=== PATIENT | female | born 1955 | race Caucasian/White ===

== ENCOUNTER → 2016-11-05 | Outpatient (CLI) | payer MEDICARE ==
--- NOTE | 2016-11-05 16:36 | REP ---
CHEST X-RAY PA AND LATERAL: 11/05/2016. Comparison: 03/09/2010 and 02/13/2010. Clinical history: 61-year-old female with left-sided chest pain. Findings: The lungs are adequately inflated. There is some underlying interstitial change, greatest in the mid and lower lung zone. No pleural effusion, lateral pleural thickening, apical scarring or pneumothorax. I see no dense consolidation or parenchymal mass. No pulmonary nodule. Heart size not enlarged. The aorta is mildly tortuous with calcifications at the arch, but normal for age. Airway intact. There is no mediastinal or hilar contour abnormality or mass. Pulmonary arteries unremarkable. No pneumothorax, pneumomediastinum. Bones show no compression deformity or destructive lesion. Impression: 1. Lungs shows some minor basilar fibrotic changes mid and lower lung zones without cardiomegaly, edema, effusion, acute infiltrate or parenchymal lung mass. 2. No cardiomegaly, aortic aneurysm or other acute finding.
== END ==
LOC: M CLY 14:26
PROVIDERS: ATTEND Family Medicine
DX: R91.8 Other nonspecific abnormal finding of lung field (principal)

== ENCOUNTER → 2016-11-05 | Outpatient (REF) | payer MEDICARE ==
[2016-11-06 12:37] LABS: FOLATE 13.6 NG/ML (>5.4); VITAMIN B12 LEVEL 613 PG/ML (247-911)
[2016-11-06 12:39] LABS: BASO # 0.1 K/mm3 (0.0-0.2); BASO % 0.8 % (0.0-1.0); EOS # 0.1 K/mm3 (0.0-0.50); EOS % 1.5 % (0.0-3.0); LARGE UNSTAINED CELL # 0.1 K/mm3 (0.0-0.4); LARGE UNSTAINED CELL % 1.4 % (0.0-4.0); LYMPH # 2.3 K/mm3 (1.5-4.5); LYMPH % 25.4 % (24.0-44.0); MEAN CORPUSCULAR HEMOGLOBIN 33.6 pg (27.0-33.0); MEAN CORPUSCULAR HGB CONC 34.4 g/dl (32.0-36.5); MEAN CORPUSCULAR VOLUME 97.5 fl (80.0-96.0); MONO # 0.5 K/mm3 (0.0-0.8); NEUTROPHILS % 65.9 % (36.0-66.0); PLATELET COUNT, AUTOMATED 306 k/mm3 (150-450); RED CELL DISTRIBUTION WIDTH 12.3 % (11.5-14.5); WHITE BLOOD COUNT 9.1 K/mm3 (4.0-10.0)
[2016-11-06 12:53] LABS: ALBUMIN 3.9 GM/DL (3.2-5.2); ALBUMIN/GLOBULIN RATIO 0.95 (1.00-1.93); ALKALINE PHOSPHATASE 74 U/L (45-117); ALT/SGPT 24 U/L (12-78); ANION GAP 8 MEQ/L (8-16); AST/SGOT 19 U/L (15-37); BILIRUBIN,TOTAL 0.7 MG/DL (0.2-1.0); BLOOD UREA NITROGEN 25 MG/DL (7-18); CALCIUM LEVEL 9.4 MG/DL (8.5-10.1); CARBON DIOXIDE LEVEL 33 MEQ/L (21-32); CHLORIDE LEVEL 96 MEQ/L (98-107); CHOLESTEROL LEVEL 157 MG/DL (<200); CREATININE FOR GFR 1.02 MG/DL (0.55-1.02); GLUCOSE, FASTING 93 MG/DL (70-105); POTASSIUM SERUM 3.9 MEQ/L (3.5-5.1); SODIUM LEVEL 137 MEQ/L (136-145); TRIGLYCERIDES LEVEL 138 MG/DL (<150); URIC ACID 7.1 MG/DL (2.6-6.0)
[2016-11-06 13:34] LABS: ERYTHROCYTE SEDIMENTATION RATE 16 mm/hr (0-30)
== END ==
LOC: M SFHCCLAY 14:14
PROVIDERS: ATTEND Family Medicine
DX: I10 Essential (primary) hypertension (principal); R07.89 Other chest pain; M25.562 Pain in left knee; R20.2 Paresthesia of skin; E11.42 Type 2 diabetes mellitus with diabetic polyneuropathy; E78.2 Mixed hyperlipidemia; G47.09 Other insomnia; M1A.9XX0 Chronic gout, unspecified, without tophus (tophi); F31.9 Bipolar disorder, unspecified
CPT/HCPCS: 71020; 80053; 80061; 80164; 82607; 82746; 83036; 84443; 84550; 85025; 85652; 86038; 86140; 86200; 93005; G0463

== ENCOUNTER → 2017-02-16 | Outpatient (REF) | payer MEDICARE ==
[2017-02-16 20:24] LABS: ALBUMIN 3.8 GM/DL (3.2-5.2); ALBUMIN/GLOBULIN RATIO 0.86 (1.00-1.93); ALKALINE PHOSPHATASE 81 U/L (45-117); ALT/SGPT 30 U/L (12-78); ANION GAP 8 MEQ/L (8-16); AST/SGOT 26 U/L (7-37); BILIRUBIN,TOTAL 0.5 MG/DL (0.2-1.0); BLOOD UREA NITROGEN 26 MG/DL (7-18); CALCIUM LEVEL 9.1 MG/DL (8.5-10.1); CARBON DIOXIDE LEVEL 33 MEQ/L (21-32); CHLORIDE LEVEL 99 MEQ/L (98-107); CREATININE FOR GFR 0.98 MG/DL (0.55-1.02); GLOMERULAR FILTRATION RATE > 60.0 (>51); GLUCOSE, FASTING 102 MG/DL (70-105); POTASSIUM SERUM 3.8 MEQ/L (3.5-5.1); SODIUM LEVEL 140 MEQ/L (136-145); TOTAL PROTEIN 8.2 GM/DL (6.4-8.2); URIC ACID 4.3 MG/DL (2.6-6.0)
== END ==
LOC: M SFHCCLAY 09:31
PROVIDERS: ATTEND Family Medicine
DX: E11.42 Type 2 diabetes mellitus with diabetic polyneuropathy (principal); M1A.00X0 Idiopathic chronic gout, unspecified site, without tophus (tophi); Z23 Encounter for immunization
CPT/HCPCS: 80053; 84550; 90471; 90686; G0463

== ENCOUNTER → 2017-03-09 | Outpatient (REF) | payer MEDICARE ==
[2017-03-09 18:02] LABS: ALBUMIN 3.9 GM/DL (3.2-5.2); ALBUMIN/GLOBULIN RATIO 0.91 (1.00-1.93); BILIRUBIN,TOTAL 0.7 MG/DL (0.2-1.0); CALCIUM LEVEL 9.5 MG/DL (8.5-10.1); CREATININE FOR GFR 1.34 MG/DL (0.55-1.02); GLOMERULAR FILTRATION RATE 43.1 (>51); POTASSIUM SERUM 3.4 MEQ/L (3.5-5.1); TOTAL PROTEIN 8.2 GM/DL (6.4-8.2)
[2017-03-09 18:50] LABS: BASO % 0.4 % (0.0-1.0); EOS # 0.1 10^3/uL (0.0-0.50); EOS % 1.3 % (0.0-3.0); IMMATURE GRANULOCYTE % 0.3 % (0-0); LYMPH % 19.4 % (24.0-44.0); MEAN CORPUSCULAR HEMOGLOBIN 33.3 pg (27.0-33.0); MEAN CORPUSCULAR HGB CONC 32.3 g/dl (32.0-36.5); MEAN CORPUSCULAR VOLUME 103.2 fl (80.0-96.0); MONO # 0.6 10^3/uL (0.0-0.8); MONO % 5.5 % (0.0-5.0); NEUTROPHILS # 7.4 10^3/uL (1.8-7.7); NEUTROPHILS % 73.1 % (36.0-66.0); PLATELET COUNT, AUTOMATED 325 10^3/uL (150-450); WHITE BLOOD COUNT 10.1 10^3/uL (4.0-10.0)
== END ==
LOC: M SFHCCLAY 11:51
PROVIDERS: ATTEND Family Medicine
DX: R19.7 Diarrhea, unspecified (principal); R50.9 Fever, unspecified; R05 Cough

== ENCOUNTER → 2017-03-09 | Outpatient (CLI) | payer MEDICARE ==
--- NOTE | 2017-03-09 13:45 | REP ---
Clinical: Cough . Comparison: 11/05/2016 . Technique: PA and lateral. Findings: The mediastinum and cardiac silhouette are normal. The lung holloway are clear and without acute consolidation, effusion, or pneumothorax. The skeletal structures are intact and normal. Impression: 1. No focal consolidation. Signed by Casey Coleman MD 03/09/2017 01:35 P
== END ==
LOC: M CLY 12:01
PROVIDERS: ATTEND Family Medicine
DX: R05 Cough (principal)
CPT/HCPCS: 71020; 80053; 85025; 87507; G0463

== ENCOUNTER → 2017-05-21 | Outpatient (REF) | payer MEDICARE ==
[2017-05-21 12:25] LABS: ESTIMATED AVERAGE GLUCOSE 131 MG/DL (60-110); HEMOGLOBIN A1c 6.2 %
[2017-05-21 12:32] LABS: ALBUMIN 3.6 GM/DL (3.2-5.2); ALBUMIN/GLOBULIN RATIO 0.84 (1.00-1.93); ALKALINE PHOSPHATASE 73 U/L (45-117); ALT/SGPT 15 U/L (12-78); ANION GAP 9 MEQ/L (8-16); AST/SGOT 16 U/L (7-37); BILIRUBIN,TOTAL 0.6 MG/DL (0.2-1.0); BLOOD UREA NITROGEN 30 MG/DL (7-18); CALCIUM LEVEL 9.6 MG/DL (8.8-10.2); CARBON DIOXIDE LEVEL 34 MEQ/L (21-32); CHLORIDE LEVEL 99 MEQ/L (98-107); CREATININE FOR GFR 0.96 MG/DL (0.55-1.30); GLOMERULAR FILTRATION RATE > 60.0 (>45); GLUCOSE, FASTING 112 MG/DL (70-100); POTASSIUM SERUM 4.2 MEQ/L (3.5-5.1); SODIUM LEVEL 142 MEQ/L (136-145); TOTAL PROTEIN 7.9 GM/DL (6.4-8.2)
== END ==
LOC: M SFHCCLAY 09:19
DX: E11.42 Type 2 diabetes mellitus with diabetic polyneuropathy (principal)
CPT/HCPCS: 80053

== ENCOUNTER → 2017-06-02 | Outpatient (CLI) | payer MEDICARE | LOC: M RAD 13:47 | DX: I65.23 Occlusion and stenosis of bilateral carotid arteries (principal); Z82.49 Family history of ischemic heart disease and other diseases of the circulatory system | CPT/HCPCS: 70544 ==

== ENCOUNTER → 2017-07-21 | Outpatient (REF) | payer MEDICARE ==
[2017-07-21 16:41] LABS: ANION GAP 9 MEQ/L (8-16); BLOOD UREA NITROGEN 43 MG/DL (7-18); CALCIUM LEVEL 9.4 MG/DL (8.8-10.2); CARBON DIOXIDE LEVEL 30 MEQ/L (21-32); CHLORIDE LEVEL 101 MEQ/L (98-107); CREATININE FOR GFR 1.38 MG/DL (0.55-1.30); GLOMERULAR FILTRATION RATE 41.5 (>45); GLUCOSE, FASTING 77 MG/DL (70-100); POTASSIUM SERUM 4.6 MEQ/L (3.5-5.1); SODIUM LEVEL 140 MEQ/L (136-145)
== END ==
LOC: M SFHCCLAY 11:27
DX: I10 Essential (primary) hypertension (principal)
CPT/HCPCS: 80048

== ENCOUNTER → 2017-09-14 | Outpatient (REF) | payer MEDICARE | LOC: M LAB REF 15:37 | DX: L03.039 Cellulitis of unspecified toe (principal) | CPT/HCPCS: 87186 ==

== ENCOUNTER → 2018-06-27 | Outpatient (REF) | payer MEDICARE ==
[2018-06-27 17:58] LABS: HEMOGLOBIN A1c 7.1 %
[2018-06-27 18:01] LABS: ALT/SGPT 22 U/L (12-78); BILIRUBIN,TOTAL 0.5 MG/DL (0.2-1.0); BLOOD UREA NITROGEN 15 MG/DL (7-18); CALCIUM LEVEL 9.7 MG/DL (8.8-10.2); CARBON DIOXIDE LEVEL 29 MEQ/L (21-32); CHLORIDE LEVEL 99 MEQ/L (98-107); CREATININE FOR GFR 0.98 MG/DL (0.55-1.30); GLOMERULAR FILTRATION RATE > 60.0 (>45); GLUCOSE, FASTING 179 MG/DL (70-100); SODIUM LEVEL 137 MEQ/L (136-145); TOTAL PROTEIN 8.1 GM/DL (6.4-8.2)
== END ==
LOC: M SFHCCLAY 09:47
PROVIDERS: ATTEND Family Medicine
DX: E11.42 Type 2 diabetes mellitus with diabetic polyneuropathy (principal)

== ENCOUNTER → 2018-08-24 | Outpatient (CLI) | payer MEDICARE ==
--- NOTE | 2018-08-24 11:17 | REP ---
Duplex carotid sonography: History: Essential hypertension. Findings: Antegrade flow was observed in both vertebral arteries. Right carotid: Right common carotid artery is unremarkable on two-dimensional scanning. There is mild soft plaquing in the right carotid bulb and proximal ICA on two-dimensional scanning. Color flow and spectral Doppler interrogation are unremarkable on the right. Velocity chart right carotid: PSV EDV Right CCA 93.0 cm/s Right ICA 66.0 16.0 Right ECA 94.0 Right ICA/CCA ratio normal 0.7. Impression: 16-49% category narrowing in the right ICA by Doppler velocity criteria, probably near the lower end of this range. Left carotid: The left common carotid artery is unremarkable on two-dimensional scanning. There is mixed plaquing in the proximal ICA and proximal ECA. Color flow and spectral Doppler interrogation are unremarkable on the left. Velocity chart left carotid: PSV EDV Left CCA 91.0 cm/s Left ICA 101.0 17.0 Left ECA 101.0 Left ICA/CCA ratio normal 1.1. Impression: 16-49% category narrowing in the left ICA by Doppler velocity criteria. Electronically Signed by Regan Rendon MD 08/24/2018 01:41 P
== END ==
LOC: M RAD 08:01
PROVIDERS: ATTEND Family Medicine
DX: I65.29 Occlusion and stenosis of unspecified carotid artery (principal); I10 Essential (primary) hypertension; H35.00 Unspecified background retinopathy; E11.42 Type 2 diabetes mellitus with diabetic polyneuropathy

== ENCOUNTER → 2018-10-27 | Outpatient (REF) | payer MEDICARE ==
[2018-10-28 11:35] LABS: ALBUMIN 3.8 GM/DL (3.2-5.2); BILIRUBIN,TOTAL 0.3 MG/DL (0.2-1.0); CALCIUM LEVEL 9.4 MG/DL (8.8-10.2); CHOLESTEROL RISK RATIO 2.941 (<5); CREATININE FOR GFR 1.39 MG/DL (0.55-1.30); POTASSIUM SERUM 4.2 MEQ/L (3.5-5.1); TOTAL PROTEIN 7.9 GM/DL (6.4-8.2); URIC ACID 4.1 MG/DL (2.6-6.0)
[2018-10-28 11:50] LABS: HEMOGLOBIN A1c 9.7 %
== END ==
LOC: M SFHCCLAY 13:53
PROVIDERS: ATTEND Family Medicine
DX: E11.42 Type 2 diabetes mellitus with diabetic polyneuropathy (principal); M1A.9XX0 Chronic gout, unspecified, without tophus (tophi)

== ENCOUNTER → 2018-11-22 | Outpatient (CLI) | payer MEDICARE ==
[~2018-11-22] MED LIST: AMLO10TA5 PO; ATOR80TA59 PO; CELE1CAP9 PO; CHOL50003 PO; COMBAER6 INH; DIVA500T9 PO; DULO1CAP4 PO; FARX1TAB3 PO; FLUC150T PO; FURO40TA2 PO; GABA-843 PO; GABA600T4 PO; LOSA100T5 PO; MAGN1CAP PO; METF500T4 PO; MONT10TA2 PO; OMEP-221 PO; TIZA4CAP PO; VENTAER INH; ZYLO300T6 PO
[2018-11-22 11:38] LABS: RHEUMATOID FACTOR QUANT < 10.0 IU/ML (<15.0)
[2018-11-22 11:39] LABS: VITAMIN B12 LEVEL 975 PG/ML
[2018-11-22 11:40] LABS: FOLATE 16.4 NG/ML
[2018-11-22 12:49] LABS: DRVV SCREEN 42.8 SEC
[2018-11-22 12:59] LABS: PTT LUPUS TYPE ANTICOAG SCREEN 1.1 (0-1.2)
[2018-11-25 14:17] LABS: ANTI DS-DNA AB <1:10 titer (.); ANTI-HISTONE ANTIBODIES 1.9 Units (0.0-0.9); ANTINUCLEAR ANTIBODIES DIRECT Negative (Negative); CARDIOLIPIN IGA ANTIBODY <9 APL U/mL (0-11); CARDIOLIPIN IGG ANTIBODY <9 GPL U/mL (0-14); CARDIOLIPIN IGM ANTIBODY <9 MPL U/mL (0-12); CERULOPLASMIN 30.8 mg/dL (19.0-39.0); COPPER PLASMA 117 ug/dL (72-166); RNP ANTIBODIES <0.2 AI (0.0-0.9); SJOGREN'S ANTI SS-A <0.2 AI (0.0-0.9); SJOGREN'S ANTI SS-B <0.2 AI (0.0-0.9); SMITH ANTIBODIES 0.4 AI (0.0-0.9)
== END ==
LOC: M LAB 10:23
PROVIDERS: ATTEND Psychiatry & Neurology Neurology
DX: L93.0 Discoid lupus erythematosus (principal); R25.1 Tremor, unspecified; E83.01 Wilson's disease; E03.9 Hypothyroidism, unspecified

== ENCOUNTER 2018-12-01 12:42 | Observation (INO) | payer MEDICARE ==
[~2018-12-01] VITALS: Ht 170.2 cm; Wt 99.9 kg
[2018-12-01] MEDS ORDERED: GABA-843 PO ×2 (13:08)
[2018-12-01] MEDS ORDERED: OMEP-221 PO (13:08)
[2018-12-01] MEDS ORDERED: DIVA500T9 PO (13:08)
[2018-12-01] MEDS ORDERED: ZYLO300T6 PO (13:08)
[2018-12-01] MEDS ORDERED: MAGN1CAP PO (13:08)
[2018-12-01] MEDS ORDERED: CHOL50003 PO (13:08)
[2018-12-01] MEDS ORDERED: MONT10TA2 PO (13:08)
[2018-12-01] MEDS ORDERED: METF-791 PO ×2 (13:08)
[2018-12-01] MEDS ORDERED: LOSA100T5 PO (13:08)
[2018-12-01] MEDS ORDERED: AMLO10TA5 PO (13:08)
[2018-12-01] MEDS ORDERED: CELE1CAP9 PO (13:08)
[2018-12-01] MEDS ORDERED: ATOR80TA59 PO (13:08)
[2018-12-01] MEDS ORDERED: FURO40TA2 PO (13:08)
[2018-12-01] MEDS ORDERED: FLUC150T PO (13:08)
[2018-12-01] MEDS ORDERED: FARX1TAB3 PO (13:08)
[2018-12-01] MEDS ORDERED: TIZA4CAP PO (13:08)
[2018-12-01] MEDS ORDERED: DULO1CAP4 PO (13:08)
[2018-12-01] MEDS ORDERED: ASPIRIN 81 MG CHEW TABLET PO ONE (13:15)
[2018-12-01 13:40] LABS: BASO # 0.1 10^3/uL (0.0-0.2); BASO % 0.6 % (0.0-1.0); EOS # 0.1 10^3/uL (0.0-0.50); EOS % 1.1 % (0.0-3.0); HEMATOCRIT 41.9 % (36.0-47.0); HEMOGLOBIN 13.6 g/dl (12.0-15.5); LYMPH # 2.4 10^3/uL (1.5-4.5); LYMPH % 18.4 % (24.0-44.0); MEAN CORPUSCULAR HEMOGLOBIN 30.9 pg (27.0-33.0); MEAN CORPUSCULAR HGB CONC 32.5 g/dl (32.0-36.5); MEAN CORPUSCULAR VOLUME 95.2 fl (80.0-96.0); MONO # 0.7 10^3/uL (0.0-0.8); MONO % 5.1 % (0.0-5.0); NEUTROPHILS # 9.8 10^3/uL (1.8-7.7); NEUTROPHILS % 74.3 % (36.0-66.0); PLATELET COUNT, AUTOMATED 286 10^3/uL (150-450); WHITE BLOOD COUNT 13.1 10^3/uL (4.0-10.0)
--- NOTE | 2018-12-01 13:47 | REP ---
CT brain without contrast: History: Dizziness. Slurred speech. CT findings: Preliminary digital glass crusher radiograph is unremarkable. Bone window settings demonstrate that the bony calvarium is intact. There is heavy vascular calcification in the distal internal carotid arteries bilaterally. On soft tissue window settings, there is no evidence of intracranial hemorrhage. No evidence of infarct, mass, extra-axial fluid collection, or midline shift is seen. Ball white differentiation pattern is normal above and below the tentorium. Impression: Vascular calcification. Otherwise negative noncontrast head CT. No evidence of hemorrhage, infarction, or mass. Electronically Signed by Regan Rendon MD 12/01/2018 04:50 P
--- NOTE | 2018-12-01 14:04 | REP ---
PA and lateral chest: Comparison is 03/09/2017. The lung holloway are clear. The cardiac size is normal. The ruma, mediastinum, and skeletal structures are unremarkable. Impression: Negative PA and lateral chest. There is no interval change. Electronically Signed by Davie Huertas MD 12/01/2018 01:55 P
[2018-12-01 14:20] LABS: ALBUMIN 3.6 GM/DL (3.2-5.2); ALT/SGPT 19 U/L (12-78); BILIRUBIN,DIRECT 0.1 MG/DL (0.0-0.2); BILIRUBIN,TOTAL 0.2 MG/DL (0.2-1.0); BLOOD UREA NITROGEN 38 MG/DL (7-18); CALCIUM LEVEL 9.3 MG/DL (8.8-10.2); CARBON DIOXIDE LEVEL 30 MEQ/L (21-32); CHLORIDE LEVEL 89 MEQ/L (98-107); CK-MB VALUE MASS 1.2 NG/ML (<3.6); CPK CREATINE PHOSPHOKINASE 166 U/L (26-192); CREATININE FOR GFR 1.85 MG/DL (0.55-1.30); FREE T4 1.09 NG/DL (0.76-1.46); GLOMERULAR FILTRATION RATE 29.5 (>45); GLUCOSE, FASTING 445 MG/DL (70-100); MB/CK RELATIVE INDEX 0.72 (< OR =4); POTASSIUM SERUM 4.6 MEQ/L (3.5-5.1); SODIUM LEVEL 130 MEQ/L (136-145); TOTAL PROTEIN 8.1 GM/DL (6.4-8.2); TROPONIN I < 0.02 NG/ML (< 0.10)
[2018-12-01 14:32] LABS: INR 0.94; PROTHROMBIN TIME 12.3 SECONDS (11.8-14.0)
[2018-12-01 14:33] LABS: PARTIAL THROMBOPLASTIN TIME 25.7 SECONDS (25.0-38.4)
[2018-12-01] MEDS ORDERED: NS 1,000 ML IV SCH (14:53)
[2018-12-01] MEDS ORDERED: GLUCOSE 4 GM CHEW TABLET PO PRN (15:30)
[2018-12-01] MEDS ORDERED: DEXTROSE 50% 50 ML SYRINGE IV PRN (15:30)
[2018-12-01] MEDS ORDERED: GLUCAGON FOR INJ 1 MG VIAL (J1610) SC PRN (15:30)
--- NOTE | 2018-12-01 15:51 | HPE ---
DATE OF ADMISSION: 12/01/2018 CHIEF COMPLAINT: Acute kidney injury, diabetes out of control. HISTORY: Maria Esther Delatorre is a 63-year-old patient of Dr. Lance in [place], transferring her care to Dr. Martinez's team practice this December, who has been feeling unwell for several months. She came to the emergency room today because she thought that her face was weak and in a symmetric fashion. Her speech was slurred and she was feeling "drunk" and shaky. Her blood sugars have been in the 300 range recently. She said she has not felt well for several months but it became worse recently. She has polyuria and polydipsia. Her diabetes is out of control. Hemoglobin A1c was over 9% and blood sugar today is 400. She was on metformin and has monotherapy with good control of her blood sugars until recently when her diabetes became uncontrolled and she had been started on Farxiga. She also was recently placed on Diflucan for some toenail fungus and she has not felt well since then either. She has a history of type 2 diabetes with a recent hemoglobin A1c of over 9%. She has never been on insulin before. She has hypertension, history of asthma, history of bipolar disorder, history of gout in her knees and toes, and gastroesophageal reflux disease (GERD). She has chronic low back pain with lumbosacral spinal stenosis, left-sided sciatica, is followed by Dr. Montana [facility]. They have her on gabapentin, Cymbalta, and tizanidine. She was seen for the first time at the neurologist's office a week ago on 11/22/2018. They ordered some laboratory tests and planned an MRI of the brain and were considering propranolol for her tremor. That laboratory testing was reviewed as was the patient's office record. Laboratory testing done 11/22/2018 showed normal thyroid function tests, normal B12 level, a negative antinuclear antibody (JAE). On 11/05/2016, she had a positive JAE of 1:640 with a homogenous pattern, repeat JAE is negative and that was just done on 11/22/20180. SOCIAL HISTORY: She smokes half a pack to a pack of cigarettes per day. No alcohol intake. She is disabled. She is . MEDICATIONS: Home medicines are: - magnesium oxide 400 mg twice a day - vitamin D 2000 units daily - albuterol inhaler or nebulizer as needed - gabapentin 300 mg twice a day - omeprazole 40 mg daily - tizanidine 2 mg at bedtime - Combivent one puff twice a day - Depakote ER 500 mg two tablets daily - losartan/hydrochlorothiazide (HCTZ) 100/25 one daily - amlodipine 10 mg daily - furosemide 40 mg daily - Singulair 10 mg daily - allopurinol 300 mg daily - atorvastatin 80 mg daily - metformin ER 1000 mg in the morning and 500 mg in the evening - tramadol 50 mg every six hours as needed - Cymbalta 30 mg daily - Diflucan 150 mg two tablets weekly for toenail fungus - She was started on Farxiga 10 mg on 10/28/2018. ALLERGIES: LISINOPRIL caused unspecified swelling, NONSTEROIDAL ANTIINFLAMMATORY DRUG (NSAID) such as MOBIC, IBUPROFEN, NAPROXEN have not proven beneficial in improving in her pain. REVIEW OF SYSTEMS: She has polyuria, polydipsia. She feels vaguely weak but not in a focal fashion. She says sometimes she feels like her hands and arms are jerking but then she also has a fine tremor. There has been no ariadna syncope. She reportedly had chest pain in the emergency room but she does not described that to me. PHYSICAL EXAMINATION: Blood pressure 114/78. Vital signs per the flow sheet. No orthostatic drop. GENERAL APPEARANCE: She is alert, conversant, in no distress, looks mildly anxious. Pupils are equal, round, and reactive to light. Tympanic membranes (TMs) and oropharynx benign. NECK: No masses. LUNGS: Clear. HEART: Regular rate and rhythm without murmur. ABDOMEN: Soft, nontender, no masses. EXTREMITIES: No clubbing, cyanosis, or edema. She has a fine tremor of the hands. There is no cogwheeling or rigidity. There is normal coordination. I did not test her gait. LABORATORY DATA: Sodium 130, potassium 4.6, BUN 38, creatinine 1.85 (baseline creatinine is between 0.9 and 1.3), blood sugar 445. Liver function tests normal. White count 13.1, hemoglobin 13.6, platelets 286. PT/PTT normal. Urinalysis shows 3+ glucose, no white cells. Chest x-ray: No active disease. CT of the head is unremarkable. IMPRESSION: 1. Acute kidney injury, probably from diabetes out of control and dehydration. She will be admitted to the medical floor. We will hold her diuretics. She will be admitted to a telemetry bed. We will hydrate her with some lactated ringers and recheck her laboratories in the morning. 2. Diabetes, out of control. We probably should start insulin therapy. I am holding her metformin and Farxiga in the face of the acute kidney injury. Her bicarbonate is normal so she is not in a ketotic state from the Farxiga. Sliding scale insulin and basal insulin initiated. 3. Vague neurologic complaints. MRI of the brain has been ordered. 4. Hypertension. We will hold her diuretics and hold her amlodipine for now. 5. Hyperlipidemia. Continue her atorvastatin. 6. Bipolar disorder. We will check a Depakote level. Continue her current regimen. The patient is admitted to the hospitalist group.
--- NOTE | 2018-12-01 16:56 | REPVR ---
EXAM: MR Head Without Contrast EXAM DATE/TIME: 12/01/2018 4:41 PM CLINICAL HISTORY: 63 years old, female; Patient HX: Prior on pac BURGOS said her blood sugar is high 451 dizziness weakness; Additional info: CVA TECHNIQUE: Imaging protocol: MR of the head without contrast. COMPARISON: MRA BRAIN W/O CONTRAST 06/02/2017 2:28 PM FINDINGS: Brain: There is hyperintense signal within the white matter. This is a nonspecific finding most likely to represent chronic microvascular disease. DWI demonstrate no evidence of acute infarct. Gradient echo images demonstrate no evidence of hemorrhage. There is no extra-axial collection. There is no mass. There are no abnormal flow voids. Ventricles: There is no hydrocephalus. Bones/joints: Unremarkable. Soft tissues: Normal. Sinuses: Normal as visualized. No acute sinusitis. Mastoid air cells: Normal as visualized. No mastoid effusion. Orbits: Unremarkable. IMPRESSION: 1. There is chronic microvascular disease. 2. No acute intracranial lesion or injury. Electronically signed by: Justice Sanchez On 12/01/2018 16:56:36 PM
--- NOTE | 2018-12-01 17:00 | REPVR ---
EXAM: MR Angiogram Head Without Contrast, Arteries EXAM DATE/TIME: 12/01/2018 4:41 PM CLINICAL HISTORY: 63 years old, female; Dizziness and giddiness; Patient HX: Prior on pac BURGOS said her blood sugar is high 451 dizziness weakness; Additional info: CVA TECHNIQUE: Imaging protocol: MR angiogram head without contrast. Exam focused on the arteries. 3D rendering: MIP reconstructed images were created and reviewed. COMPARISON: MRA BRAIN W/O CONTRAST 06/02/2017 2:28 PM FINDINGS: Right internal carotid artery: Unremarkable. Intracranial segment is patent with no significant stenosis. No aneurysm. Right anterior cerebral artery: Unremarkable. No occlusion or significant stenosis. No aneurysm. Right middle cerebral artery: Unremarkable. No occlusion or significant stenosis. No aneurysm. Right posterior cerebral artery: Unremarkable. No occlusion or significant stenosis. No aneurysm. Right vertebral artery: Unremarkable. No occlusion or significant stenosis. No aneurysm. Left internal carotid artery: Unremarkable. Intracranial segment is patent with no significant stenosis. No aneurysm. Left anterior cerebral artery: Unremarkable. No occlusion or significant stenosis. No aneurysm. Left middle cerebral artery: Unremarkable. No occlusion or significant stenosis. No aneurysm. Left posterior cerebral artery: There is a origin of the left posterior cerebral artery. No stenosis. No aneurysm. Left vertebral artery: Unremarkable. No occlusion or significant stenosis. No aneurysm. Basilar artery: Unremarkable. No occlusion or significant stenosis. No aneurysm. IMPRESSION: Normal brain MRA. No change from prior scan. Electronically signed by: Justice Sanchez On 12/01/2018 16:59:53 PM
[2018-12-01 17:15] VITALS: BP 118/72
[2018-12-01] MEDS: LR 1,000 ML IV SCH (17:28)
[2018-12-01] MEDS: HumaLOG INSULIN (NovoLOG) PER UNIT SC SCH ×2 (17:37→21:46)
[2018-12-01] MEDS ORDERED: GABA600T4 PO (17:47)
[2018-12-01] MEDS ORDERED: VENTAER INH (17:49)
[2018-12-01] MEDS ORDERED: COMBAER6 INH (17:49)
[2018-12-01 20:00] VITALS: BP 115/58
[2018-12-01] MEDS ORDERED: LEVEMIR (INSULIN DETEMIR) 1 UNITS/0.01ML SC SCH (21:00)
[2018-12-01] MEDS: GABAPENTIN 300 MG CAP PO SCH (21:47)
[2018-12-02] VITALS (7 sets, daily range): BP systolic 95–143; BP diastolic 54–80
[2018-12-02] MEDS: LR 1,000 ML IV SCH ×2 (01:00→08:57)
--- NOTE | 2018-12-02 05:14 | ECGEPIP ---
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
[2018-12-02 05:41] LABS: HEMATOCRIT 37.3 % (36.0-47.0); HEMOGLOBIN 12.1 g/dl (12.0-15.5); MEAN CORPUSCULAR HEMOGLOBIN 30.1 pg (27.0-33.0); MEAN CORPUSCULAR HGB CONC 32.4 g/dl (32.0-36.5); MEAN CORPUSCULAR VOLUME 92.8 fl (80.0-96.0); PLATELET COUNT, AUTOMATED 256 10^3/uL (150-450); RED BLOOD COUNT 4.02 10^6/uL (4.00-5.40)
[2018-12-02 06:03] LABS: CALCIUM LEVEL 8.9 MG/DL (8.8-10.2); CREATININE FOR GFR 1.49 MG/DL (0.55-1.30); GLOMERULAR FILTRATION RATE 37.9 (>45); POTASSIUM SERUM 3.8 MEQ/L (3.5-5.1); VALPROIC ACID (DEPAKOTE) 62.5 UG/ML (50.0-100.0)
[2018-12-02] MEDS: HumaLOG INSULIN (NovoLOG) PER UNIT SC SCH ×4 (07:47→20:47)
[2018-12-02] MEDS: GABAPENTIN 300 MG CAP PO SCH ×2 (08:57→20:46)
[2018-12-02] MEDS: ATORVASTATIN 20 MG TAB PO SCH (08:57)
[2018-12-02] MEDS: PANTOPRAZOLE 40MG TAB (PROTONIX) PO SCH (08:57)
[2018-12-02] MEDS: DULoxetine 20 MG CAP (CYMBALTA) PO SCH (08:58)
[2018-12-02] MEDS: DIVALPROEX 500MG *ER* TAB PO SCH ×2 (08:58→20:46)
[2018-12-02] MEDS: ALLOPURINOL 300 MG TAB PO SCH (08:58)
[2018-12-02] MEDS: amLODIPine 10 MG TAB PO SCH (08:58)
[2018-12-02] MEDS: LOSARTAN 50 MG TAB PO SCH (08:59)
[2018-12-02] MEDS: NS 1,000 ML IV SCH ×2 (10:43→20:02)
--- NOTE | 2018-12-02 10:50 | IPNPDOC ---
Subjective Date Seen The patient was seen on 12/02/18. Subjective Chief Complaint/HPI Patient is comfortable in no distress. Offers no new complaints General: Denies: ROS Unobtainable, Chills, Night Sweats, Fatigue, Malaise, Normal Appetite, Other Symptoms Constitutional: Denies: Chills, Fever, Malaise, Night Sweats, Weakness, Fatigue, Weight Loss, Lethargy, Other Eyes: Denies: Pain, Vision change, Conjunctivae inflammation, Eyelid inflammation, Redness, Other ENT: Denies: Head Aches, Ear Pain, Dysphagia, Sinus Congestion, Post Nasal Dri p, Sore Throat, Epistaxis, Other Symptoms Skin: Denies: Rash, Lesions, Jaundice, Bruising, Itching, Dry, Breakdown, Nail Changes, Other Pulmonary: Denies: Dyspnea, Cough, Pleuritic Chest Pain, Other Symptoms Cardiovascular: Denies: Chest Pain, Palpitations, Orthopnea, Paroxysmal Noc. Dyspnea, Edema, Lt Headedness, Other Symptoms Gastrointestinal: Denies: Nausea, Vomiting, Abdominal Pain, Diarrhea, Constipation, Melena, Hematochezia, Other Symptoms Endocrine: Denies: Polydipsia, Polyphagia, Polyuria, Heat Intolerance, Cold Intolerance, Other Endocrine Sx Musculoskeletal: Denies: Neck Pain, Back Pain, Shoulder Pain, Arm Pain, Hand Pain, Leg Pain, Foot Pain, Joint Pain, Muscle Pain, Spasms, Other Symptoms Neurological: Denies: Weakness, Numbness, Incoordination, Change in speech, Confusion, Seizures, Other Symptoms Objective Physical Examination General Exam: Positive: Alert Eye Exam: Positive: PERRLA, Conjunctiva & lids normal ENT Exam: Positive: Atraumatic Neck Exam: Positive: Supple Chest Exam: Positive: Clear to auscultation, Normal air movement Heart Exam: Positive: Rate Normal, Normal S1, Normal S2 Abdomen Exam: Positive: Normal bowel sounds, Soft, Tenderness Extremity Exam: Positive: Normal pulses Skin Exam: Positive: Nl turgor and temperature Neuro Exam: Positive: Strength at 5/5 X4 ext, Sensation Intact Assessment /Plan Problems (1) Diabetes mellitus with hyperglycemia Status: Acute Problem Text: Patient has been started on insulin support Industry blood sugar is still very high arm will increase insulin to 14 units subcutaneous daily at bedtime Diabetic teaching has been ordered Dietary consult has been ordered Patient probably will be discharged home on Lantus insulin and follow with Dr. Coronado as an outpatient (2) EVE (acute kidney injury) Status: Acute Problem Text: HPI secondary to uncontrolled diabetes mellitus and interaction with multiple meds including diuretics Patient is off Lasix, hydrochlorothiazide and ARB Monitor BUN/creatinine Change IV fluids to normal saline at 100 mL per hour\ Repeat labs in the Out of bed as tolerated Plan/VTE VTE Prophylaxis Ordered?: Yes VS, I&O, 24H, Fishbone Vital Signs/I&O Vital Signs Date Time Temp Pulse Resp B/P (MAP) Pulse Ox O2 Delivery O2 Flow Rate FiO2 12/02/18 08:58 142/60 12/02/18 08:00 97.5 81 18 91 12/01/18 15:45 Room Air I&O- Last 24 Hours up to 6 AM 12/02/18 06:00 Intake Total 1780 ml Output Total 1400 ml Balance 380 ml Laboratory Data 24H LABS Laboratory Tests 2 12/01/18 13:22: Immature Granulocyte % (Auto) 0.5, White Blood Count 13.1H, Red Blood Count 4.40, Hemoglobin 13.6, Hematocrit 41.9, Mean Corpuscular Volume 95.2, Mean Corpuscular Hemoglobin 30.9, Mean Corpuscular Hemoglobin Concent 32.5, Red Cell Distribution Width 13.4, Platelet Count 286, Neutrophils (%) (Auto) 74.3H, Lymphocytes (%) (Auto) 18.4L, Monocytes (%) (Auto) 5.1H, Eosinophils (%) (Auto) 1.1, Basophils (%) (Auto) 0.6, Neutrophils # (Auto) 9.8H, Lymphocytes # (Auto) 2.4, Monocytes # (Auto) 0.7, Eosinophils # (Auto) 0.1, Basophils # (Auto) 0.1, Nucleated Red Blood Cells % (auto) 0.0, Anion Gap 11, Glomerular Filtration Rate 29.5L, Calcium Level 9.3, Aspartate Amino Transf (AST/SGOT) 7, Alanine Aminotransferase (ALT/SGPT) 19, Alkaline Phosphatase 94, Total Bilirubin 0.2, Direct Bilirubin 0.1, Total Creatine Kinase 166, Creatine Kinase MB 1.2, Creatine Kinase MB Relative Index 0.72, Troponin I < 0.02, Total Protein 8.1, Albumin 3.6, Albumin/Globulin Ratio 0.80L, Thyroid Stimulating Hormone (TSH) 1.450, Free Thyroxine 1.09 12/01/18 14:07: Prothrombin Time 12.3, Prothromb Time International Ratio 0.94, Activated Partial Thromboplast Time 25.7, Urine Color STRAW, Urine Appearance CLEAR, Urine pH 5.0, Urine Specific [place] 1.011, Urine Protein NEGATIVE, Urine Glucose (UA) 3+H, Urine Ketones NEGATIVE, Urine Blood NEGATIVE, Urine Nitrite NEGATIVE, Urine Bilirubin NEGATIVE, Urine Urobilinogen 0.2, Urine Leukocyte Esterase NEGATIVE, Urine WBC (Auto) 1, Urine RBC (Auto) 2, Urine Hyaline Casts (Auto) 0, Urine B acteria (Auto) NEGATIVE, Urine Squamous Epithelial Cells 2, Urine Sperm (Auto) 12/01/18 17:31: Bedside Glucose (Misc Panel) 292H 12/01/18 21:36: Bedside Glucose (Misc Panel) 415H 12/02/18 05:13: Nucleated Red Blood Cells % (auto) 0.0, Anion Gap 5L, Glomerular Filtration Rate 37.9L, Blood Urea Nitrogen 34H, Creatinine 1.49H, Sodium Level 134L, Potassium Level 3.8, Chloride Level 96L, Carbon Dioxide Level 33H, Calcium Level 8.9, Valproic Acid (Depakene) Level 62.5 CBC/BMP Laboratory Tests 12/01/18 13:22 Red Blood Count 4.40, Mean Corpuscular Volume 95.2, Mean Corpuscular Hemoglobin 30.9, Mean Corpuscular Hemoglobin Concent 32.5, Red Cell Distribution Width 13.4, Neutrophils (%) (Auto) 74.3 H, Lymphocytes (%) (Auto) 18.4 L, Monocytes (%) (Auto) 5.1 H, Eosinophils (%) (Auto) 1.1, Basophils (%) (Auto) 0.6, Patricia trophils # (Auto) 9.8 H, Lymphocytes # (Auto) 2.4, Monocytes # (Auto) 0.7, Eosinophils # (Auto) 0.1, Basophils # (Auto) 0.1 12/02/18 05:13 Red Blood Count 4.02, Mean Corpuscular Volume 92.8, Mean Corpuscular Hemoglobin 30.1, Mean Corpuscular Hemoglobin Concent 32.4, Red Cell Distribution Width 13.5, Calcium Level 8.9 STEPHANI LIU MD Dec 02, 2018 10:49
[2018-12-02] MEDS: ENOXAPARIN 40 MG/0.4 ML SYRINGE (J1650) SC SCH (12:03)
[2018-12-02] MEDS ORDERED: LEVEMIR (INSULIN DETEMIR) 1 UNITS/0.01ML SC SCH (21:00)
[2018-12-03 04:00] VITALS: BP 118/63
[2018-12-03 04:46] LABS: HEMATOCRIT 36.9 % (36.0-47.0); MEAN CORPUSCULAR HEMOGLOBIN 30.9 pg (27.0-33.0); MEAN CORPUSCULAR HGB CONC 32.5 g/dl (32.0-36.5); MEAN CORPUSCULAR VOLUME 95.1 fl (80.0-96.0); PLATELET COUNT, AUTOMATED 236 10^3/uL (150-450); RED BLOOD COUNT 3.88 10^6/uL (4.00-5.40); WHITE BLOOD COUNT 7.8 10^3/uL (4.0-10.0)
[2018-12-03 05:14] LABS: ALBUMIN 2.8 GM/DL (3.2-5.2); BILIRUBIN,TOTAL 0.3 MG/DL (0.2-1.0); CALCIUM LEVEL 8.3 MG/DL (8.8-10.2); CREATININE FOR GFR 1.11 MG/DL (0.55-1.30); GLOMERULAR FILTRATION RATE 53.2 (>45); POTASSIUM SERUM 3.9 MEQ/L (3.5-5.1); TOTAL PROTEIN 6.8 GM/DL (6.4-8.2)
[2018-12-03] MEDS: NS 1,000 ML IV SCH (06:08)
[2018-12-03 08:00] VITALS: BP 132/86
[2018-12-03] MEDS: ATORVASTATIN 20 MG TAB PO SCH (08:04)
[2018-12-03 08:05] VITALS: BP 132/78
[2018-12-03] MEDS: PANTOPRAZOLE 40MG TAB (PROTONIX) PO SCH (08:05)
[2018-12-03] MEDS: DULoxetine 20 MG CAP (CYMBALTA) PO SCH (08:05)
[2018-12-03] MEDS: DIVALPROEX 500MG *ER* TAB PO SCH (08:05)
[2018-12-03] MEDS: GABAPENTIN 300 MG CAP PO SCH (08:05)
[2018-12-03] MEDS: amLODIPine 10 MG TAB PO SCH (08:05)
[2018-12-03] MEDS: ENOXAPARIN 40 MG/0.4 ML SYRINGE (J1650) SC SCH (08:06)
[2018-12-03] MEDS: LOSARTAN 50 MG TAB PO SCH (08:06)
[2018-12-03] MEDS: ALLOPURINOL 300 MG TAB PO SCH (08:06)
[2018-12-03] MEDS: HumaLOG INSULIN (NovoLOG) PER UNIT SC SCH ×2 (08:07→11:28)
[2018-12-03] MEDS ORDERED: INSUDET SC (10:14)
--- NOTE | 2018-12-03 11:43 | DS.PDOC ---
Discharge Summary General Date of Admission Dec 01, 2018 at 12:43 Date of Discharge 12/03/18 Primary Care Physician: Cliff Martinez M.D. Discharge Summary PROCEDURES PERFORMED DURING STAY: None. ADMITTING DIAGNOSES: 1. Uncontrolled diabetes mellitus,EVE. DISCHARGE DIAGNOSES: 1. Uncontrolled diabetes mellitus, EVE. COMPLICATIONS/CHIEF COMPLAINT: Acute Kidney Injury. HISTORY OF PRESENT ILLNESS: Maria Esther Delatorre is a 63-year-old , who has been feeling unwell for several months. She came to the emergency room today because she thought that her face was weak and in a symmetric fashion. Her speech was slurred and she was feeling "drunk" and shaky. Her blood sugars have been in the 300 range recently. She said she has not felt well for several months but it became worse recently. She has polyuria and polydipsia. Her diabetes is out of control. Hemoglobin A1c was over 9% and blood sugar today is 400. She was on metformin and has monotherapy with good control of her blood sugars until recently when her diabetes became uncontrolled and she had been started on Farxiga. . HOSPITAL COURSE: Patient was admitted to medical floor, started on IV fluids and as well as on long-acting insulin at nighttime. Initially patient had hyperglycemia which progressively improved and her dose of Lantus was increased to 14 units daily at bedtime with a.m. blood sugar today was 169. Patient's BUN/creatinine is 28 and 0.70. Patient's diuretic including Lasix, hydrochlorothiazide, ARB were DC'd, patient's blood pressure remained stable and her kidney function improved very well, which is within normal limits. Patient's oral hypoglycemic agents including Glucophage were DC'd as they can cause renal dysfunction as well as clinically they were not useful enough to be continued. Hence, patient has been started on insulin Lantus on daily basis. Insulin and diabetic education was done and patient will be discharged home on home insulin and follow with the PCP in one week for adjustment. The dosage.. DISCHARGE MEDICATIONS: Please see below. ALLERGIES: Please see below. PHYSICAL EXAMINATION ON DISCHARGE: VITAL SIGNS: Please see below. GENERAL: Within normal limits HEENT: PERRLA NECK: Supple CARDIOVASCULAR EXAMINATION: S1, S2, regular RESPIRATORY EXAMINATION: Clear to A&P ABDOMINAL EXAMINATION: , Soft, nontender, positive present EXTREMITIES: No clubbing, cyanosis or edema SKIN: [Within normal limits NEUROLOGICAL EXAMINATION: Within normal limits PSYCHIATRIC EXAMINATION: The normal limit LABORATORY DATA: Please see below. IMAGING: None PROGNOSIS: Good ACTIVITY: As tolerated. DIET: Carbohydrate consistent diet DISCHARGE PLAN: Follow with PCP in one week DISPOSITION: . Home DISCHARGE INSTRUCTIONS: 1. As per discharge instructions. ITEMS TO FOLLOWUP ON ON OUTPATIENT: 1. Follow with PCP in one week. DISCHARGE CONDITION: Stable. TIME SPENT ON DISCHARGE: 40 minutes. Vital Signs/I&Os Vital Signs Date Time Temp Pulse Resp B/P (MAP) Pulse Ox O2 Delivery O2 Flow Rate FiO2 12/03/18 08:05 132/78 12/03/18 08:00 97.3 75 20 94 12/01/18 15:45 Room Air I&O- Last 24 Hours up to 6 AM 12/03/18 06:00 Intake Total 2940 ml Output Total 3200 ml Balance -260 ml Laboratory Data Labs 24H Laboratory Tests 2 12/02/18 11:40: Bedside Glucose (Misc Panel) 271H 12/02/18 17:14: Bedside Glucose (Misc Panel) 189H 12/02/18 20:01: Bedside Glucose (Misc Panel) 253H 12/03/18 04:19: Nucleated Red Blood Cells % (auto) 0.0, Anion Gap 7L, Glomerular Filtration Rate 53.2, Blood Urea Nitrogen 23H, Creatinine 1.11, Sodium Level 139, Potassium Level 3.9, Chloride Level 102, Carbon Dioxide Level 30, Calcium Level 8.3L, Aspartate Amino Transf (AST/SGOT) 10, Alanine Aminotransferase (ALT/SGPT) 15, Alkaline Phosphatase 76, Total Bilirubin 0.3, Total Protein 6.8, Albumin 2.8#L, Albumin/Globulin Ratio 0.70L 12/03/18 11:14: Bedside Glucose (Misc Panel) 241H CBC/BMP Laboratory Tests 12/03/18 04:19 Red Blood Count 3.88 L, Mean Corpuscular Volume 95.1, Mean Corpuscular Hemoglobin 30.9, Mean Corpuscular Hemoglobin Concent 32.5, Red Cell Distribution Width 13.4, Calcium Level 8.3 L, Aspartate Amino Transf (AST/SGOT) 10, Alanine Aminotransferase (ALT/SGPT) 15, Alkaline Phosphatase 76, Total Bilirubin 0.3, Total Protein 6.8, Albumin 2.8 #L FSBS Laboratory Tests Test 12/02/18 11:40 12/02/18 17:14 12/02/18 20:01 12/03/18 11:14 Range/Units Bedside Glucose ([facility]) 271 189 253 241 80-115 MG/DL Discharge Medications Scheduled Allopurinol (Zyloprim) 300 Mg Tablet, 300 MG PO DAILY, (Reported) Amlodipine Besylate (Amlodipine Besylate) 10 Mg Tablet, 10 MG PO DAILY, (Reported) Atorvastatin Calcium (Atorvastatin Calcium) 80 Mg Tablet, 80 MG PO DAILY, (Reported) Celecoxib (Celecoxib) 200 Mg Capsule, 200 MG PO DAILY, (Reported) Cholecalciferol (Vitamin D3) (Vitamin D3) 5,000 Unit Capsule, 5,000 UNITS PO DAILY, (Reported) Divalproex Sodium (Divalproex Sodium ER) 500 Mg Tab.er.24h, 1,000 MG PO DAILY, (Reported) Fluconazole (Fluconazole) 150 Mg Tablet, 300 MG PO QWEEK, (Reported) WEDNESDAY Gabapentin (Gabapentin) 300 Mg Capsule, 300 MG PO QHS, (Reported) Gabapentin (Gabapentin) 600 Mg Tablet, 600 MG PO DAILY, (Reported) Insulin Detemir (Levemir) 100 Unit/1 Ml Vial, 14 UNITS SC QHS Ipratropium/Albuterol Sulfate (Combivent Respimat 20-100 Mcg) 4 Gm Mist.inhal, 1 PUFF INH QID, (Reported) Magnesium Oxide (Magnesium) 500 Mg Capsule, 1,000 MG PO BID, (Reported) Montelukast Sodium (Montelukast Sodium) 10 Mg Tablet, 10 MG PO QHS, (Reported) Omeprazole (Omeprazole) 40 Mg Capsule.dr, 40 MG PO DAILY, (Reported) Tizanidine HCl (Tizanidine HCl) 4 Mg Capsule, 8 MG PO QHS, (Reported) Scheduled PRN Albuterol Sulfate (Ventolin Hfa) 18 Gm Hfa.aer.ad, 2 PUFF INH Q4-6HP PRN for wheezing, (Reported) Allergies Coded Allergies: avocado (Verified Allergy, Severe, can't breathe, 12/01/18) bee venom protein (honey bee) (Verified Allergy, Severe, 12/01/18) lisinopril (Verified Allergy, Severe, tongue swelling, 12/01/18) codeine (Verified Adverse Reaction, Intermediate, nausea/vomiting, 12/01/18) STEPHANI LIU MD Dec 03, 2018 11:43
[2018-12-03 12:00] VITALS: BP 127/76
== END 2018-12-03 12:35 | disposition home or self-care (01) ==
LOC: M ED 12:42 → M ED INP 12:43 → M PCU 17:00
PROVIDERS: ADMIT Family Medicine; ATTEND Internal Medicine
DX: N17.9 Acute kidney failure, unspecified (principal); E11.65 Type 2 diabetes mellitus with hyperglycemia; R47.81 Slurred speech; R53.1 Weakness; R42 Dizziness and giddiness; I10 Essential (primary) hypertension; E78.5 Hyperlipidemia, unspecified; F31.9 Bipolar disorder, unspecified; I67.82 Cerebral ischemia; J45.909 Unspecified asthma, uncomplicated; K21.9 Gastro-esophageal reflux disease without esophagitis; M10.079 Idiopathic gout, unspecified ankle and foot; M48.07 Spinal stenosis, lumbosacral region; M54.42 Lumbago with sciatica, left side; F17.210 Nicotine dependence, cigarettes, uncomplicated; Z79.899 Other long term (current) drug therapy; Z79.4 Long term (current) use of insulin; Z79.2 Long term (current) use of antibiotics; Z91.018 Allergy to other foods; Z91.030 Bee allergy status; Z88.5 Allergy status to narcotic agent; Z88.8 Allergy status to other drugs, medicaments and biological substances; Z88.6 Allergy status to analgesic agent
CPT/HCPCS: 36415; 70450; 70544; 70551; 71046; 80048; 80053; 80076; 80164; 81001; 82550; 82553; 84439; 84443; 84484; 85025; 85027; 85610; 85730; 93005; 93041; 94760; 96360; 96361; 96372; 99285; G0378; J1650

== ENCOUNTER → 2018-12-14 | Outpatient (REF) | payer MEDICARE ==
[~2018-12-14] MED LIST changes: +INSUDET SC
[2018-12-14 13:09] LABS: ALBUMIN 3.5 GM/DL (3.2-5.2); CALCIUM LEVEL 9.4 MG/DL (8.8-10.2); CREATININE FOR GFR 1.01 MG/DL (0.55-1.30); GLOMERULAR FILTRATION RATE 59.3 (>45); MAGNESIUM LEVEL 1.5 MG/DL (1.8-2.4); PHOSPHORUS LEVEL 3.6 MG/DL (2.5-4.9)
[2018-12-14 13:50] LABS: MALB URINE SIEMENS 53.6 MG/L; MAU/CREAT RATIO 33.7 MCG/MG (0.0-30.0)
[2018-12-14 14:01] LABS: TOTAL 25(OH) VITAMIN D 36.6 NG/ML (30.0-100.0)
== END ==
LOC: M SFHCPLAZ 09:57
PROVIDERS: ATTEND Nurse Practitioner Family
DX: E11.42 Type 2 diabetes mellitus with diabetic polyneuropathy (principal); I10 Essential (primary) hypertension; E55.9 Vitamin D deficiency, unspecified

== ENCOUNTER → 2018-12-29 | Outpatient (REF) | payer MEDICARE ==
[~2018-12-29] MED LIST changes: +METF-791 PO; -METF500T4 PO
[2018-12-29 18:32] LABS: PLATELET COUNT, AUTOMATED 316 10^3/uL (150-450)
[2018-12-29 18:43] LABS: PROTHROMBIN TIME 12.9 SECONDS (11.8-14.0)
== END ==
LOC: M LABDRAW1 12:00
PROVIDERS: ATTEND Physician Assistant
DX: Z01.812 Encounter for preprocedural laboratory examination (principal); M48.061 Spinal stenosis, lumbar region without neurogenic claudication; Z79.899 Other long term (current) drug therapy

== ENCOUNTER → 2019-01-02 | Outpatient (CLI) | payer MEDICARE ==
--- NOTE | 2019-01-02 10:16 | REP ---
RENAL ULTRASOUND WITH DUPLEX DOPPLER RENAL ARTERY EVALUATION: Real-time sonographic evaluation of the kidneys performed. Kidneys are normal in size and echotexture, right kidney measuring 11.9 x 6.8 x 6.5 cm and left kidney 11.6 x 5.5 x 6.1 cm. There is no hydronephrosis bilaterally. Small cyst in the medial upper pole of the right kidney measures 8 mm in diameter. Doppler evaluation of the urinary bladder demonstrates a left ureteral jet. A right ureteral jet is not visualized. Real-time ultrasound evaluation and duplex Doppler interrogation of the renal arteries is performed bilaterally. Peak systolic velocity of the abdominal aorta at the level of the renal artery is 92.9 cm/s. Peak systolic velocity of the main right renal artery is 125 cm/s, renal to aortic ratio 1.3. Resistive indices are measured in the upper, mid, and lower thirds of the right kidney and range between 0.69 and 0.71. Acceleration times range between 0.015 and 0.029. Peak systolic velocity of the main left renal artery is 95.3 cm/s, renal to aortic ratio 1.0. Resistive indices left kidney range between 0.66 and 0.72. Acceleration times range between 0.037 and 0.044. IMPRESSION: Subcentimeter cyst upper pole right kidney. No hydronephrosis. No compelling duplex Doppler sonographic evidence of significant renal artery stenosis bilaterally. Electronically Signed by Davie Ball MD 01/03/2019 09:52 A
== END ==
LOC: M RAD 08:29
PROVIDERS: ATTEND Nurse Practitioner Family
DX: I10 Essential (primary) hypertension (principal)

== ENCOUNTER → 2019-02-01 | Outpatient (CLI) | payer MEDICARE ==
--- NOTE | 2019-02-01 16:38 | REPMRS ---
Patient History The patient states she has not had a clinical breast exam in over a year. Patient is postmenopausal. No known family history of cancer. 3D TOMOSYNTHESIS WAS PERFORMED. The [facility] lifetime risk for breast cancer is 7.1%. Digital Woman Screen Mammo: February 01, 2019 - Exam #: [id number] Bilateral CC and MLO view(s) were taken. Technologist: Connie Dunaway, Technologist No prior studies available for comparison. FINDINGS: There are scattered fibroglandular densities. There is no evidence of cancer on this mammogram. Assessment: BI-RADS/ACR category 2 mammogram. Benign Findings. Recommendation Routine screening mammogram of both breasts in 1 year (for women over age 40). This mammogram was interpreted with the aid of an FDA-approved computer-aided dectection system. Electronically Signed By: Davie Ball MD 02/01/19 [id number]
--- NOTE | 2019-02-06 15:48 | DEXA ---
AP SPINE L1 - L4 1.760 4.6 5.9 LT FEMUR TOTAL 0.966 -0.3 0.7 LT NECK 0.929 -0.8 0.5 RT FEMUR TOTAL 0.996 -0.1 0.9 RT NECK 0.951 -0.6 0.7 TOTAL BODY TOTAL OTHER COMMENTS: Normal bone densitometry of the spine and hips. FOLLOW-UP: Recommendation for the next bone density exam: 5 years. VERA
== END ==
LOC: M WHC 08:54
PROVIDERS: ATTEND Nurse Practitioner Family
DX: Z12.31 Encounter for screening mammogram for malignant neoplasm of breast (principal); Z13.820 Encounter for screening for osteoporosis; Z78.0 Asymptomatic menopausal state

== ENCOUNTER → 2019-04-26 | Outpatient (REF) | payer MEDICARE ==
[2019-04-26 10:14] LABS: BASO # 0.1 10^3/uL (0.0-0.2); BASO % 0.8 % (0.0-1.0); EOS # 0.2 10^3/uL (0.0-0.5); EOS % 1.9 % (0.0-3.0); HEMATOCRIT 36.4 % (36.0-47.0); HEMOGLOBIN 11.5 g/dl (12.0-15.5); LYMPH # 3.3 10^3/uL (1.5-5.0); LYMPH % 41.8 % (24.0-44.0); MEAN CORPUSCULAR HEMOGLOBIN 30.6 pg (27.0-33.0); MEAN CORPUSCULAR HGB CONC 31.6 g/dl (32.0-36.5); MEAN CORPUSCULAR VOLUME 96.8 fl (80.0-96.0); MONO # 0.5 10^3/uL (0.0-0.8); MONO % 6.4 % (0.0-5.0); NEUTROPHILS # 3.9 10^3/uL (1.5-8.5); NEUTROPHILS % 48.7 % (36.0-66.0); PLATELET COUNT, AUTOMATED 319 10^3/uL (150-450); RED BLOOD COUNT 3.76 10^6/uL (4.00-5.40)
[2019-04-26 10:22] LABS: ALBUMIN 3.7 GM/DL (3.2-5.2); ALT/SGPT 16 U/L (12-78); BILIRUBIN,DIRECT 0.1 MG/DL (0.0-0.2); BILIRUBIN,TOTAL 0.3 MG/DL (0.2-1.0); BLOOD UREA NITROGEN 25 MG/DL (7-18); CALCIUM LEVEL 9.1 MG/DL (8.8-10.2); CARBON DIOXIDE LEVEL 30 MEQ/L (21-32); CHLORIDE LEVEL 100 MEQ/L (98-107); CREATININE FOR GFR 1.13 MG/DL (0.55-1.30); GLOMERULAR FILTRATION RATE 51.9 (>45); GLUCOSE, FASTING 139 MG/DL (70-100); LIPASE 230 U/L (73-393); SODIUM LEVEL 138 MEQ/L (136-145); TOTAL PROTEIN 7.5 GM/DL (6.4-8.2)
[2019-04-27 12:07] LABS: ALBUMIN 4.04 GM/DL (3.29-5.55); ALBUMIN % 53.8 % (55.8-66.1); ALPHA-1-GLOBULIN % 4.3 % (2.9-4.9); ALPHA-1-GLOBULINS 0.32 GM/DL (0.17-0.41); ALPHA-2-GLOBULINS 0.92 GM/DL (0.42-0.99); ALPHA-2-GLOBULINS % 12.3 % (7.1-11.8); BETA-1-GLOBULINS % 6.6 % (4.7-7.2); BETA-2-GLOBULINS 0.53 GM/DL (0.19-0.55)
== END ==
LOC: M SFHCPLAZ 08:26
PROVIDERS: ATTEND Physician Assistant Medical
DX: R89.2 Abnormal level of other drugs, medicaments and biological substances in specimens from other organs, systems and tissues (principal); D72.9 Disorder of white blood cells, unspecified

== ENCOUNTER → 2019-05-25 | Outpatient (CLI) | payer MEDICARE ==
[~2019-05-25] MED LIST changes: -MONT10TA2 PO; +MONT10TA4 PO
[2019-05-25 12:35] LABS: BASO # 0.1 10^3/uL (0.0-0.2); BASO % 0.7 % (0.0-1.0); EOS # 0.2 10^3/uL (0.0-0.5); EOS % 2.2 % (0.0-3.0); HEMATOCRIT 37.8 % (36.0-47.0); HEMOGLOBIN 12.2 g/dl (12.0-15.5); LYMPH # 2.9 10^3/uL (1.5-5.0); LYMPH % 36.3 % (24.0-44.0); MEAN CORPUSCULAR HEMOGLOBIN 31.2 pg (27.0-33.0); MEAN CORPUSCULAR HGB CONC 32.3 g/dl (32.0-36.5); MEAN CORPUSCULAR VOLUME 96.7 fl (80.0-96.0); MONO # 0.5 10^3/uL (0.0-0.8); MONO % 6.6 % (0.0-5.0); NEUTROPHILS # 4.4 10^3/uL (1.5-8.5); PLATELET COUNT, AUTOMATED 322 10^3/uL (150-450); RED BLOOD COUNT 3.91 10^6/uL (4.00-5.40); WHITE BLOOD COUNT 8.1 10^3/uL (4.0-10.0)
[2019-05-25 12:47] LABS: ALBUMIN 3.8 GM/DL (3.2-5.2); BILIRUBIN,TOTAL 0.4 MG/DL (0.2-1.0); CALCIUM LEVEL 9.6 MG/DL (8.8-10.2); CHOLESTEROL RISK RATIO 2.964 (<5); CREATININE FOR GFR 1.1 MG/DL (0.55-1.30); FREE T4 1.02 NG/DL (0.76-1.46); GLOMERULAR FILTRATION RATE 53.6 (>45); MAGNESIUM LEVEL 3.5 MG/DL (1.8-2.4); POTASSIUM SERUM 4.4 MEQ/L (3.5-5.1); THYROID STIMULATING HORMONE 6.58 uIU/ML (0.358-3.740); TOTAL PROTEIN 7.9 GM/DL (6.4-8.2); URIC ACID 3.7 MG/DL (2.6-6.0); VALPROIC ACID (DEPAKOTE) 72.8 UG/ML (50.0-100.0)
[2019-05-25 12:48] LABS: TOTAL 25(OH) VITAMIN D 40.6 NG/ML (30.0-100.0)
[2019-05-25 13:04] LABS: HEMOGLOBIN A1c 7.3 %
== END ==
LOC: M PLALAB 09:12
PROVIDERS: ATTEND Nurse Practitioner Family
DX: E55.9 Vitamin D deficiency, unspecified (principal); F31.9 Bipolar disorder, unspecified; M1A.9XX0 Chronic gout, unspecified, without tophus (tophi); E78.2 Mixed hyperlipidemia; I10 Essential (primary) hypertension; E11.9 Type 2 diabetes mellitus without complications

== ENCOUNTER → 2019-05-26 | Outpatient (REF) | payer MEDICARE ==
[2019-05-26 18:29] LABS: CREATININE, URINE 59.5 MG/DL; MALB URINE SIEMENS 28.8 MG/L; MAU/CREAT RATIO 48.4 MCG/MG (0.0-30.0)
== END ==
LOC: M SFHCPLAZ 16:51
PROVIDERS: ATTEND Nurse Practitioner Family
DX: E11.9 Type 2 diabetes mellitus without complications (principal)

== ENCOUNTER → 2019-08-31 | Outpatient (REF) | payer MEDICARE ==
[~2019-08-31] MED LIST changes: -AMLO10TA5 PO; +AMLO1TAB25 PO; +ATOR40TA75; +BENZ-52; +CHLO125TA PO; +GABA-282 PO; -GABA-843 PO; +LOSA50TA88; -METF-791 PO; +METF-838 PO; +METO1TAB32; +MONT10TA10 PO; -MONT10TA4 PO; +PRIM50TA6; +TORS10TA3; +TRES1INJ
[2019-08-31 15:03] LABS: BASO # 0.1 10^3/uL (0.0-0.2); BASO % 0.7 % (0.0-1.0); EOS # 0.2 10^3/uL (0.0-0.5); HEMATOCRIT 41.3 % (36.0-47.0); HEMOGLOBIN 13.2 g/dl (12.0-15.5); LYMPH # 2.9 10^3/uL (1.5-5.0); LYMPH % 26.2 % (24.0-44.0); MEAN CORPUSCULAR HEMOGLOBIN 31.1 pg (27.0-33.0); MEAN CORPUSCULAR VOLUME 97.2 fl (80.0-96.0); MONO # 0.6 10^3/uL (0.0-0.8); MONO % 5.7 % (0.0-5.0); NEUTROPHILS # 7.2 10^3/uL (1.5-8.5); PLATELET COUNT, AUTOMATED 350 10^3/uL (150-450); RED BLOOD COUNT 4.25 10^6/uL (4.00-5.40); WHITE BLOOD COUNT 11.1 10^3/uL (4.0-10.0)
[2019-08-31 15:28] LABS: ALBUMIN 3.7 GM/DL (3.2-5.2); ALT/SGPT 15 U/L (12-78); BILIRUBIN,TOTAL 0.3 MG/DL (0.2-1.0); BLOOD UREA NITROGEN 24 MG/DL (7-18); CALCIUM LEVEL 9.4 MG/DL (8.8-10.2); CARBON DIOXIDE LEVEL 31 MEQ/L (21-32); CHLORIDE LEVEL 102 MEQ/L (98-107); CREATININE FOR GFR 1.08 MG/DL (0.55-1.30); FREE T4 1.13 NG/DL (0.76-1.46); GLOMERULAR FILTRATION RATE 54.7 (>45); GLUCOSE, FASTING 114 MG/DL (70-100); MAGNESIUM LEVEL 1.8 MG/DL (1.8-2.4); NT-PRO BNP 128 PG/ML (<125); POTASSIUM SERUM 5.2 MEQ/L (3.5-5.1); SODIUM LEVEL 139 MEQ/L (136-145); TROPONIN I < 0.02 NG/ML (< 0.10)
== END ==
LOC: M SFHCPLAZ 13:17
PROVIDERS: ATTEND Family Medicine
DX: I11.0 Hypertensive heart disease with heart failure (principal); I50.32 Chronic diastolic (congestive) heart failure

== ENCOUNTER → 2019-10-05 | Outpatient (REF) | payer MEDICARE ==
[~2019-10-05] MED LIST changes: +AMLO10TA5 PO; -AMLO1TAB25 PO; -ATOR40TA75; -BENZ-52; -CHLO125TA PO; -GABA-282 PO; +GABA-843 PO; -LOSA50TA88; -METO1TAB32; -MONT10TA10 PO; +MONT10TA4 PO; -PRIM50TA6; -TORS10TA3; -TRES1INJ
[2019-10-05 17:55] LABS: ALBUMIN 3.3 GM/DL (3.2-5.2); ALT/SGPT 19 U/L (12-78); BILIRUBIN,TOTAL 0.3 MG/DL (0.2-1.0); BLOOD UREA NITROGEN 24 MG/DL (7-18); CALCIUM LEVEL 9.2 MG/DL (8.8-10.2); CARBON DIOXIDE LEVEL 29 MEQ/L (21-32); CHLORIDE LEVEL 102 MEQ/L (98-107); CREATININE FOR GFR 0.99 MG/DL (0.55-1.30); GLOMERULAR FILTRATION RATE > 60.0 (>45); GLUCOSE, FASTING 184 MG/DL (70-100); NT-PRO BNP 263 PG/ML (<125); POTASSIUM SERUM 4.5 MEQ/L (3.5-5.1); SODIUM LEVEL 139 MEQ/L (136-145); TOTAL PROTEIN 7.4 GM/DL (6.4-8.2)
== END ==
LOC: M PLALAB 13:52
PROVIDERS: ATTEND Physician Assistant Medical
DX: I50.32 Chronic diastolic (congestive) heart failure (principal)

== ENCOUNTER 2019-10-25 18:11 | Emergency (ER) | payer MEDICARE ==
[~2019-10-25 18:11] MED LIST changes: -AMLO10TA5 PO; +AMLO1TAB25 PO
[2019-10-25 18:38] LABS: BASO # 0.1 10^3/uL (0.0-0.2); BASO % 0.4 % (0.0-1.0); EOS # 0.3 10^3/uL (0.0-0.5); EOS % 2.2 % (0.0-3.0); HEMATOCRIT 41.9 % (36.0-47.0); HEMOGLOBIN 13.6 g/dl (12.0-15.5); LYMPH # 2.4 10^3/uL (1.5-5.0); LYMPH % 21.4 % (24.0-44.0); MEAN CORPUSCULAR HEMOGLOBIN 31.3 pg (27.0-33.0); MEAN CORPUSCULAR HGB CONC 32.5 g/dl (32.0-36.5); MEAN CORPUSCULAR VOLUME 96.3 fl (80.0-96.0); MONO # 0.7 10^3/uL (0.0-0.8); MONO % 5.9 % (0.0-5.0); NEUTROPHILS % 69.8 % (36.0-66.0); PLATELET COUNT, AUTOMATED 321 10^3/uL (150-450); RED BLOOD COUNT 4.35 10^6/uL (4.00-5.40); WHITE BLOOD COUNT 11.4 10^3/uL (4.0-10.0)
[2019-10-25] MEDS ORDERED: METO1TAB32 (18:38)
[2019-10-25] MEDS ORDERED: TORS10TA3 (18:38)
[2019-10-25] MEDS ORDERED: ATOR40TA75 (18:38)
[2019-10-25] MEDS ORDERED: PRIM50TA6 (18:38)
[2019-10-25] MEDS ORDERED: LOSA50TA88 (18:38)
[2019-10-25] MEDS: NITROGLYCERIN 0.4 MG SUBL TABLET SL PRN ×2 (18:44→18:49)
[2019-10-25] MEDS ORDERED: ASPIRIN 81 MG CHEW TABLET PO ONE (18:45)
[2019-10-25 18:49] VITALS: BP 125/88
[2019-10-25 18:59] LABS: BLOOD UREA NITROGEN 15 MG/DL (7-18); CALCIUM LEVEL 8.7 MG/DL (8.8-10.2); CARBON DIOXIDE LEVEL 27 MEQ/L (21-32); CHLORIDE LEVEL 104 MEQ/L (98-107); GLOMERULAR FILTRATION RATE 59.8 (>45); GLUCOSE, FASTING 148 MG/DL (70-100); POTASSIUM SERUM 3.9 MEQ/L (3.5-5.1); SODIUM LEVEL 138 MEQ/L (136-145)
[2019-10-25] MEDS ORDERED: ISOVUE-370 76% 100ML VIAL As Ordered ONE (19:07)
[2019-10-25 19:30] LABS: ALBUMIN 3.6 GM/DL (3.2-5.2); ALT/SGPT 16 U/L (12-78); BILIRUBIN,DIRECT 0.1 MG/DL (0.0-0.2); BILIRUBIN,TOTAL 0.3 MG/DL (0.2-1.0); CK-MB VALUE MASS 1.1 NG/ML (<3.6); CPK CREATINE PHOSPHOKINASE 135 U/L (26-192); LIPASE 253 U/L (73-393); MB/CK RELATIVE INDEX 0.81 (< OR =4); TOTAL PROTEIN 7.5 GM/DL (6.4-8.2); TROPONIN I < 0.02 NG/ML (< 0.10); VALPROIC ACID (DEPAKOTE) 65.5 UG/ML (50.0-100.0)
--- NOTE | 2019-10-25 19:53 | REPVR ---
PROCEDURE INFORMATION: Exam: CT Angiography Chest Without And With Contrast Exam date and time: 10/25/2019 7:13 PM Age: 64 years old Clinical indication: Other: Chest pain, pleuritic TECHNIQUE: Imaging protocol: Computed tomographic angiography of the chest without and with intravenous contrast. 3D rendering: MIP and/or 3D reconstructed images were created by the technologist. Radiation optimization: All CT scans at this facility use at least one of these dose optimization techniques: automated exposure control; mA and/or kV adjustment per patient size (includes targeted exams where dose is matched to clinical indication); or iterative reconstruction. Contrast material: ISOVUE 370; Contrast volume: 75 ml; Contrast route: INTRAVENOUS (IV); COMPARISON: CR PORTABLE CHEST X-RAY 10/25/2019 6:41 PM FINDINGS: Pulmonary arteries: No CT evidence of acute pulmonary embolism. Aorta: No CT evidence of acute aortic dissection, aneurysm or acute intramural thoracic aortic hematoma. Lungs: Both lungs are well-aerated. Small bullae versus intrapulmonary cysts are seen in the right middle lobe and right lower lobe on images 108 through 114 of series 401. Pleural space: Unremarkable. No pneumothorax. No pleural effusion. Heart: The heart size is normal. Minimal coronary artery calcification is present. Lymph nodes: Unremarkable. No enlarged lymph nodes. Bones/joints: No acute vascular, visceral or bony injury evident in the chest or upper abdomen. Chronic degenerative discovertebral disease with endplate osteophytosis is seen throughout the mid to lower thoracic spine. Soft tissues: Unremarkable. IMPRESSION: 1. No acute vascular, visceral or bony injury evident in the chest or upper abdomen. 2. No CT evidence of acute pulmonary embolism. 3. No CT evidence of acute aortic dissection, aneurysm or acute intramural thoracic aortic hematoma. 4. The heart size is normal. Minimal coronary artery calcification is present. 5. Both lungs are well-aerated. Small bullae versus intrapulmonary cysts are seen in the right middle lobe and right lower lobe on images 108 through 114 of series 401. 6. Chronic degenerative discovertebral disease with endplate osteophytosis is seen throughout the mid to lower thoracic spine. Electronically signed by: Rajesh Izquierdo On 10/25/2019 19:53:05 PM
[2019-10-25 20:30] VITALS: BP 124/79
[2019-10-25] MEDS ORDERED: GI COCKTAIL 50ML BTL(HYOSCYAMINE/MAALOX/LIDOCAINE VISCOUS)(1:3:1) PO ONE (20:30)
--- NOTE | 2019-10-26 03:20 | REP ---
CHEST PORTABLE: REASON: Chest pain. FINDINGS: The technique utilized in obtaining the radiograph has magnified the cardiac silhouette and accentuated the interstitial markings. The superior mediastinal structures are midline. The cardiac silhouette is unremarkable in size, shape, and position. The diaphragmatic surfaces of the lungs are regular, and the costophrenic angles are clear. The pulmonary holloway are clear. The imaged osseous structures are intact. IMPRESSION: There is no acute cardiopulmonary disease. Electronically Signed by Gian Eagle DO 10/26/2019 08:11 A
--- NOTE | 2019-10-26 05:33 | ECGEPIP ---
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
== END 2019-10-25 20:50 | disposition home or self-care (01) ==
LOC: M ED 18:11
DX: R07.9 Chest pain, unspecified (principal); R06.02 Shortness of breath; I45.19 Other right bundle-branch block; E11.9 Type 2 diabetes mellitus without complications; I11.0 Hypertensive heart disease with heart failure; I50.9 Heart failure, unspecified; J45.909 Unspecified asthma, uncomplicated; E78.5 Hyperlipidemia, unspecified; F31.9 Bipolar disorder, unspecified; M48.00 Spinal stenosis, site unspecified; M10.9 Gout, unspecified; Z79.899 Other long term (current) drug therapy; Z79.4 Long term (current) use of insulin; Z88.5 Allergy status to narcotic agent; Z88.8 Allergy status to other drugs, medicaments and biological substances; Z91.018 Allergy to other foods; Z91.030 Bee allergy status; F17.210 Nicotine dependence, cigarettes, uncomplicated
CPT/HCPCS: 36415; 71045; 71275; 80048; 80076; 80164; 82550; 82553; 83690; 84484; 85025; 93005; 93041; 94760; 99285; Q9967

== ENCOUNTER → 2020-01-26 | Outpatient (CLI) | payer MEDICARE ==
[~2020-01-26] MED LIST changes: +ATOR40TA75; +LOSA50TA88; +METO1TAB32; +PRIM50TA6; +TORS10TA3
--- NOTE | 2020-01-26 12:32 | REPPI ---
INDICATION: WHEEZING, HYPOXIA COUGH COMPARISON: 03/09/2017, 12/01/2018 TECHNIQUE: PA and lateral. FINDINGS: Mediastinum and cardiac silhouette are normal. The lung holloway demonstrate subtle diffuse interstitial prominence which may reflect a mild interstitial pneumonitis or bronchitis/reactive airway disease. No discrete focal consolidation, effusion, or pneumothorax. Skeletal structures are intact. IMPRESSION: Very subtle diffuse generalized interstitial changes. Differential diagnosis includes chronic changes as well as mild interstitial pneumonitis or bronchitis/reactive airway disease. Correlation is recommended. No focal consolidation or effusion. <Electronically signed by Casey Coleman > 01/26/20 [id number]
== END ==
LOC: M PLALAB 12:08
PROVIDERS: ATTEND Physician Assistant
DX: R06.01 Orthopnea (principal); R09.02 Hypoxemia; R05 Cough; J84.9 Interstitial pulmonary disease, unspecified

== ENCOUNTER → 2020-01-30 | Outpatient (REF) | payer MEDICARE | LOC: M SFHCPLAZ 09:47 | PROVIDERS: ATTEND Nurse Practitioner Family | DX: R06.02 Shortness of breath (principal); Z20.828 Contact with and (suspected) exposure to other viral communicable diseases ==

== ENCOUNTER → 2020-01-31 | Outpatient (REF) | payer MEDICARE ==
[2020-01-31 15:36] LABS: ALBUMIN 3.4 GM/DL (3.2-5.2); BILIRUBIN,TOTAL 0.6 MG/DL (0.2-1.0); CALCIUM LEVEL 9.7 MG/DL (8.8-10.2); CREATININE FOR GFR 1.1 MG/DL (0.55-1.30); GLOMERULAR FILTRATION RATE 53.6 (>45); POTASSIUM SERUM 4.1 MEQ/L (3.5-5.1); TOTAL PROTEIN 7.5 GM/DL (6.4-8.2)
== END ==
LOC: M SFHCPLAZ 12:48
PROVIDERS: ATTEND Nurse Practitioner Family
DX: E11.9 Type 2 diabetes mellitus without complications (principal)

== ENCOUNTER → 2020-02-06 | Outpatient (CLI) | payer MEDICARE ==
[~2020-02-06] MED LIST changes: +ISOVUE-370 76% 100ML VIAL As Ordered ONE
--- NOTE | 2020-02-06 15:15 | REP ---
INDICATION: OTHER SPECIFIED INTERSTITIAL PULMONARY DISEASES. COMPARISON: 10/25/2019. TECHNIQUE: CT chest performed following the intravenous administration of 100 cc of Isovue 370. Sagittal and coronal reconstruction images are performed. FINDINGS: Lungs: There mild stable bullous changes in the right middle and lower lobes. There is mild scattered interstitial fibrotic change bilaterally. Mediastinum: No adenopathy. Connie: No adenopathy. Axilla: No adenopathy. Pleura: No effusion. Heart: Not enlarged. Thoracic aorta: No aneurysm or dissection. Upper abdominal structures: There is a small cyst in the upper pole left kidney. Visualized osseous structures: There are degenerative changes of the spine. IMPRESSION: Stable chronic changes as above. <Electronically signed by Davie Ball > 02/06/20 [id number]
== END ==
LOC: M RAD 14:28
PROVIDERS: ATTEND Nurse Practitioner Family
DX: J84.89 Other specified interstitial pulmonary diseases (principal)
CPT/HCPCS: 71260; Q9967

== ENCOUNTER → 2020-02-13 | Outpatient (REF) | payer MEDICARE ==
[~2020-02-13] MED LIST changes: -ISOVUE-370 76% 100ML VIAL As Ordered ONE; -MONT10TA4 PO; +MONT5TAB2 PO
[2020-02-13 15:09] LABS: CHOLESTEROL RISK RATIO 2.157 (<5); FREE T4 0.94 NG/DL (0.76-1.46); THYROID STIMULATING HORMONE 6.12 uIU/ML (0.358-3.740); URIC ACID 3.6 MG/DL (2.6-6.0)
== END ==
LOC: M PLALAB 10:26
PROVIDERS: ATTEND Nurse Practitioner Family
DX: E78.2 Mixed hyperlipidemia (principal); E11.9 Type 2 diabetes mellitus without complications; M1A.9XX0 Chronic gout, unspecified, without tophus (tophi)

== ENCOUNTER 2020-03-18 15:43 | Emergency (ER) | payer MEDICARE ==
[~2020-03-18] VITALS: Ht 167.6 cm; Wt 100.2 kg
[2020-03-18] MEDS ORDERED: NS 1,000 ML IV ONE ×2 (17:30→20:15)
[2020-03-18 18:24] LABS: BASO # 0.1 10^3/uL (0.0-0.2); BASO % 0.7 % (0.0-1.0); EOS # 0.2 10^3/uL (0.0-0.5); EOS % 1.6 % (0.0-3.0); HEMATOCRIT 44.8 % (36.0-47.0); HEMOGLOBIN 14.2 g/dl (12.0-15.5); LYMPH % 18.8 % (24.0-44.0); MEAN CORPUSCULAR HEMOGLOBIN 32.1 pg (27.0-33.0); MEAN CORPUSCULAR HGB CONC 31.7 g/dl (32.0-36.5); MEAN CORPUSCULAR VOLUME 101.4 fl (80.0-96.0); MONO # 0.8 10^3/uL (0.0-0.8); MONO % 7.9 % (0.0-5.0); NEUTROPHILS # 7.5 10^3/uL (1.5-8.5); NEUTROPHILS % 70.2 % (36.0-66.0); PLATELET COUNT, AUTOMATED 327 10^3/uL (150-450); RED BLOOD COUNT 4.42 10^6/uL (4.00-5.40); WHITE BLOOD COUNT 10.6 10^3/uL (4.0-10.0)
[2020-03-18 18:25] LABS: VENOUS BASE EXCESS 5.9 (-2.0-2.0); VENOUS HCO3 33.6 MEQ/L (23.0-27.0); VENOUS O2 SATURATION 73.8 % (60.0-80.0); VENOUS PARTIAL PRESSURE CO2 61.4 mmHg (38.0-50.0); VENOUS PARTIAL PRESSURE O2 38.9 mmHg (30.0-50.0); VENOUS PH 7.356 UNITS (7.330-7.430); VENOUS STANDARD HCO3 29.1 MEQ/L; VENOUS TOTAL CO2 35.5 MEQ/L (24.0-28.0)
[2020-03-18 18:50] LABS: ERYTHROCYTE SEDIMENTATION RATE 35 mm/hr (0-30)
[2020-03-18 18:51] LABS: ACETONE/KETONE 0.65 MG/DL (<2.81); ALBUMIN 3.7 GM/DL (3.2-5.2); BILIRUBIN,DIRECT 0.2 MG/DL (0.0-0.2); BILIRUBIN,TOTAL 0.3 MG/DL (0.2-1.0); C REACTIVE PROTEIN QUANTITATIV 0.84 MG/DL (0.00-0.30); CREATININE FOR GFR 1.58 MG/DL (0.55-1.30); GLOMERULAR FILTRATION RATE 35.2 (>45); MAGNESIUM LEVEL 1.8 MG/DL (1.8-2.4); POTASSIUM SERUM 4.2 MEQ/L (3.5-5.1); TOTAL PROTEIN 8.3 GM/DL (6.4-8.2)
[2020-03-18 20:44] LABS: APPEARANCE, URINE CLEAR (CLEAR); BACTERIA, URINE AUTO NEGATIVE (NEGATIVE); BILIRUBIN, URINE AUTO NEGATIVE (NEGATIVE); BLOOD, URINE BLOOD NEGATIVE (NEGATIVE); COLOR, URINE YELLOW (YELLOW); GLUCOSE, URINE (UA) AUTO NEGATIVE (NEGATIVE); KETONE, URINE AUTO NEGATIVE (NEGATIVE); LEUKOCYTE ESTERASE, URINE AUTO NEGATIVE (NEGATIVE); NITRITE, URINE AUTO NEGATIVE (NEGATIVE); PROTEIN, URINE AUTO NEGATIVE (NEGATIVE); RBC, URINE AUTO 0 /HPF (0-3); SQUAMOUS EPITHELIAL CELL UR AU 1 /HPF (0-6); UROBILINOGEN, URINE AUTO 0.2 mg/dL (0.0-2.0); WBC, URINE AUTO 1 /HPF (0-3)
--- NOTE | 2020-03-18 21:02 | REPVR ---
PROCEDURE INFORMATION: Exam: XR Chest, 2 Views Exam date and time: 03/18/2020 8:31 PM Age: 65 years old Clinical indication: Cough TECHNIQUE: Imaging protocol: XR of the chest Views: 2 views. COMPARISON: CT Chest with contrast 02/06/2020 2:51 PM FINDINGS: Lungs: Unremarkable. No consolidation. Pleural space: Unremarkable. No pleural effusion. No pneumothorax. Heart/Mediastinum: Unremarkable. No cardiomegaly. Bones/joints: Unremarkable. IMPRESSION: No acute findings. Electronically signed by: Ernie Will On 03/18/2020 21:03:01 PM
[2020-03-18 22:34] LABS: CALCIUM LEVEL 8.5 MG/DL (8.8-10.2); CREATININE FOR GFR 1.47 MG/DL (0.55-1.30); GLOMERULAR FILTRATION RATE 38.2 (>45); POTASSIUM SERUM 4.2 MEQ/L (3.5-5.1)
[2020-03-18 23:08] VITALS: BP 133/75
== END 2020-03-18 23:10 | disposition home or self-care (01) ==
LOC: M ED 15:43
DX: B34.9 Viral infection, unspecified (principal); N17.9 Acute kidney failure, unspecified; R53.83 Other fatigue; E11.9 Type 2 diabetes mellitus without complications; I10 Essential (primary) hypertension; E78.5 Hyperlipidemia, unspecified; J45.909 Unspecified asthma, uncomplicated; R25.1 Tremor, unspecified; R63.0 Anorexia; F17.200 Nicotine dependence, unspecified, uncomplicated; Z91.018 Allergy to other foods; Z91.030 Bee allergy status; Z88.5 Allergy status to narcotic agent; Z88.8 Allergy status to other drugs, medicaments and biological substances; Z79.899 Other long term (current) drug therapy; Z79.4 Long term (current) use of insulin

== ENCOUNTER → 2020-03-25 | Outpatient (CLI) | payer MEDICARE ==
[2020-03-25 15:05] LABS: CALCIUM LEVEL 9.8 MG/DL (8.8-10.2); CREATININE FOR GFR 1.3 MG/DL (0.55-1.30); POTASSIUM SERUM 4.6 MEQ/L (3.5-5.1)
== END ==
LOC: M PLALAB 09:57
PROVIDERS: ATTEND Nurse Practitioner Family
DX: N17.9 Acute kidney failure, unspecified (principal)

== ENCOUNTER → 2020-05-10 | Outpatient (REF) | payer MEDICARE ==
[~2020-05-10] MED LIST changes: +GABA-282 PO; -GABA-843 PO
[2020-05-10 15:53] LABS: ALBUMIN 3.4 GM/DL (3.2-5.2); CALCIUM LEVEL 9.7 MG/DL (8.8-10.2); CREATININE FOR GFR 1.07 MG/DL (0.55-1.30); GLOMERULAR FILTRATION RATE 55.1 (>45); PHOSPHORUS LEVEL 3.4 MG/DL (2.5-4.9)
== END ==
LOC: M SFHCPLAZ 13:33
PROVIDERS: ATTEND Nurse Practitioner Family
DX: N18.30 Chronic kidney disease, stage 3 unspecified (principal); E11.9 Type 2 diabetes mellitus without complications

== ENCOUNTER → 2020-05-18 | Outpatient (CLI) | payer MEDICARE ==
[~2020-05-18] MED LIST changes: +BENZ-52; +MONT10TA10 PO; -MONT5TAB2 PO; +TRES1INJ
== END ==
LOC: M LABSMTC 09:22
PROVIDERS: ATTEND Anesthesiology
DX: Z01.812 Encounter for preprocedural laboratory examination (principal); Z20.822 Contact with and (suspected) exposure to COVID-19

== ENCOUNTER 2020-05-23 06:40 | Day surgery (SDC) | payer MEDICARE ==
[~2020-05-23] VITALS: Ht 167.6 cm; Wt 93.4 kg
--- OUTSIDE RECORDS SUMMARY | 2020-05-23 06:44 | CCD | Continuity of Care Document ---
Author Maria Esther Galvan M.D. 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 Onset: 03/29/2019 Mild cognitive disorder Mira Butterfield M.D. Onset: 9 Acquired torsion dystonia Mira Butterfield M.D. Onset: 019 Essential tremor Mira Butterfield M.D. Onset: 11/22/2018 Social History Type Date Description Comments Sex Unknown Tobacco Use Start: Unknown Patient has never smoked Allergies, Adverse Reactions, Alerts Active Allergies Reaction Severity Comments Date Lisinopril 11/22/2018 Medications Active Medications SIG Qnty Indications Ordering Provide r Date Benztropine Mesylate 1mg Tablets 1 by mouth bid. 180sd Butterfield M.D. 03/05/2020 Alprazolam 0.5mg Tablets 1 tab by mouth half an hour before mri scan. may repeat once if needed. 2sd Butterfield M.D. 11/22/2018 Immunizations Description No Information Available Vital Signs Date Vital Result Comment 11/22/2018 9:32am BP Systolic 125 mmHg BP Diastolic 85 mmHg Heart Rate 74 /min Respiratory Rate 14 /min Height 67 inches 5'7" Weight 212.00 lb BMI (Body Mass Index) 33.2 kg/m2 [place] Body Weight 135 lb Results Description No Information Available Procedures Description No Information Available Medical Devices Description No Information Available Encounters Type Date Location Provider Dx Diagnosis Office Visit 05/09/2020 12:45p Main [facility] [place] G25.0 Essential tremor G24.8 Other dystonia G31.84 Mild cognitive impairment, s o stated I63.032 Cerebral infarction due to t hrombosis of left carotid artery Office Visit 03/05/2020 1:30p Main office - Joie Rivera G25.0 Essential tremor G24.8 Other dystonia G31.84 Mild cognitive impairment, s o stated Assessments Date Code Description Provider 05/09/2020 G25.0 Essential tremor Noemí Hyde 05/09/2020 G24.8 Other dystonia Mira Butterfield M.D. 05/09/2020 G31.84 Mild cognitive impairment, so st shavonne Butterfield M.D. 05/09/2020 I63.032 Cerebral infarction due to throm bosis of left carotid artery Mira Butterfield M.D. 03/05/2020 G25.0 Essential tremor Noemí Hyde 03/05/2020 G24.8 Other dystonia Mira Butterfield M.D. 03/05/2020 G31.84 Mild cognitive impairment, so st shavonne Butterfield M.D. Plan of Treatment No Information Available Functional Status Description No Information Available Mental Status Description No Information Available Referrals Description No Information Available
--- OUTSIDE RECORDS SUMMARY | 2020-05-23 06:44 | CCD ---
Author Author [facility] Organization [facility] Address Unknown Phone Unavailable Care Team Providers Care Tongue Presser Name Role Phone Jamil Jaffe Unavailable PROBLEMS Type Condition ICD9-CM Code STP09-VU Code Onset Dates Condition S tatus SNOMED Code Notes Problem Essential (primary) hypertension I10 Active 58913596 Problem Mixed hyperlipidemia E78.2 Active 164881728 Problem Bipolar 1 disorder F31.9 Active 287578712 Problem Mild intermittent asthma without complication J45. 20 Active 303985135 Problem Chronic gout without tophus, unspecified cause, unspecified site M1A.9XX0 Active 302164834 Problem GERD without esophagitis K21.9 Active 1611615 05 Problem Vitamin D deficiency E55.9 Active 05339727 Problem Diabetes mellitus, type 2 E11.9 Active 393232 06 Problem Mild persistent asthma without complication J45.30 Active 817299201 Problem Major depressive disorder, recurrent, moderate F33 .1 Active 584517973 Problem Lumbar stenosis with neurogenic claudication M48.06 Active 33882869 Problem Bipolar II disorder F31.81 Active 51777562 Problem Tobacco use disorder F17.200 Active 217986467 Problem Chronic diastolic congestive heart failure I50.32 Active 217969908 Problem Interstitial pneumonitis J84.89 Active 7859260 1 Problem Other specified interstitial pulmonary diseases J8 4.89 Active 780089186 Problem Generalized anxiety disorder F41.1 Active 218 88035 ALLERGIES Allergen (clinical drug ingredient) Drug/Non Drug Allergy do cumented on EMR Reaction Allergy Type Onset Date Status naproxen Naproxen([facility] Code:[address]-04) Lack of efficacy Drug All ergy Active meloxicam Mobic([facility] Code:[address]-16) Lack of efficacy Drug Allerg y Active lisinopril Lisinopril([facility] Code:[address]-01) SWELLING Drug Allergy Active ibuprofen Ibuprofen([facility] Code:[address]-32) Lack of efficacy Drug Al lergy Active ENCOUNTERS from 1955 to 2020-04-15 Encounter Location Date Provider Diagnosis [address] [address] Apr, Jamil Jaffe Bipolar II disorder F31.81 ; Generalized anxiety disorder F41.1 and Major depressive disorder, recurrent, moderate F33.1 IMMUNIZATIONS Vaccine Route Administration Date Status Influenza (18 yrs & older) Flublok IM Intramuscular Dec 28 9 Administered Influenza (18 yrs & older) Flublok IM Intramuscular Feb 04, 2018 Administered Pneumococcal Adult 0.5mL (Pneumovax 23) IM Intramuscular Dec Administered Influenza (6mo & up) Fluzone IM Intramuscular Feb 16, 2017 Ad ministered Influenza (6mo & up) Fluzone IM Intramuscular Mar 19, 2016 Ad ministered SOCIAL HISTORY Tobacco Use: Social History Observation Description Date Details (start date - stop date) Current Smoker Sex Assigned At : Social History Observation Description Sex Assigned At Unknown Language: Question Answer Notes Languages spoken: Japanese Yazidi: Question Answer Notes Yazidi 21 Anabaptism No episcopal beliefs that would impact health care. Domestic Violence: Question Answer Notes Status: Sexual Hx: Question Answer Notes Had sex in the last 12 months (vaginal, oral, or anal)? No LMP: 2004 Have you ever had an STD? No Drug and Alcohol Question Answer Notes Total Score: 0 Interpretation: No problems reported Alcohol Screening: Question Answer Notes Did you have a drink containing alcohol in the past year? Ye s Points 2 Interpretation Negative How often did you have six or more drinks on one occas ion in the past year? Never (0 points) How many drinks did you have on a typica l day when you were drinking in the past year? 1 or 2 (0 points) How often did you have a drink containing alcohol in t he past year? Two to four times a month (2 points) BMI Care Goal Follow-Up Question Answer Notes Above Normal BMI Follow-Up Dietary management educatio n, guidance, and counseling Tobacco Use: Question Answer Notes Are you a: current smoker Smoking Cessation Information Given 08/31/2019 Patient counseled on the dangers of tobacco use and urged to quit: 08/31/2019 How many cigarettes a day do you smoke? 6-10 REASON FOR REFERRAL No Information VITAL SIGNS No information MEDICATIONS Medication SIG (Take, Route, Frequency, Duration) Notes Start Da te End Date Status Vitamin D 2000 UNIT 1 capsule Orally Once a day Active Chantix Continuing Month Cale 1 MG 1 tablet Orally Twice a day for 3 0 day(s) Not-Taking Breo Ellipta 200-25 MCG/INH 1 puff Inhalation Once a day for 30 Days August, Active Albuterol Sulfate (2.5 MG/3ML) 0.083% 3 ml as needed I nhalation Q4-6 hours (disp # 1 box) for 7 days Jan, Active OneTouch Verio 1 as directed e11.9 bid for 90 day(s) 2019 Active Divalproex Sodium ER 500 MG 2 tabs Orally Daily for 90 Active Colace 100 MG 1 capsule as needed Orally Once a day for 30 day (s) Apr, Active Levaquin 750 MG 1 tablet Orally Once a day for 10 day(s) 0 1 Mar, 2020 Active Omeprazole 40 MG 1 capsule 30 minutes before morning meal Orally Once a day for 90 day(s) Active Duloxetine HCl 40 MG 1 capsule Orally Daily for 90 day(s) Active Metoprolol Succinate ER 25 MG 1 tablet Orally Once a day for 30 day(s ) Active Combivent Respimat 20-100 MCG/ACT 1 puff Inhalation Four times a day Active Gabapentin 600 MG 1 tablet Orally bid for 90 day(s) Active OneTouch Verio w/Device as directed E11.9 bid for 90 day(s) Mar, Active Tramadol HCl 50 MG 1 tablet as needed Orally Once a day for 30 days Active Metoprolol Succinate 25 MG 1 capsule Orally Once a day for 90 da y(s) Feb, Active Cymbalta 30 MG 1 capsule Orally Once a day for 90 day(s) Active Primidone 50 MG as directed Orally A ctive Simple LifeformsTouch Ultra Blue 1 1 strip In Vitro four times daily for 90 day(s) Active Gabapentin 300 MG 1 capsule Orally bid Active Gabapentin 300 MG 1 capsule as needed Orally Once a day Active Aspirin 81 MG 1 tablet Orally Once a day for 30 day(s) Active Benzoyl Peroxide-Erythromycin 5-3 % 1 application to a ffected area Externally Twice a day for 90 day(s) Feb, Active Ultra-Thin II Pen Needle Short 31G X 8 MM as directed E11.9 bid for 30 days Active Chlorthalidone 25 MG 1 tablet in the morning with food Orally Once a day for 90 day(s) Feb, Active Losartan Potassium 50 MG 1 tablet Orally bid for 30 day(s) Active Tizanidine HCl 2 MG 2 capsule as needed Orally QHS Active AmLODIPine Besylate 2.5 MG 1 tablet Orally Once a day for 90 day(s) Active Tresiba FlexTouch 200 UNIT/ML 10 units Subcutaneous BID AC AM/PM for 30 days Active Lancets 1 1 lancet E11.9 four times daily for 90 day(s) Active Magnesium Oxide 400 MG 2 tablet as needed Orally TWICE A DAY Active Allopurinol 300 MG 1 tablet Orally Once a day Active Ventolin HFA 108 (90 Base) MCG/ACT 2 puffs as needed I nhalation every 6 hrs for 30 day(s) Jan, Active Benzoyl Peroxide-Erythromycin 5-3 % APPLY TO AFFECTED AREA(S) TWO TIMES A DAY as needed Active Atorvastatin Calcium 40 MG 1 tablet Orally Once a day Active PROCEDURES No Information RESULTS No Results REASON FOR VISIT TS FOLLOW UP MEDICAL (GENERAL) HISTORY Type Description Date Medical History hypertension, essential Medical History T2DM ID, dx 1999 Medical History Hyperlipidemia Medical History Gout Medical History asthma, mild persistent Medical History GERD Medical History Bipolar disorder- 2003 Medical History Nicotine use disorder since 18years old. 1 pack a day Quit for 6 year. then started back on Medical History Spinal stenosis - Degenerati ve changes c moderate neural foraminal narrowing L2-L5 - 12/2009 MRI lumbar spine Medical History 11/2018 MRI lumbar spine: tolliver inectomy defects at L2-S1. scar tissue involves R L3-D4krjmkm and Left S1 never. Medical History diastolic CHF-05/24/15 TTE-grade 1 yani dy s Surgical History Partial hysterectomy 2003 Surgical History Lumbar laminectomy- Dr Palomo 2009 Surgical History Lumbar [facility]ke[facility]- (in [facility] 20 14 Hospitalization History uncontrolled DM c EVE BG 445 , Cr 1. 8/38, K 4.6 12/01-12/03/2018 Goals Section No Information Health Concerns No Information MEDICAL EQUIPMENT No Information MENTAL STATUS No Information FUNCTIONAL STATUS No Information ASSESSMENTS Encounter Date Diagnosis Assessment Notes Treatment Notes Treatm ent Clinical Notes Apr, Bipolar II disorder (ICD-10 - F31.81) Apr, Generalized anxiety disorder (ICD-10 - F41.1) Apr, Major depressive disorder, recurrent, moderate ( ICD-10 - F33.1) Apr, Other Utilized CBT to role play a thought reframing technique for decreasing her symptoms of anxiety and agitation. Abdon arrived on time for her appointment and actively engaged throughout her session. Abdon was responsive to the CBT thought reframing intervention for decreasing her symptoms of anxiety and agitation. Abdon reports that she has been feeling anxious and agigtated about her role in her family. Abdon agreed utilize the technique that we discussed and will return for psychotherapy on 04/29/2020. Abdon is aware to call for a soon appointment if needed and to utilize the ED for MH emergencies. PLAN OF TREATMENT Medication Medication Name Sig Start Date Stop Date OneTouch Verio 1 as directed e11.9 bid for 90 day(s) Mar, 0 OneTouch Verio w/Device as directed E11.9 bid for 90 day(s) 07 D 2019 Tramadol HCl 50 MG 1 tablet as needed Orally Once a day for 30 d ays Levaquin 750 MG 1 tablet Orally Once a day for 10 day(s) Mar, Divalproex Sodium ER 500 MG 2 tabs Orally Daily for 90 Next Appt Details Provider Name:Jamil Jaffe, 2020-04-29 09:0 0:00 AM, [address] [place], [address] Insurance Providers Payer Name Payer Address Payer Phone Insured Name Patient Relati onship to Insured Coverage Start Date Coverage End Date AETNA MEDICARE AETNA [employer] INSURANCE [employer] [address] [facility] [id number] ABDON ESPARZA self
--- OUTSIDE RECORDS SUMMARY | 2020-05-23 06:44 | CCD ---
Author Author [facility] Organization [facility] Address Unknown Phone Unavailable Care Team Providers Care Solderer Torch Name Role Phone Jamil Jaffe Unavailable PROBLEMS Type Condition ICD9-CM Code [id number] Code Onset Dates Condition S tatus SNOMED Code Notes Problem Essential (primary) hypertension I10 Active 90593007 Problem Mixed hyperlipidemia E78.2 Active 000084188 Problem Bipolar 1 disorder F31.9 Active 237729217 Problem Mild intermittent asthma without complication J45. 20 Active 279312101 Problem Chronic gout without tophus, unspecified cause, unspecified site M1A.9XX0 Active 678236621 Problem GERD without esophagitis K21.9 Active 2958540 05 Problem Vitamin D deficiency E55.9 Active 55029912 Problem Diabetes mellitus, type 2 E11.9 Active 357375 06 Problem Mild persistent asthma without complication J45.30 Active 636301681 Problem Major depressive disorder, recurrent, moderate F33 .1 Active 485769760 Problem Lumbar stenosis with neurogenic claudication M48.06 Active 88773217 Problem Bipolar II disorder F31.81 Active 36506649 Problem Tobacco use disorder F17.200 Active 151533193 Problem Chronic diastolic congestive heart failure I50.32 Active 108622903 Problem Interstitial pneumonitis J84.89 Active 2355625 1 Problem Other specified interstitial pulmonary diseases J8 4.89 Active 207823494 Problem Generalized anxiety disorder F41.1 Active 218 10234 ALLERGIES Allergen (clinical drug ingredient) Drug/Non Drug Allergy do cumented on EMR Reaction Allergy Type Onset Date Status naproxen Naproxen([facility] Code:[address]-04) Lack of efficacy Drug All ergy Active meloxicam Mobic([facility] Code:[address]-47) Lack of efficacy Drug Allerg y Active lisinopril Lisinopril([facility] Code:[address]-28) SWELLING Drug Allergy Active ibuprofen Ibuprofen([facility] Code:[address]-15) Lack of efficacy Drug Al lergy Active ENCOUNTERS from 1955 to 2020-05-03 Encounter Location Date Provider Diagnosis [address] [address] Apr, Jamil Jaffe Bipolar II disorder F31.81 [...] Unknown Language: Question Answer Notes Languages spoken: Kiswahili Sabianist: Question Answer Notes Sabianist 21 Latter Day No restoration beliefs that would impact health care. Domestic [...] 50 MG as directed Orally A ctive ConnotateTouch Ultra Blue 1 1 strip In Vitro [...] defects at L2-S1. scar tissue involves R L3-C9jedrar and Left S1 never. Medical History diastolic CHF-05/24/15 TTE-grade 1 yani dy s Surgical History Partial hysterectomy 2003 Surgical History Lumbar laminectomy- Dr Palomo 2009 Surgical History Lumbar diskectomy- (in [facility]) 20 14 Hospitalization History uncontrolled DM c [...] ( ICD-10 - F33.1) Apr, Other Utilized Mindfu lness Based Therapy to role play a tapping grounding technique for decreasing her symptoms of anxiety. Abdon arrived on time for her appointment and actively engaged in the development of her initial treatment plan. Abdon was responsive to the Mindfulness Tapping Grounding intervention for decreasing her symptoms of anxiety. Abdon reports that she has been feeling anxious about her interactions with her adult children. Abdon agreed utilize the technique that we discussed and will return for psychotherapy on 05/13/2020. Abdon is aware to call for a [...] 90 Next Appt Details Provider Name:Jamil Jaffe, 2020-05-13 09:0 0:00 AM, [address] [place], [address] Insurance Providers Payer Name Payer Address Payer Phone Insured Name Patient Relati onship to Insured Coverage Start Date Coverage End Date AETNA MEDICARE AETNA [employer] INSURANCE [employer] [address] [place] [id number] ABDON ESPARZA self
--- OUTSIDE RECORDS SUMMARY | 2020-05-23 06:44 | CCD ---
Author Author [facility] Organization [facility] Address Unknown Phone Unavailable Care Team Providers Care Pewter Finisher Name Role Phone Simran Davis Unavailable PROBLEMS Type Condition ICD9-CM Code [id number] Code Onset Dates Condition S tatus SNOMED Code Notes Problem Essential (primary) hypertension I10 Active 18890465 Problem Mixed hyperlipidemia E78.2 Active 581209549 Problem Bipolar 1 disorder F31.9 Active 235878835 Problem Mild intermittent asthma without complication J45. 20 Active 282649142 Problem Chronic gout without tophus, unspecified cause, unspecified site M1A.9XX0 Active 534914672 Problem GERD without esophagitis K21.9 Active 8617966 05 Problem Vitamin D deficiency E55.9 Active 12852513 Problem Diabetes mellitus, type 2 E11.9 Active 464238 06 Problem Mild persistent asthma without complication J45.30 Active 388714925 Problem Major depressive disorder, recurrent, moderate F33 .1 Active 716126392 Problem Lumbar stenosis with neurogenic claudication M48.06 Active 00218286 Problem Bipolar II disorder F31.81 Active 22067183 Problem Tobacco use disorder F17.200 Active 373886676 Problem Chronic diastolic congestive heart failure I50.32 Active 783732629 Problem Interstitial pneumonitis J84.89 Active 2098397 1 Problem Other specified interstitial pulmonary diseases J8 4.89 Active 882426547 Problem Generalized anxiety disorder F41.1 Active 218 89597 ALLERGIES Allergen (clinical drug ingredient) Drug/Non Drug Allergy do cumented on EMR Reaction Allergy Type Onset Date Status naproxen Naproxen([facility] Code:[address]-18) Lack of efficacy Drug All ergy Active meloxicam Mobic([facility] Code:[address]-53) Lack of efficacy Drug Allerg y Active lisinopril Lisinopril([facility] Code:[address]-32) SWELLING Drug Allergy Active ibuprofen Ibuprofen([facility] Code:[address]-82) Lack of efficacy Drug Al lyndon Active ENCOUNTERS from 1955 to 2020-05-07 Encounter Location Date Provider Diagnosis [facility] Coretta [address] [place] [address] Apr, Simran Sanfordstarlanazanin Essential (primary) hypertension I10 ; C hronic kidney disease, stage 3 unspecified N18.30 and Diabetes mellitus, type 2 E11.9 IMMUNIZATIONS Vaccine Route Administration Date Status Influenza [...] Unknown Language: Question Answer Notes Languages spoken: Cambodian Yarsani: Question Answer Notes Yarsani 21 Orthodoxy No scientologist beliefs that would impact health care. Domestic [...] Notes Start Da te End Date Status Duloxetine HCl 40 MG 1 capsule Orally Daily for 90 day(s) Active Chantix Continuing Month Cale 1 MG 1 tablet Orally Twice a day for 3 0 day(s) Not-Taking Breo Ellipta 200-25 MCG/INH 1 puff Inhalation Once a day for 30 Days August, Active Vitamin D 2000 UNIT 1 capsule Orally Once a day Active OneTouch Verio 1 as directed e11.9 bid for 90 day(s) 2019 Active Divalproex Sodium ER 500 MG 2 tabs Orally Daily for 90 Active OneTouch Verio w/Device as directed E11.9 bid for 90 day(s) Mar, Active Levaquin 750 MG 1 tablet Orally Once a day for 10 day(s) 0 1 Mar, 2020 Active Omeprazole 40 MG 1 capsule 30 minutes before morning meal Orally Once a day for 90 day(s) Active Colace 100 MG 1 capsule as needed Orally Once a day for 30 day (s) Apr, Active Metoprolol Succinate ER 25 MG 1 tablet Orally Once a day for 30 day(s ) Active Combivent Respimat 20-100 MCG/ACT 1 puff Inhalation Four times a day Active Gabapentin 600 MG 1 tablet Orally bid for 90 day(s) Active Tresiba FlexTouch 200 UNIT/ML 10 units Subcutaneous BID AC AM/PM for 45 Active Tramadol HCl 50 MG 1 tablet as needed Orally Once a day for 30 days Active Metoprolol Succinate 25 MG 1 capsule Orally Once a day for 90 da y(s) Feb, Active Cymbalta 30 MG 1 capsule Orally Once a day for 90 day(s) Active Primidone 50 MG as directed Orally A ctive OneTouch Ultra Blue 1 1 strip In Vitro [...] Once a day for 90 day(s) Active Albuterol Sulfate (2.5 MG/3ML) 0.083% 3 ml as needed I nhalation Q4-6 hours (disp # 1 box) for 7 days Jan, Active Lancets 1 1 lancet E11.9 four [...] Information RESULTS No Results REASON FOR VISIT Tong Khalil, I don't know what is going on but everything is extremely MEDICAL (GENERAL) HISTORY Type Description Date Medical [...] defects at L2-S1. scar tissue involves R L3-I2acdkew and Left S1 never. Medical History diastolic CHF-2/03/27 TTE-grade 1 yani dy s Surgical History Partial hysterectomy 2003 Surgical History Lumbar laminectomy- Dr Palomo 2009 Surgical History Lumbar diskectomy- (in [facility]) 20 14 Hospitalization History uncontrolled DM c EVE BG 445 , Cr 1. 8/38, K 4.6 12/01-12/03/2018 Goals Section No Information Health Concerns No Information MEDICAL EQUIPMENT No Information MENTAL STATUS No Information FUNCTIONAL STATUS No Information ASSESSMENTS Encounter Date Diagnosis Assessment Notes Treatment Notes Treatm ent Clinical Notes Apr, Essential (primary) hypertension (ICD-10 - I10) Apr, Chronic kidney disease, stage 3 unspecified (ICD -10 - N18.30) Apr, Diabetes mellitus, type 2 (ICD-10 - E11.9) PLAN OF TREATMENT Medication Medication Name Sig Start Date Stop Date Tresiba FlexTouch 200 UNIT/ML 10 units Subcutaneous BID AC AM/PM for 45 OneTouch Verio w/Device as directed E11.9 bid for 90 day(s) 07 D 2019 Levaquin 750 MG 1 tablet Orally Once a day for 10 day(s) Mar, OneTouch Verio 1 as directed e11.9 bid for 90 day(s) Mar, 0 Divalproex Sodium ER 500 MG 2 tabs Orally Daily for 90 Tramadol HCl 50 MG 1 tablet as needed Orally Once a day for 30 d ays Next Appt Details Provider Name:Jamil Jaffe, 2020-05-13 09:0 0:00 AM, [address] [place], [address] Insurance Providers Payer Name Payer Address Payer Phone Insured Name Patient Relati onship to Insured Coverage Start Date Coverage End Date AETNA MEDICARE AETNA LIFE INSURANCE [employer] [address] [facility] [id number] ABDON DELATORRE self
--- OUTSIDE RECORDS SUMMARY | 2020-05-23 06:44 | CCD ---
Author Author [facility] Organization [facility] Address Unknown Phone Unavailable Care Team Providers Care Oil Changer Name Role Phone Jamil Jaffe Unavailable PROBLEMS Type Condition ICD9-CM Code QCH88-HA Code Onset Dates Condition S tatus SNOMED Code Notes Problem Essential (primary) hypertension I10 Active 61051016 Problem Mixed hyperlipidemia E78.2 Active 437950637 Problem Bipolar 1 disorder F31.9 Active 871556784 Problem Mild intermittent asthma without complication J45. 20 Active 467525399 Problem Chronic gout without tophus, unspecified cause, unspecified site M1A.9XX0 Active 450768287 Problem GERD without esophagitis K21.9 Active 1613058 05 Problem Vitamin D deficiency E55.9 Active 29284952 Problem Diabetes mellitus, type 2 E11.9 Active 804792 06 Problem Mild persistent asthma without complication J45.30 Active 651566098 Problem Major depressive disorder, recurrent, moderate F33 .1 Active 076610420 Problem Lumbar stenosis with neurogenic claudication M48.06 Active 28948078 Problem Bipolar II disorder F31.81 Active 04425686 Problem Tobacco use disorder F17.200 Active 918314628 Problem Chronic diastolic congestive heart failure I50.32 Active 117432622 Problem Interstitial pneumonitis J84.89 Active 5012071 1 Problem Other specified interstitial pulmonary diseases J8 4.89 Active 039788358 Problem Generalized anxiety disorder F41.1 Active 218 03781 ALLERGIES Allergen (clinical drug ingredient) Drug/Non Drug Allergy do cumented on EMR Reaction Allergy Type Onset Date Status naproxen Naproxen([facility] Code:[address]-32) Lack of efficacy Drug All ergy Active meloxicam Mobic([facility] Code:[address]-51) Lack of efficacy Drug Allerg y Active lisinopril Lisinopril([facility] Code:[address]-34) SWELLING Drug Allergy Active ibuprofen Ibuprofen([facility] Code:[address]-66) Lack of efficacy Drug Al lyndon Active ENCOUNTERS from 1955 to 2020-04-03 Encounter Location Date Provider Diagnosis [address] [address] Mar, Jamil Jaffe Bipolar II disorder F31.81 ; [...] Unknown Language: Question Answer Notes Languages spoken: Frisian Taoism: Question Answer Notes Taoism 21 Holiness No islam beliefs that would impact health care. Domestic [...] 50 MG as directed Orally A ctive vendome 1699Touch Ultra Blue 1 1 strip In Vitro [...] defects at L2-S1. scar tissue involves R L3-V2rcqrrp and Left S1 never. Medical History diastolic CHF-05/24/15 TTE-grade 1 yani dy s Surgical History Partial hysterectomy 2003 Surgical History Lumbar laminectomy- Dr Palomo 2009 Surgical History Lumbar diskectomy- (in [facility]) 20 14 Hospitalization History uncontrolled DM c EVE BG 445 , Cr 1. 8/38, K 4.6 12/01-12/03/2018 Goals Section No Information Health Concerns No Information MEDICAL EQUIPMENT No Information MENTAL STATUS No Information FUNCTIONAL STATUS No Information ASSESSMENTS Encounter Date Diagnosis Assessment Notes Treatment Notes Treatm ent Clinical Notes Mar, Bipolar II disorder (ICD-10 - F31.81) Mar, Generalized anxiety disorder (ICD-10 - F41.1) Mar, Major depressive disorder, recurrent, moderate ( ICD-10 - F33.1) Mar, Other Utilized Mindfu lness Based Therapy to role play a tapping grounding technique for decreasing her symptoms of anxiety. Abdon arrived on time for her appointment and actively engaged throughout her session. Abdon was responsive to the Mindfulness Based Therapy tapping grounding intervention for decreasing her symptoms of anxiety. Abdon reports that she has anxiety about the upcoming holidays. Abdon agreed utilize the technique that we discussed and will return for psychotherapy on 04/15/2020. Abdon is aware to call for a [...] 90 Next Appt Details Provider Name:Jamil Jaffe, 2020-04-15 09:0 0:00 AM, [facility] [place], [address] Insurance Providers Payer Name Payer Address Payer Phone Insured Name Patient Relati onship to Insured Coverage Start Date Coverage End Date AETNA MEDICARE AETNA [employer] INSURANCE When You Wish [address] [facility] [phone] ABDON ESPARZA self
--- OUTSIDE RECORDS SUMMARY | 2020-05-23 06:45 | CCD ---
Author Author [facility] Organization [facility] Address Unknown Phone Unavailable Care Team Providers Care Awning Installer Name Role Phone Simran Davis Unavailable PROBLEMS Type Condition ICD9-CM Code [id number] Code Onset Dates Condition S tatus SNOMED Code Notes Problem GERD without esophagitis K21.9 Active 1633349 05 Problem Mild intermittent asthma without complication J45. 20 Active 638028607 Problem Chronic gout without tophus, unspecified cause, unspecified site M1A.9XX0 Active 811534070 Problem Mixed hyperlipidemia E78.2 Active 345084950 Problem Tobacco use disorder F17.200 Active 304047452 Problem Lumbar stenosis with neurogenic claudication M48.06 Active 04029376 Problem Interstitial pneumonitis J84.89 Active 8397700 1 Problem Essential (primary) hypertension I10 Active 21154495 Problem Other specified interstitial pulmonary diseases J8 4.89 Active 629004178 Problem Bipolar 1 disorder F31.9 Active 402633267 Problem Diabetes mellitus, type 2 E11.9 Active 666710 06 Problem Vitamin D deficiency E55.9 Active 40747355 Problem Mild persistent asthma without complication J45.30 Active 349249908 Problem Chronic diastolic congestive heart failure I50.32 Active 254269378 ALLERGIES Allergen (clinical drug ingredient) Drug/Non Drug Allergy do cumented on EMR Reaction Allergy Type Onset Date Status naproxen Naproxen([facility] Code:[address]-74) Lack of efficacy Drug All ergy Active meloxicam Mobic([facility] Code:[address]-28) Lack of efficacy Drug Allerg y Active lisinopril Lisinopril([facility] Code:[address]-95) SWELLING Drug Allergy Active ibuprofen Ibuprofen([facility] Code:[address]-88) Lack of efficacy Drug Al lergy Active ENCOUNTERS from 1957 to 2020-03-27 Encounter Location Date Provider Diagnosis [facility] [address] [place] [address] Mar, Simran Davis Spinal stenosis of lumbosacral region M4 8.07 IMMUNIZATIONS Vaccine Route Administration Date Status Influenza [...] Unknown Language: Question Answer Notes Languages spoken: Armenian Jewish: Question Answer Notes Jewish 21 Hindu No tenriism beliefs that would impact health care. Domestic [...] 50 MG as directed Orally A ctive i2 [employer] IP HoldingsTouch Ultra Blue 1 1 strip In Vitro [...] Information RESULTS No Results REASON FOR VISIT serve back and leg pain. MEDICAL (GENERAL) HISTORY Type Description Date Medical History hypertension, essential Medical History T2DM ID, dx 1999 Medical History Hyperlipidemia Medical History Gout Medical History asthma, mild persistent Medical History GERD Medical History Bipolar disorder- 2004 Medical History Nicotine use disorder since 18years old. 1 pack a day Quit for 6 year. then started back on Medical History Spinal stenosis - Degenerati ve changes c moderate neural foraminal narrowing L2-L5 - 12/2009 MRI lumbar spine Medical History 11/2018 MRI lumbar spine: tolliver inectomy defects at L2-S1. scar tissue involves R L3-Q4ujbqrh and Left S1 never. Medical History diastolic CHF-2/03/27 TTE-grade 1 yani dy s Surgical History Partial hysterectomy 2003 Surgical History Lumbar laminectomy- Dr Palomo 2009 Surgical History Lumbar diskectomy- (in [place]) 20 14 Hospitalization History uncontrolled DM c EVE BG 445 , Cr 1. 8/38, K 4.6 12/01-12/03/2018 Goals Section No Information Health Concerns No Information MEDICAL EQUIPMENT No Information MENTAL STATUS No Information FUNCTIONAL STATUS No Information ASSESSMENTS Encounter Date Diagnosis Assessment Notes Treatment Notes Treatm ent Clinical Notes Mar, Spinal stenosis of lumbosacral region (ICD-10 - M48.07) PLAN OF TREATMENT Medication Medication Name Sig Start Date Stop Date OneTouch Verio 1 as directed e11.9 bid for 90 day(s) Mar, 0 OneTouch Verio w/Device as directed E11.9 bid for 90 day(s) 07 2019 Tramadol HCl 50 MG 1 tablet as needed Orally Once a day for 30 d ays Levaquin 750 MG 1 tablet Orally Once a day for 10 day(s) Mar, Divalproex Sodium ER 500 MG 2 tabs Orally Daily for 90 Next Appt Details Provider Name:Jamil Jaffe, 2020-04-15 09:0 0:00 AM, [address] [place], [address] Insurance Providers Payer Name Payer Address Payer Phone Insured Name Patient Relati onship to Insured Coverage Start Date Coverage End Date AETNA MEDICARE AETNA LIFE INSURANCE [email or web address] [address] [facility] [id number] ABDON ESPARZA self
--- OUTSIDE RECORDS SUMMARY | 2020-05-23 06:45 | CCD ---
Author Author [facility] Organization [facility] Address Unknown Phone Unavailable Care Team Providers Care Emergency Medicine Specialist Name Role Phone Jamil Jaffe Unavailable PROBLEMS Type Condition ICD9-CM Code [id number] Code Onset Dates Condition S tatus SNOMED Code Notes Problem Essential (primary) hypertension I10 Active 30381552 Problem Mixed hyperlipidemia E78.2 Active 622055741 Problem Bipolar 1 disorder F31.9 Active 066982711 Problem Mild intermittent asthma without complication J45. 20 Active 173565073 Problem Chronic gout without tophus, unspecified cause, unspecified site M1A.9XX0 Active 892941700 Problem GERD without esophagitis K21.9 Active 2216766 05 Problem Vitamin D deficiency E55.9 Active 61599443 Problem Diabetes mellitus, type 2 E11.9 Active 673918 06 Problem Mild persistent asthma without complication J45.30 Active 969945316 Problem Major depressive disorder, recurrent, moderate F33 .1 Active 246339212 Problem Lumbar stenosis with neurogenic claudication M48.06 Active 66727682 Problem Bipolar II disorder F31.81 Active 32985213 Problem Tobacco use disorder F17.200 Active 588805670 Problem Chronic diastolic congestive heart failure I50.32 Active 637939429 Problem Interstitial pneumonitis J84.89 Active 4686520 1 Problem Other specified interstitial pulmonary diseases J8 4.89 Active 978279704 Problem Generalized anxiety disorder F41.1 Active 218 01985 ALLERGIES Allergen (clinical drug ingredient) Drug/Non Drug Allergy do cumented on EMR Reaction Allergy Type Onset Date Status naproxen Naproxen([facility] Code:[address]-23) Lack of efficacy Drug All ergy Active meloxicam Mobic([facility] Code:[address]-59) Lack of efficacy Drug Allerg y Active lisinopril Lisinopril([facility] Code:[address]-67) SWELLING Drug Allergy Active ibuprofen Ibuprofen([facility] Code:[address]-96) Lack of efficacy Drug Al lyndon Active ENCOUNTERS from 1955 to 2020-03-30 Encounter Location Date Provider Diagnosis [address] [address] Mar, Jamil Jaffe Bipolar II disorder F31.81 [...] Unknown Language: Question Answer Notes Languages spoken: Khmer Druze: Question Answer Notes Druze 21 Voodoo No judaism beliefs that would impact health care. Domestic [...] 50 MG as directed Orally A ctive [employer] Ultra Blue 1 1 strip In Vitro [...] Information RESULTS No Results REASON FOR VISIT intake MEDICAL (GENERAL) HISTORY Type Description Date Medical [...] defects at L2-S1. scar tissue involves R L3-H0rkvsmw and Left S1 never. Medical History diastolic CHF-05/24/15 TTE-grade 1 yani dy s Surgical History Partial hysterectomy 2003 Surgical History Lumbar laminectomy- Dr Palomo 2009 Surgical History Lumbar diskectomy- (in [facility]) 20 14 Hospitalization History uncontrolled DM c [...] moderate ( ICD-10 - F33.1) Mar, Other Abdon arrived o n time for her initial assessment and actively engaged throughout her session. We discussed Abdon's symptoms, history, possible diagnoses, and treatment options. Diagnosed Abdon with Bipolar 2 Disorder F31.81, MATT F41.1, and MDD F33.1. Abdon agreed with her diagnoses and will return for psychotherapy on 03/25/2020. Abdon is aware to call for a [...] Provider Name:Jamil Jaffe, 2020-04-15 09:0 0:00 AM, [facility] [place], [address] Insurance Providers Payer Name Payer Address Payer Phone Insured Name Patient Relati onship to Insured Coverage Start Date Coverage End Date AETNA MEDICARE AETNA [employer]UR[employer] [address] [facility] [id number] ABDON ESPARZA self
--- OUTSIDE RECORDS SUMMARY | 2020-05-23 06:45 | CCD ---
Author Author [facility] Organization [facility] Address Unknown Phone Unavailable Care Team Providers Care Delivery Motorcycle Driver Name Role Phone Simran Davis Unavailable PROBLEMS Type Condition ICD9-CM Code PYM33-GW Code Onset Dates Condition S tatus SNOMED Code Notes Problem GERD without esophagitis K21.9 Active 1090038 05 Problem Mild intermittent asthma without complication J45. 20 Active 169330061 Problem Chronic gout without tophus, unspecified cause, unspecified site M1A.9XX0 Active 457497186 Problem Mixed hyperlipidemia E78.2 Active 117105485 Problem Tobacco use disorder F17.200 Active 850992259 Problem Lumbar stenosis with neurogenic claudication M48.06 Active 94849776 Problem Interstitial pneumonitis J84.89 Active 1016841 1 Problem Essential (primary) hypertension I10 Active 66487524 Problem Other specified interstitial pulmonary diseases J8 4.89 Active 441720787 Problem Bipolar 1 disorder F31.9 Active 559486105 Problem Diabetes mellitus, type 2 E11.9 Active 875166 06 Problem Vitamin D deficiency E55.9 Active 84561053 Problem Mild persistent asthma without complication J45.30 Active 216857597 Problem Chronic diastolic congestive heart failure I50.32 Active 618468823 ALLERGIES Allergen (clinical drug ingredient) Drug/Non Drug Allergy do cumented on EMR Reaction Allergy Type Onset Date Status naproxen Naproxen([facility] Code:[address]-15) Lack of efficacy Drug All ergy Active meloxicam Mobic([facility] Code:[address]-35) Lack of efficacy Drug Allerg y Active lisinopril Lisinopril([facility] Code:[address]-60) SWELLING Drug Allergy Active ibuprofen Ibuprofen([facility] Code:[address]-42) Lack of efficacy Drug Al lergy Active ENCOUNTERS from 1955 to 2020-03-18 Encounter Location Date Provider Diagnosis [facility] [address] [place] [address] Mar, Simran Davis Chronic cough R05 and Bipolar 1 disorder F31.9 IMMUNIZATIONS Vaccine Route Administration Date Status Influenza [...] Unknown Language: Question Answer Notes Languages spoken: Romanian Samaritan: Question Answer Notes Samaritan 21 Hinduism No mandaeism beliefs that would impact health care. Domestic [...] REASON FOR REFERRAL No Information VITAL SIGNS Weight 224 lbs Mar, Height 5'6" in Mar, BMI 36.15 kg/m2 Mar, Heart Rate 107 /min Mar, Respiratory Rate 20 /min Mar, Temperature 97.1 degrees Fahrenheit Mar, Oximetry 91% Mar, Blood pressure systolic 128 mm Hg Mar, Blood pressure diastolic 68 mm Hg Mar, MEDICATIONS Medication SIG (Take, Route, Frequency, Duration) Notes Start Da te End Date Status Albuterol Sulfate (2.5 MG/3ML) 0.083% 3 ml as needed I nhalation Q4-6 hours (disp # 1 box) for 7 days Jan, Active OneTouch Verio 1 as directed e11.9 bid for 90 day(s) 2019 Active Breo Ellipta 200-25 MCG/INH 1 puff Inhalation Once a day for 30 Days August, Active Tresiba FlexTouch 200 UNIT/ML 10 units Subcutaneous BID AC AM/PM for 30 days Active Losartan Potassium 50 MG 1 tablet Orally bid for 30 day(s) Active Divalproex Sodium ER 500 MG 2 tabs Orally Daily for 90 Active Duloxetine HCl 40 MG 1 capsule Orally Daily for 90 day(s) Active Metoprolol Succinate ER 25 MG 1 tablet Orally Once a day for 30 day(s ) Active Omeprazole 40 MG 1 capsule 30 minutes before morning meal Orally Once a day for 90 day(s) Active Vitamin D 2000 UNIT 1 capsule Orally Once a day Active Chantix Continuing Month Cale 1 MG 1 tablet Orally Twice a day for 3 0 day(s) Not-Taking Combivent Respimat 20-100 MCG/ACT 1 puff Inhalation Four times a day Active Gabapentin 600 MG 1 tablet Orally bid for 90 day(s) Active Colace 100 MG 1 capsule as needed Orally Once a day for 30 day (s) Apr, Active Levaquin 750 MG 1 tablet Orally Once a day for 10 day(s) 0 1 Mar, 2020 Active Metoprolol Succinate 25 MG 1 capsule Orally Once a day for 90 da y(s) Feb, Active Cymbalta 30 MG 1 capsule Orally Once a day for 90 day(s) Active OneTouch Ultra Blue 1 1 strip In Vitro four times daily for 90 day(s) Active Tramadol HCl 50 MG 1 tablet as needed Orally Once a day for 30 days Active Gabapentin 300 MG 1 capsule Orally bid Active Ultra-Thin II Pen Needle Short 31G X 8 MM as directed E11.9 bid for 30 days Active Chlorthalidone 25 MG 1 tablet in the morning with food Orally Once a day for 90 day(s) Feb, Active Benzoyl Peroxide-Erythromycin 5-3 % 1 application to a ffected area Externally Twice a day for 90 day(s) Feb, Active Primidone 50 MG as directed Orally A ctive my[employer]Touch Verio w/Device as directed E11.9 bid for 90 day(s) Mar, Active Aspirin 81 MG 1 tablet Orally Once a day for 30 day(s) Active Tizanidine HCl 2 MG 2 capsule as needed Orally QHS Active AmLODIPine Besylate 2.5 MG 1 tablet Orally Once a day for 90 day(s) Active Gabapentin 300 MG 1 capsule as needed Orally Once a day Active Lancets 1 1 lancet E11.9 four [...] Information RESULTS No Results REASON FOR VISIT continued cough MEDICAL (GENERAL) HISTORY Type Description Date Medical [...] defects at L2-S1. scar tissue involves R L3-O8ctfmbs and Left S1 never. Medical History diastolic [...] Treatment Notes Treatm ent Clinical Notes Mar, Chronic cough (ICD-10 - R05) favor mixed obstructive/restrictive etiology Obtain sputum culture likely ? copd Exacerbation therefore levaquin referral to Pulmonology for further evaluation Mar, Bipolar 1 disorder (ICD-10 - F31.9) depressed moods in the past months Encouraged evaluation Given walk in hours PLAN OF TREATMENT Medication Medication Name Sig Start Date Stop Date OneTouch Verio 1 as directed e11.9 bid for 90 day(s) Mar, 0 OneTouch Verio w/Device as directed E11.9 bid for 90 day(s) 07 2019 Divalproex Sodium ER 500 MG 2 tabs Orally Daily for 90 Levaquin 750 MG 1 tablet Orally Once a day for 10 day(s) Mar, Treatment Notes Assessment Notes Clinical Notes Chronic cough favor mixed obstruct awilda/restrictive etiologyObtain sputum culturelikely ? copd Exacerbation therefore levaquinreferral to Pulmonology for further evaluation Bipolar 1 disorder depressed moods in t he past monthsEncouraged evaluationGiven walk in hours Treatment Notes Test Name Order Date SPUTUM CULTURE AND GRAM STAIN 2020-03-18 Next Appt Details 2 Weeks Reason: Provider Name:Jamil Jaffe 2020-03-25 09:0 0:00 AM, [address] [place], [address] Insurance Providers Payer Name Payer Address Payer Phone Insured Name Patient Relati onship to Insured Coverage Start Date Coverage End Date AETNA MEDICARE AETNA LIFE INSURANCE [employer] [address] [facility] [phone] ABDON ESPARZA self
--- OUTSIDE RECORDS SUMMARY | 2020-05-23 06:45 | CCD | Continuity of Care Document ---
Author Maria Esther Galvan M.D. Organization Unknown Address [address] [place] [address] Phone [phone] Care Team Providers Care Dye Tub Operator Name Role Phone Mc Bryan D.O. AUTM [phone] ClaribeljessicaZakia stafford GAIL AUTM [phone] Problems Active Problems Provider Date Cerebral [...] Provide r Date Benztropine Mesylate 1mg Tablets half a tab by mouth twice a day for 2 weeks, then 1 by mouth bid. 60sd Butterfield M.D. 03/05/2020 Alprazolam 0.5mg Tablets 1 [...] lb BMI (Body Mass Index) 33.2 kg/m2 [place] Body Weight 135 lb Results Description No Information Available Procedures Description No Information Available Medical Devices Description No Information Available Encounters Type Date Location Provider Dx Diagnosis Office Visit 03/05/2020 1:30p Main office - [place] Joie Hyde G25.0 Essential tremor G24.8 Other dystonia G31.84 Mild cognitive impairment, s o stated Assessments Date Code Description Provider 03/05/2020 G25.0 Essential tremor Noemí Hyde 03/05/2020 G24.8 Other dystonia Mira Butterfield M.D. 03/05/2020 G31.84 Mild cognitive impairment, so st ated Mira Butterfield M.D. Plan of Treatment No Information Available Functional Status Description No Information Available Mental Status Description No Information Available Referrals Description No Information Available
--- OUTSIDE RECORDS SUMMARY | 2020-05-23 06:45 | CCD ---
Author Author [facility] Organization [facility] Address Unknown Phone Unavailable Care Team Providers Care Cloth Neutralizer Name Role Phone Simran Davis Unavailable PROBLEMS Type Condition ICD9-CM Code AGY68-EZ Code Onset Dates Condition S tatus SNOMED Code Notes Problem GERD without esophagitis K21.9 Active 5346126 05 Problem Mild intermittent asthma without complication J45. 20 Active 813387612 Problem Chronic gout without tophus, unspecified cause, unspecified site M1A.9XX0 Active 101760586 Problem Mixed hyperlipidemia E78.2 Active 027201346 Problem Tobacco use disorder F17.200 Active 374322582 Problem Lumbar stenosis with neurogenic claudication M48.06 Active 53221742 Problem Interstitial pneumonitis J84.89 Active 5483375 1 Problem Essential (primary) hypertension I10 Active 70451481 Problem Other specified interstitial pulmonary diseases J8 4.89 Active 598636295 Problem Bipolar 1 disorder F31.9 Active 090889227 Problem Diabetes mellitus, type 2 E11.9 Active 520433 06 Problem Vitamin D deficiency E55.9 Active 92444880 Problem Mild persistent asthma without complication J45.30 Active 499727279 Problem Chronic diastolic congestive heart failure I50.32 Active 442395559 ALLERGIES Allergen (clinical drug ingredient) Drug/Non Drug Allergy do cumented on EMR Reaction Allergy Type Onset Date Status naproxen Naproxen([facility] Code:[address]-34) Lack of efficacy Drug All ergy Active meloxicam Mobic([facility] Code:[address]-47) Lack of efficacy Drug Allerg y Active lisinopril Lisinopril([facility] Code:[address]-00) SWELLING Drug Allergy Active ibuprofen Ibuprofen([facility] Code:[address]-38) Lack of efficacy Drug Al lergy Active ENCOUNTERS from 1955 to 2020-03-12 Encounter Location Date Provider Diagnosis [facility] [address] [place] [address] Feb, Simran Davis IMMUNIZATIONS Vaccine Route Administration Date Status Influenza [...] Unknown Language: Question Answer Notes Languages spoken: Nigerian Yazdanism: Question Answer Notes Yazdanism 21 Buddhist No caodaism beliefs that would impact health care. Domestic [...] 1 box) for 7 days Jan, Active Metoprolol Succinate ER 25 MG 1 tablet Orally Once a day for 30 day(s ) Active Omeprazole 40 MG 1 capsule 30 minutes before morning meal Orally Once a day for 90 day(s) Active Tresiba FlexTouch 200 UNIT/ML 10 units Subcutaneous BID AC AM/PM for 30 days Active Chantix Continuing Month Cale 1 MG 1 tablet Orally Twice a day for 3 0 day(s) Not-Taking Combivent Respimat 20-100 MCG/ACT 1 puff Inhalation Four times a day Active Duloxetine HCl 40 MG 1 capsule Orally Daily for 90 day(s) Active Gabapentin 600 MG 1 tablet Orally bid for 90 day(s) Active Vitamin D 2000 UNIT 1 capsule Orally Once a day Active Levaquin 750 MG 1 tablet Orally Once a day for 10 day(s) 0 1 Mar, 2020 Active Metoprolol Succinate 25 MG 1 capsule Orally Once a day for 90 da y(s) Feb, Active Tizanidine HCl 2 MG 2 capsule as needed Orally QHS Active Colace 100 MG 1 capsule as needed Orally Once a day for 30 day (s) Apr, Active Cymbalta 30 MG 1 capsule Orally Once a day for 90 day(s) Active Divalproex Sodium ER 500 MG 2 tabs Orally Daily for 90 Active OneTouch Ultra Blue 1 1 strip In Vitro four times daily for 90 day(s) Active Tramadol HCl 50 MG 1 tablet as needed Orally Once a day for 30 days Active Gabapentin 300 MG 1 capsule Orally bid Active Ultra-Thin II Pen Needle Short 31G X 8 MM as directed E11.9 bid for 30 days Active Aspirin 81 MG 1 tablet Orally Once a day for 30 day(s) Active Benzoyl Peroxide-Erythromycin 5-3 % 1 application to a ffected area Externally Twice a day for 90 day(s) Feb, Active Primidone 50 MG as directed Orally A ctive Chlorthalidone 25 MG 1 tablet in the morning with food Orally Once a day for 90 day(s) Feb, Active Losartan Potassium 50 MG 1 tablet Orally bid for 30 day(s) Active Breo Ellipta 200-25 MCG/INH 1 puff Inhalation Once a day for 30 Days August, Active AmLODIPine Besylate 2.5 MG 1 tablet [...] defects at L2-S1. scar tissue involves R L3-O3fdzjud and Left S1 never. Medical History diastolic CHF-/03/27 TTE-grade 1 [place]yni dy s Surgical History Partial hysterectomy 2003 Surgical History Lumbar laminectomy- Dr Palomo 2009 Surgical History Lumbar diskectomy- (in [facility]) 20 14 Hospitalization History uncontrolled DM c EVE BG 445 , Cr 1. 8/38, K 4.6 12/01-12/03/2018 Goals Section No Information Health Concerns No Information MEDICAL EQUIPMENT No Information MENTAL STATUS No Information FUNCTIONAL STATUS No Information ASSESSMENTS No Information PLAN OF TREATMENT Medication Medication Name Sig Start Date Stop Date Divalproex Sodium ER 500 MG 2 tabs Orally Daily for 90 Levaquin 750 MG 1 tablet Orally Once a day for 10 day(s) Mar, Next Appt Details Provider Name:Jamil Jaffe 2020-03-13 09:0 0:00 AM, [address] [place], [address] Insurance Providers Payer Name Payer Address Payer Phone Insured Name Patient Relati onship to Insured Coverage Start Date Coverage End Date AETNA MEDICARE AETNA [employer] [address] [facility] [id number] ABDON ESPARZA self
--- OUTSIDE RECORDS SUMMARY | 2020-05-23 06:45 | CCD ---
Author Author [facility] Organization [facility] Address Unknown Phone Unavailable Care Team Providers Care Animal Bounty Hunter Name Role Phone Simran Davis Unavailable PROBLEMS Type Condition ICD9-CM Code NYP29-BO Code Onset Dates Condition S tatus SNOMED Code Notes Problem GERD without esophagitis K21.9 Active 6273877 05 Problem Mild intermittent asthma without complication J45. 20 Active 464479863 Problem Chronic gout without tophus, unspecified cause, unspecified site M1A.9XX0 Active 860118218 Problem Mixed hyperlipidemia E78.2 Active 037319152 Problem Tobacco use disorder F17.200 Active 136987118 Problem Lumbar stenosis with neurogenic claudication M48.06 Active 64460438 Problem Interstitial pneumonitis J84.89 Active 2003306 1 Problem Essential (primary) hypertension I10 Active 04862545 Problem Other specified interstitial pulmonary diseases J8 4.89 Active 901400865 Problem Bipolar 1 disorder F31.9 Active 136392138 Problem Diabetes mellitus, type 2 E11.9 Active 558780 06 Problem Vitamin D deficiency E55.9 Active 72737510 Problem Mild persistent asthma without complication J45.30 Active 813059210 Problem Chronic diastolic congestive heart failure I50.32 Active 540448720 ALLERGIES Allergen (clinical drug ingredient) Drug/Non Drug Allergy do cumented on EMR Reaction Allergy Type Onset Date Status naproxen Naproxen([facility] Code:[address]-75) Lack of efficacy Drug All ergy Active meloxicam Mobic([facility] Code:[address]-54) Lack of efficacy Drug Allerg y Active lisinopril Lisinopril([facility] Code:[address]-73) SWELLING Drug Allergy Active ibuprofen Ibuprofen([facility] Code:[address]-71) Lack of efficacy Drug Al lergy Active ENCOUNTERS from 1955 to 2020-03-20 Encounter Location Date Provider Diagnosis [facility] [address] [place] [address] Mar, Simran Davis IMMUNIZATIONS Vaccine Route Administration Date [...] Unknown Language: Question Answer Notes Languages spoken: Turkmen Sikhism: Question Answer Notes Sikhism 21 Worship No baptist beliefs that would impact health care. Domestic [...] MG as directed Orally A ctive OneTouch Verio w/Device as directed E11.9 bid [...] Information RESULTS No Results REASON FOR VISIT ED Visit [facility] D/C 03/18; General Medical MEDICAL (GENERAL) HISTORY Type Description Date Medical [...] defects at L2-S1. scar tissue involves R L3-M4oyttxx and Left S1 never. Medical History diastolic [...] bid for 90 day(s) 07 D 2019 Divalproex Sodium ER 500 MG 2 tabs Orally Daily for 90 Levaquin 750 MG 1 tablet Orally Once a day for 10 day(s) Mar, Next Appt Details Provider Name:Jamil Jaffe, 2020-03-25 09:0 0:00 AM, [address] [place], [address] Insurance Providers Payer Name Payer Address Payer Phone Insured Name Patient Relati onship to Insured Coverage Start Date Coverage End Date A[employer]NA MEDICARE [employer] [address] [facility] [phone] ABDON ESPARZA self
--- OUTSIDE RECORDS SUMMARY | 2020-05-23 06:45 | CCD | Continuity of Care Document ---
Author Maria Esther Galvan M.D. Organization Unknown Address [address] [place] [address] Phone [phone] Care Team Providers Care Carpenter Repair Name Role Phone Mc Bryan D.O. AUTM [phone] Zakia Davis GAIL AUTM Problems Active Problems Provider Date Cerebral infarction [...] 2 weeks, then 1 by mouth bid. 60tajanak Butterfield M.D. 03/05/2020 Alprazolam 0.5mg Tablets 1 [...] lb BMI (Body Mass Index) 33.2 kg/m2 [place] Body Weight 135 lb Results Description No Information Available Procedures Description No Information Available Medical Devices Description No Information Available Encounters Description No Information Available Assessments Date Code Description Provider 03/05/2020 G25.0 Essential tremor Noemí Hyde 03/05/2020 G24.8 Other dystonia Mira Butterfield M.D. 03/05/2020 G31.84 Mild cognitive impairment, so st ated Mira Butterfield M.D. Plan of Treatment No Information Available Functional Status Description No Information Available Mental Status Description No Information Available Referrals Description No Information Available
--- OUTSIDE RECORDS SUMMARY | 2020-05-23 06:45 | CCD ---
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 20 Active 728970523 Problem Chronic gout without tophus, unspecified cause, unspecified site M1A.9XX0 Active 101893708 Problem Mixed hyperlipidemia E78.2 Active 266717241 Problem Tobacco use disorder F17.200 Active 579880426 Problem Lumbar stenosis with neurogenic claudication M48.06 Active 35497671 Problem Interstitial pneumonitis J84.89 Active 4438393 1 Problem Essential (primary) hypertension I10 Active 73993203 Problem Other specified interstitial pulmonary diseases J8 4.89 Active 321553299 Problem Bipolar 1 disorder F31.9 Active 162473253 Problem Diabetes mellitus, type 2 E11.9 Active 709276 06 Problem Vitamin D deficiency E55.9 Active 32173917 Problem Mild persistent asthma without complication J45.30 Active 492214758 Problem Chronic diastolic congestive heart failure I50.32 Active 216069441 ALLERGIES Allergen (clinical drug ingredient) Drug/Non Drug Allergy do cumented on EMR Reaction Allergy Type Onset Date Status naproxen Naproxen([facility] Code:[address]-93) Lack of efficacy Drug All ergy Active meloxicam Mobic([facility] Code:[address]-65) Lack of efficacy Drug Allerg y Active lisinopril Lisinopril([facility] Code:[address]-49) SWELLING Drug Allergy Active ibuprofen Ibuprofen([facility] Code:[address]-34) Lack of efficacy Drug Al lergy Active ENCOUNTERS from 1955 to 2020-03-19 Encounter Location Date Provider Diagnosis [facility] [address] [place] [address] Mar, Simran Davis IMMUNIZATIONS Vaccine Route Administration [...] Unknown Language: Question Answer Notes Languages spoken: Trinidadian Gnosticism: Question Answer Notes Gnosticism 21 Anglican No pentecostal beliefs that would impact health care. Domestic [...] Information RESULTS No Results REASON FOR VISIT Shaking, vomiting MEDICAL (GENERAL) HISTORY Type Description Date Medical [...] defects at L2-S1. scar tissue involves R L3-O7kgzlzk and Left S1 never. Medical History diastolic [...] Name:Jamil Jaffe, 2020-03-25 09:0 0:00 AM, [address] [place], [address] Insurance Providers Payer Name Payer Address Payer Phone Insured Name Patient Relati onship to Insured Coverage Start Date Coverage End Date AETNA MEDICARE [employer] [address] [facility] [phone] ABDON ESPARZA self
--- OUTSIDE RECORDS SUMMARY | 2020-05-23 06:46 | CCD ---
Author Author [facility] Organization [facility] Address Unknown Phone Unavailable Care Team Providers Care Geosciences Associate Professor Name Role Phone Isabel ALTAMIRANO MD Unavailable Unavailable Isabel ALTAMIRANO MD Unavailable Unavailable Isabel ALTAMIRANO MD Unavailable Unavailable Isabel ALTAMIRANO MD Unavailable Unavailable Isabel ALTAMIRANO MD Unavailable Unavailable Isabel ALTAMIRANO MD Unavailable Unavailable Isabel ALTAMIRANO MD Unavailable Unavailable Isabel ALTAMIRANO MD Unavailable Unavailable Isabel ALTAMIRANO MD Unavailable Unavailable Isabel ALTAMIRANO MD Unavailable Unavailable Isabel ALTAMIRANO MD Unavailable Unavailable Isabel ALTAMIRANO MD Unavailable Unavailable Isabel ALTAMIRANO MD Unavailable Unavailable Isabel ALTAMIRANO MD Unavailable Unavailable Isabel ALTAMIRANO MD Unavailable Unavailable Isabel ALTAMIRANO MD Unavailable Unavailable Isabel ALTAMIRANO MD Unavailable Unavailable Isabel ALTAMIRANO MD Unavailable Unavailable Isabel ALTAMIRANO MD Unavailable Unavailable Isabel ALTAMIRANO MD Unavailable Unavailable Isabel ALTAMIRANO MD Unavailable Unavailable Isabel ALTAMIRANO MD Unavailable Unavailable Isabel ALTAMIRANO MD Unavailable Unavailable Isabel ALTAMIRANO MD Unavailable Unavailable Isabel ALTAMIRANO MD Unavailable Unavailable Isabel ALTAMIRANO MD Unavailable Unavailable Isabel ALTAMIRANO MD Unavailable Unavailable Isabel ALTAMIRANO MD Unavailable Unavailable Isabel ALTAMIRANO MD Unavailable Unavailable Isabel ALTAMIRANO MD Unavailable Unavailable Isabel ALTAMIRANO MD Unavailable Unavailable Isabel ALTAMIRANO MD Unavailable Unavailable Isabel ALTAMIRANO MD Unavailable Unavailable Isabel ALTAMIRANO MD Unavailable Unavailable Isabel ALTAMIRANO MD Unavailable Unavailable Isabel ALTAMIRANO MD Unavailable Unavailable Isabel ALTAMIRANO MD Unavailable Unavailable Isabel ALTAMIRANO MD Unavailable Unavailable Isabel ALTAMIRANO MD Unavailable Unavailable Isabel ALTAMIRANO MD Unavailable Unavailable Isabel ALTAMIRANO MD Unavailable Unavailable Isabel ALTAMIRANO MD Unavailable Unavailable Isabel ALTAMIRANO MD Unavailable Unavailable Isabel ALTAMIRANO MD Unavailable Unavailable Isabel ALTAMIRANO MD Unavailable Unavailable Isabel ALTAMIRANO MD Unavailable Unavailable Isabel ALTAMIRANO MD Unavailable Unavailable Isabel ALTAMIRANO MD Unavailable Unavailable Isabel ALTAMIRANO MD Unavailable Unavailable Isabel ALTAMIRANO MD Unavailable Unavailable Isabel ALTAMIRANO MD Unavailable Unavailable Isabel ALTAMIRANO MD Unavailable Unavailable Isabel ALTAMIRANO MD Unavailable Unavailable Isabel ALTAMIRANO MD Unavailable Unavailable Isabel ALTAMIRANO MD Unavailable Unavailable Isabel ALTAMIRANO MD Unavailable Unavailable Isabel ALTAMIRANO MD Unavailable Unavailable Aloi, M Linus RESIDENTIAL SALES MANAGER Unavailable Unavailable Aloi, M Linus RESIDENTIAL SALES MANAGER Unavailable Unavailable Aloi, M Linus RESIDENTIAL SALES MANAGER Unavailable Unavailable Aloi, M Linus RESIDENTIAL SALES MANAGER Unavailable Unavailable Aloi, M Linus RESIDENTIAL SALES MANAGER Unavailable Unavailable Aloi, M Linus RESIDENTIAL SALES MANAGER Unavailable Unavailable Aloi, M Linus RESIDENTIAL SALES MANAGER Unavailable Unavailable Aloi, M Linus RESIDENTIAL SALES MANAGER Unavailable Unavailable Aloi, M Linus RESIDENTIAL SALES MANAGER Unavailable Unavailable Aloi, M Linus RESIDENTIAL SALES MANAGER Unavailable Unavailable Aloi, M Linus RESIDENTIAL SALES MANAGER Unavailable Unavailable Aloi, M Linus RESIDENTIAL SALES MANAGER Unavailable Unavailable Aloi, M Linus RESIDENTIAL SALES MANAGER Unavailable Unavailable Aloi, M Linus RESIDENTIAL SALES MANAGER Unavailable Unavailable Aloi, M Linus RESIDENTIAL SALES MANAGER Unavailable Unavailable Aloi, M Linus RESIDENTIAL SALES MANAGER Unavailable Unavailable Aloi, M Linus RESIDENTIAL SALES MANAGER Unavailable Unavailable Aloi, M Linus RESIDENTIAL SALES MANAGER Unavailable Unavailable Aloi, M Linus RESIDENTIAL SALES MANAGER Unavailable Unavailable Aloi, M Linus RESIDENTIAL SALES MANAGER Unavailable Unavailable Aloi, M Linus RESIDENTIAL SALES MANAGER Unavailable Unavailable Aloi, M Linus RESIDENTIAL SALES MANAGER Unavailable Unavailable Aloi, M Linus RESIDENTIAL SALES MANAGER Unavailable Unavailable Aloi, M Linus RESIDENTIAL SALES MANAGER Unavailable Unavailable Aloi, M Linus RESIDENTIAL SALES MANAGER Unavailable Unavailable Aloi, M Linus RESIDENTIAL SALES MANAGER Unavailable Unavailable Aloi, M Linus RESIDENTIAL SALES MANAGER Unavailable Unavailable Aloi, M Linus RESIDENTIAL SALES MANAGER Unavailable Unavailable Aloi, M Linus RESIDENTIAL SALES MANAGER Unavailable Unavailable Aloi, M Linus RESIDENTIAL SALES MANAGER Unavailable Unavailable Aloi, M Linus RESIDENTIAL SALES MANAGER Unavailable Unavailable Aloi, M Linus RESIDENTIAL SALES MANAGER Unavailable Unavailable Aloi, M Linus RESIDENTIAL SALES MANAGER Unavailable Unavailable Aloi, M Linus RESIDENTIAL SALES MANAGER Unavailable Unavailable Aloi, M Linus RESIDENTIAL SALES MANAGER Unavailable Unavailable Aloi, M Linus RESIDENTIAL SALES MANAGER Unavailable Unavailable Aloi, M Linus RESIDENTIAL SALES MANAGER Unavailable Unavailable Soosairaj, Simran Unavailable Unavailable Soosairaj, Simran Unavailable Unavailable Soosairaj, Simran Unavailable Unavailable Soosairaj, Simran Unavailable Unavailable Soosairaj, Simran Unavailable Unavailable Soosairaj, Simran Unavailable Unavailable Soosairaj, Simran Unavailable Unavailable Soosairaj, Simran Unavailable Unavailable Soosairaj, Simran Unavailable Unavailable Soosairaj, Simran Unavailable Unavailable Soosairaj, Simran Unavailable Unavailable Soosairaj, Simran Unavailable Unavailable Soosairaj, Simran Unavailable Unavailable Soosairaj, Simran Unavailable Unavailable Soosairaj, Simran Unavailable Unavailable Soosairaj, Simran Unavailable Unavailable Soosairaj, Simran Unavailable Unavailable Soosairaj, Simran Unavailable Unavailable Soosairaj, Simran Unavailable Unavailable Soosairaj, Simran Unavailable Unavailable Soosairaj, Simran Unavailable Unavailable Soosairaj, Simran Unavailable Unavailable Soosairaj, Simran Unavailable Unavailable Soosairaj, Simran Unavailable Unavailable Soosairaj, Simran Unavailable Unavailable Soosairaj, Simran Unavailable Unavailable Soosairaj, Simran Unavailable Unavailable Soosairaj, Simran Unavailable Unavailable Soosairaj, Simran Unavailable Unavailable Soosairaj, Simran Unavailable Unavailable Mira Butterfield MD Unavailable Unavailable Mira Butterfield MD Unavailable Unavailable Mira Butterfield MD Unavailable Unavailable Mira Butterfield MD Unavailable Unavailable Mira Butterfield MD Unavailable Unavailable Mira Butterfield MD Unavailable Unavailable Mira Butterfield MD Unavailable Unavailable Mira Butterfield MD Unavailable Unavailable Mira Butterfield MD Unavailable Unavailable Mira Butterfield MD Unavailable Unavailable Mira Butterfield MD Unavailable Unavailable Mira Butterfield MD Unavailable Unavailable Mira Butterfield MD Unavailable Unavailable Mira Butterfield MD Unavailable Unavailable Ali, Mira MD Unavailable Unavailable Ali, Mira MD Unavailable Unavailable Ali, Mira MD Unavailable Unavailable Ali, Mira MD Unavailable Unavailable Ali, Mira MD Unavailable Unavailable Ali, Mira MD Unavailable Unavailable Ali, Mira MD Unavailable Unavailable Ali, Mira MD Unavailable Unavailable Ali, Mira MD Unavailable Unavailable Ali, Mira MD Unavailable Unavailable Ali, Mira MD Unavailable Unavailable Ali, Mira MD Unavailable Unavailable Ali, Mira MD Unavailable Unavailable Ali, Mira MD Unavailable Unavailable Ali, Mira MD Unavailable Unavailable Ali, Mira MD Unavailable Unavailable Ali, Mira MD Unavailable Unavailable Ali, Mira MD Unavailable Unavailable Ali, Mira MD Unavailable Unavailable Ali, Mira MD Unavailable Unavailable Ali, Mira MD Unavailable Unavailable Ali, Mira MD Unavailable Unavailable Ali, Mria MD Unavailable Unavailable Ali, Mira MD Unavailable Unavailable Ali, Mira MD Unavailable Unavailable Ali, Mira MD Unavailable Unavailable Ali, Mira MD Unavailable Unavailable Ali, Mira MD Unavailable Unavailable Ali, Mira MD Unavailable Unavailable Ali, Mira MD Unavailable Unavailable Ali, Mira MD Unavailable Unavailable Ali, Mira MD Unavailable Unavailable Ali, Mira MD Unavailable Unavailable Ali, Mira MD Unavailable Unavailable Ali, Mira MD Unavailable Unavailable RENATA, M BLAKE PA Unavailable Unavailable RENATA, M BLAKE PA Unavailable Unavailable RENATA, M BLAKE PA Unavailable Unavailable RENATA, M BLAKE PA Unavailable Unavailable RENATA, M BLAKE PA Unavailable Unavailable RENATA, M BLAKE PA Unavailable Unavailable RENATA, M BLAKE PA Unavailable Unavailable RENATA, M BLAKE PA Unavailable Unavailable RENATA, M BLAKE PA Unavailable Unavailable RENATA, M BLAKE PA Unavailable Unavailable RENATA, M BLAKE PA Unavailable Unavailable RENATA, M BLAKE PA Unavailable Unavailable RENATA, M BLAKE PA Unavailable Unavailable RENATA, M BLAKE PA Unavailable Unavailable RENATA, M BLAKE PA Unavailable Unavailable RENATA, M BLAKE PA Unavailable Unavailable RENATA, M BLAKE PA Unavailable Unavailable RENATA, M BLAKE PA Unavailable Unavailable RENATA, M BLAKE PA Unavailable Unavailable RENATA, M BLAKE PA Unavailable Unavailable RENATA, M BLAKE PA Unavailable Unavailable RENATA, M BLAKE PA Unavailable Unavailable RENATA, M BLAKE PA Unavailable Unavailable RENATA, M BLAKE PA Unavailable Unavailable Re-disclosure Warning The records that you are about to access may contain information from federally-assisted alcohol or drug abuse programs. If such information is present, then the following federally mandated warning applies: This information has been disclosed to you from records protected by federal confidentiality rules (42 CFR part 2). The federal rules prohibit you from making any further disclosure of this information unless further disclosure is expressly permitted by the written consent of the person to whom it pertains or as otherwise permitted by 42 CFR part 2. A general authorization for the release of medical or other information is NOT sufficient for this purpose. The Federal rules restrict any use of the information to criminally investigate or prosecute any alcohol or drug abuse patient.The records that you are about to access may contain highly sensitive health information, the redisclosure of which is protected by Article 27-F of the [facility] Public Health law. If you continue you may have access to information: Regarding HIV / AIDS; Provided by facilities licensed or operated by the [facility] Office of Mental Health; or Provided by the [facility] Office for People With Developmental Disabilities. If such information is present, then the following [facility] mandated warning applies: This information has been disclosed to you from confidential records which are protected by state law. State law prohibits you from making any further disclosure of this information without the specific written consent of the person to whom it pertains, or as otherwise permitted by law. Any unauthorized further disclosure in violation of state law may result in a fine or care home sentence or both. A general authorization for the release of medical or other information is NOT sufficient authorization for further disc losure. Allergies and Adverse Reactions Type Description Substance Reaction Status Data Source(s ) Drug allergy Ibuprofen Ibuprofen Lack of efficacy Active eCW1 ([facility]) lisinopril Lisinopril Lisinopril SWELLING Active eCW1 ([facility]) Drug allergy Mobic meloxicam Lack of efficacy Active eCW1 ([facility]) Drug allergy Naproxen Naproxen Lack of efficacy Active eCW1 ([facility]) DRUG INGREDI LISINOPRIL LISINOPRIL Anaphylaxis [facility] Family History Family Member Name Family Member Gender Family Member Status Date o f Status Description Data Source(s) Unknown Male Problem MEDENT ([facility]) Encounters Encounter Providers Location Date Indications Data Source(s ) Office Visit Attender: Mira Butterfield MD Main office - [place] 05/09/2020 11:45:00 AM EST MEDENT ([facility]) [place] [address] [facility] [place] [address] 05/05/2020 12:00:00 AM EST eCW1 ([facility] Scheduled Visit [address] [place] [address] 04/29/2020 12:00:00 AM EST eCW1 [facility] Scheduled Visit [address] [place] [address] 04/15/2020 12:00:00 AM EST eCW1 ([facility]) Unknown [address] [facility] [place] [address] 03/26/2020 12:00:00 AM EST eCW1 ([facility]) [facility] Scheduled Visit [address] [place] [address] 03/25/2020 12:00:00 AM EST eCW1 ([facility]) Unknown [address] [facility] [place] [address] 03/19/2020 12:00:00 AM EST eCW1 ([facility]) Unknown [address] [facility] [place] [address] 03/18/2020 12:00:00 AM EST eCW1 ([facility]) Outpatient [address] [facility] [place] [address] 03/13/2020 12:00:00 AM EST eCW1 ([facility]) Outpatient [address] [facility] [place] [address] 03/12/2020 12:00:00 AM EST eCW1 ([facility]) Unknown [address] [facility] [place] [address] 03/11/2020 12:00:00 AM EST eCW1 ([facility]) Office Visit Attender: Mira Butterfield MD Main office - [place] 03/05/2020 12:30:00 PM EST MEDENT ([facility]) [place] [address] [facility] [place] [address] 02/13/2020 12:00:00 AM EST eCW1 ([facility]) Unknown [address] [facility] [place] [address] 02/06/2020 12:00:00 AM EDT eCW1 ([facility]) Outpatient [address] [facility] [address] 01/30/2020 12:00:00 AM EDT eCW1 ([facility]) Unknown [address] [facility] [address] 01/26/2020 12:00:00 AM EDT eCW1 ([facility]) Unknown [address] [facility] [place] [address] 01/26/2020 12:00:00 AM EDT eCW1 ([facility]) Outpatient [address] [facility] [address] 01/25/2020 12:00:00 AM EDT eCW1 ([facility]) Unknown [address] [facility] [place] [address] 01/25/2020 12:00:00 AM EDT eCW1 ([facility]) Unknown [address] [facility] [address] 01/24/2020 12:00:00 AM EDT eCW1 ([facility]) Unknown [address] [facility] [address] 01/23/2020 12:00:00 AM EDT eCW1 ([facility]) Outpatient Attender: TANYA ALTAMIRANO MD Main Office 11/22/2019 09:30:00 AM EDT MEDENT ([facility]) Unknown [address] [facility] [address] 10/26/2019 12:00:00 AM EDT eCW1 ([facility]) [facility] Coretta [address] [facility] [address] 10/16/2019 12:00:00 AM EDT eCW1 ([facility]) Outpatient Attender: Linus Leung FNPReferrer: Linus REYNOLDS 09/18/2019 12:00:[address] [place] [address] 09/15/2019 12:00:00 AM EDT [facility] [address] [place] [address] 09/13/2019 12:00:00 AM EDT [facility]CW1 ([facility]) [address] [place] [address] 08/31/2019 12:00:00 AM EDT [facility]CW1 ([facility]) [address] [place] [address] 08/31/2019 12:00:00 AM EDT [facility]CW1 ([facility]) [address] [place] [address] 08/31/2019 12:00:00 AM EDT [facility]CW1 ([facility]) [address] [place] [address] 08/30/2019 12:00:00 AM EDT [facility]CW1 [facility]) Outpatient Attender: Linus Leung FNPReferrer: Linus REYNOLDS 07/25/2019 12:00:[address] [place] [address] 07/17/2019 12:00:00 AM EDT [facility]CW1 [facility]) Outpatient Referrer: Linus REYNOLDS 07/13/2019 12:00:[address] [place] [address] 07/11/2019 12:00:00 AM EDT eCW1 ([facility]) [address] [place] [address] 07/05/2019 12:00:00 AM EDT eCW1 ([facility]) [address] [address] 07/03/2019 12:00:00 AM EDT eCW1 ([facility]) Outpatient Attender: Mira Butterfield MD Main office - [place] 06/28/2019 11:00:00 AM EDT MEDENT ([facility]) Outpatient Referrer: Linus SHEEHANP 06/22/2019 12: 00:00 AM EDT Low back pain [facility] Low back pain Outpatient Referrer: Linus SHEEHANP 06/22/2019 12: 00:00 AM EDT Low back pain [facility] Low back pain Outpatient Attender: Linus Leung FNPReferrer: Simran cool [id number] 06/22/2019 12:00:00 AM EDT - 06/28/2019 07:55:28 AM EDT Radiculopathy, lumbar region [facility] Radiculopathy, lumbar [place] [address] [address] 06/20/2019 12:00:00 AM EDT eCW1 ([facility]) [address] [address] 05/29/2019 12:00:00 AM EST [facility] Out[facility] Attender: BLAKE DALTON Physical [facility] 05/13 01:45:00 PM EST MEDENT ([facility]) [address] [address] 04/26/2019 12:00:00 AM EST eCW1 ([facility]) [address] [address] 04/25/2019 12:00:00 AM EST eCW1 ([facility]) [address] [address] 04/19/2019 12:00:00 AM EST eCW1 ([facility]) [facility] [address] [facility] [place] [address] 04/19/2019 12:00:00 AM EST eCW1 ([facility]) Outpatient Attender: Mira Butterfield MD Main office - [place] 03/29/2019 10:30:00 AM EST MEDENT ([facility] vladislav ) Medications Medication Brand Name Start Date Product Form Dose Route Admi nistrative Instructions Pharmacy Instructions Status Indications Reaction Description Data Source(s) OneTouch Verio 1 UNK 03/18/2020 12:00:00 AM EST active OneTouch Verio 1 eCW1 ([facility]) OneTouch Verio 1 UNK 03/18/2020 12:00:00 AM EST active OneTouch Verio 1 eCW1 ([facility]) OneTouch Verio w/Device OneTouch Verio w/Device 03/18/2020 12:00:00 A M EST active OneTouch Verio w/Dev ice eCW1 ([facility]) OneTouch Verio w/Device OneTouch Verio w/Device 03/18/2020 12:00:00 A M EST active OneTouch Verio w/Dev ice eCW1 ([facility]) OneTouch Verio w/Device OneTouch Verio w/Device 03/18/2020 12:00:00 A M EST active OneTouch Verio w/Dev ice eCW1 ([facility]) OneTouch Verio 1 UNK 03/18/2020 12:00:00 AM EST active OneTouch Verio 1 eCW1 ([facility]) OneTouch Verio w/Device OneTouch Verio w/Device 03/18/2020 12:00:00 A M EST active OneTouch Verio w/Dev ice eCW1 ([facility]) OneTouch Verio 1 UNK 03/18/2020 12:00:00 AM EST active OneTouch Verio 1 eCW1 ([facility]) OneTouch Verio 1 UNK 03/18/2020 12:00:00 AM EST active OneTouch Verio 1 eCW1 ([facility]) OneTouch Verio 1 UNK 03/18/2020 12:00:00 AM EST active OneTouch Verio 1 eCW1 ([facility]) OneTouch Verio w/Device OneTouch Verio w/Device 03/18/2020 12:00:00 A M EST active OneTouch Verio w/Dev ice eCW1 ([facility]) OneTouch Verio 1 UNK 03/18/2020 12:00:00 AM EST active OneTouch Verio 1 eCW1 ([facility]) OneTouch Verio 1 UNK 03/18/2020 12:00:00 AM EST active OneTouch Verio 1 eCW1 ([facility]) OneTouch Verio w/Device OneTouch Verio w/Device 03/18/2020 12:00:00 A M EST active OneTouch Verio w/Dev ice eCW1 ([facility]) OneTouch Verio 1 UNK 03/18/2020 12:00:00 AM EST active OneTouch Verio 1 eCW1 ([facility]) OneTouch Verio w/Device OneTouch Verio w/Device 03/18/2020 12:00:00 A M EST active OneTouch Verio w/Dev ice eCW1 ([facility]) OneTouch Verio w/Device OneTouch Verio w/Device 03/18/2020 12:00:00 A M EST active OneTouch Verio w/Dev ice eCW1 ([facility]) OneTouch Verio w/Device OneTouch Verio w/Device 03/18/2020 12:00:00 A M EST active OneTouch Verio w/Dev ice eCW1 ([facility]) Levaquin 750 MG UNK 03/12/2020 12:00:00 AM EST 1.0 {tablet} active Levaquin 750 MG eCW1 ([facility]) Levaquin 750 MG UNK 03/12/2020 12:00:00 AM EST 1.0 {tablet} active Levaquin 750 MG eCW1 ([facility]) Levaquin 750 MG UNK 03/12/2020 12:00:00 AM EST 1.0 {tablet} active Levaquin 750 MG eCW1 ([facility]) Levaquin 750 MG UNK 03/12/2020 12:00:00 AM EST 1.0 {tablet} active Levaquin 750 MG eCW1 ([facility]) Levaquin 750 MG UNK 03/12/2020 12:00:00 AM EST 1.0 {tablet} active Levaquin 750 MG eCW1 ([facility]) Levaquin 750 MG UNK 03/12/2020 12:00:00 AM EST 1.0 {tablet} active Levaquin 750 MG eCW1 ([facility]) Levaquin 750 MG UNK 03/12/2020 12:00:00 AM EST 1.0 {tablet} active Levaquin 750 MG eCW1 ([facility]) Levaquin 750 MG UNK 03/12/2020 12:00:00 AM EST 1.0 {tablet} active Levaquin 750 MG eCW1 ([facility]) Levaquin 750 MG UNK 03/12/2020 12:00:00 AM EST 1.0 {tablet} active Levaquin 750 MG eCW1 ([facility]) Levaquin 750 MG UNK 03/12/2020 12:00:00 AM EST 1.0 {tablet} active Levaquin 750 MG eCW1 ([facility]) benztropine mesylate 1 MG Oral Tablet Benztropine Mesylate 1 05/05/2019 12:00:00 AM EST ORAL active MEDENT ([facility]) Metoprolol Succinate 25 MG UNK 02/13/2020 12:00:00 AM EST 1. 0 {capsule} active Metoprolol Succinate 25 MG eCW1 ([facility]) Metoprolol Succinate 25 MG UNK 02/13/2020 12:00:00 AM EST 1. 0 {capsule} active Metoprolol Succinate 25 MG eCW1 ([facility]) Chlorthalidone 25 MG Oral Tablet Chlorthalidone 25 MG 2019 12:00:00 AM EST 1.0 {tablet_in_the_morning_with_food} active Chlorthalidone 25 MG eCW1 ([facility]) Metoprolol Succinate 25 MG UNK 02/13/2020 12:00:00 AM EST 1. 0 {capsule} active Metoprolol Succinate 25 MG eCW1 ([facility]) Benzoyl Peroxide 0.05 MG/MG / Erythromyc in 0.03 MG/MG Topical Gel Benzoyl Peroxide-Erythromycin 5-3 % Benzoyl Peroxide-Erythromycin 5-3 % 02/13/2020 12:00:00 AM EST 1.0 {application_to_affected_area} active Benzoyl Peroxide-Erythromycin 5-3 % eCW1 ([facility]) Chlorthalidone 25 MG Oral Tablet Chlorthalidone 25 MG 2019 12:00:00 AM EST 1.0 {tablet_in_the_morning_with_food} active Chlorthalidone 25 MG eCW1 ([facility]) Benzoyl Peroxide 0.05 MG/MG / Erythromyc in 0.03 MG/MG Topical Gel Benzoyl Peroxide-Erythromycin 5-3 % Benzoyl Peroxide-Erythromycin 5-3 % 02/13/2020 12:00:00 AM EST 1.0 {application_to_affected_area} active Benzoyl Peroxide-Erythromycin 5-3 % eCW1 ([facility]) Metoprolol Succinate 25 MG UNK 02/13/2020 12:00:00 AM EST 1. 0 {capsule} active Metoprolol Succinate 25 MG eCW1 ([facility]) Benzoyl Peroxide 0.05 MG/MG / Erythromyc in 0.03 MG/MG Topical Gel Benzoyl Peroxide-Erythromycin 5-3 % Benzoyl Peroxide-Erythromycin 5-3 % 02/13/2020 12:00:00 AM EST 1.0 {application_to_affected_area} active Benzoyl Peroxide-Erythromycin 5-3 % eCW1 ([facility]) Chlorthalidone 25 MG Oral Tablet Chlorthalidone 25 MG 2019 12:00:00 AM EST 1.0 {tablet_in_the_morning_with_food} active Chlorthalidone 25 MG eCW1 ([facility]) Metoprolol Succinate 25 MG UNK 02/13/2020 12:00:00 AM EST 1. 0 {capsule} active Metoprolol Succinate 25 MG eCW1 ([facility]) Benzoyl Peroxide 0.05 MG/MG / Erythromyc in 0.03 MG/MG Topical Gel Benzoyl Peroxide-Erythromycin 5-3 % Benzoyl Peroxide-Erythromycin 5-3 % 02/13/2020 12:00:00 AM EST 1.0 {application_to_affected_area} active Benzoyl Peroxide-Erythromycin 5-3 % eCW1 ([facility]) Benzoyl Peroxide 0.05 MG/MG / Erythromyc in 0.03 MG/MG Topical Gel Benzoyl Peroxide-Erythromycin 5-3 % Benzoyl Peroxide-Erythromycin 5-3 % 02/13/2020 12:00:00 AM EST 1.0 {application_to_affected_area} active Benzoyl Peroxide-Erythromycin 5-3 % eCW1 ([facility]) Benzoyl Peroxide 0.05 MG/MG / Erythromyc in 0.03 MG/MG Topical Gel Benzoyl Peroxide-Erythromycin 5-3 % Benzoyl Peroxide-Erythromycin 5-3 % 02/13/2020 12:00:00 AM EST 1.0 {application_to_affected_area} active Benzoyl Peroxide-Erythromycin 5-3 % eCW1 ([facility]) Metoprolol Succinate 25 MG UNK 02/13/2020 12:00:00 AM EST 1. 0 {capsule} active Metoprolol Succinate 25 MG eCW1 ([facility]) Chlorthalidone 25 MG Oral Tablet Chlorthalidone 25 MG 2019 12:00:00 AM EST 1.0 {tablet_in_the_morning_with_food} active Chlorthalidone 25 MG eCW1 ([facility]) Chlorthalidone 25 MG Oral Tablet Chlorthalidone 25 MG 2019 12:00:00 AM EST 1.0 {tablet_in_the_morning_with_food} active Chlorthalidone 25 MG eCW1 ([facility]) Metoprolol Succinate 25 MG UNK 02/13/2020 12:00:00 AM EST 1. 0 {capsule} active Metoprolol Succinate 25 MG eCW1 ([facility]) Benzoyl Peroxide 0.05 MG/MG / Erythromyc in 0.03 MG/MG Topical Gel Benzoyl Peroxide-Erythromycin 5-3 % Benzoyl Peroxide-Erythromycin 5-3 % 02/13/2020 12:00:00 AM EST 1.0 {application_to_affected_area} active Benzoyl Peroxide-Erythromycin 5-3 % eCW1 ([facility]) Metoprolol Succinate 25 MG UNK 02/13/2020 12:00:00 AM EST 1. 0 {capsule} active Metoprolol Succinate 25 MG eCW1 ([facility]) Metoprolol Succinate 25 MG UNK 02/13/2020 12:00:00 AM EST 1. 0 {capsule} active Metoprolol Succinate 25 MG eCW1 ([facility]) Metoprolol Succinate 25 MG UNK 02/13/2020 12:00:00 AM EST 1. 0 {capsule} active Metoprolol Succinate 25 MG eCW1 ([facility]) Benzoyl Peroxide 0.05 MG/MG / Erythromyc in 0.03 MG/MG Topical Gel Benzoyl Peroxide-Erythromycin 5-3 % Benzoyl Peroxide-Erythromycin 5-3 % 02/13/2020 12:00:00 AM EST 1.0 {application_to_affected_area} active Benzoyl Peroxide-Erythromycin 5-3 % eCW1 ([facility]) Benzoyl Peroxide 0.05 MG/MG / Erythromyc in 0.03 MG/MG Topical Gel Benzoyl Peroxide-Erythromycin 5-3 % Benzoyl Peroxide-Erythromycin 5-3 % 02/13/2020 12:00:00 AM EST 1.0 {application_to_affected_area} active Benzoyl Peroxide-Erythromycin 5-3 % eCW1 ([facility]) Benzoyl Peroxide 0.05 MG/MG / Erythromyc in 0.03 MG/MG Topical Gel Benzoyl Peroxide-Erythromycin 5-3 % Benzoyl Peroxide-Erythromycin 5-3 % 02/13/2020 12:00:00 AM EST 1.0 {application_to_affected_area} active Benzoyl Peroxide-Erythromycin 5-3 % eCW1 ([facility]) Chlorthalidone 25 MG Oral Tablet Chlorthalidone 25 MG 2019 12:00:00 AM EST 1.0 {tablet_in_the_morning_with_food} active Chlorthalidone 25 MG eCW1 ([facility]) Chlorthalidone 25 MG Oral Tablet Chlorthalidone 25 MG 2019 12:00:00 AM EST 1.0 {tablet_in_the_morning_with_food} active Chlorthalidone 25 MG eCW1 ([facility]) Chlorthalidone 25 MG Oral Tablet Chlorthalidone 25 MG 2019 12:00:00 AM EST 1.0 {tablet_in_the_morning_with_food} active Chlorthalidone 25 MG eCW1 ([facility]) Chlorthalidone 25 MG Oral Tablet Chlorthalidone 25 MG 2019 12:00:00 AM EST 1.0 {tablet_in_the_morning_with_food} active Chlorthalidone 25 MG eCW1 ([facility]) Chlorthalidone 25 MG Oral Tablet Chlorthalidone 25 MG 2019 12:00:00 AM EST 1.0 {tablet_in_the_morning_with_food} active Chlorthalidone 25 MG eCW1 ([facility]) Metoprolol Succinate 25 MG UNK 02/13/2020 12:00:00 AM EST 1. 0 {capsule} active Metoprolol Succinate 25 MG eCW1 ([facility]) Benzoyl Peroxide 0.05 MG/MG / Erythromyc in 0.03 MG/MG Topical Gel Benzoyl Peroxide-Erythromycin 5-3 % Benzoyl Peroxide-Erythromycin 5-3 % 02/13/2020 12:00:00 AM EST 1.0 {application_to_affected_area} active Benzoyl Peroxide-Erythromycin 5-3 % eCW1 ([facility]) Chlorthalidone 25 MG Oral Tablet Chlorthalidone 25 MG 2019 12:00:00 AM EST 1.0 {tablet_in_the_morning_with_food} active Chlorthalidone 25 MG eCW1 ([facility]) 24 HR Nicotine 0.583 MG/HR Transdermal P atch [Nicoderm C-Q] Nicoderm CQ 14 MG/24HR Nicoderm CQ 14 MG/24HR 02/06/2020 12:00:00 AM EDT 1.0 {patch_to_skin} active Nicoderm CQ 14 MG/24 HR eCW1 ([facility]) 24 HR Nicotine 0.583 MG/HR Transdermal P atch [Nicoderm C-Q] Nicoderm CQ 14 MG/24HR Nicoderm CQ 14 MG/24HR 02/06/2020 12:00:00 AM EDT 1.0 {patch_to_skin} active Nicoderm CQ 14 MG/24 HR eCW1 ([facility]) Omeprazole 40 MG Delayed Release Oral Capsule Omeprazole 40 MG 01/30/2020 12:00:00 AM EDT active Omeprazo le 40 MG eCW1 ([facility]) Omeprazole 40 MG Delayed Release Oral Capsule Omeprazole 40 MG 01/30/2020 12:00:00 AM EDT active Omeprazo le 40 MG eCW1 ([facility]) Omeprazole 40 MG Delayed Release Oral Capsule Omeprazole 40 MG 01/30/2020 12:00:00 AM EDT active Omeprazo le 40 MG eCW1 ([facility]) Omeprazole 40 MG Delayed Release Oral Capsule Omeprazole 40 MG 01/30/2020 12:00:00 AM EDT active Omeprazo le 40 MG eCW1 ([facility]) Doxycycline Monohydrate 100 MG Oral Capsule Doxycycline Mcleod hydrate 100 MG 01/26/2020 12:00:00 AM EDT 1.0 {capsule} active Doxycycline Monohydrate 100 MG eCW1 ([facility]) Doxycycline Monohydrate 100 MG Oral Capsule Doxycycline Mcleod hydrate 100 MG 01/26/2020 12:00:00 AM EDT 1.0 {capsule} active Doxycycline Monohydrate 100 MG eCW1 ([facility]) Doxycycline Monohydrate 100 MG Oral Capsule Doxycycline Mcleod hydrate 100 MG 01/26/2020 12:00:00 AM EDT 1.0 {capsule} active Doxycycline Monohydrate 100 MG eCW1 ([facility]) Doxycycline Monohydrate 100 MG Oral Capsule Doxycycline Mcleod hydrate 100 MG 01/26/2020 12:00:00 AM EDT 1.0 {capsule} active Doxycycline Monohydrate 100 MG eCW1 ([facility]) Doxycycline Monohydrate 100 MG Oral Capsule Doxycycline Mcleod hydrate 100 MG 01/26/2020 12:00:00 AM EDT 1.0 {capsule} active Doxycycline Monohydrate 100 MG eCW1 ([facility]) Doxycycline Monohydrate 100 MG Oral Capsule Doxycycline Mcleod hydrate 100 MG 01/26/2020 12:00:00 AM EDT 1.0 {capsule} active Doxycycline Monohydrate 100 MG eCW1 ([facility]) Doxycycline Monohydrate 100 MG Oral Capsule Doxycycline Mcleod hydrate 100 MG 01/26/2020 12:00:00 AM EDT 1.0 {capsule} active Doxycycline Monohydrate 100 MG eCW1 ([facility]) Albuterol 0.83 MG/ML Inhalant Solution Albuterol Sulfa te (2.5 MG/3ML) 0.083% Albuterol Sulfate (2.5 MG/3ML) 0.083% 01/25/2020 12:00:00 AM EDT 3.0 {ml_as_needed} active Albuterol Sulfate (2.5 MG/3ML) 0.083% eCW1 ([facility]) Albuterol 0.83 MG/ML Inhalant Solution Albuterol Sulfa te (2.5 MG/3ML) 0.083% Albuterol Sulfate (2.5 MG/3ML) 0.083% 01/25/2020 12:00:00 AM EDT 3.0 {ml_as_needed} active Albuterol Sulfate (2.5 MG/3ML) 0.083% eCW1 ([facility]) Prednisone 20 MG Oral Tablet PredniSONE 20 MG PredniSONE 20 MG 01/25/2020 12:00:00 AM EDT 1.0 {tablet} active Pr edniSONE 20 MG eCW1 ([facility]) Prednisone 20 MG Oral Tablet PredniSONE 20 MG PredniSONE 20 MG 01/25/2020 12:00:00 AM EDT 1.0 {tablet} active Pr edniSONE 20 MG eCW1 ([facility]) Albuterol 0.83 MG/ML Inhalant Solution Albuterol Sulfa te (2.5 MG/3ML) 0.083% Albuterol Sulfate (2.5 MG/3ML) 0.083% 01/25/2020 12:00:00 AM EDT 3.0 {ml_as_needed} active Albuterol Sulfate (2.5 MG/3ML) 0.083% eCW1 ([facility]) Albuterol 0.83 MG/ML Inhalant Solution Albuterol Sulfa te (2.5 MG/3ML) 0.083% Albuterol Sulfate (2.5 MG/3ML) 0.083% 01/25/2020 12:00:00 AM EDT 3.0 {ml_as_needed} active Albuterol Sulfate (2.5 MG/3ML) 0.083% eCW1 ([facility]) Albuterol 0.83 MG/ML Inhalant Solution Albuterol Sulfa te (2.5 MG/3ML) 0.083% Albuterol Sulfate (2.5 MG/3ML) 0.083% 01/25/2020 12:00:00 AM EDT 3.0 {ml_as_needed} active Albuterol Sulfate (2.5 MG/3ML) 0.083% eCW1 ([facility]) Albuterol 0.83 MG/ML Inhalant Solution Albuterol Sulfa te (2.5 MG/3ML) 0.083% Albuterol Sulfate (2.5 MG/3ML) 0.083% 01/25/2020 12:00:00 AM EDT 3.0 {ml_as_needed} active Albuterol Sulfate (2.5 MG/3ML) 0.083% eCW1 ([facility]) Albuterol 0.83 MG/ML Inhalant Solution Albuterol Sulfa te (2.5 MG/3ML) 0.083% Albuterol Sulfate (2.5 MG/3ML) 0.083% 01/25/2020 12:00:00 AM EDT 3.0 {ml_as_needed} active Albuterol Sulfate (2.5 MG/3ML) 0.083% eCW1 ([facility]) Prednisone 20 MG Oral Tablet PredniSONE 20 MG PredniSONE 20 MG 01/25/2020 12:00:00 AM EDT 1.0 {tablet} active Pr edniSONE 20 MG eCW1 ([facility]) Prednisone 20 MG Oral Tablet PredniSONE 20 MG PredniSONE 20 MG 01/25/2020 12:00:00 AM EDT 1.0 {tablet} active Pr edniSONE 20 MG eCW1 ([facility]) Albuterol 0.83 MG/ML Inhalant Solution Albuterol Sulfa te (2.5 MG/3ML) 0.083% Albuterol Sulfate (2.5 MG/3ML) 0.083% 01/25/2020 12:00:00 AM EDT 3.0 {ml_as_needed} active Albuterol Sulfate (2.5 MG/3ML) 0.083% eCW1 ([facility]) Prednisone 20 MG Oral Tablet PredniSONE 20 MG PredniSONE 20 MG 01/25/2020 12:00:00 AM EDT 1.0 {tablet} active Pr edniSONE 20 MG eCW1 ([facility]) Albuterol 0.83 MG/ML Inhalant Solution Albuterol Sulfa te (2.5 MG/3ML) 0.083% Albuterol Sulfate (2.5 MG/3ML) 0.083% 01/25/2020 12:00:00 AM EDT 3.0 {ml_as_needed} active Albuterol Sulfate (2.5 MG/3ML) 0.083% eCW1 ([facility]) Albuterol 0.83 MG/ML Inhalant Solution Albuterol Sulfa te (2.5 MG/3ML) 0.083% Albuterol Sulfate (2.5 MG/3ML) 0.083% 01/25/2020 12:00:00 AM EDT 3.0 {ml_as_needed} active Albuterol Sulfate (2.5 MG/3ML) 0.083% eCW1 ([facility]) Albuterol 0.83 MG/ML Inhalant Solution Albuterol Sulfa te (2.5 MG/3ML) 0.083% Albuterol Sulfate (2.5 MG/3ML) 0.083% 01/25/2020 12:00:00 AM EDT 3.0 {ml_as_needed} active Albuterol Sulfate (2.5 MG/3ML) 0.083% eCW1 ([facility]) Albuterol 0.83 MG/ML Inhalant Solution Albuterol Sulfa te (2.5 MG/3ML) 0.083% Albuterol Sulfate (2.5 MG/3ML) 0.083% 01/25/2020 12:00:00 AM EDT 3.0 {ml_as_needed} active Albuterol Sulfate (2.5 MG/3ML) 0.083% eCW1 ([facility]) Albuterol 0.83 MG/ML Inhalant Solution Albuterol Sulfa te (2.5 MG/3ML) 0.083% Albuterol Sulfate (2.5 MG/3ML) 0.083% 01/25/2020 12:00:00 AM EDT 3.0 {ml_as_needed} active Albuterol Sulfate (2.5 MG/3ML) 0.083% eCW1 ([facility]) Prednisone 20 MG Oral Tablet PredniSONE 20 MG PredniSONE 20 MG 01/25/2020 12:00:00 AM EDT 1.0 {tablet} active Pr edniSONE 20 MG eCW1 ([facility]) Albuterol 0.83 MG/ML Inhalant Solution Albuterol Sulfa te (2.5 MG/3ML) 0.083% Albuterol Sulfate (2.5 MG/3ML) 0.083% 01/25/2020 12:00:00 AM EDT 3.0 {ml_as_needed} active Albuterol Sulfate (2.5 MG/3ML) 0.083% eCW1 ([facility]) Albuterol 0.83 MG/ML Inhalant Solution Albuterol Sulfa te (2.5 MG/3ML) 0.083% Albuterol Sulfate (2.5 MG/3ML) 0.083% 01/25/2020 12:00:00 AM EDT 3.0 {ml_as_needed} active Albuterol Sulfate (2.5 MG/3ML) 0.083% eCW1 ([facility]) Prednisone 20 MG Oral Tablet PredniSONE 20 MG PredniSONE 20 MG 01/25/2020 12:00:00 AM EDT 1.0 {tablet} active Pr edniSONE 20 MG eCW1 ([facility]) Prednisone 20 MG Oral Tablet PredniSONE 20 MG PredniSONE 20 MG 01/25/2020 12:00:00 AM EDT 1.0 {tablet} active Pr edniSONE 20 MG eCW1 ([facility]) Albuterol 0.83 MG/ML Inhalant Solution Albuterol Sulfa te (2.5 MG/3ML) 0.083% Albuterol Sulfate (2.5 MG/3ML) 0.083% 01/25/2020 12:00:00 AM EDT 3.0 {ml_as_needed} active Albuterol Sulfate (2.5 MG/3ML) 0.083% eCW1 ([facility]) Albuterol 0.83 MG/ML Inhalant Solution Albuterol Sulfa te (2.5 MG/3ML) 0.083% Albuterol Sulfate (2.5 MG/3ML) 0.083% 01/25/2020 12:00:00 AM EDT 3.0 {ml_as_needed} active Albuterol Sulfate (2.5 MG/3ML) 0.083% eCW1 ([facility]) Prednisone 20 MG Oral Tablet PredniSONE 20 MG PredniSONE 20 MG 01/25/2020 12:00:00 AM EDT 1.0 {tablet} active Pr edniSONE 20 MG eCW1 ([facility]) Albuterol 0.83 MG/ML Inhalant Solution Albuterol Sulfa te (2.5 MG/3ML) 0.083% Albuterol Sulfate (2.5 MG/3ML) 0.083% 01/25/2020 12:00:00 AM EDT 3.0 {ml_as_needed} active Albuterol Sulfate (2.5 MG/3ML) 0.083% eCW1 ([facility]) Albuterol 0.83 MG/ML Inhalant Solution Albuterol Sulfa te (2.5 MG/3ML) 0.083% Albuterol Sulfate (2.5 MG/3ML) 0.083% 01/25/2020 12:00:00 AM EDT 3.0 {ml_as_needed} active Albuterol Sulfate (2.5 MG/3ML) 0.083% eCW1 ([facility]) Tresiba Flextouch Tresiba Flextouch 11/21/2019 12:00:00 AM EDT active MEDENT ([facility] 24 HR metoprolol succinate 25 MG Extended Release Oral Tablet Metoprolol Succinate ER 11/21/2019 12:00:00 AM EDT ORAL active MEDENT ([facility]) pantoprazole 40 MG Delayed Release Oral Tablet Pantoprazole Sodium 11/21/2019 12:00:00 AM EDT ORAL active M EDENT ([facility]) 30 ACTUAT fluticasone furoate 0.2 MG/ACT UAT / vilanterol 0.025 MG/ACTUAT Dry Powder Inhaler [Breo] Breo Ellipta 11/21/2019 12:00:00 AM EDT RESPIRATORY active MEDENT ([facility]) duloxetine 20 MG Delayed Release Oral Capsule Duloxetine HCL 11/21/2019 12:00:00 AM EDT ORAL active MEDENT ([facility]) Magnesium 11/21/2019 12:00:00 AM EDT ORAL active MEDENT ([facility]) Cholecalciferol 2000 UNT Oral Tablet Vitamin D3 11/21/2019 12:00:00 A M EDT ORAL active MEDENT ([facility]) torsemide 10 MG Oral Tablet Torsemide 11/21/2019 12:00:00 AM EDT ORAL active MEDENT ([facility]) Amlodipine 10 MG Oral Tablet Amlodipine Besylate 11/21/2019 12:00:00 AM EDT ORAL active MEDENT ([facility]) Primidone 50 MG Oral Tablet Primidone 11/21/2019 12:00:00 AM EDT ORAL active MEDENT ([facility]) gabapentin 300 MG Oral Capsule Gabapentin 11/21/2019 12:00:00 AM EDT ORAL active MEDENT ([facility]) gabapentin 600 MG Oral Tablet Gabapentin 11/21/2019 12:00:00 AM EDT ORAL active MEDENT ([facility]) tizanidine 4 MG Oral Tablet Tizanidine HCL 11/21/2019 12:00:00 AM EDT ORAL active MEDENT ([facility]) atorvastatin 40 MG Oral Tablet Atorvastatin Calcium 11/21/2019 1 2:00:00 AM EDT ORAL active MEDENT ( [facility]) 200 ACTUAT Albuterol 0.09 MG/ACTUAT Metered Dose Inhal er [Ventolin] Ventolin HFA 11/21/2019 12:00:00 AM EDT RESPIRATORY active MEDENT ([facility]) Losartan Potassium 50 MG Oral Tablet Losartan Potassium 02/2020 12:00:00 AM EDT ORAL active MEDENT ([facility]) 24 HR metoprolol succinate 25 MG Extende d Release Oral Tablet Metoprolol Succinate ER 25 MG Metoprolol Succinate ER 25 MG 09/13/2019 12:00:00 AM EDT 1.0 {tablet} active Metoprolol Succinat e ER 25 MG eCW1 ([facility]) 24 HR metoprolol succinate 25 MG Extende d Release Oral Tablet Metoprolol Succinate ER 25 MG Metoprolol Succinate ER 25 MG 09/13/2019 12:00:00 AM EDT 1.0 {tablet} active Metoprolol Succinat e ER 25 MG eCW1 ([facility]) 24 HR metoprolol succinate 25 MG Extende d Release Oral Tablet Metoprolol Succinate ER 25 MG Metoprolol Succinate ER 25 MG 09/13/2019 12:00:00 AM EDT 1.0 {tablet} active Metoprolol Succinat e ER 25 MG eCW1 ([facility]) 24 HR metoprolol succinate 25 MG Extende d Release Oral Tablet Metoprolol Succinate ER 25 MG Metoprolol Succinate ER 25 MG 09/13/2019 12:00:00 AM EDT 1.0 {tablet} active Metoprolol Succinat e ER 25 MG eCW1 ([facility]) 24 HR metoprolol succinate 25 MG Extende d Release Oral Tablet Metoprolol Succinate ER 25 MG Metoprolol Succinate ER 25 MG 09/13/2019 12:00:00 AM EDT 1.0 {tablet} active Metoprolol Succinat e ER 25 MG eCW1 ([facility]) 24 HR metoprolol succinate 25 MG Extende d Release Oral Tablet Metoprolol Succinate ER 25 MG Metoprolol Succinate ER 25 MG 09/13/2019 12:00:00 AM EDT 1.0 {tablet} active Metoprolol Succinat e ER 25 MG eCW1 ([facility]) 30 ACTUAT fluticasone furoate 0.2 MG/ACT UAT / vilanterol 0.025 MG/ACTUAT Dry Powder Inhaler [Breo] Breo Ellipta 200-25 MCG/INH Breo Ellipta 200-25 MCG/INH 08/31/2019 12:00:00 AM EDT 1.0 {puff} active Breo Ellipta 200-25 MCG/INH eCW1 ([facility]) 30 ACTUAT fluticasone furoate 0.2 MG/ACT UAT / vilanterol 0.025 MG/ACTUAT Dry Powder Inhaler [Breo] Breo Ellipta 200-25 MCG/INH Breo Ellipta 200-25 MCG/INH 08/31/2019 12:00:00 AM EDT 1.0 {puff} active Breo Ellipta 200-25 MCG/INH eCW1 ([facility]) 30 ACTUAT fluticasone furoate 0.2 MG/ACT UAT / vilanterol 0.025 MG/ACTUAT Dry Powder Inhaler [Breo] Breo Ellipta 200-25 MCG/INH Breo Ellipta 200-25 MCG/INH 08/31/2019 12:00:00 AM EDT 1.0 {puff} active Breo Ellipta 200-25 MCG/INH eCW1 ([facility]) torsemide 10 MG Oral Tablet Torsemide 10 MG Torsemide 10 MG 08/31/2019 12:00:00 AM EDT active 1 tablet eCW1 ([facility]) 30 ACTUAT fluticasone furoate 0.2 MG/ACT UAT / vilanterol 0.025 MG/ACTUAT Dry Powder Inhaler [Breo] Breo Ellipta 200-25 MCG/INH Breo Ellipta 200-25 MCG/INH 08/31/2019 12:00:00 AM EDT 1.0 {puff} active Breo Ellipta 200-25 MCG/INH eCW1 ([facility]) 30 ACTUAT fluticasone furoate 0.2 MG/ACT UAT / vilanterol 0.025 MG/ACTUAT Dry Powder Inhaler [Breo] Breo Ellipta 200-25 MCG/INH Breo Ellipta 200-25 MCG/INH 08/31/2019 12:00:00 AM EDT 1.0 {puff} active Breo Ellipta 200-25 MCG/INH eCW1 ([facility]) 30 ACTUAT fluticasone furoate 0.2 MG/ACT UAT / vilanterol 0.025 MG/ACTUAT Dry Powder Inhaler [Breo] Breo Ellipta 200-25 MCG/INH Breo Ellipta 200-25 MCG/INH 08/31/2019 12:00:00 AM EDT 1.0 {puff} active Breo Ellipta 200-25 MCG/INH eCW1 ([facility]) 30 ACTUAT fluticasone furoate 0.2 MG/ACT UAT / vilanterol 0.025 MG/ACTUAT Dry Powder Inhaler [Breo] Breo Ellipta 200-25 MCG/INH Breo Ellipta 200-25 MCG/INH 08/31/2019 12:00:00 AM EDT 1.0 {puff} active Breo Ellipta 200-25 MCG/INH eCW1 ([facility]) 30 ACTUAT fluticasone furoate 0.2 MG/ACT UAT / vilanterol 0.025 MG/ACTUAT Dry Powder Inhaler [Breo] Breo Ellipta 200-25 MCG/INH Breo Ellipta 200-25 MCG/INH 08/31/2019 12:00:00 AM EDT 1.0 {puff} active Breo Ellipta 200-25 MCG/INH eCW1 ([facility]) 30 ACTUAT fluticasone furoate 0.2 MG/ACT UAT / vilanterol 0.025 MG/ACTUAT Dry Powder Inhaler [Breo] Breo Ellipta 200-25 MCG/INH Breo Ellipta 200-25 MCG/INH 08/31/2019 12:00:00 AM EDT 1.0 {puff} active Breo Ellipta 200-25 MCG/INH eCW1 ([facility]) 30 ACTUAT fluticasone furoate 0.2 MG/ACT UAT / vilanterol 0.025 MG/ACTUAT Dry Powder Inhaler [Breo] Breo Ellipta 200-25 MCG/INH Breo Ellipta 200-25 MCG/INH 08/31/2019 12:00:00 AM EDT 1.0 {puff} active Breo Ellipta 200-25 MCG/INH eCW1 ([facility]) 30 ACTUAT fluticasone furoate 0.2 MG/ACT UAT / vilanterol 0.025 MG/ACTUAT Dry Powder Inhaler [Breo] Breo Ellipta 200-25 MCG/INH Breo Ellipta 200-25 MCG/INH 08/31/2019 12:00:00 AM EDT 1.0 {puff} active Breo Ellipta 200-25 MCG/INH eCW1 ([facility]) 30 ACTUAT fluticasone furoate 0.2 MG/ACT UAT / vilanterol 0.025 MG/ACTUAT Dry Powder Inhaler [Breo] Breo Ellipta 200-25 MCG/INH Breo Ellipta 200-25 MCG/INH 08/31/2019 12:00:00 AM EDT 1.0 {puff} active Breo Ellipta 200-25 MCG/INH eCW1 ([facility]) 30 ACTUAT fluticasone furoate 0.2 MG/ACT UAT / vilanterol 0.025 MG/ACTUAT Dry Powder Inhaler [Breo] Breo Ellipta 200-25 MCG/INH Breo Ellipta 200-25 MCG/INH 08/31/2019 12:00:00 AM EDT 1.0 {puff} active Breo Ellipta 200-25 MCG/INH eCW1 ([facility]) 30 ACTUAT fluticasone furoate 0.2 MG/ACT UAT / vilanterol 0.025 MG/ACTUAT Dry Powder Inhaler [Breo] Breo Ellipta 200-25 MCG/INH Breo Ellipta 200-25 MCG/INH 08/31/2019 12:00:00 AM EDT 1.0 {puff} active Breo Ellipta 200-25 MCG/INH eCW1 ([facility]) 30 ACTUAT fluticasone furoate 0.2 MG/ACT UAT / vilanterol 0.025 MG/ACTUAT Dry Powder Inhaler [Breo] Breo Ellipta 200-25 MCG/INH Breo Ellipta 200-25 MCG/INH 08/31/2019 12:00:00 AM EDT 1.0 {puff} active Breo Ellipta 200-25 MCG/INH eCW1 ([facility]) 30 ACTUAT fluticasone furoate 0.2 MG/ACT UAT / vilanterol 0.025 MG/ACTUAT Dry Powder Inhaler [Breo] Breo Ellipta 200-25 MCG/INH Breo Ellipta 200-25 MCG/INH 08/31/2019 12:00:00 AM EDT 1.0 {puff} active Breo Ellipta 200-25 MCG/INH eCW1 ([facility]) 30 ACTUAT fluticasone furoate 0.2 MG/ACT UAT / vilanterol 0.025 MG/ACTUAT Dry Powder Inhaler [Breo] Breo Ellipta 200-25 MCG/INH Breo Ellipta 200-25 MCG/INH 08/31/2019 12:00:00 AM EDT 1.0 {puff} active Breo Ellipta 200-25 MCG/INH eCW1 ([facility]) 30 ACTUAT fluticasone furoate 0.2 MG/ACT UAT / vilanterol 0.025 MG/ACTUAT Dry Powder Inhaler [Breo] Breo Ellipta 200-25 MCG/INH Breo Ellipta 200-25 MCG/INH 08/31/2019 12:00:00 AM EDT 1.0 {puff} active Breo Ellipta 200-25 MCG/INH eCW1 ([facility]) 30 ACTUAT fluticasone furoate 0.2 MG/ACT UAT / vilanterol 0.025 MG/ACTUAT Dry Powder Inhaler [Breo] Breo Ellipta 200-25 MCG/INH Breo Ellipta 200-25 MCG/INH 08/31/2019 12:00:00 AM EDT active 1 puff eCW1 ([facility]) 30 ACTUAT fluticasone furoate 0.2 MG/ACT UAT / vilanterol 0.025 MG/ACTUAT Dry Powder Inhaler [Breo] Breo Ellipta 200-25 MCG/INH Breo Ellipta 200-25 MCG/INH 08/31/2019 12:00:00 AM EDT 1.0 {puff} active Breo Ellipta 200-25 MCG/INH eCW1 ([facility]) 30 ACTUAT fluticasone furoate 0.2 MG/ACT UAT / vilanterol 0.025 MG/ACTUAT Dry Powder Inhaler [Breo] Breo Ellipta 200-25 MCG/INH Breo Ellipta 200-25 MCG/INH 08/31/2019 12:00:00 AM EDT 1.0 {puff} active Breo Ellipta 200-25 MCG/INH eCW1 ([facility]) 30 ACTUAT fluticasone furoate 0.2 MG/ACT UAT / vilanterol 0.025 MG/ACTUAT Dry Powder Inhaler [Breo] Breo Ellipta 200-25 MCG/INH Breo Ellipta 200-25 MCG/INH 08/31/2019 12:00:00 AM EDT 1.0 {puff} active Breo Ellipta 200-25 MCG/INH eCW1 ([facility]) pantoprazole 40 MG Delayed Release Oral Tablet Pantopr azole Sodium 40 MG Pantoprazole Sodium 40 MG 05/29/2019 12:00:00 AM EST active 1 tablet eCW1 ([facility]) pantoprazole 40 MG Delayed Release Oral Tablet Pantopr azole Sodium 40 MG Pantoprazole Sodium 40 MG 05/29/2019 12:00:00 AM EST active 1 tablet eCW1 ([facility]) pantoprazole 40 MG Delayed Release Oral Tablet Pantopr azole Sodium 40 MG Pantoprazole Sodium 40 MG 05/29/2019 12:00:00 AM EST 1.0 {tablet} active Pantoprazole Sodium 40 MG eCW1 ( [facility]) pantoprazole 40 MG Delayed Release Oral Tablet Pantopr azole Sodium 40 MG Pantoprazole Sodium 40 MG 05/29/2019 12:00:00 AM EST 1.0 {tablet} active Pantoprazole Sodium 40 MG eCW1 ( [facility]) duloxetine 20 MG Delayed Release Oral Capsule Duloxetine HCL 05/26/2019 12:00:00 AM EST ORAL active MED[facility] ([facility]) Docusate Sodium 100 MG Oral Capsule [Colace] Colace 100 MG C olace 100 MG 04/26/2019 12:00:00 AM EST 1.0 {capsule_as_needed} active Colace 100 MG eCW1 ([facility]) Docusate Sodium 100 MG Oral Capsule [Colace] Colace 100 MG C olace 100 MG 04/26/2019 12:00:00 AM EST 1.0 {capsule_as_needed} active Colace 100 MG eCW1 ([facility]) Docusate Sodium 100 MG Oral Capsule [Colace] Colace 100 MG C olace 100 MG 04/26/2019 12:00:00 AM EST 1.0 {capsule_as_needed} active Colace 100 MG eCW1 ([facility]) Docusate Sodium 100 MG Oral Capsule [Colace] Colace 100 MG C olace 100 MG 04/26/2019 12:00:00 AM EST 1.0 {capsule_as_needed} active Colace 100 MG eCW1 ([facility]) Docusate Sodium 100 MG Oral Capsule [Colace] Colace 100 MG C olace 100 MG 04/26/2019 12:00:00 AM EST 1.0 {capsule_as_needed} active Colace 100 MG eCW1 ([facility]) Docusate Sodium 100 MG Oral Capsule [Colace] Colace 100 MG C olace 100 MG 04/26/2019 12:00:00 AM EST 1.0 {capsule_as_needed} active Colace 100 MG eCW1 ([facility]) Docusate Sodium 100 MG Oral Capsule [Colace] Colace 100 MG C olace 100 MG 04/26/2019 12:00:00 AM EST active 1 capsule as needed eCW1 ([facility]) Docusate Sodium 100 MG Oral Capsule [Colace] Colace 100 MG C olace 100 MG 04/26/2019 12:00:00 AM EST 1.0 {capsule_as_needed} active Colace 100 MG eCW1 ([facility]) Docusate Sodium 100 MG Oral Capsule [Colace] Colace 100 MG C olace 100 MG 04/26/2019 12:00:00 AM EST 1.0 {capsule_as_needed} active Colace 100 MG eCW1 ([facility]) Methylcellulose 500 MG Oral Tablet [Citrucel] Citrucel 500 M G Citrucel 500 MG 04/26/2019 12:00:00 AM EST active 1 tablets with a full glass of water as needed eCW1 ([facility]) Docusate Sodium 100 MG Oral Capsule [Colace] Colace 100 MG C olace 100 MG 04/26/2019 12:00:00 AM EST 1.0 {capsule_as_needed} active Colace 100 MG eCW1 ([facility]) Docusate Sodium 100 MG Oral Capsule [Colace] Colace 100 MG C olace 100 MG 04/26/2019 12:00:00 AM EST 1.0 {capsule_as_needed} active Colace 100 MG eCW1 ([facility]) Docusate Sodium 100 MG Oral Capsule [Colace] Colace 100 MG C olace 100 MG 04/26/2019 12:00:00 AM EST 1.0 {capsule_as_needed} active Colace 100 MG eCW1 ([facility]) Docusate Sodium 100 MG Oral Capsule [Colace] Colace 100 MG C olace 100 MG 04/26/2019 12:00:00 AM EST 1.0 {capsule_as_needed} active Colace 100 MG eCW1 ([facility]) Docusate Sodium 100 MG Oral Capsule [Colace] Colace 100 MG C olace 100 MG 04/26/2019 12:00:00 AM EST 1.0 {capsule_as_needed} active Colace 100 MG eCW1 ([facility]) Docusate Sodium 100 MG Oral Capsule [Colace] Colace 100 MG C olace 100 MG 04/26/2019 12:00:00 AM EST 1.0 {capsule_as_needed} active Colace 100 MG eCW1 ([facility]) Docusate Sodium 100 MG Oral Capsule [Colace] Colace 100 MG C olace 100 MG 04/26/2019 12:00:00 AM EST 1.0 {capsule_as_needed} active Colace 100 MG eCW1 ([facility]) Docusate Sodium 100 MG Oral Capsule [Colace] Colace 100 MG C olace 100 MG 04/26/2019 12:00:00 AM EST 1.0 {capsule_as_needed} active Colace 100 MG eCW1 ([facility]) Docusate Sodium 100 MG Oral Capsule [Colace] Colace 100 MG C olace 100 MG 04/26/2019 12:00:00 AM EST 1.0 {capsule_as_needed} active Colace 100 MG eCW1 ([facility]) Docusate Sodium 100 MG Oral Capsule [Colace] Colace 100 MG C olace 100 MG 04/26/2019 12:00:00 AM EST 1.0 {capsule_as_needed} active Colace 100 MG eCW1 ([facility]) POLYETHYLENE GLYCOL 3350 142 MG/ML Oral Solution [Miralax] M iraLax - MiraLax - 04/26/2019 12:00:00 AM EST active 1 packet mixed with 8 ounces of fluid eCW1 ([facility]) Docusate Sodium 100 MG Oral Capsule [Colace] Colace 100 MG C olace 100 MG 04/26/2019 12:00:00 AM EST active 1 capsule as needed eCW1 ([facility]) Docusate Sodium 100 MG Oral Capsule [Colace] Colace 100 MG C olace 100 MG 04/26/2019 12:00:00 AM EST 1.0 {capsule_as_needed} active Colace 100 MG eCW1 ([facility]) Docusate Sodium 100 MG Oral Capsule [Colace] Colace 100 MG C olace 100 MG 04/26/2019 12:00:00 AM EST active 1 capsule as needed eCW1 ([facility]) Docusate Sodium 100 MG Oral Capsule [Colace] Colace 100 MG C olace 100 MG 04/26/2019 12:00:00 AM EST 1.0 {capsule_as_needed} active Colace 100 MG eCW1 ([facility]) Docusate Sodium 100 MG Oral Capsule [Colace] Colace 100 MG C olace 100 MG 04/26/2019 12:00:00 AM EST 1.0 {capsule_as_needed} active Colace 100 MG eCW1 ([facility]) Famotidine 20 MG Oral Tablet Famotidine 20 MG 04/19/2019 12:00:[address] active 1 tablet at bedtime as ne eded eCW1 ([facility]) Famotidine 40 MG Oral Tablet Famotidine 40 MG 04/19/2019 12:00:[address] active 1 tablet at bedtime eCW1 ([facility]) Famotidine 20 MG Oral Tablet Famotidine 20 MG 04/19/2019 12:00:[address] active 1 tablet at bedtime as ne eded eCW1 ([facility]) Famotidine 40 MG Oral Tablet Famotidine 40 MG 04/19/2019 12:00:[address] active 1 tablet at bedtime eCW1 ([facility]) Primidone 50 MG Oral Tablet Primidone 03/29/2019 12:00:00 AM EST ORAL active MEDENT ([facility], ) Insurance Providers Payer name Policy type / Coverage type Policy ID Covered libertarian ID Covered libertarian's relationship to graves Policy Graves Plan Information AETNA MEDICARE [id number] SP [id number] AETNA MEDICARE [id number] SP [id number] AETNA MEDICARE [id number] SP 10 [id number] AETNA MEDICARE O [id number] S [id number] AETNA MEDICARE [id number] SP [id number] [id number] AETNA MEDICARE [id number] SP MEBQR [id number] AETNA MEDICARE MEBQRGOW SP MEBQR [place] AETNA MEDICARE COMPLETE G [id number] Self [id number] MEDICARE A [id number] Self [id number] A AETNA MEDICARE O MEBQRGOW S MEBQR [place] AETNA MEDICARE O [id number] S MEBQR [id number] AETNA MEDICARE [id number] SP MEBQR [id number] ANS-Medicare Part B [id number] ANS-Medicare Part B [id number] ANS-Medicare Part B [id number] ANSI-Medicare Part B [id number] Aetna (MCR) Commercial [id number] Self [id number] W Aetna (MCR) Medigap Part B [id number] Self [id number] ANSI-Medicare Part B [id number] AETNA MEDICARE MEBQRGOW SP MEBQR [place] AETNA MEDICARE MEBQRGOW [id number] MEBQR [place] MEDICARE [id number] SP [id number] A Aetna (MCR) Commercial [id number] Self [id number] W ANSI-Medicare Part B [id number] Aetna (MCR) Commercial [id number] Self [id number] W ANSI-Medicare Part B [id number] ANSI-Medicare Part B [id number] ANSI-Medicare Part B [id number] ANSI-Medicare Part B [id number] Aetna (MCR) Commercial [id number] Self [id number] W Aetna ([facility]) Commercial [id number] Self [id number] W AETNA [facility] O [id number] S [id number] ANSI-Medicare Part B [id number] Aetna ([facility]) Commercial [id number] Self [id number] ANSI-Medicare Part B [id number] ANSI-Medicare Part B [id number] ANSI-Medicare Part B [id number] ANSI-Medicare Part B [id number] ANSI-Medicare Part B [id number] ANSI-Medicare Part B [id number] AETNA MEDICARE [id number] SP [id number] MEDICARE [id number] SP [id number] A MEDICARE - [place] MCR UNAVAILABLE UNAVAILABLE MEDICARE C [id number] S [id number] A MEDICARE C UNAVAILABLE P UNAVAILA BLE [id number] Problems, Conditions, and Diagnoses Code Display Name Description Problem Type Effective Dates Data Source(s) F41.1 [id number] Generalized anxiety disorder Problem 020 12:00:00 AM EST eCW1 ([facility]) F31.81 29266345 Bipolar II disorder Problem 03/29/2020 12:00 :00 AM EST eCW1 ([facility]) F33.1 [id number] Major depressive disorder, recurrent, mod erate Problem 03/29/2020 12:00:00 AM EST eCW1 ([facility]) 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 Oth er specified interstitial pulmonary diseases Problem 01/30/2020 12:00:00 AM EDT eCW1 ([facility]) J84.89 89394023 Interstitial pneumonitis Problem 01/30/2020 12:00:00 AM EDT eCW1 ([facility]) Benign hypertensive heart disease withou t congestive heart failure Benign hypertensive heart disease without congestive heart failure Problem 11/22/2019 12:00:00 AM EDT MEDENT ([facility]) [id number] Edema Edema Problem 11/22/2019 12:00:00 AM ED T MEDENT ([facility]) 41211942 Mitral valve disorder Mitral valve disorder Problem 11/22/2019 12:00:00 AM EDT MED[facility] ([facility]) 710763403 Dyspnea Dyspnea Problem 11/22/2019 12:00:00 AM ED T MEDENT ([facility]) 36816937 Heart murmur Heart murmur Problem 11/22/2019 12:00:00 A M EDT MEDENT ([facility]) [id number] Electrocardiogram abnormal Electrocardiogram abnormal Problem 11/22/2019 12:00:00 AM EDT MED[facility] ([facility]) 93019217 Precordial pain Precordial pain Problem 11/22/2019 12:0 0:00 AM EDT MEDENT ([facility]) I50.32 261998448 Chronic diastolic congestive heart failur e Problem 08/31/2019 12:00:00 AM EDT eCW1 ([facility]) I50.32 181918201 Chronic diastolic congestive heart failur e Problem 08/31/2019 12:00:00 AM EDT eCW1 ([facility]) J45.30 520833897 Mild persistent asthma without complicati on Problem 08/31/2019 12:00:00 AM EDT eCW1 ([facility]) J45.30 123353927 Mild persistent asthma without complicati on Problem 08/31/2019 12:00:00 AM EDT eCW1 ([facility]) D72.9 01421168 Disorder of white blood cells, unspecifie d Problem 04/26/2019 12:00:00 AM EST eCW1 ([facility]) R89.2 [id number] Abnormal level of ot her drugs, medicaments and biological substances in specimens from other organs, systems and tissues Problem 04/26/2019 12:00:00 AM EST eCW1 ([facility]) [id number] Cerebral infarction due to internal [place] tid 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 Problem 03/29/2019 12:00:00 AM EST KAYDEN ([facility], ) G89.29 Other chronic pain Other chronic pain Diagnosis 03/2020 12:43:02 PM EDT [facility] M54.5 Low back pain Low back pain Diagnosis 06/22/2019 12:43:02 PM [facility] M51.36 Other intervertebral disc degeneration, lumbar region Other intervertebral disc degeneration, lumbar region Diagnosis 2019 12:43:02 PM [facility] Z98.890 Other specified postprocedural states Ot her specified postprocedural states Diagnosis 06/22/2019 12:43:02 PM EDT [facility] M54.16 Radiculopathy, lumbar region Radiculopathy, lumbar reg ion Diagnosis 06/22/2019 12:43:02 PM [facility] Surgeries/Procedures Procedure Description Date Indications Data Source(s) PRESSURIZED/NONPRESSURIZED INHALATION TREATMENT 2019 12:00:00 AM EDT eC ([facility]) Medication: DuoNeb Inhalation (Ipratropi um Mar Lin 0.5mg & Albuterol Sulfate 2.5mg) 01/25/2020 12:00:00 AM EDT eC ([facility]) ECHO TTHRC R-T 2D W/WOM-MODE COMPL SPEC&COLR DOP 12/07 12:00:00 AM EDT [facility] ([facility]) MYOCARDIAL SPECT MULTIPLE STUDIES 12/05/2019 12:00:00 AM EDT [facility] ([facility]) CV STRS TST XERS&/OR RX CONT ECG PHYS SI&R 12/05/2019 12:00:00 AM EDT [facility] ([facility]) ECG ROUTINE ECG W/LEAST 12 LDS W/I&R 11/22/2019 12:00: 00 AM EDT [facility] ([facility]) Office Visit, Est Pt., Level 4 PC 08/31/2019 12:00:00 AM EDT eCW1 ([facility]) Office Visit, Est Pt., Level 2 FC 04/26/2019 12:00:00 AM EST eCW1 ([facility]) Office Visit, Est Pt., Level 3 PC 04/26/2019 12:00:00 AM EST eCW1 ([facility]) Results ID Date Data Source [id number] 05/18/2020 09:15:00 AM EST [facility] Name Value Range Interpretation Code Description Data Dayana rce(s) Supporting Document(s) SARS coronavirus 2 RNA Not Detected [facility] [place] This lab was ordered by [facility] and reported by [facility]. ID Date Data Source [id number] 03/18/2020 05:57:00 PM EST [facility] Name Value Range Interpretation Code Description Data Dayana rce(s) Supporting Document(s) SARS coronavirus 2 RNA [Presence] in Res piratory specimen by CARSON with probe detection [facility] [place] This lab was ordered by [facility] a nd reported by [facility]. ID Date Data Source Comprehensive Metabolic Profile (CMP) 01/31/2020 06:22:32 AM EDT eCW1 ([facility]) Name Value Range Interpretation Code Description Data Dayana rce(s) Supporting Document(s) 230 GLUCOSE, FASTING eCW1 ([facility]) 1.10 CREATININE FOR GFR eCW1 ([facility]) 35 BLOOD UREA NITROGEN eCW1 ([facility]) 53.6 GLOMERULAR FILTRATION RATE eCW 1 ([facility]) 133 SODIUM LEVEL eCW1 ([facility]) 31 CARBON DIOXIDE LEVEL eCW1 ([facility]) 4.1 POTASSIUM SERUM eCW1 ([facility]) 95 CHLORIDE LEVEL eCW1 ([facility]) 96 ALKALINE PHOSPHATASE eCW1 ([facility]) 24 ALT/SGPT eCW1 ([facility]) 17 AST/SGOT eCW1 ([facility]) 9.7 CALCIUM LEVEL eCW1 ([facility]) 3.4 ALBUMIN eCW1 ([facility]) 7.5 TOTAL PROTEIN eCW1 ([facility]) 0.6 BILIRUBIN,TOTAL eCW1 ([facility]) 0.8 ALBUMIN/GLOBULIN RATIO eCW1 ([facility]) ID Date Data Source [id number] 01/30/2020 04:00:00 PM EDT [facility] Name Value Range Interpretation Code Description Data Dayana rce(s) Supporting Document(s) SARS coronavirus 2 RNA [facility] This lab was ordered by [facility] and reported by [facility]. ID Date Data Source PLZ CHEST 2 VIEW 01/26/2020 03:51:42 AM EDT eCW1 ([facility]) Name Value Range Interpretation Code Description Data Dayana rce(s) Supporting Document(s) PLZ CHEST 2 VIEW eCW1 ([facility]) ID Date Data Source [id number] 10/25/2019 05:27:00 PM EDT MEDENT ([facility]) Name Value Range Interpretation Code Description Data Dayana rce(s) Supporting Document(s) Troponin Laboratory test result MEDENT ([facility]) ID Date Data Source [id number] 10/25/2019 05:27:00 PM EDT MED[facility] ([facility]) Name Value Range Interpretation Code Description Data Dayana rce(s) Supporting Document(s) Triglycerides 197 MEDENT ([facility]) Cholesterol 166 [facility] ([facility]) HDL 56 [facility] Cholesterol in LDL [Mass/volume] in Serum or Plasma by calculation 71 [facility] ([facility]) Chol/HDL Ratio 2.964 MED[facility] ([facility]) ID Date Data Source [id number] 10/25/2019 05:27:00 PM EDT [facility] ([facility] Name Value Range Interpretation Code Description Data Dayana rce(s) Supporting Document(s) Creatine kinase [Enzymatic activity/volume] in Serum or Plasma 135 [facility] ([facility]) CPK-MB 0.81 MEDENT ([facility]) ID Date Data Source [id number] 10/25/2019 05:27:00 PM EDT [facility] Name Value Range Interpretation Code Description Data Dayana rce(s) Supporting Document(s) Albumin [Mass/volume] in Serum or Plasma 3.6 [facility] ([facility]) Alanine aminotransferase [Enzymatic activity/volume] in Serum or Pl asma 16 [facility] ([facility]) Calcium [Mass/volume] in Serum or Plasma 8.7 [facility] ([facility]) Chloride [Moles/volume] in Serum or Plasma 104 [facility] ([facility]) Carbon dioxide, total [Moles/volume] in Serum or Plasma 27 [facility] ([facility]) Potassium [Moles/volume] in Serum or Plasma 3.9 [facility] ([facility]) Alkaline phosphatase [Enzymatic activity/volume] in Serum or Plasma 1 00 [facility] ([facility]) Sodium 138 [facility] ([facility]) Protein [Mass/volume] in Serum or Plasma 7.5 [facility] ([facility]) Urea nitrogen [Mass/volume] in Serum or Plasma 15 [facility] ([facility]) Aspartate aminotransferase [Enzymatic activity/volume] in Serum or Plasma 14 [facility] ([facility]) Glucose 148 80-115 MED[facility] ([facility]) Creatinine For GFR 1.00 MEDENT (Car [facility]oly [facility]) ID Date Data Source [id number] 10/25/2019 05:27:00 PM EDT [facility] Name Value Range Interpretation Code Description Data Dayana rce(s) Supporting Document(s) White Blood Count 11.4 4.0-10.0 [facility] ([facility]) Platelets 321 172-450 MED[facility] ([facility]) Red Blood Count 4.35 4.00-5.40 MED[facility] ([facility]io [facility]) Hematocrit 41.9 [facility] ([facility]) Hemoglobin 13.6 [facility] ([facility]) ID Date Data Source [id number] 10/05/2019 05:29:00 PM EDT [facility] ([facility]) Name Value Range Interpretation Code Description Data Dayana rce(s) Supporting Document(s) Natriuretic peptide.B prohormone N-Terminal [Mass/volu me] in Serum or Plasma 263 [facility] ([facility]) ID Date Data Source MAGNESIUM LEVEL 08/31/2019 12:00:00 AM EDT eCW1 ([facility]) Name Value Range Interpretation Code Description Data Dayana rce(s) Supporting Document(s) 1.8 1.8-2.4 MAGNESIUM LEVEL eCW1 ([facility]) ID Date Data Source DDIMER QUANT 08/31/2019 12:00:00 AM EDT eCW1 ([facility]) Name Value Range Interpretation Code Description Data Dayana rce(s) Supporting Document(s) 695.57 <500 D-DIMER QUANT eCW1 ([facility]) ID Date Data Source FREE T4 & TSH PANEL 08/31/2019 12:00:00 AM EDT eCW1 ([facility]) Name Value Range Interpretation Code Description Data Dayana rce(s) Supporting Document(s) 1.13 0.76-1.46 FREE T4 eCW1 ([facility]) 1.330 0.358-3.740 THYROID STIMULATING HORM ONE eCW1 ([facility]) ID Date Data Source Reticulocyte Count Sysmex 08/31/2019 12:00:00 AM EDT eCW1 ([facility]) Name Value Range Interpretation Code Description Data Dayana rce(s) Supporting Document(s) 2.4 0.5-1.5 RETICULOCYTE % eCW1 ([facility]) ID Date Data Source TROPONIN I 08/31/2019 12:00:00 AM EDT eCW1 ([facility]) Name Value Range Interpretation Code Description Data Dayana rce(s) Supporting Document(s) < 0.02 < 0.10 TROPONIN I eCW1 ([facility]) ID Date Data Source CBC with Differential 08/31/2019 12:00:00 AM EDT eCW1 ([facility]) Name Value Range Interpretation Code Description Data Dayana rce(s) Supporting Document(s) 4.25 4.00-5.40 RED BLOOD COUNT eCW1 ([facility]) 11.1 4.0-10.0 WHITE BLOOD COUNT eCW1 ([facility]) 13.2 12.0-15.5 HEMOGLOBIN eCW1 ([facility]) 97.2 80.0-96.0 MEAN CORPUSCULAR VOLUME e CW1 ([facility]) 41.3 36.0-47.0 HEMATOCRIT eCW1 ([facility]) 13.4 11.5-14.5 RED CELL DISTRIBUTION WID TH eCW1 ([facility]) 31.1 27.0-33.0 MEAN CORPUSCULAR HEMOGLOB IN eCW1 ([facility]) 32.0 32.0-36.5 MEAN CORPUSCULAR HGB CONC eCW1 ([facility]) 65.0 36.0-66.0 NEUTROPHILS % eCW1 ([facility]) 26.2 24.0-44.0 LYMPH % eCW1 ([facility]) 350 150-450 PLATELET COUNT, AUTOMATED eCW1 ([facility]) 2.0 0.0-3.0 EOS % eCW1 ([facility]) 5.7 0.0-5.0 MONO % eCW1 ([facility]) 0.7 0.0-1.0 BASO % eCW1 ([facility]) 7.2 1.5-8.5 NEUTROPHILS # eCW1 ([facility]) 0.1 0.0-0.2 BASO # eCW1 ([facility]) 2.9 1.5-5.0 LYMPH # eCW1 ([facility]) 0.2 0.0-0.5 EOS # eCW1 ([facility]) 0.6 0.0-0.8 MONO # eCW1 ([facility]) ID Date Data Source NT-PRO BNP 08/31/2019 12:00:00 AM EDT eCW1 ([facility]) Name Value Range Interpretation Code Description Data Dayana rce(s) Supporting Document(s) 128 <125 NT-PRO BNP eCW1 ([facility]) ID Date Data Source [id number] 07/09/2019 09:38:59 PM EDT [facility] XR SPINE LUMBAR 4-MORE VIEWS [id number] RESULTInterpreted by:Sherly Hardin MDEXAM: Spine lumbosacral INDICATION: Low back pain COMPARISON: No prior comparison available.TECHNIQUE: 4 views of the lumbar spine were obtained. FINDINGS: There are five nonrib-bearing lumbar-type vertebral bodies. Vertebral body heights are preserved without fracture. There is normal lumbar lordosis without spondylolisthesis. No instability . There is moderate to severe disc space narrowing at L5-S1, moderate L4-L5 and mild at L2-L3 and L3-L4. There is moderate lower lumbar spine facet arthropathy. Aortic atherosclerosis is present. IMPRESSION:No acute fracture or instability.Moderate disc degenerative L4-L5 and moderate to severe at L5-S1.This document has been electronically signed by Sherly Hardin MD on 07/09/2019 9:36 PM Name Value Range Interpretation Code Description Data Dayana rce(s) Supporting Document(s) ID Date Data Source [id number] 07/02/2019 07:18:07 PM EDT [facility] XR PELVIS 3 VIEWS [id number] RESULTInter preted by:Marvin Olivera, MDPelvis 3 viewsINDICATION: Pain low backFINDINGS: Frontal view of the pelvis was obtained along with slight oblique views of the pelvis. There are no prior films for comparison. The examination shows mild osteoarthritic change involving the hip joints. There is spur formation bilaterally. There is a more prominent ossicle adjacent to the superior lateral aspect of acetabulum on the right which could represent spur formation or could represent a bony ossicle of uncertain age. There are lucent regions involving the femoral head neck junctions bilaterally and laterally located which may represent herniation pits. A discrete fracture line is not identified. On the RPO view there is a density oval in appearance measuring approximately 1.1 cm anterior to the proximal right femur of uncertain etiology. This could represent vascular calcification, or could represent a bony ossicle of uncertain age. There is also calcification projected over left hemipelvis of uncertain etiology. Mild arthritic change noted involving the SI joints. The bones are normally mineralized.IMPRESSION: Mild arthritic change involving hip joints and SI joints. Ossicle adjacent to the right acetabulum superior laterally which could related to spur formation or could represent bony fragment of uncertain age. Also on the RPO view calcification/ossification anterior to the proximal right femur of uncertain etiology. This could represent vascular calcification although bony fragment of uncertain age not excluded. Clinical correlation recommended. Comparison any prior films would help further evaluate. If patient's symptoms persist, MRI examination may help further evaluate.This document has been electronically signed by Marvin Olivera MD on 07/02/2019 7:16 PM Name Value Range Interpretation Code Description Data Dayana rce(s) Supporting Document(s) ID Date Data Source [id number] 06/22/2019 04:28:35 PM T [facility] Name Value Range Interpretation Code Description Data Dayana rce(s) Supporting Document(s) Progress Note [facility] [id number] lbm [file] [id number] ID Date Data Source OVA Parasite Conventional 04/26/2019 12:00:00 AM EST eCW1 ([facility]) Name Value Range Interpretation Code Description Data Dayana rce(s) Supporting Document(s) Final report . O+P EXAM eCW1 ([facility]) ID Date Data Source PANCREATIC ELASTASE STOOL 04/26/2019 12:00:00 AM EST eCW1 ([facility]) Name Value Range Interpretation Code Description Data Dayana rce(s) Supporting Document(s) 203 >200 PANCREATIC ELASTASE STOOL eCW1 ([facility]) ID Date Data Source GASTROINTESTINAL GI PANEL (GIPANEL) 04/26/2019 12:00:00 AM EST eCW1 ([facility]) Name Value Range Interpretation Code Description Data Dayana rce(s) Supporting Document(s) This Gastrointestinal PCR Panel detects the following bacteria, GASTROINTESTINAL (GI) PANEL eCW1 ([facility]) ID Date Data Source LIPASE 04/26/2019 12:00:00 AM EST eCW1 ([facility]) Name Value Range Interpretation Code Description Data Dayana rce(s) Supporting Document(s) [id number] LIPASE eCW1 ([facility]) ID Date Data Source SERUM PROTEIN ELECTROPHORESIS 04/26/2019 12:00:00 AM EST eCW 1 ([facility]) Name Value Range Interpretation Code Description Data Dayana rce(s) Supporting Document(s) 7.5 6.4-8.2 TOTAL PROTEIN eCW1 ([facility]) ID Date Data Source BILIRUBIN,DIRECT 04/26/2019 12:00:00 AM EST eCW1 ([facility]) Name Value Range Interpretation Code Description Data Dayana rce(s) Supporting Document(s) 0.1 0.0-0.2 BILIRUBIN,DIRECT eCW1 ([facility]) Procedure Social History Code Duration Value Status Description Data Source(s ) Smoking 03/12/2020 12:00:00 AM EST Current Smoker completed Curre nt Smoker eCW1 ([facility]) Smoking 03/12/2020 12:00:00 AM EST Current Smoker completed Curre nt Smoker eCW1 ([facility]) Smoking 03/12/2020 12:00:00 AM EST Current Smoker completed Curre nt Smoker eCW1 ([facility]) Smoking 03/12/2020 12:00:00 AM EST Current Smoker completed Curre nt Smoker eCW1 ([facility]) Smoking 03/12/2020 12:00:00 AM EST Current Smoker completed Curre nt Smoker eCW1 ([facility]) Smoking 03/12/2020 12:00:00 AM EST Current Smoker completed Curre nt Smoker eCW1 ([facility]) Smoking 03/12/2020 12:00:00 AM EST Current Smoker completed Curre nt Smoker eCW1 ([facility]) Smoking 03/12/2020 12:00:00 AM EST Current Smoker completed Curre nt Smoker eCW1 ([facility]) Smoking 03/12/2020 12:00:00 AM EST Current Smoker completed Curre nt Smoker eCW1 ([facility]) Smoking 03/12/2020 12:00:00 AM EST Current Smoker completed Curre nt Smoker eCW1 ([facility]) Smoking 02/13/2020 12:00:00 AM EST Current Smoker completed Curre nt Smoker eCW1 ([facility]) Smoking 01/30/2020 12:00:00 AM EDT Current Smoker completed Curre nt Smoker eCW1 ([facility]) Smoking 01/30/2020 12:00:00 AM EDT Current Smoker completed Curre nt Smoker eCW1 ([facility]) Smoking 01/30/2020 12:00:00 AM EDT Current Smoker completed Curre nt Smoker eCW1 ([facility]) Smoking 01/30/2020 12:00:00 AM EDT Current Smoker completed Curre nt Smoker eCW1 ([facility]) Smoking 01/25/2020 12:00:00 AM EDT Current Smoker completed Curre nt Smoker eCW1 ([facility]) Smoking 01/25/2020 12:00:00 AM EDT Current Smoker completed Curre nt Smoker eCW1 ([facility]) Smoking 01/25/2020 12:00:00 AM EDT Current Smoker completed Curre nt Smoker eCW1 ([facility]) Smoking 01/25/2020 12:00:00 AM EDT Current Smoker completed Curre nt Smoker eCW1 ([facility]) Smoking 09/13/2019 12:00:00 AM EDT Current Smoker completed Curre nt Smoker eCW1 ([facility]) Smoking 09/13/2019 12:00:00 AM EDT Current Smoker completed Curre nt Smoker eCW1 ([facility]) Alcohol intake 06/22/2019 12:00:00 AM EDT Ex-drinker (finding) comp leted Ex- drinker (finding) [facility] Cigarettes smoked current (pack per day) - Reported 06/22/19 20 12:00:00 AM EDT UNK completed [facility] Smoking 06/22/2019 12:00:00 AM EDT Current every day smoker co mpleted Current every day smoker [facility] Vital Signs ID Date Data Source UNK Name Value Range Interpretation Code Description Data Source(s) Diastolic blood pressure 68 mm[Hg] 68 mm[Hg] eCW1 ([facility]) Systolic blood pressure 128 mm[Hg] 128 mm[Hg] e CW1 ([facility]) Body temperature 97.1 [degF] 97.1 [degF] eCW1 ( [facility]) Respiratory rate 20 /min 20 /min eCW1 ([facility]) Heart rate 107 /min 107 /min eCW1 ([facility]) Body mass index (BMI) [Ratio] 36.15 kg/m2 36.15 kg/m2 W1 ([facility]) Body height [in_i] eCW1 ([facility]) Body weight 224 [lb_av] 224 [lb_av] eCW1 ([facility]) Diastolic blood pressure 80 mm[Hg] 80 mm[Hg] eCW1 ([facility]) Systolic blood pressure 144 mm[Hg] 144 mm[Hg] e CW1 ([facility]) Body temperature 97.5 [degF] 97.5 [degF] eCW1 ( [facility]) Respiratory rate 18 /min 18 /min eCW1 ([facility]) Heart rate 78 /min 78 /min eCW1 ([facility]) Body mass index (BMI) [Ratio] 35.51 kg/m2 35.51 kg/m2 eCW1 ([facility]) Body height [in_i] eCW1 ([facility]) Body weight 220 [lb_av] 220 [lb_av] eCW1 ([facility]) Diastolic blood pressure 84 mm[Hg] 84 mm[Hg] eCW1 ([facility]) Systolic blood pressure 150 mm[Hg] 150 mm[Hg] e CW1 ([facility]) Body temperature 97.1 [degF] 97.1 [degF] eCW1 ( [facility]) Respiratory rate 19 /min 19 /min eCW1 ([facility]) Heart rate 108 /min 108 /min eCW1 ([facility]) Body mass index (BMI) [Ratio] 35.67 kg/m2 35.67 kg/m2 eCW1 ([facility]) Body height [in_i] eCW1 ([facility]) Body weight 221 [lb_av] 221 [lb_av] eCW1 ([facility]) Diastolic blood pressure 82 mm[Hg] 82 mm[Hg] eCW1 ([facility]) Systolic blood pressure 146 mm[Hg] 146 mm[Hg] e CW1 ([facility]) Body temperature 97.1 [degF] 97.1 [degF] eCW1 ( [facility]) Respiratory rate 18 /min 18 /min eCW1 ([facility]) Heart rate 119 /min 119 /min eCW1 ([facility]) Body mass index (BMI) [Ratio] 35.67 kg/m2 35.67 kg/m2 eCW1 ([facility]) Body height [in_i] eCW1 ([facility]) Body weight 221.0 [lb_av] 221.0 [lb_av] eCW1 ([facility]) Diastolic blood pressure--supine 75 mm[Hg] 75 mm[Hg] MEDENT ([facility]) Ra Systolic blood pressure--supine 132 mm[Hg] 132 mm[Hg] MEDENT ([facility]) Ra Diastolic blood pressure--sitting 74 mm[Hg] 74 mm[Hg] MEDENT ([facility]) large cuff, Ra; 132/82 LA Systolic blood pressure--sitting 127 mm[Hg] 127 mm[Hg] MEDENT ([facility]) large cuff, Ra; 132/82 LA Respiratory rate 16 /min 16 /min MEDENT ( [facility]) Heart rate 64 /min 64 /min MEDENT ([facility]) regular Body mass index (BMI) [Ratio] 34.3 kg/m2 34.3 k g/m2 MEDENT ([facility]) Body height 67 [in_i] 67 [in_i] MEDENT ([facility]) 5'7" Body weight 219.00 [lb_av] 219.00 [lb_av] MEDEN T ([facility]) Diastolic blood pressure 80 mm[Hg] 80 mm[Hg] eCW1 ([facility]) Systolic blood pressure 148 mm[Hg] 148 mm[Hg] e CW1 ([facility]) Body temperature 99.1 [degF] 99.1 [degF] eCW1 ( [facility]) Respiratory rate 18 /min 18 /min eCW1 ([facility]) Heart rate 94 /min 94 /min eCW1 ([facility]) Body mass index (BMI) [Ratio] 35.99 kg/m2 35.99 kg/m2 eCW1 ([facility]) Body height [in_us] eCW1 ([facility]) Body weight Measured 223 [lb_av] 223 [lb_av] eC W1 ([facility]) Diastolic blood pressure 76 mm[Hg] 76 mm[Hg] eCW1 ([facility]) Systolic blood pressure 118 mm[Hg] 118 mm[Hg] e CW1 ([facility]) Body temperature 96.9 [degF] 96.9 [degF] eCW1 ( [facility]) Respiratory rate 18 /min 18 /min eCW1 ([facility]) Heart rate 92 /min 92 /min eCW1 ([facility]) Body mass index (BMI) [Ratio] 34.89 kg/m2 34.89 kg/m2 eCW1 ([facility]) Body height [in_us] eCW1 ([facility]) Body weight Measured 216.2 [lb_av] 216.2 [lb_av ] eCW1 ([facility]) Diastolic blood pressure 78 mm[Hg] 78 mm[Hg] eCW1 ([facility]) Systolic blood pressure 112 mm[Hg] 112 mm[Hg] e CW1 ([facility]) Body temperature 97.1 [degF] 97.1 [degF] eCW1 ( [facility]) Respiratory rate 17 /min 17 /min eCW1 ([facility]) Heart rate 90 /min 90 /min eCW1 ([facility]) Body mass index (BMI) [Ratio] 34.86 kg/m2 34.86 kg/m2 eCW1 ([facility]) Body height [in_us] eCW1 ([facility]) Body weight Measured 216 [lb_av] 216 [lb_av] eC W1 ([facility]) ID Date Data Source [id number] 06/28/2019 11:34:56 AM T [facility] Name Value Range Interpretation Code Description Data Source(s) WEIGHT RECORDED 216 lb 216 lb [facility] Body height Measured 65.25 in 65.25 in [facility] Patient Treatment Plan of Care Planned Activity Planned Date Details Description Data Source (s) [employer] Verio w/Device 03/18/2020 12:00:00 AM EST eCW1 ([facility]) OneTouch Verio 1 03/18/2020 12:00:00 AM EST eCW1 ([facility]) OneTouch Verio w/Device 03/18/2020 12:00:00 AM EST eCW1 ([facility]) OneTouch Verio 1 03/18/2020 12:00:00 AM EST eCW1 ([facility]) OneTouch Verio 1 03/18/2020 12:00:00 AM EST eCW1 ([facility]) OneTouch Verio w/Device 03/18/2020 12:00:00 AM EST eCW1 ([facility]) OneTouch Verio 1 03/18/2020 12:00:00 AM EST eCW1 ([facility]) OneTouch Verio w/Device 03/18/2020 12:00:00 AM EST eCW1 ([facility]) OneTouch Verio w/Device 03/18/2020 12:00:00 AM EST eCW1 ([facility]) OneTouch Verio 1 03/18/2020 12:00:00 AM EST eCW1 ([facility]) OneTouch Verio w/Device 03/18/2020 12:00:00 AM EST eCW1 ([facility]) OneTouch Verio 1 03/18/2020 12:00:00 AM EST eCW1 ([facility]) OneTouch Verio w/Device 03/18/2020 12:00:00 AM EST eCW1 ([facility]) OneTouch Verio 1 03/18/2020 12:00:00 AM EST eCW1 ([facility]) OneTouch Verio w/Device 03/18/2020 12:00:00 AM EST eCW1 ([facility]) OneTouch Verio 1 03/18/2020 12:00:00 AM EST eCW1 ([facility]) OneTouch Verio w/Device 03/18/2020 12:00:00 AM EST eCW1 ([facility]) OneTouch Verio 1 03/18/2020 12:00:00 AM EST eCW1 ([facility]) Levaquin 750 MG 03/12/2020 12:00:00 AM EST eCW1 ([facility]) Levaquin 750 MG 03/12/2020 12:00:00 AM EST eCW1 ([facility]) Levaquin 750 MG 03/12/2020 12:00:00 AM EST eCW1 ([facility]) Levaquin 750 MG 03/12/2020 12:00:00 AM EST eCW1 ([facility]) Levaquin 750 MG 03/12/2020 12:00:00 AM EST eCW1 ([facility]) Levaquin 750 MG 03/12/2020 12:00:00 AM EST eCW1 ([facility]) Levaquin 750 MG 03/12/2020 12:00:00 AM EST eCW1 ([facility]) Levaquin 750 MG 03/12/2020 12:00:00 AM EST eCW1 ([facility]) Levaquin 750 MG 03/12/2020 12:00:00 AM EST eCW1 ([facility]) Levaquin 750 MG 03/12/2020 12:00:00 AM EST eCW1 ([facility]) Benzoyl Peroxide 0.05 MG/MG / Erythromycin 0.03 MG/MG Topical Gel 02/13/2020 12:00:00 AM EST eCW1 ([facility]) Metoprolol Succinate 25 MG 02/13/2020 12:00:00 AM EST eCW1 ([facility]) Chlorthalidone 25 MG Oral Tablet 02/13/2020 12:00:00 AM EST eCW1 ([facility]) 24 HR Nicotine 0.583 MG/HR Transdermal Patch [Nicoderm C-Q] 02/06/2020 12:00:00 AM EDT eCW1 ([facility]) 24 HR Nicotine 0.583 MG/HR Transdermal Patch [Nicoderm C-Q] 02/06/2020 12:00:00 AM EDT eCW1 ([facility]) Omeprazole 40 MG Delayed Release Oral Capsule 01/30/2020 12:00:00 A M EDT eCW1 ([facility]) Omeprazole 40 MG Delayed Release Oral Capsule 01/30/2020 12:00:00 A M EDT eCW1 ([facility]) Omeprazole 40 MG Delayed Release Oral Capsule 01/30/2020 12:00:00 A M EDT eCW1 ([facility]) Omeprazole 40 MG Delayed Release Oral Capsule 01/30/2020 12:00:00 A M EDT eCW1 ([facility]) Doxycycline Monohydrate 100 MG Oral Capsule 01/26/2020 12:00:00 AM EDT eCW1 ([facility]) Doxycycline Monohydrate 100 MG Oral Capsule 01/26/2020 12:00:00 AM EDT eCW1 ([facility]) Prednisone 20 MG Oral Tablet 01/25/2020 12:00:00 AM EDT eCW1 ([facility]) Albuterol 0.83 MG/ML Inhalant Solution 01/25/2020 12:00:00 AM EDT eCW1 ([facility]) Prednisone 20 MG Oral Tablet 01/25/2020 12:00:00 AM EDT eCW1 ([facility]) Albuterol 0.83 MG/ML Inhalant Solution 01/25/2020 12:00:00 AM EDT eCW1 ([facility]) Prednisone 20 MG Oral Tablet 01/25/2020 12:00:00 AM EDT eCW1 ([facility]) Albuterol 0.83 MG/ML Inhalant Solution 01/25/2020 12:00:00 AM EDT eCW1 ([facility]) Prednisone 20 MG Oral Tablet 01/25/2020 12:00:00 AM EDT eCW1 ([facility]) Albuterol 0.83 MG/ML Inhalant Solution 01/25/2020 12:00:00 AM EDT eCW1 ([facility]) 24 HR metoprolol succinate 25 MG Extended Release Oral Tablet 09/13/2019 12:00:00 AM EDT eCW1 ([facility]) 24 HR metoprolol succinate 25 MG Extended Release Oral Tablet 09/13/2019 12:00:00 AM EDT eCW1 ([facility]) 30 ACTUAT fluticasone furoate 0.2 MG/ACT UAT / vilanterol 0.025 MG/ACTUAT Dry Powder Inhaler [Breo] 08/31/2019 12:00:00 AM EDT eCW1 ([facility]) 30 ACTUAT fluticasone furoate 0.2 MG/ACT UAT / vilanterol 0.025 MG/ACTUAT Dry Powder Inhaler [Breo] 08/31/2019 12:00:00 AM EDT eCW1 ([facility]) torsemide 10 MG Oral Tablet 08/31/2019 12:00:00 AM EDT eCW1 ([facility]) pantoprazole 40 MG Delayed Release Oral Tablet 05/29/2019 12:00:00 AM EST eCW1 ([facility]) Methylcellulose 500 MG Oral Tablet [Citrucel] 04/26/2019 12:00:00 A M EST eCW1 ([facility]) Docusate Sodium 100 MG Oral Capsule [Colace] 04/26/2019 12:00:00 AM EST eCW1 ([facility]) POLYETHYLENE GLYCOL 3350 142 MG/ML Oral Solution [Lucy lax] 04/26/2019 12:00:00 AM EST eCW1 ([facility]) Famotidine 20 MG Oral Tablet 04/19/2019 12:00:00 AM EST eCW1 ([facility]) Famotidine 40 MG Oral Tablet 04/19/2019 12:00:00 AM EST eCW1 ([facility])
[2020-05-23] MEDS ORDERED: POVIDONE-IODINE 5% OPHTH PREP SOL 30ML As Ordered ONE (06:47)
[2020-05-23] MEDS ORDERED: DUOVISC (0.50ML VISCOAT/0.55ML PROVISC) OPHTH KIT As Ordered ONE (06:47)
[2020-05-23] MEDS ORDERED: PHENYLEPHRINE 2.5% OPHTH SOL 2ML OS ONE (07:00)
[2020-05-23] MEDS ORDERED: TROPICAMIDE 1% OPHTH SOLN 2ML OS ONE (07:00)
[2020-05-23] MEDS ORDERED: OFLOXACIN 0.3 % (OCUFLOX) OPTH SOL 5ML OS ONE (07:00)
[2020-05-23] MEDS ORDERED: PROPARACAINE 0.5% OPHTH SOL 15ML OS ONE (07:00)
[2020-05-23] MEDS ORDERED: MIDAZOLAM INJ 2MG/2ML VIAL (J2250 PER 1MG) As Ordered ONE (07:13)
[2020-05-23] MEDS ORDERED: fentaNYL 100 MCG/2 ML INJECTION (J3010) As Ordered ONE (07:14)
[2020-05-23] MEDS ORDERED: CHLO125TA PO (07:17)
[2020-05-23] MEDS ORDERED: CEFUROXIME 1MG/0.1ML INTRACAMERAL INJ As Ordered ONE (07:20)
[2020-05-23] MEDS ORDERED: BSS IRR 500ML/OMIDRIA 4ML IRR BAG (OR ONLY) As Ordered ONE (08:22)
[2020-05-23 09:10] VITALS: BP 134/71
--- NOTE | 2020-05-24 09:39 | RO ---
OPERATIVE NOTE DATE OF OPERATION: 05/23/2020 PREOPERATIVE DIAGNOSIS: 1. Visually significant nuclear sclerotic cataract, left eye. POSTOPERATIVE DIAGNOSIS: 1. Visually significant nuclear sclerotic cataract, left eye. PROCEDURE: 1. Cataract extraction with use of phacoemulsification, and placement of intraocular lens, AU00T0, 18.5 D, left eye. SURGEON: Linus Butler DO ANESTHESIA: Local (Omidria with MAC) COMPLICATIONS: None POSTOPERATIVE CONDITION: Stable INDICATIONS FOR SURGERY: 1. Blurred vision affecting patient's activities of daily living. DESCRIPTION OF PROCEDURE: The patient was seen in the preoperative area and properly identified. The correct operative eye was identified and marked. The patient received topical anesthetic, antibiotics, and topical dilating drops. The patient was then transferred to the operating room. The correct side was re-identified and a time-out was performed. The eye was prepped and draped in a sterile fashion. The eyelids were isolated with Tegaderm tape and the lids were held open with an adjustable speculum. A 1.0mm paracentesis incision was made. Omidria was then injected into the anterior chamber. Viscoelastic was then injected into the anterior chamber through the paracentesis. Using a 2.4mm sharp-tipped keratome, the anterior chamber was entered via a temporal clear cornea incision. A continuous curvilinear capsulorrhexis was created with Utrata forceps. Hydrodissection was performed with BSS on a blunt cannula until the nucleus was able to rotate freely. The crystalline lens was phacoemulsified and aspirated. Irrigation/aspiration was used to remove the cortical material Cohesive viscoelastic was placed into the capsular bag to deepen it. The implant was placed into the capsular bag and allowed to unfold. Placement was confirmed by visualizing the anterior capsulorrhexis. Irrigation/aspiration was used to remove the viscoelastic. The clear corneal incision was hydrated with BSS on a blunt cannula. The lens was well positioned. Intracameral antibiotic was injected into the anterior chamber. The incisions were then tested for leaks and found to be negative. The eye was then palpated for appropriate pressure and adjusted accordingly with BSS. The eyelid speculum was then carefully removed. A shield was placed over the eye. The patient tolerated the procedure well and was discharge to the recovery unit in a stable condition.
== END 2020-05-23 09:16 | disposition home or self-care (01) ==
LOC: M SDC 06:40
PROVIDERS: ATTEND Ophthalmology
DX: H25.12 Age-related nuclear cataract, left eye (principal); I10 Essential (primary) hypertension; E78.5 Hyperlipidemia, unspecified; E11.9 Type 2 diabetes mellitus without complications; M10.9 Gout, unspecified; F17.218 Nicotine dependence, cigarettes, with other nicotine-induced disorders; F31.9 Bipolar disorder, unspecified; K21.9 Gastro-esophageal reflux disease without esophagitis; F32.9 Major depressive disorder, single episode, unspecified; J45.909 Unspecified asthma, uncomplicated; Z79.899 Other long term (current) drug therapy; Z88.5 Allergy status to narcotic agent; Z88.8 Allergy status to other drugs, medicaments and biological substances; Z91.030 Bee allergy status; Z91.018 Allergy to other foods
CPT/HCPCS: 66984; J1097; J2250; J3010; V2632

== ENCOUNTER → 2020-05-25 | Outpatient (CLI) | payer MEDICARE ==
[~2020-05-25] MED LIST changes: +CHLO125TA PO
== END ==
LOC: M LABSMTC 08:17
PROVIDERS: ATTEND Anesthesiology
DX: Z01.812 Encounter for preprocedural laboratory examination (principal); Z20.822 Contact with and (suspected) exposure to COVID-19

== ENCOUNTER 2020-05-30 06:22 | Day surgery (SDC) | payer MEDICARE ==
[~2020-05-30] VITALS: Ht 167.6 cm; Wt 95.0 kg
[~2020-05-30 06:22] MED LIST changes: +BSS IRR 500ML/OMIDRIA 4ML IRR BAG (OR ONLY) As Ordered ONE; +CEFUROXIME 1MG/0.1ML INTRACAMERAL INJ As Ordered ONE; +DUOVISC (0.50ML VISCOAT/0.55ML PROVISC) OPHTH KIT As Ordered ONE; +POVIDONE-IODINE 5% OPHTH PREP SOL 30ML As Ordered ONE
--- OUTSIDE RECORDS SUMMARY | 2020-05-30 06:26 | CCD ---
Author Author [facility] Organization [facility] Address [phone] [address] Phone Care Team Providers Care Refrigeration Service Technician Name Role Phone Carmenza OD, Casey Unavailable [phone] Mc Bryan DO PP [phone] Linus Butler DO Unavailable [phone] Reason for Referral No Reason for Referral Recorded Problems Includes: Active, inactive, and resolved Problems All Visits Onset Date - Time Resolved Date - Time Provider Co ndition Status Corneal Dystrophy Endothelial Fuchs' 04/11/2020 - 12:00AM Linus Butler DO Active Corneal Dystrophy Anterior 04/11/2020 - 12:00AM Romelia Butler DO Active Retinal Vein Occlusion, Tributary 04/11/2020 - 12:00AM Linus Butler DO Active Cataract Senile Cortical 04/11/2020 - 12:00AM Linus Butler DO Active Dry Eye Syndrome 04/11/2020 - 12:00AM Linus garcia DO Active Vitreous Disorders Degeneration 04/11/2020 - 12:00AM Dagoberto Butler DO Active 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 09/19/2018 - 12:00AM Linus Butler DO Active Taking Medication For Diabetes Long-term Use of Oral H ypoglycemics 09/19/2018 - 12:00AM Linus Butler DO Active Borderline Glaucoma Open Angle with Borderline Finding s Both Eyes 09/19/2018 - 12:00AM Linus Butler DO Active Cataract Senile Nuclear 09/19/2018 - 12:00AM Linus harp DO Active Plan of Treatment Pending Tests Order Diagnosis Results Due Ordering Provi funmi Testing Ordered - AScan A-Scan IOL Master Cortical age-rel ated cataract, bilateral 06/10/20 Linus Butler DO Future Appointments Date Time Location Provider POST OP VISIT WITH PRE-OP 05/24/2020 1:20PM El [facility] Linus Butler DO Extracapsular cataract removal w/IOL implant 05/30/2020 8:5 0AM [facility] Linus Butler DO 1 Week Post OP 06/07/2020 1:20PM [facility] Dagoberto Butler DO Findings Encounter Date Ordered intervention and counseling on cessation of to bacco use, 3-10 minutes 1 WK PREOP FOR SURGERY with Linus Butler DO 05/14/2020 Ordered intervention and counseling on cessation of to bacco use, 3-10 minutes 7 Month Follow-Up with Linus Butler DO 04/11/2020 Ordered intervention and counseling on cessation of to bacco use, 3-10 minutes NEW PATIENT WITH REFERRAL with Linus Butler DO 09/19/2018 Assessments Includes: Assessments for all patient encounters Findings Encounter Date Cortical senile cataract 1 WK PREOP FOR SURGERY with Linus Butler DO 05/14/2020 Nuclear senile cataract 1 WK PREOP FOR SURGERY with Linus Butler DO 05/14/2020 Anterior corneal dystrophy 7 Month Follow-Up with Linus holcomb DO 04/11/2020 Cortical senile cataract 7 Month Follow-Up with Linus epstein DO 04/11/2020 Dry eye syndrome 7 Month Follow-Up with Linus Butler DO 04/11/2020 Fuchs' endothelial corneal dystrophy 7 Month Follow-Up with Linus Butler DO 04/11/2020 Long-term use of oral hypoglycemics 7 Month Follow-Up with Dagoberto Butler DO 04/11/2020 Nuclear senile cataract 7 Month Follow-Up with Linus darling DO 04/11/2020 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 7 Month Fo llow-Up with Linus Butler DO 04/11/2020 Tributary retinal vein occlusion 7 Month Follow-Up with Kings Butler DO 04/11/2020 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 7 Month Follow-Up with Linus Butler DO 04/11/2020 Vitreous degeneration 7 Month Follow-Up with Linus Arian in DO 04/11/2020 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 TESTING - VISUAL FIELD & OCT with Linus Claylucian PEREZ 11/30/2018 Long-term use of oral hypoglycemics NEW PATIENT WITH R EFERRAL with Linus Claylucian PEREZ 09/19/2018 Nuclear senile cataract NEW PATIENT WITH REFERRAL with Irma Butler 09/19/2018 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 NEW PATIEN T WITH REFERRAL with Linus Luke PEREZ 09/19/2018 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 NEW PATIENT WITH REFERRAL with Linus Claylucian PEREZ Instructions Instructions not supported for this document typeNo Instructions Recorded Medical Equipment - Implanted Devices Includes: Current and historical DevicesNo Medical Equipment Recorded Medications Includes: Current and historical Medications Current Medications (continue as prescribed) Inveltys 1% Ophthalmic Suspension 05/14/2020 Provid er: Linus Butler DO Diagnosis: Age-related nuclear cataract, left eye Day of surgery remove patch start one dr op two times a day in the left eye, SEE NOTES RUN CARD BromSite 0.075% Ophthalmic Solution 05/14/2020 Prov ider: Linus Butler DO Diagnosis: Age-related nuclear cataract, left eye Three days prior to surgery start one drop two times a day i n the left eye Moxifloxacin HCl 0.5% Ophthalmic Solution 05/14/2020 Provider: Linus Butler DO Diagnosis: Age-related nuclear cataract, left eye Three days prior to surgery start one drop four times a day in the left eye tiZANidine HCl 4 MG Oral Capsule 04/11/2020 Provide r: Diagnosis: Montelukast Sodium 10 MG Oral Tablet 04/11/2020 Pro vider: Diagnosis: Magnesium Oxide 500 MG Oral Tablet 04/11/2020 Provi funmi: Diagnosis: Losartan Potassium 2.5 MG Oral Tablet 04/11/2020 Pr ovider: Diagnosis: Divalproex Sodium 500 MG Oral Tablet Delayed Release 020 Provider: Diagnosis: Atorvastatin Calcium 40 MG Oral Tablet 04/11/2020 P rovider: Diagnosis: Tresiba Flextouch 20 units Intravenous Injectable 04/11/2020 Provider: Diagnosis: Before Bed Torsemide 10 MG Oral Tablet 04/11/2020 Provider: Diagnosis: Metoprolol Succinate 25 MG Oral Capsule ER 24 Hour Sprinkle 04/11/2020 Provider: Diagnosis: DULoxetine HCl 20MG Oral Capsule Delayed Release Particles 0 09/19/2018 Provider: Diagnosis: Allopurinol 300MG Oral Tablet 09/19/2018 Provider: Diagnosis: Amlodipine 10mg Oral Tablet 09/19/2018 Provider: Diagnosis: Celecoxib 200MG Oral Capsule 09/19/2018 Provider: Diagnosis: Vitamin D3 50mcg Oral Capsule 09/19/2018 Provider: Diagnosis: Gabapentin 300MG Oral Capsule 09/19/2018 Provider: Diagnosis: Gabapentin 600MG Oral Tablet 09/19/2018 Provider: Diagnosis: Omeprazole 40MG Oral Capsule Delayed Release 09/19/2018 Provider: Diagnosis: Past Medications on file tiZANidine HCl 4MG Oral Capsule 09/19/2018 - 04/11/2020 Prov ider: Diagnosis: Montelukast Sodium 10MG Oral Tablet 09/19/2018 - 04/11/2020 Provider: Diagnosis: metFORMIN HCl ER 500MG Oral Tablet Extended Release 24 Hour 09/19/2018 - 04/11/2020 Provider: Diagnosis: Losartan HCTZ 100-125 mg Oral Tablet 09/19/2018 - 04/11/2020 Provider: Diagnosis: Furosemide 40MG Oral Tablet 09/19/2018 - 04/11/2020 Provider : Diagnosis: Divalproex Sodium ER 500MG Oral Tablet Extended Releas e 24 Hour 09/19/2018 - 04/11/2020 Provider: Diagnosis: Atorvastatin 80mg Oral Tablet 09/19/2018 - 04/11/2020 Provid er: Diagnosis: Magnesium 500MG Oral Tablet 09/19/2018 - 04/11/2020 Provider : Diagnosis: Medications Administered Includes: Administered Medications in patient's chartNo Administered Medications Recorded Vital Signs Includes: Vital Signs from 05/23/2019 through 05/23/2020No Vital Signs Recorded For Specified Dates Results Includes: Results from 05/23/2019 through 05/23/2020No Results Recorded For Specified Dates History of Present Illness History of Present Illness not supported for this document typeNo History of Present Illness Recorded Social History Description Last Updated Tobacco use 04/11/2020 Current smoker 04/11/2020 Not using alcohol 04/11/2020 Not using drugs 04/11/2020 Smoking status : Current everyday smoker 04/11/2020 Procedures and Surgical History Includes: Procedures from 05/23/2019 through 05/23/2020 Procedures Code Diagnosis Performing Provider Service Location Service Date Intermediate Eye Exam Established Patient (Signi/Sep Eval. & Man.) 38918 Age- related nuclear cataract, left eye Linus Boyd MD [facility] 05/14/2020 Ophthalmic biometry - IOL Master with IO L calculation (Left side, WAIVER OF LIABILITY ON FILE (ABN)) 38006 Age-related nuclear cataract, left eye Linus Boyd MD [facility] 05/14/2020 Comprehensive eye exam established patient (Signi/Sep Eval. & Man.) 46302 Type 2 diab with mod nonp rtnop without macular edema, bi, care home (current) use of oral hypoglycemic drugs, Age-related nuclear cataract, bilateral, Cortical age- related cataract, bilateral Linus Boyd MD [facility] 04/11/2020 [facility], with interpretation and report [id number] Type 2 diab with mod nonp rtnop without macular edema, bi Linus Boyd MD [facility] 04/11/2020 Surgical History Last Updated Surgical / procedural history Back Surg paras 2009+2013, Hysterectomy 2004, Tubal Ligation 1984 04/11/2020 Medical History Includes: Medical History in patient's chart Description Last Updated History of the retina was abnormal 09/19/2018 0 History of type 2 diabetes mellitus Dx: 2000 A1c: 7 with Simran Davis FBS: 200 a couple of weeks ago 04/11/2020 No recent change in medical history 04/11/2020 Currently wearing eyeglasses 04/11/2020 History of arthritis 04/11/2020 History of asthma 04/11/2020 History of hyperlipidemia 04/11/2020 History of hypertension 04/11/2020 Reported medical history Depression, Tremor 0 Family History Includes: Family History in patient's chart Description Last Updated Maternal history of arthritis 04/11/2020 Maternal history of cataract 04/11/2020 Maternal history of diabetes mellitus 04/11/2020 Maternal history of glaucoma 04/11/2020 Maternal history of heart disease 04/11/2020 Maternal history of hypertension 04/11/2020 Maternal history of stroke/cerebrovascular accident Review of Systems Review of Systems not supported for this document typeNo Review of Systems Recorded Mental Status Mental Status not supported for this document typeNo Mental Status Recorded Functional Status Functional Status not supported for this document typeNo Functional Status Recorded Physical Exam Physical Exam not supported for this document typeNo Physical Exam Recorded Immunizations Includes: Immunizations in patient's chartNo Immunizations Recorded Allergies Includes: Active, inactive, and resolved Allergies Substance Type Reaction Onset Date - Time Resolved Date - Ti me Status Lisinopril Allergy 09/19/2018 - 12:00AM Acti ve Encounters Includes: Encounters from 05/23/2019 through 05/23/2020 Encounter Provider Location Date Check-In Time Check-Out Time D iagnosis Extracapsular cataract removal w/IOL implant [facility]us Don in [facility] 05/23/2020 05/14/2020 10:00AM 7:11AM 1 WK PREOP FOR SURGERY [facility] 05/14/2020 1:09PM 2:58PM Cataract Senile Nuclear, Cat aract Senile Cortical 7 Month Follow-Up [facility] 7:37AM 8:51AM Cataract Senile Nuclear, Presley ing Medication For Diabetes Long-term Use of Oral Hypoglycemics, Borderline Glaucoma Open Angle with Borderline Findings Both Eyes, 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, Corneal Dystrophy Anterior, Dry Eye Syndrome, Corneal Dystrophy Endothelial Fuchs', Vitreous Disorders Degeneration, Cataract Senile Cortical, Retinal Vein Occlusion, Tributary Insurance Includes: Active Insurance Policies Plan Name Member ID Group # Subscriber Relationship Effective Paras kuhn 1 - [employer] MED[employer]AGE [id number] Maria Esther calif Advance Directives Includes: Current Advance DirectivesNo Advance Directives Recorded Health Concerns Includes: Active Health ConcernsNo Active Health Concerns Recorded Goals Includes: Active GoalsNo Active Goals Recorded Interventions Includes: Interventions for active GoalsNo Interventions Recorded Evaluations & Outcomes Includes: Evaluations & Outcomes for active GoalsNo Outcomes Recorded
--- OUTSIDE RECORDS SUMMARY | 2020-05-30 06:28 | CCD ---
Author Author [facility] Organization [facility] Address Unknown Phone Unavailable Care Team Providers Care Homicide Squad Sergeant Name Role Phone Isabel ALTAMIRANO MD Unavailable [...] Unavailable Unavailable Isabel ALTAMIRANO MD Unavailable Unavailable ALTAMIRANOIsabel Liz MD Unavailable Unavailable Isabel ALTAMIRANO MD Unavailable [...] Unavailable Unavailable Isabel ALTAMIRANO MD Unavailable Unavailable ALTAMIRANOIsabel Liz MD Unavailable Unavailable Isabel ALTAMIRANO MD Unavailable [...] Isabel ALTAMIRANO MD Unavailable Unavailable Aloi, M Hayley ACCOUNT RESOLUTION ANALYST Unavailable Unavailable Aloi, M Hayley ACCOUNT RESOLUTION ANALYST Unavailable Unavailable Aloi, M Hayley ACCOUNT RESOLUTION ANALYST Unavailable Unavailable Aloi, M Hayley ACCOUNT RESOLUTION ANALYST Unavailable Unavailable Aloi, M Hayley ACCOUNT RESOLUTION ANALYST Unavailable Unavailable Aloi, M Hayley ACCOUNT RESOLUTION ANALYST Unavailable Unavailable Aloi, M Hayley ACCOUNT RESOLUTION ANALYST Unavailable Unavailable Aloi, M Hayley ACCOUNT RESOLUTION ANALYST Unavailable Unavailable Aloi, M Hayley ACCOUNT RESOLUTION ANALYST Unavailable Unavailable Aloi, M Hayley ACCOUNT RESOLUTION ANALYST Unavailable Unavailable Aloi, M Hayley ACCOUNT RESOLUTION ANALYST Unavailable Unavailable Aloi, M Hayley ACCOUNT RESOLUTION ANALYST Unavailable Unavailable Aloi, M Hayley ACCOUNT RESOLUTION ANALYST Unavailable Unavailable Aloi, M Hayley ACCOUNT RESOLUTION ANALYST Unavailable Unavailable Aloi, M Hayley ACCOUNT RESOLUTION ANALYST Unavailable Unavailable Aloi, M Hayley ACCOUNT RESOLUTION ANALYST Unavailable Unavailable Aloi, M Hayley ACCOUNT RESOLUTION ANALYST Unavailable Unavailable Aloi, M Hayley ACCOUNT RESOLUTION ANALYST Unavailable Unavailable Aloi, M Hayley ACCOUNT RESOLUTION ANALYST Unavailable Unavailable Aloi, M Hayley ACCOUNT RESOLUTION ANALYST Unavailable Unavailable Aloi, M Hayley ACCOUNT RESOLUTION ANALYST Unavailable Unavailable Aloi, M Ahyley ACCOUNT RESOLUTION ANALYST Unavailable Unavailable Aloi, M Hayley ACCOUNT RESOLUTION ANALYST Unavailable Unavailable Aloi, M Hayley ACCOUNT RESOLUTION ANALYST Unavailable Unavailable Aloi, M Hayley ACCOUNT RESOLUTION ANALYST Unavailable Unavailable Aloi, M Hayley ACCOUNT RESOLUTION ANALYST Unavailable Unavailable Aloi, M Hayley ACCOUNT RESOLUTION ANALYST Unavailable Unavailable Aloi, M Hayley ACCOUNT RESOLUTION ANALYST Unavailable Unavailable Aloi, M Hayley ACCOUNT RESOLUTION ANALYST Unavailable Unavailable Aloi, M Hayley ACCOUNT RESOLUTION ANALYST Unavailable Unavailable Aloi, M Hayley ACCOUNT RESOLUTION ANALYST Unavailable Unavailable Aloi, M Hayley ACCOUNT RESOLUTION ANALYST Unavailable Unavailable Aloi, M Hayley ACCOUNT RESOLUTION ANALYST Unavailable Unavailable Aloi, M Hayley ACCOUNT RESOLUTION ANALYST Unavailable Unavailable Aloi, M Hayley ACCOUNT RESOLUTION ANALYST Unavailable Unavailable Aloi, M Hayley ACCOUNT RESOLUTION ANALYST Unavailable Unavailable Aloi, M Hayley ACCOUNT RESOLUTION ANALYST Unavailable Unavailable Soosairaj, Simran Unavailable Unavailable Soosairaj, [...] Mira Butterfield MD Unavailable Unavailable Ali, Mira BURKS Unavailable Unavailable Ali, Mira BURKS Unavailable Unavailable Ali, Mira MD Unavailable Unavailable [...] Unavailable Unavailable Ali, Mira MD Unavailable Unavailable Bimal BUTLER DO Unavailable [phone] Bimal BUTLEREW DO Unavailable [phone] Bimal BUTLER HAYLEY DO Unavailable [phone] Bimal BUTLER HAYLEY DO Unavailable [phone] BEVERLY, ANona HAYLEY DO Unavailable [phone] BEVERLY, ANona HAYLEY DO Unavailable [phone] Bimal BUTLER HAYLEY DO Unavailable [phone] BEVERLY ANona HAYLEY DO Unavailable [phone] BEVERLY ANona HAYLEY DO Unavailable [phone] BEVERLY ANona HAYLEY DO Unavailable [phone] Bimal BUTLEREW DO Unavailable [phone] Bimal BUTLER DO Unavailable [phone] Bimal BUTLER DO Unavailable [phone] Bimal BUTLER DO Unavailable [phone] Bimal BUTLER DO Unavailable [phone] Bimal BUTLER DO Unavailable [phone] Bimal BUTLER DO Unavailable [phone] Bimal BUTLER DO Unavailable +[phone] Bimal BUTLER DO Unavailable +[phone] Bimal BUTLER DO Unavailable +[phone] Bimal BUTLER DO Unavailable [phone] RENATA, M BLAKE PA Unavailable Unavailable RENATA, [...] is protected by Article 27-F of the [facility] Public Health law. If you continue you may have access to information: Regarding HIV / AIDS; Provided by facilities licensed or operated by the [facility] Office of Mental Health; or Provided by the [facility] Office for People With Developmental Disabilities. If such information is present, then the following [facility] mandated warning applies: This information has been [...] law may result in a fine or residential sentence or both. A general authorization for the release of medical or other information is NOT sufficient authorization for further disc losure. Allergies and Adverse Reactions Type Description Substance Reaction Status Data Source(s ) Drug allergy Ibuprofen Ibuprofen Lack of efficacy Active eCW1 ([facility]) lisinopril Lisinopril Lisinopril SWELLING Active eCW1 ([facility]) Drug allergy Mobic meloxicam Lack of efficacy Active eCW1 ([facility]) Drug allergy Naproxen Naproxen Lack of efficacy Active eCW1 ([facility]) DRUG INGREDI LISINOPRIL LISINOPRIL Anaphylaxis High [facility] Family History Family Member Name Family Member Gender Family Member Status Date o f Status Description Data Source(s) Unknown Male Problem MEDENT ([facility]) Encounters Encounter Providers Location Date Indications Data Source(s ) Outpatient<td ID="encounterTypeDescripti onID1">1 WK PREOP FOR SURGERY</td><td>Hayley Butler DO</td><td>[place] [facility]</td><td>05/14/2020</td><td>1:09PM</td><td>2:58PM</td><td><content ID="encounterDiagnosisID1-0">Cataract Senile Nuclear</content>, <content ID="encounterDiagnosisID1-1">Cataract Senile Cortical</content></td> Attender: HAYLEY Boyd MD [facility] 05/14/2020 01:09:00 PM EST - 05/14/2020 02:58:00 PM EST Cataract Senile CorticalCataract Senile Nuclear CARLOS MANUEL ([place] MD [facility]) Cataract Senile Cortical Cataract Senile Nuclear Outpatient<td ID="encounterTypeDescripti onID0">Extracapsular cataract removal w/IOL implant</td><td>Hayley Butler DO</td><td>[facility]</td><td>05/23/2020</td><td>05/14/2020 10:00AM</td> <td>7:11AM</td><td></td> Attender: HAYLEY BUTLER DO [facility] 05/14/2020 10:00:00 AM EST - 05/23/2020 07:11:00 AM EST CARLOS MANUEL ([place] MD [facility]) Office Visit Attender: Mira Butterfield MD Main office - [place] 05/09/2020 11:45:00 AM EST MEDENT ([facility]) Unknown [address] [facility] [address] 05/05/2020 12:00:00 AM EST eCW1 ([facility]) [facility] Scheduled Visit [address] [place] [phone] 04/29/2020 12:00:00 AM EST eCW1 ([facility]) ([facility]) [facility] Scheduled Visit [address] [place] [phone] 04/15/2020 12:00:00 AM EST eCW1 ([facility]) Outpatient<td ID="encounterTypeDescripti onID2">7 Month Follow-Up</td><td>Hayley Butler DO</td><td>[place] [facility]</td><td>04/11/2020</td><td>7:37AM</td><td>8:51AM</td><td><content ID="encounterDiagnosisID2-0">Cataract Senile Nuclear</content>, <content ID="encounterDiagnosisID2-1">Taking Medication For Diabetes Long-term Use of Oral Hypoglycemics</content>, <content ID="encounterDiagnosisID2-2">Borderline Glaucoma Open Angle with Borderline Findings Both Eyes</content>, <content ID="encounterDiagnosisID2-3">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</content>, <content ID="encounterDiagnosisID2-4">Corneal Dystrophy Anterior</content>, <content ID="encounterDiagnosisID2-5">Dry Eye Syndrome</content>, <content ID="encounterDiagnosisID2-6">Corneal Dystrophy Endothelial Fuchs'</content>, <content ID="encounterDiagnosisID2-7">Vitreous Disorders Degeneration</content>, <content ID="encounterDiagnosisID2-8">Cataract Senile Cortical</content>, <content ID="encounterDiagnosisID2-9">Retinal Vein Occlusion, Tributary</content></td> Attender: HAYLEY Chu MD [facility] 04/11/2020 07:37:00 AM EST - 04/11/2020 08:51:00 AM ES T Retinal Vein Occlusion, TributaryCataract Senile CorticalVitreous Disorders DegenerationCorneal Dystrophy Endothelial Fuchs'Dry Eye SyndromeCorneal Dystrophy Anterior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Borderline Glaucoma Open Angle with Borderline Findings Both EyesTaking Medication For Diabetes Long-term Use of Oral HypoglycemicsCataract Senile Nuclear CARLOS MANUEL ([place] MD [facility]) Retinal Vein Occlusion, Tributary Cataract Senile Cortical Vitreous Disorders Degeneration Corneal Dystrophy Endothelial Fuchs' Dry Eye Syndrome 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 Mod Nonp rolif Without Macular Edema Borderline Glaucoma Open Angle with Bord pita Findings Both Eyes Taking Medication For Diabetes Long-term Use of Oral Hypoglycemics Cataract Senile Nuclear Unknown [address] [facility] [place] [address] 03/26/2020 12:00:00 AM EST eCW1 [facility]) ([facility]) [facility] Scheduled Visit [address] [place] [address] 03/25/2020 12:00:00 AM EST eCW1 ([facility]) Unknown [address] [facility] [place] [address] 03/19/2020 12:00:00 AM EST eCW1 ([facility]) Unknown [address] [facility] [place] [address] 03/18/2020 12:00:00 AM EST eCW1 ([facility]) Outpatient [address] [place] [phone] 03/13/2020 12:00:00 AM EST eCW1 ([facility]) Outpatient [address] [facility] [address] 03/12/2020 12:00:00 AM EST eCW1 ([facility]) Unknown [address] [facility] [place] [address] 03/11/2020 12:00:00 AM EST eCW1 ([facility]) Office Visit Attender: Mira Butterfield MD Main office - [place] 03/05/2020 12:30:00 PM EST MEDENT ([facility]) Outpatient [address] [facility] [id number] 02/13/2020 12:00:00 AM EST eCW1 ([facility]) Unknown [address] [facility] [place] [address] 02/06/2020 12:00:00 AM EDT eCW1 ([facility]) Outpatient [address] [facility] [address] 01/30/2020 12:00:00 AM EDT eCW1 ([facility]) Unknown [address] [facility] [place] [address] 01/26/2020 12:00:00 AM EDT eCW1 ([facility]) [place] [address] [facility] [place] [address] 01/26/2020 12:00:00 AM EDT [facility]CW[facility] [place] [address] [facility] [place] [address] 01/25/2020 12:00:00 AM EDT [facility]CW1 [facility] [place] [address] [facility] [place] [address] 01/25/2020 12:00:00 AM EDT [facility]CW[facility] ([facility] [place]) [place] [address] [facility] [place] [address] 01/24/2020 12:00:00 AM EDT [facility]CW1 [facility] [place] [address] [facility] [place] [address] 01/23/2020 12:00:00 AM EDT eCW1 ([facility]) Outpatient Attender: TANYA ALTAMIRANO MD Main Office 11/22/2019 09:30:00 AM EDT MEDENT ([facility]) Unknown [address] [facility] [place] [address] 10/26/2019 12:00:00 AM EDT eCW1 ([facility] [address] [facility] [place] [address] 10/16/2019 12:00:00 AM EDT eCW1 ([facility]) Outpatient Attender: Hayley Leung FNPReferrer: Hayley REYNOLDS 09/18/2019 12:00:[address] [facility] Unknown [address] [facility] [place] [address] 09/15/2019 12:00:00 AM EDT [facility]CW1 [facility] [address] [facility] [place] [address] 09/13/2019 12:00:00 AM EDT eCW1 ([facility]) [address] [address] 08/31/2019 12:00:00 AM EDT eCW1 ([facility]) [address] [address] 08/31/2019 12:00:00 AM EDT eCW1 ([facility] [address] [address] 08/31/2019 12:00:00 AM EDT eCW1 ([facility]) [address] [address] 08/30/2019 12:00:00 AM EDT eCW1 ([facility] [place]) Outpatient Attender: Hayley Leung FNPReferrer: Hayley REYNOLDS 07/25/2019 12:00:[address] [address] 07/17/2019 12:00:00 AM EDT eCW1 ([facility]) Outpatient Referrer: Hayley REYNOLDS 07/13/2019 12:00:[address] [address] 07/11/2019 12:00:00 AM EDT eCW1 ([facility]) [address] [address] 07/05/2019 12:00:00 AM EDT eCW1 ([facility]) [address] [address] 07/03/2019 12:00:00 AM EDT eCW1 ([facility]) Outpatient Attender: Mira Butterfield MD Main office - [place] 06/28/2019 11:00:00 AM EDT MEDENT ([facility], ) Outpatient Referrer: Hayley REYNOLDS 06/22/2019 12: 00:00 AM EDT Low back pain [facility] Low back pain Outpatient Referrer: Hayley SHEEHANP 06/22/2019 12: 00:00 AM EDT Low back pain [facility] Low back pain Outpatient Attender: Hayley Leung FNPReferrer: Simran cool [id number] 06/22/2019 12:00:00 AM EDT - 06/28/2019 07:55:28 AM EDT Radiculopathy, lumbar region [facility] Radiculopathy, lumbar region [address] [address] 06/20/2019 12:00:00 AM EDT eCW1 ([facility]) [address] [address] 05/29/2019 12:00:00 AM EST eCW1 ([facility]) Outpatient Attender: BLAKE DALTON Physical Therapy 05/13 01:45:00 PM EST MEDENT ([facility]) [address] [address] 04/26/2019 12:00:00 AM EST eCW1 ([facility]) [address] [address] 04/25/2019 12:00:00 AM EST eCW1 ([facility]) [address] [place] [address] 04/19/2019 12:00:00 AM EST eCW1 ([facility]) [address] [place] [address] 04/19/2019 12:00:00 AM EST eCW1 ([facility]) Medications Medication Brand Name Start Date Product Form Dose Route Admi nistrative Instructions Pharmacy Instructions Status Indications Reaction Description Data Source(s) Inveltys 1% Ophthalmic Suspension Inveltys 1% Ophthalmic Naomy pension 05/14/2020 12:00:00 AM EST active loteprednol etabonate 10 MG/ML Ophthalmic Suspension [Inveltys] CARLOS MANUEL ([place] August MD [facility]) moxifloxacin 5 MG/ML Ophthalmic Solution Moxifloxacin HCl 0.5% Ophthalmic Solution Moxifloxacin HCl 0.5% Ophthalmic Solution 05/14/2020 12:00:00 AM EST active moxifloxacin 5 MG/ML Oph thalmic Solution CARLOS MANUEL ([place] MD [facility]) BromSite 0.075% Ophthalmic Solution BromSite 0.075% Ophthalm ic Solution 05/14/2020 12:00:00 AM EST active bromfenac 0.75 MG/ML Ophthalmic Solution [Bromsite] CARLOS MANUEL ([place] MD [facility]) Tresiba Flextouch 20 units Intravenous Injectable David iba Flextouch 20 units Intravenous Injectable 04/11/2020 12:00:00 AM EST active Tresiba Flextouch CARLOS MANUEL ([place] MD [facility]) torsemide 10 MG Oral Tablet Torsemide 10 MG Oral Table t Torsemide 10 MG Oral Tablet 04/11/2020 12:00:00 AM EST 1 active torsemide 10 MG Oral Tablet CARLOS MANUEL ([place] MD [facility]) montelukast 10 MG Oral Tablet Montelukast Sodium 10 MG Oral Tablet Montelukast Sodium 10 MG Oral Tablet 04/11/2020 12:00:00 AM EST 1 active montelukast 10 MG Oral Tablet CARLOS MANUEL ([place] MD [facility]) tizanidine 4 MG Oral Capsule tiZANidine HCl 4 MG Oral Capsule tiZANidine HCl 4 MG Oral Capsule 04/11/2020 12:00:00 AM EST 1 ac tive tizanidine 4 MG Oral Capsule CARLOS MANUEL ([place] MD [facility]) Losartan Potassium 2.5 MG Oral Tablet Losartan Potassium 2.5 MG Oral Tablet 04/11/2020 12:00:00 AM EST 1 active Losartan Potassium CARLOS MANUEL ([place] MD [facility]) Magnesium Oxide 500 MG Oral Tablet Magnesium Oxide 500 MG Or al Tablet 04/11/2020 12:00:00 AM EST 1 active magnesi um oxide 500 MG Oral Tablet CARLOS MANUEL ([place] MD [facility]) atorvastatin 40 MG Oral Tablet Atorvastatin Calcium 40 MG Oral Tablet Atorvastatin Calcium 40 MG Oral Tablet 04/11/2020 12:00:00 AM EST 1 active atorvastatin 40 MG Oral Tablet [facility] ([place] [facility] MD [facility]) Divalproex Sodium 500 MG Delayed Release Oral Tablet Divalproex Sodium 500 MG Oral Tablet Delayed Release Divalproex Sodium 500 MG Oral Tablet Del ayed Release 04/11/2020 12:00:00 AM EST 1 active divalproex sodium 500 MG Delayed Release Oral Tablet CARLOS MANUEL ([place] MD [facility]) Metoprolol Succinate 25 MG Oral Capsule ER 24 Hour Spr inkle Metoprolol Succinate 25 MG Oral Capsule ER 24 Hour Sprinkle 04/11/2020 12:00:00 AM EST 1 active 24 HR metoprolol succinate 25 MG Extended Release Oral Capsule CARLOS MANUEL ([place] MD [facility]) OneTouch Verio 1 UNK 03/18/2020 12:00:00 AM EST active OneTouch Verio 1 eCW1 ([facility]) OneTouch Verio w/Device OneTouch Verio w/Device 03/18/2020 12:00:00 A M EST active OneTouch Verio w/Dev ice eCW1 ([facility]) OneTouch Verio w/Device OneTouch Verio w/Device 03/18/2020 12:00:00 A M EST active OneTouch Verio w/Dev ice eCW1 ([facility]) OneTouch Verio 1 UNK 03/18/2020 12:00:00 AM EST active OneTouch Verio 1 eCW1 ([facility]) OneTouch Verio 1 UNK 03/18/2020 12:00:00 AM EST active OneTouch Verio 1 eCW1 ([facility]) OneTouch Verio w/Device OneTouch Verio w/Device 03/18/2020 12:00:00 A M EST active OneTouch Verio w/Dev ice eCW1 ([facility]) OneTouch Verio 1 UNK 03/18/2020 12:00:00 AM EST active OneTouch Verio 1 eCW1 ([facility]) OneTouch Verio w/Device OneTouch Verio w/Device 03/18/2020 12:00:00 A M EST active OneTouch Verio w/Dev ice eCW1 ([facility]) OneTouch Verio w/Device OneTouch Verio w/Device 03/18/2020 12:00:00 A M EST active OneTouch Verio w/Dev ice eCW1 ([facility]) OneTouch Verio 1 UNK 03/18/2020 12:00:00 AM EST active OneTouch Verio 1 eCW1 ([facility]) OneTouch Verio w/Device OneTouch Verio w/Device 03/18/2020 12:00:00 A M EST active OneTouch Verio w/Dev ice eCW1 ([facility]) OneTouch Verio w/Device OneTouch Verio w/Device 03/18/2020 12:00:00 A M EST active OneTouch Verio w/Dev ice eCW1 ([facility]) OneTouch Verio 1 UNK 03/18/2020 12:00:00 AM EST active OneTouch Verio 1 eCW1 ([facility]) OneTouch Verio 1 UNK 03/18/2020 12:00:00 AM EST active OneTouch Verio 1 eCW1 ([facility]) OneTouch Verio 1 UNK 03/18/2020 12:00:00 AM EST active OneTouch Verio 1 eCW1 ([facility]) OneTouch Verio 1 UNK 03/18/2020 12:00:00 AM EST active OneTouch Verio 1 eCW1 ([facility]) OneTouch Verio w/Device OneTouch Verio w/Device 03/18/2020 12:00:00 A M EST active OneTouch Verio w/Dev ice eCW1 ([facility]) OneTouch Verio w/Device OneTouch Verio w/Device 03/18/2020 12:00:00 A M EST active OneTouch Verio w/Dev ice eCW1 ([facility]) Levaquin 750 MG UNK 03/12/2020 12:00:00 AM EST 1.0 {tablet} active Levaquin 750 MG eCW1 ([facility]) Levaquin 750 MG UNK 03/12/2020 12:00:00 AM EST 1.0 {tablet} active Levaquin 750 MG eCW1 ([facility]) Levaquin 750 MG UNK 03/12/2020 12:00:00 AM EST 1.0 {tablet} active Levaquin 750 MG eCW1 ([facility]) Levaquin 750 MG UNK 03/12/2020 12:00:00 AM EST 1.0 {tablet} active Levaquin 750 MG eCW1 ([facility]) Levaquin 750 MG UNK 03/12/2020 12:00:00 AM EST 1.0 {tablet} active Levaquin 750 MG eCW1 ([facility]) Levaquin 750 MG UNK 03/12/2020 12:00:00 AM EST 1.0 {tablet} active Levaquin 750 MG eCW1 ([facility]) Levaquin 750 MG UNK 03/12/2020 12:00:00 AM EST 1.0 {tablet} active Levaquin 750 MG eCW1 ([facility]) Levaquin 750 MG UNK 03/12/2020 12:00:00 AM EST 1.0 {tablet} active Levaquin 750 MG eCW1 ([facility]) Levaquin 750 MG UNK 03/12/2020 12:00:00 AM EST 1.0 {tablet} active Levaquin 750 MG eCW1 ([facility]) Levaquin 750 MG UNK 03/12/2020 12:00:00 AM EST 1.0 {tablet} active Levaquin 750 MG eCW1 ([facility]) benztropine mesylate 1 MG Oral Tablet Benztropine Mesylate 1 05/05/2019 12:00:00 AM EST ORAL active MEDENT ([facility]) Metoprolol Succinate 25 MG UNK 02/13/2020 12:00:00 AM EST 1. 0 {capsule} active Metoprolol Succinate 25 MG eCW1 ([facility]) Metoprolol Succinate 25 MG UNK 02/13/2020 12:00:00 AM EST 1. 0 {capsule} active Metoprolol Succinate 25 MG eCW1 ([facility]) Chlorthalidone 25 MG Oral Tablet Chlorthalidone 25 MG 2019 12:00:00 AM EST 1.0 {tablet_in_the_morning_with_food} active Chlorthalidone 25 MG eCW1 ([facility]) Benzoyl Peroxide 0.05 MG/MG / Erythromyc in 0.03 MG/MG Topical Gel Benzoyl Peroxide-Erythromycin 5-3 % Benzoyl Peroxide-Erythromycin 5-3 % 02/13/2020 12:00:00 AM EST 1.0 {application_to_affected_area} active Benzoyl Peroxide-Erythromycin 5-3 % eCW1 ([facility]) Benzoyl Peroxide 0.05 MG/MG / Erythromyc in 0.03 MG/MG Topical Gel Benzoyl Peroxide-Erythromycin 5-3 % Benzoyl Peroxide-Erythromycin 5-3 % 02/13/2020 12:00:00 AM EST 1.0 {application_to_affected_area} active Benzoyl Peroxide-Erythromycin 5-3 % eCW1 ([facility]) Metoprolol Succinate 25 MG UNK 02/13/2020 12:00:00 AM EST 1. 0 {capsule} active Metoprolol Succinate 25 MG eCW1 ([facility]) Chlorthalidone 25 MG Oral Tablet Chlorthalidone 25 MG 2019 12:00:00 AM EST 1.0 {tablet_in_the_morning_with_food} active Chlorthalidone 25 MG eCW1 ([facility]) Benzoyl Peroxide 0.05 MG/MG / Erythromyc in 0.03 MG/MG Topical Gel Benzoyl Peroxide-Erythromycin 5-3 % Benzoyl Peroxide-Erythromycin 5-3 % 02/13/2020 12:00:00 AM EST 1.0 {application_to_affected_area} active Benzoyl Peroxide-Erythromycin 5-3 % eCW1 ([facility]) Benzoyl Peroxide 0.05 MG/MG / Erythromyc in 0.03 MG/MG Topical Gel Benzoyl Peroxide-Erythromycin 5-3 % Benzoyl Peroxide-Erythromycin 5-3 % 02/13/2020 12:00:00 AM EST 1.0 {application_to_affected_area} active Benzoyl Peroxide-Erythromycin 5-3 % eCW1 ([facility]) Metoprolol Succinate 25 MG UNK 02/13/2020 12:00:00 AM EST 1. 0 {capsule} active Metoprolol Succinate 25 MG eCW1 ([facility]) Benzoyl Peroxide 0.05 MG/MG / Erythromyc in 0.03 MG/MG Topical Gel Benzoyl Peroxide-Erythromycin 5-3 % Benzoyl Peroxide-Erythromycin 5-3 % 02/13/2020 12:00:00 AM EST 1.0 {application_to_affected_area} active Benzoyl Peroxide-Erythromycin 5-3 % eCW1 ([facility]) Metoprolol Succinate 25 MG UNK 02/13/2020 12:00:00 AM EST 1. 0 {capsule} active Metoprolol Succinate 25 MG eCW1 ([facility]) Benzoyl Peroxide 0.05 MG/MG / Erythromyc in 0.03 MG/MG Topical Gel Benzoyl Peroxide-Erythromycin 5-3 % Benzoyl Peroxide-Erythromycin 5-3 % 02/13/2020 12:00:00 AM EST 1.0 {application_to_affected_area} active Benzoyl Peroxide-Erythromycin 5-3 % eCW1 ([facility]) Benzoyl Peroxide 0.05 MG/MG / Erythromyc in 0.03 MG/MG Topical Gel Benzoyl Peroxide-Erythromycin 5-3 % Benzoyl Peroxide-Erythromycin 5-3 % 02/13/2020 12:00:00 AM EST 1.0 {application_to_affected_area} active Benzoyl Peroxide-Erythromycin 5-3 % eCW1 ([facility]) Chlorthalidone 25 MG Oral Tablet Chlorthalidone 25 MG 2019 12:00:00 AM EST 1.0 {tablet_in_the_morning_with_food} active Chlorthalidone 25 MG eCW1 ([facility]) Chlorthalidone 25 MG Oral Tablet Chlorthalidone 25 MG 2019 12:00:00 AM EST 1.0 {tablet_in_the_morning_with_food} active Chlorthalidone 25 MG eCW1 ([facility]) Chlorthalidone 25 MG Oral Tablet Chlorthalidone 25 MG 2019 12:00:00 AM EST 1.0 {tablet_in_the_morning_with_food} active Chlorthalidone 25 MG eCW1 ([facility]) Chlorthalidone 25 MG Oral Tablet Chlorthalidone 25 MG 2019 12:00:00 AM EST 1.0 {tablet_in_the_morning_with_food} active Chlorthalidone 25 MG eCW1 ([facility]) Metoprolol Succinate 25 MG UNK 02/13/2020 12:00:00 AM EST 1. 0 {capsule} active Metoprolol Succinate 25 MG eCW1 ([facility]) Benzoyl Peroxide 0.05 MG/MG / Erythromyc in 0.03 MG/MG Topical Gel Benzoyl Peroxide-Erythromycin 5-3 % Benzoyl Peroxide-Erythromycin 5-3 % 02/13/2020 12:00:00 AM EST 1.0 {application_to_affected_area} active Benzoyl Peroxide-Erythromycin 5-3 % eCW1 ([facility]) Metoprolol Succinate 25 MG UNK 02/13/2020 12:00:00 AM EST 1. 0 {capsule} active Metoprolol Succinate 25 MG eCW1 ([facility]) Chlorthalidone 25 MG Oral Tablet Chlorthalidone 25 MG 2019 12:00:00 AM EST 1.0 {tablet_in_the_morning_with_food} active Chlorthalidone 25 MG eCW1 ([facility]) Benzoyl Peroxide 0.05 MG/MG / Erythromyc in 0.03 MG/MG Topical Gel Benzoyl Peroxide-Erythromycin 5-3 % Benzoyl Peroxide-Erythromycin 5-3 % 02/13/2020 12:00:00 AM EST 1.0 {application_to_affected_area} active Benzoyl Peroxide-Erythromycin 5-3 % eCW1 ([facility]) Metoprolol Succinate 25 MG UNK 02/13/2020 12:00:00 AM EST 1. 0 {capsule} active Metoprolol Succinate 25 MG eCW1 ([facility]) Benzoyl Peroxide 0.05 MG/MG / Erythromyc in 0.03 MG/MG Topical Gel Benzoyl Peroxide-Erythromycin 5-3 % Benzoyl Peroxide-Erythromycin 5-3 % 02/13/2020 12:00:00 AM EST 1.0 {application_to_affected_area} active Benzoyl Peroxide-Erythromycin 5-3 % eCW1 ([facility]) Metoprolol Succinate 25 MG UNK 02/13/2020 12:00:00 AM EST 1. 0 {capsule} active Metoprolol Succinate 25 MG eCW1 ([facility]) Chlorthalidone 25 MG Oral Tablet Chlorthalidone 25 MG 2019 12:00:00 AM EST 1.0 {tablet_in_the_morning_with_food} active Chlorthalidone 25 MG eCW1 ([facility]) Chlorthalidone 25 MG Oral Tablet Chlorthalidone 25 MG 2019 12:00:00 AM EST 1.0 {tablet_in_the_morning_with_food} active Chlorthalidone 25 MG eCW1 ([facility]) Metoprolol Succinate 25 MG UNK 02/13/2020 12:00:00 AM EST 1. 0 {capsule} active Metoprolol Succinate 25 MG eCW1 ([facility]) Metoprolol Succinate 25 MG UNK 02/13/2020 12:00:00 AM EST 1. 0 {capsule} active Metoprolol Succinate 25 MG eCW1 ([facility]) Benzoyl Peroxide 0.05 MG/MG / Erythromyc in 0.03 MG/MG Topical Gel Benzoyl Peroxide-Erythromycin 5-3 % Benzoyl Peroxide-Erythromycin 5-3 % 02/13/2020 12:00:00 AM EST 1.0 {application_to_affected_area} active Benzoyl Peroxide-Erythromycin 5-3 % eCW1 ([facility]) Chlorthalidone 25 MG Oral Tablet Chlorthalidone 25 MG 2019 12:00:00 AM EST 1.0 {tablet_in_the_morning_with_food} active Chlorthalidone 25 MG eCW1 ([facility]) Chlorthalidone 25 MG Oral Tablet Chlorthalidone 25 MG 2019 12:00:00 AM EST 1.0 {tablet_in_the_morning_with_food} active Chlorthalidone 25 MG eCW1 ([facility]) 24 HR Nicotine 0.583 MG/HR Transdermal P atch [Nicoderm C-Q] Nicoderm CQ 14 MG/24HR Nicoderm CQ 14 MG/24HR 02/06/2020 12:00:00 AM EDT 1.0 {patch_to_skin} active Nicoderm CQ 14 MG/24 HR eCW1 ([facility]) 24 HR Nicotine 0.583 MG/HR Transdermal P atch [Nicoderm C-Q] Nicoderm CQ 14 MG/24HR Nicoderm CQ 14 MG/24HR 02/06/2020 12:00:00 AM EDT 1.0 {patch_to_skin} active Nicoderm CQ 14 MG/24 HR eCW1 ([facility]) Omeprazole 40 MG Delayed Release Oral Capsule Omeprazole 40 MG 01/30/2020 12:00:00 AM EDT active Omeprazo le 40 MG eCW1 ([facility]) Omeprazole 40 MG Delayed Release Oral Capsule Omeprazole 40 MG 01/30/2020 12:00:00 AM EDT active Omeprazo le 40 MG eCW1 ([facility]) Omeprazole 40 MG Delayed Release Oral Capsule Omeprazole 40 MG 01/30/2020 12:00:00 AM EDT active Omeprazo le 40 MG eCW1 ([facility]) Omeprazole 40 MG Delayed Release Oral Capsule Omeprazole 40 MG 01/30/2020 12:00:00 AM EDT active Omeprazo le 40 MG eCW1 ([facility]) Doxycycline Monohydrate 100 MG Oral Capsule Doxycycline [place] hydrate 100 MG 01/26/2020 12:00:00 AM EDT 1.0 {capsule} active Doxycycline Monohydrate 100 MG eCW1 ([facility]) Doxycycline Monohydrate 100 MG Oral Capsule Doxycycline [place] hydrate 100 MG 01/26/2020 12:00:00 AM EDT 1.0 {capsule} active Doxycycline Monohydrate 100 MG eCW1 ([facility]) Doxycycline Monohydrate 100 MG Oral Capsule Doxycycline [place] hydrate 100 MG 01/26/2020 12:00:00 AM EDT 1.0 {capsule} active Doxycycline Monohydrate 100 MG eCW1 ([facility]) Doxycycline Monohydrate 100 MG Oral Capsule Doxycycline [place] hydrate 100 MG 01/26/2020 12:00:00 AM EDT 1.0 {capsule} active Doxycycline Monohydrate 100 MG eCW1 ([facility]) Doxycycline Monohydrate 100 MG Oral Capsule Doxycycline [place] hydrate 100 MG 01/26/2020 12:00:00 AM EDT 1.0 {capsule} active Doxycycline Monohydrate 100 MG eCW1 ([facility]) Doxycycline Monohydrate 100 MG Oral Capsule Doxycycline [place] hydrate 100 MG 01/26/2020 12:00:00 AM EDT 1.0 {capsule} active Doxycycline Monohydrate 100 MG eCW1 ([facility]) Doxycycline Monohydrate 100 MG Oral Capsule Doxycycline [place] hydrate 100 MG 01/26/2020 12:00:00 AM EDT 1.0 {capsule} active Doxycycline Monohydrate 100 MG eCW1 ([facility]) Albuterol 0.83 MG/ML Inhalant Solution Albuterol Sulfa te (2.5 MG/3ML) 0.083% Albuterol Sulfate (2.5 MG/3ML) 0.083% 01/25/2020 12:00:00 AM EDT 3.0 {ml_as_needed} active Albuterol Sulfate (2.5 MG/3ML) 0.083% eCW1 ([facility]) Albuterol 0.83 MG/ML Inhalant Solution Albuterol Sulfa te (2.5 MG/3ML) 0.083% Albuterol Sulfate (2.5 MG/3ML) 0.083% 01/25/2020 12:00:00 AM EDT 3.0 {ml_as_needed} active Albuterol Sulfate (2.5 MG/3ML) 0.083% eCW1 ([facility]) Prednisone 20 MG Oral Tablet PredniSONE 20 MG PredniSONE 20 MG 01/25/2020 12:00:00 AM EDT 1.0 {tablet} active Pr edniSONE 20 MG eCW1 ([facility]) Prednisone 20 MG Oral Tablet PredniSONE 20 MG PredniSONE 20 MG 01/25/2020 12:00:00 AM EDT 1.0 {tablet} active Pr edniSONE 20 MG eCW1 ([facility]) Albuterol 0.83 MG/ML Inhalant Solution Albuterol Sulfa te (2.5 MG/3ML) 0.083% Albuterol Sulfate (2.5 MG/3ML) 0.083% 01/25/2020 12:00:00 AM EDT 3.0 {ml_as_needed} active Albuterol Sulfate (2.5 MG/3ML) 0.083% eCW1 ([facility]) Albuterol 0.83 MG/ML Inhalant Solution Albuterol Sulfa te (2.5 MG/3ML) 0.083% Albuterol Sulfate (2.5 MG/3ML) 0.083% 01/25/2020 12:00:00 AM EDT 3.0 {ml_as_needed} active Albuterol Sulfate (2.5 MG/3ML) 0.083% eCW1 ([facility]) Prednisone 20 MG Oral Tablet PredniSONE 20 MG PredniSONE 20 MG 01/25/2020 12:00:00 AM EDT 1.0 {tablet} active Pr edniSONE 20 MG eCW1 ([facility]) Albuterol 0.83 MG/ML Inhalant Solution Albuterol Sulfa te (2.5 MG/3ML) 0.083% Albuterol Sulfate (2.5 MG/3ML) 0.083% 01/25/2020 12:00:00 AM EDT 3.0 {ml_as_needed} active Albuterol Sulfate (2.5 MG/3ML) 0.083% eCW1 ([facility]) Prednisone 20 MG Oral Tablet PredniSONE 20 MG PredniSONE 20 MG 01/25/2020 12:00:00 AM EDT 1.0 {tablet} active Pr edniSONE 20 MG eCW1 ([facility]) Albuterol 0.83 MG/ML Inhalant Solution Albuterol Sulfa te (2.5 MG/3ML) 0.083% Albuterol Sulfate (2.5 MG/3ML) 0.083% 01/25/2020 12:00:00 AM EDT 3.0 {ml_as_needed} active Albuterol Sulfate (2.5 MG/3ML) 0.083% eCW1 ([facility]) Albuterol 0.83 MG/ML Inhalant Solution Albuterol Sulfa te (2.5 MG/3ML) 0.083% Albuterol Sulfate (2.5 MG/3ML) 0.083% 01/25/2020 12:00:00 AM EDT 3.0 {ml_as_needed} active Albuterol Sulfate (2.5 MG/3ML) 0.083% eCW1 ([facility]) Albuterol 0.83 MG/ML Inhalant Solution Albuterol Sulfa te (2.5 MG/3ML) 0.083% Albuterol Sulfate (2.5 MG/3ML) 0.083% 01/25/2020 12:00:00 AM EDT 3.0 {ml_as_needed} active Albuterol Sulfate (2.5 MG/3ML) 0.083% eCW1 ([facility]) Prednisone 20 MG Oral Tablet PredniSONE 20 MG PredniSONE 20 MG 01/25/2020 12:00:00 AM EDT 1.0 {tablet} active Pr edniSONE 20 MG eCW1 ([facility]) Prednisone 20 MG Oral Tablet PredniSONE 20 MG PredniSONE 20 MG 01/25/2020 12:00:00 AM EDT 1.0 {tablet} active Pr edniSONE 20 MG eCW1 ([facility]) Albuterol 0.83 MG/ML Inhalant Solution Albuterol Sulfa te (2.5 MG/3ML) 0.083% Albuterol Sulfate (2.5 MG/3ML) 0.083% 01/25/2020 12:00:00 AM EDT 3.0 {ml_as_needed} active Albuterol Sulfate (2.5 MG/3ML) 0.083% eCW1 ([facility]) Albuterol 0.83 MG/ML Inhalant Solution Albuterol Sulfa te (2.5 MG/3ML) 0.083% Albuterol Sulfate (2.5 MG/3ML) 0.083% 01/25/2020 12:00:00 AM EDT 3.0 {ml_as_needed} active Albuterol Sulfate (2.5 MG/3ML) 0.083% eCW1 ([facility]) Albuterol 0.83 MG/ML Inhalant Solution Albuterol Sulfa te (2.5 MG/3ML) 0.083% Albuterol Sulfate (2.5 MG/3ML) 0.083% 01/25/2020 12:00:00 AM EDT 3.0 {ml_as_needed} active Albuterol Sulfate (2.5 MG/3ML) 0.083% eCW1 ([facility]) Albuterol 0.83 MG/ML Inhalant Solution Albuterol Sulfa te (2.5 MG/3ML) 0.083% Albuterol Sulfate (2.5 MG/3ML) 0.083% 01/25/2020 12:00:00 AM EDT 3.0 {ml_as_needed} active Albuterol Sulfate (2.5 MG/3ML) 0.083% eCW1 ([facility]) Prednisone 20 MG Oral Tablet PredniSONE 20 MG PredniSONE 20 MG 01/25/2020 12:00:00 AM EDT 1.0 {tablet} active Pr edniSONE 20 MG eCW1 ([facility]) Albuterol 0.83 MG/ML Inhalant Solution Albuterol Sulfa te (2.5 MG/3ML) 0.083% Albuterol Sulfate (2.5 MG/3ML) 0.083% 01/25/2020 12:00:00 AM EDT 3.0 {ml_as_needed} active Albuterol Sulfate (2.5 MG/3ML) 0.083% eCW1 ([facility]) Albuterol 0.83 MG/ML Inhalant Solution Albuterol Sulfa te (2.5 MG/3ML) 0.083% Albuterol Sulfate (2.5 MG/3ML) 0.083% 01/25/2020 12:00:00 AM EDT 3.0 {ml_as_needed} active Albuterol Sulfate (2.5 MG/3ML) 0.083% eCW1 ([facility]) Albuterol 0.83 MG/ML Inhalant Solution Albuterol Sulfa te (2.5 MG/3ML) 0.083% Albuterol Sulfate (2.5 MG/3ML) 0.083% 01/25/2020 12:00:00 AM EDT 3.0 {ml_as_needed} active Albuterol Sulfate (2.5 MG/3ML) 0.083% eCW1 ([facility]) Albuterol 0.83 MG/ML Inhalant Solution Albuterol Sulfa te (2.5 MG/3ML) 0.083% Albuterol Sulfate (2.5 MG/3ML) 0.083% 01/25/2020 12:00:00 AM EDT 3.0 {ml_as_needed} active Albuterol Sulfate (2.5 MG/3ML) 0.083% eCW1 ([facility]) Albuterol 0.83 MG/ML Inhalant Solution Albuterol Sulfa te (2.5 MG/3ML) 0.083% Albuterol Sulfate (2.5 MG/3ML) 0.083% 01/25/2020 12:00:00 AM EDT 3.0 {ml_as_needed} active Albuterol Sulfate (2.5 MG/3ML) 0.083% eCW1 ([facility]) Prednisone 20 MG Oral Tablet PredniSONE 20 MG PredniSONE 20 MG 01/25/2020 12:00:00 AM EDT 1.0 {tablet} active Pr edniSONE 20 MG eCW1 ([facility]) Prednisone 20 MG Oral Tablet PredniSONE 20 MG PredniSONE 20 MG 01/25/2020 12:00:00 AM EDT 1.0 {tablet} active Pr edniSONE 20 MG eCW1 ([facility]) Albuterol 0.83 MG/ML Inhalant Solution Albuterol Sulfa te (2.5 MG/3ML) 0.083% Albuterol Sulfate (2.5 MG/3ML) 0.083% 01/25/2020 12:00:00 AM EDT 3.0 {ml_as_needed} active Albuterol Sulfate (2.5 MG/3ML) 0.083% eCW1 ([facility]) Albuterol 0.83 MG/ML Inhalant Solution Albuterol Sulfa te (2.5 MG/3ML) 0.083% Albuterol Sulfate (2.5 MG/3ML) 0.083% 01/25/2020 12:00:00 AM EDT 3.0 {ml_as_needed} active Albuterol Sulfate (2.5 MG/3ML) 0.083% eCW1 ([facility]) Tresiba Flextouch Tresiba Flextouch 11/21/2019 12:00:00 AM EDT active MEDENT ([facility] 24 HR metoprolol succinate 25 MG Extended Release Oral Tablet Metoprolol Succinate ER 11/21/2019 12:00:00 AM EDT ORAL active MEDENT ([facility]) pantoprazole 40 MG Delayed Release Oral Tablet Pantoprazole Sodium 11/21/2019 12:00:00 AM EDT ORAL active M EDENT ([facility]) 30 ACTUAT fluticasone furoate 0.2 MG/ACT UAT / vilanterol 0.025 MG/ACTUAT Dry Powder Inhaler [Breo] Breo Ellipta 11/21/2019 12:00:00 AM EDT RESPIRATORY active MEDENT ([facility]) duloxetine 20 MG Delayed Release Oral Capsule Duloxetine HCL 11/21/2019 12:00:00 AM EDT ORAL active MEDENT ([facility]) Magnesium 11/21/2019 12:00:00 AM EDT ORAL active MEDENT ([facility]) Cholecalciferol 2000 UNT Oral Tablet Vitamin D3 11/21/2019 12:00:00 A M EDT ORAL active MEDENT ([facility]) torsemide 10 MG Oral Tablet Torsemide 11/21/2019 12:00:00 AM EDT ORAL active MEDENT ([facility]) Amlodipine 10 MG Oral Tablet Amlodipine Besylate 11/21/2019 12:00:00 AM EDT ORAL active MEDENT ([facility]) Primidone 50 MG Oral Tablet Primidone 11/21/2019 12:00:00 AM EDT ORAL active MEDENT ([facility]) gabapentin 300 MG Oral Capsule Gabapentin 11/21/2019 12:00:00 AM EDT ORAL active MEDENT ([facility]) gabapentin 600 MG Oral Tablet Gabapentin 11/21/2019 12:00:00 AM EDT ORAL active MEDENT ([facility]) tizanidine 4 MG Oral Tablet Tizanidine HCL 11/21/2019 12:00:00 AM EDT ORAL active MEDENT ([facility]) atorvastatin 40 MG Oral Tablet Atorvastatin Calcium 11/21/2019 1 2:00:00 AM EDT ORAL active MEDENT ( [facility]) 200 ACTUAT Albuterol 0.09 MG/ACTUAT Metered Dose Inhal er [Ventolin] Ventolin HFA 11/21/2019 12:00:00 AM EDT RESPIRATORY active MEDENT ([facility]) Losartan Potassium 50 MG Oral Tablet Losartan Potassium 02/2020 12:00:00 AM EDT ORAL active MEDENT ([facility] 24 HR metoprolol succinate 25 MG Extende d Release Oral Tablet Metoprolol Succinate ER 25 MG Metoprolol Succinate ER 25 MG 09/13/2019 12:00:00 AM EDT 1.0 {tablet} active Metoprolol Succinat e ER 25 MG eCW1 ([facility]) 24 HR metoprolol succinate 25 MG Extende d Release Oral Tablet Metoprolol Succinate ER 25 MG Metoprolol Succinate ER 25 MG 09/13/2019 12:00:00 AM EDT 1.0 {tablet} active Metoprolol Succinat e ER 25 MG eCW1 ([facility]) 24 HR metoprolol succinate 25 MG Extende d Release Oral Tablet Metoprolol Succinate ER 25 MG Metoprolol Succinate ER 25 MG 09/13/2019 12:00:00 AM EDT 1.0 {tablet} active Metoprolol Succinat e ER 25 MG eCW1 ([facility]) 24 HR metoprolol succinate 25 MG Extende d Release Oral Tablet Metoprolol Succinate ER 25 MG Metoprolol Succinate ER 25 MG 09/13/2019 12:00:00 AM EDT 1.0 {tablet} active Metoprolol Succinat e ER 25 MG eCW1 ([facility]) 24 HR metoprolol succinate 25 MG Extende d Release Oral Tablet Metoprolol Succinate ER 25 MG Metoprolol Succinate ER 25 MG 09/13/2019 12:00:00 AM EDT 1.0 {tablet} active Metoprolol Succinat e ER 25 MG eCW1 ([facility]) 24 HR metoprolol succinate 25 MG Extende d Release Oral Tablet Metoprolol Succinate ER 25 MG Metoprolol Succinate ER 25 MG 09/13/2019 12:00:00 AM EDT 1.0 {tablet} active Metoprolol Succinat e ER 25 MG eCW1 ([facility]) 30 ACTUAT fluticasone furoate 0.2 MG/ACT UAT / vilanterol 0.025 MG/ACTUAT Dry Powder Inhaler [Breo] Breo Ellipta 200-25 MCG/INH Breo Ellipta 200-25 MCG/INH 08/31/2019 12:00:00 AM EDT 1.0 {puff} active Breo Ellipta 200-25 MCG/INH eCW1 ([facility]) 30 ACTUAT fluticasone furoate 0.2 MG/ACT UAT / vilanterol 0.025 MG/ACTUAT Dry Powder Inhaler [Breo] Breo Ellipta 200-25 MCG/INH Breo Ellipta 200-25 MCG/INH 08/31/2019 12:00:00 AM EDT 1.0 {puff} active Breo Ellipta 200-25 MCG/INH eCW1 ([facility]) 30 ACTUAT fluticasone furoate 0.2 MG/ACT UAT / vilanterol 0.025 MG/ACTUAT Dry Powder Inhaler [Breo] Breo Ellipta 200-25 MCG/INH Breo Ellipta 200-25 MCG/INH 08/31/2019 12:00:00 AM EDT 1.0 {puff} active Breo Ellipta 200-25 MCG/INH eCW1 ([facility]) 30 ACTUAT fluticasone furoate 0.2 MG/ACT UAT / vilanterol 0.025 MG/ACTUAT Dry Powder Inhaler [Breo] Breo Ellipta 200-25 MCG/INH Breo Ellipta 200-25 MCG/INH 08/31/2019 12:00:00 AM EDT 1.0 {puff} active Breo Ellipta 200-25 MCG/INH eCW1 ([facility]) 30 ACTUAT fluticasone furoate 0.2 MG/ACT UAT / vilanterol 0.025 MG/ACTUAT Dry Powder Inhaler [Breo] Breo Ellipta 200-25 MCG/INH Breo Ellipta 200-25 MCG/INH 08/31/2019 12:00:00 AM EDT 1.0 {puff} active Breo Ellipta 200-25 MCG/INH eCW1 ([facility]) 30 ACTUAT fluticasone furoate 0.2 MG/ACT UAT / vilanterol 0.025 MG/ACTUAT Dry Powder Inhaler [Breo] Breo Ellipta 200-25 MCG/INH Breo Ellipta 200-25 MCG/INH 08/31/2019 12:00:00 AM EDT active 1 puff eCW1 ([facility]) 30 ACTUAT fluticasone furoate 0.2 MG/ACT UAT / vilanterol 0.025 MG/ACTUAT Dry Powder Inhaler [Breo] Breo Ellipta 200-25 MCG/INH Breo Ellipta 200-25 MCG/INH 08/31/2019 12:00:00 AM EDT 1.0 {puff} active Breo Ellipta 200-25 MCG/INH eCW1 ([facility]) 30 ACTUAT fluticasone furoate 0.2 MG/ACT UAT / vilanterol 0.025 MG/ACTUAT Dry Powder Inhaler [Breo] Breo Ellipta 200-25 MCG/INH Breo Ellipta 200-25 MCG/INH 08/31/2019 12:00:00 AM EDT 1.0 {puff} active Breo Ellipta 200-25 MCG/INH eCW1 ([facility]) 30 ACTUAT fluticasone furoate 0.2 MG/ACT UAT / vilanterol 0.025 MG/ACTUAT Dry Powder Inhaler [Breo] Breo Ellipta 200-25 MCG/INH Breo Ellipta 200-25 MCG/INH 08/31/2019 12:00:00 AM EDT 1.0 {puff} active Breo Ellipta 200-25 MCG/INH eCW1 ([facility]) torsemide 10 MG Oral Tablet Torsemide 10 MG Torsemide 10 MG 08/31/2019 12:00:00 AM EDT active 1 tablet eCW1 ([facility]) 30 ACTUAT fluticasone furoate 0.2 MG/ACT UAT / vilanterol 0.025 MG/ACTUAT Dry Powder Inhaler [Breo] Breo Ellipta 200-25 MCG/INH Breo Ellipta 200-25 MCG/INH 08/31/2019 12:00:00 AM EDT 1.0 {puff} active Breo Ellipta 200-25 MCG/INH eCW1 ([facility]) 30 ACTUAT fluticasone furoate 0.2 MG/ACT UAT / vilanterol 0.025 MG/ACTUAT Dry Powder Inhaler [Breo] Breo Ellipta 200-25 MCG/INH Breo Ellipta 200-25 MCG/INH 08/31/2019 12:00:00 AM EDT 1.0 {puff} active Breo Ellipta 200-25 MCG/INH eCW1 ([facility]) 30 ACTUAT fluticasone furoate 0.2 MG/ACT UAT / vilanterol 0.025 MG/ACTUAT Dry Powder Inhaler [Breo] Breo Ellipta 200-25 MCG/INH Breo Ellipta 200-25 MCG/INH 08/31/2019 12:00:00 AM EDT 1.0 {puff} active Breo Ellipta 200-25 MCG/INH eCW1 ([facility]) 30 ACTUAT fluticasone furoate 0.2 MG/ACT UAT / vilanterol 0.025 MG/ACTUAT Dry Powder Inhaler [Breo] Breo Ellipta 200-25 MCG/INH Breo Ellipta 200-25 MCG/INH 08/31/2019 12:00:00 AM EDT 1.0 {puff} active Breo Ellipta 200-25 MCG/INH eCW1 ([facility]) 30 ACTUAT fluticasone furoate 0.2 MG/ACT UAT / vilanterol 0.025 MG/ACTUAT Dry Powder Inhaler [Breo] Breo Ellipta 200-25 MCG/INH Breo Ellipta 200-25 MCG/INH 08/31/2019 12:00:00 AM EDT 1.0 {puff} active Breo Ellipta 200-25 MCG/INH eCW1 ([facility]) 30 ACTUAT fluticasone furoate 0.2 MG/ACT UAT / vilanterol 0.025 MG/ACTUAT Dry Powder Inhaler [Breo] Breo Ellipta 200-25 MCG/INH Breo Ellipta 200-25 MCG/INH 08/31/2019 12:00:00 AM EDT 1.0 {puff} active Breo Ellipta 200-25 MCG/INH eCW1 ([facility]) 30 ACTUAT fluticasone furoate 0.2 MG/ACT UAT / vilanterol 0.025 MG/ACTUAT Dry Powder Inhaler [Breo] Breo Ellipta 200-25 MCG/INH Breo Ellipta 200-25 MCG/INH 08/31/2019 12:00:00 AM EDT 1.0 {puff} active Breo Ellipta 200-25 MCG/INH eCW1 ([facility]) 30 ACTUAT fluticasone furoate 0.2 MG/ACT UAT / vilanterol 0.025 MG/ACTUAT Dry Powder Inhaler [Breo] Breo Ellipta 200-25 MCG/INH Breo Ellipta 200-25 MCG/INH 08/31/2019 12:00:00 AM EDT 1.0 {puff} active Breo Ellipta 200-25 MCG/INH eCW1 ([facility]) 30 ACTUAT fluticasone furoate 0.2 MG/ACT UAT / vilanterol 0.025 MG/ACTUAT Dry Powder Inhaler [Breo] Breo Ellipta 200-25 MCG/INH Breo Ellipta 200-25 MCG/INH 08/31/2019 12:00:00 AM EDT 1.0 {puff} active Breo Ellipta 200-25 MCG/INH eCW1 ([facility]) 30 ACTUAT fluticasone furoate 0.2 MG/ACT UAT / vilanterol 0.025 MG/ACTUAT Dry Powder Inhaler [Breo] Breo Ellipta 200-25 MCG/INH Breo Ellipta 200-25 MCG/INH 08/31/2019 12:00:00 AM EDT 1.0 {puff} active Breo Ellipta 200-25 MCG/INH eCW1 ([facility]) 30 ACTUAT fluticasone furoate 0.2 MG/ACT UAT / vilanterol 0.025 MG/ACTUAT Dry Powder Inhaler [Breo] Breo Ellipta 200-25 MCG/INH Breo Ellipta 200-25 MCG/INH 08/31/2019 12:00:00 AM EDT 1.0 {puff} active Breo Ellipta 200-25 MCG/INH eCW1 ([facility]) 30 ACTUAT fluticasone furoate 0.2 MG/ACT UAT / vilanterol 0.025 MG/ACTUAT Dry Powder Inhaler [Breo] Breo Ellipta 200-25 MCG/INH Breo Ellipta 200-25 MCG/INH 08/31/2019 12:00:00 AM EDT 1.0 {puff} active Breo Ellipta 200-25 MCG/INH eCW1 ([facility]) 30 ACTUAT fluticasone furoate 0.2 MG/ACT UAT / vilanterol 0.025 MG/ACTUAT Dry Powder Inhaler [Breo] Breo Ellipta 200-25 MCG/INH Breo Ellipta 200-25 MCG/INH 08/31/2019 12:00:00 AM EDT 1.0 {puff} active Breo Ellipta 200-25 MCG/INH eCW1 ([facility]) pantoprazole 40 MG Delayed Release Oral Tablet Pantopr azole Sodium 40 MG Pantoprazole Sodium 40 MG 05/29/2019 12:00:00 AM EST active 1 tablet eCW1 ([facility]) pantoprazole 40 MG Delayed Release Oral Tablet Pantopr azole Sodium 40 MG Pantoprazole Sodium 40 MG 05/29/2019 12:00:00 AM EST 1.0 {tablet} active Pantoprazole Sodium 40 MG eCW1 ( [facility]) pantoprazole 40 MG Delayed Release Oral Tablet Pantopr azole Sodium 40 MG Pantoprazole Sodium 40 MG 05/29/2019 12:00:00 AM EST active 1 tablet eCW1 ([facility]) pantoprazole 40 MG Delayed Release Oral Tablet Pantopr azole Sodium 40 MG Pantoprazole Sodium 40 MG 05/29/2019 12:00:00 AM EST 1.0 {tablet} active Pantoprazole Sodium 40 MG eCW1 ( [facility]) duloxetine 20 MG Delayed Release Oral Capsule Duloxetine HCL 05/26/2019 12:00:00 AM EST ORAL active [facility] ([facility]) Docusate Sodium 100 MG Oral Capsule [Colace] Colace 100 MG C olace 100 MG 04/26/2019 12:00:00 AM EST 1.0 {capsule_as_needed} active Colace 100 MG eCW1 ([facility]) Docusate Sodium 100 MG Oral Capsule [Colace] Colace 100 MG C olace 100 MG 04/26/2019 12:00:00 AM EST active 1 capsule as needed eCW1 ([facility]) Docusate Sodium 100 MG Oral Capsule [Colace] Colace 100 MG C olace 100 MG 04/26/2019 12:00:00 AM EST 1.0 {capsule_as_needed} active Colace 100 MG eCW1 ([facility]) Docusate Sodium 100 MG Oral Capsule [Colace] Colace 100 MG C olace 100 MG 04/26/2019 12:00:00 AM EST 1.0 {capsule_as_needed} active Colace 100 MG eCW1 ([facility]) Docusate Sodium 100 MG Oral Capsule [Colace] Colace 100 MG C olace 100 MG 04/26/2019 12:00:00 AM EST 1.0 {capsule_as_needed} active Colace 100 MG eCW1 ([facility]) Docusate Sodium 100 MG Oral Capsule [Colace] Colace 100 MG C olace 100 MG 04/26/2019 12:00:00 AM EST 1.0 {capsule_as_needed} active Colace 100 MG eCW1 ([facility]) Docusate Sodium 100 MG Oral Capsule [Colace] Colace 100 MG C olace 100 MG 04/26/2019 12:00:00 AM EST 1.0 {capsule_as_needed} active Colace 100 MG eCW1 ([facility]) POLYETHYLENE GLYCOL 3350 142 MG/ML Oral Solution [Miralax] M iraLax - MiraLax - 04/26/2019 12:00:00 AM EST active 1 packet mixed with 8 ounces of fluid eCW1 ([facility]) Docusate Sodium 100 MG Oral Capsule [Colace] Colace 100 MG C olace 100 MG 04/26/2019 12:00:00 AM EST 1.0 {capsule_as_needed} active Colace 100 MG eCW1 ([facility]) Docusate Sodium 100 MG Oral Capsule [Colace] Colace 100 MG C olace 100 MG 04/26/2019 12:00:00 AM EST active 1 capsule as needed eCW1 ([facility]) Docusate Sodium 100 MG Oral Capsule [Colace] Colace 100 MG C olace 100 MG 04/26/2019 12:00:00 AM EST 1.0 {capsule_as_needed} active Colace 100 MG eCW1 ([facility]) Docusate Sodium 100 MG Oral Capsule [Colace] Colace 100 MG C olace 100 MG 04/26/2019 12:00:00 AM EST 1.0 {capsule_as_needed} active Colace 100 MG eCW1 ([facility]) Docusate Sodium 100 MG Oral Capsule [Colace] Colace 100 MG C olace 100 MG 04/26/2019 12:00:00 AM EST 1.0 {capsule_as_needed} active Colace 100 MG eCW1 ([facility]) Docusate Sodium 100 MG Oral Capsule [Colace] Colace 100 MG C olace 100 MG 04/26/2019 12:00:00 AM EST 1.0 {capsule_as_needed} active Colace 100 MG eCW1 ([facility]) Docusate Sodium 100 MG Oral Capsule [Colace] Colace 100 MG C olace 100 MG 04/26/2019 12:00:00 AM EST 1.0 {capsule_as_needed} active Colace 100 MG eCW1 ([facility]) Docusate Sodium 100 MG Oral Capsule [Colace] Colace 100 MG C olace 100 MG 04/26/2019 12:00:00 AM EST 1.0 {capsule_as_needed} active Colace 100 MG eCW1 ([facility]) Docusate Sodium 100 MG Oral Capsule [Colace] Colace 100 MG C olace 100 MG 04/26/2019 12:00:00 AM EST 1.0 {capsule_as_needed} active Colace 100 MG eCW1 ([facility]) Docusate Sodium 100 MG Oral Capsule [Colace] Colace 100 MG C olace 100 MG 04/26/2019 12:00:00 AM EST 1.0 {capsule_as_needed} active Colace 100 MG eCW1 ([facility]) Methylcellulose 500 MG Oral Tablet [Citrucel] Citrucel 500 M G Citrucel 500 MG 04/26/2019 12:00:00 AM EST active 1 tablets with a full glass of water as needed eCW1 ([facility]) Docusate Sodium 100 MG Oral Capsule [Colace] Colace 100 MG C olace 100 MG 04/26/2019 12:00:00 AM EST 1.0 {capsule_as_needed} active Colace 100 MG eCW1 ([facility]) Docusate Sodium 100 MG Oral Capsule [Colace] Colace 100 MG C olace 100 MG 04/26/2019 12:00:00 AM EST 1.0 {capsule_as_needed} active Colace 100 MG eCW1 ([facility]) Docusate Sodium 100 MG Oral Capsule [Colace] Colace 100 MG C olace 100 MG 04/26/2019 12:00:00 AM EST 1.0 {capsule_as_needed} active Colace 100 MG eCW1 ([facility]) Docusate Sodium 100 MG Oral Capsule [Colace] Colace 100 MG C olace 100 MG 04/26/2019 12:00:00 AM EST 1.0 {capsule_as_needed} active Colace 100 MG eCW1 ([facility]) Docusate Sodium 100 MG Oral Capsule [Colace] Colace 100 MG C olace 100 MG 04/26/2019 12:00:00 AM EST active 1 capsule as needed eCW1 ([facility]) Docusate Sodium 100 MG Oral Capsule [Colace] Colace 100 MG C olace 100 MG 04/26/2019 12:00:00 AM EST 1.0 {capsule_as_needed} active Colace 100 MG eCW1 ([facility]) Docusate Sodium 100 MG Oral Capsule [Colace] Colace 100 MG C olace 100 MG 04/26/2019 12:00:00 AM EST 1.0 {capsule_as_needed} active Colace 100 MG eCW1 ([facility]) Famotidine 20 MG Oral Tablet Famotidine 20 MG 04/19/2019 12:00:[address] active 1 tablet at bedtime as ne eded eCW1 ([facility]) Famotidine 40 MG Oral Tablet Famotidine 40 MG 04/19/2019 12:00:[address] active 1 tablet at bedtime eCW1 ([facility]) Famotidine 20 MG Oral Tablet Famotidine 20 MG 04/19/2019 12:00:[address] active 1 tablet at bedtime as ne eded eCW1 ([facility]) Famotidine 40 MG Oral Tablet Famotidine 40 MG 04/19/2019 12:00:[address] active 1 tablet at bedtime eCW1 ([facility]) 24 HR Divalproex Sodium 500 MG Extended Release Oral Tablet Divalproex Sodium ER 500MG Oral Tablet Extended Release 24 Hour Divalproex Sodium ER 500MG Oral Tablet Extended Release 24 Hour 09/19/2018 12:00:00 AM EDT 1 aborted 24 HR divalproex sodium 500 MG Extended Release Oral T ablet CARLOS MANUEL ([facility]) Furosemide 40 MG Oral Tablet Furosemide 40MG Oral Tabl et Furosemide 40MG Oral Tablet 09/19/2018 12:00:00 AM EDT 1 aborted furosemide 40 MG Oral Tablet CARLOS MANUEL ([facility]) Atorvastatin 80mg Oral Tablet Atorvastatin 80mg Oral Tablet 09/19/2018 12:00:00 AM EDT 1 aborted Atorvastatin GRE ENWAY ([facility]) Magnesium 500MG Oral Tablet Magnesium 500MG Oral Tablet 09/10 12:00:00 AM EDT 1 aborted Magnesium GREENW AY ([facility]) Losartan HCTZ 100-125 mg Oral Tablet Losartan HCTZ 100-125 m g Oral Tablet 09/19/2018 12:00:00 AM EDT 1 aborted Losartan HCTZ CARLOS MANUEL (El August [facility]) 24 HR Metformin hydrochloride 500 MG Ext ended Release Oral Tablet metFORMIN HCl ER 500MG Oral Tablet Extended Release 24 Hour metFORMIN HCl ER 500MG Oral Tablet Extended Release 24 Hour 09/19/2018 12:00:00 AM EDT 1 aborted 24 HR metformin hydrochloride 500 MG Extended Release Oral Tablet CARLOS MANUEL (El August [facility]) montelukast 10 MG Oral Tablet Montelukast Sodium 10MG Oral Tablet Montelukast Sodium 10MG Oral Tablet 09/19/2018 12:00:00 AM EDT 1 aborted montelukast 10 MG Oral Tablet CARLOS MANUEL (El August [facility]) tizanidine 4 MG Oral Capsule tiZANidine HCl 4MG Oral C apsule tiZANidine HCl 4MG Oral Capsule 09/19/2018 12:00:00 AM EDT 1 abort ed tizanidine 4 MG Oral Capsule CARLOS MANUEL ([facility]) Insurance Providers Payer name Policy type / Coverage type Policy ID Covered libertarian ID Covered libertarian's relationship to love Policy Love Plan Information AETNA MEDICARE [id number] SP [id number] AETNA MEDICARE [id number] SP [id number] AETNA MEDICARE [id number] SP 10 [id number] AETNA MEDICARE O [id number] S [id number] AETNA MEDICARE [id number] SP [id number] [id number] AETNA MEDICARE [id number] SP MEBQR [id number] AETNA MEDICARE MEBQRGOW SP MEBQR [place] AETNA MEDICARE COMPLETE G [id number] Self [id number] MEDICARE A [id number] Self [id number] A AETNA MEDICARE O MEBQRGOW S MEBQR [place] AETNA MEDICARE O [id number] S MEBQR [id number] AETNA MEDICARE [id number] SP [id number] [id number] ANSI-Medicare Part B [id number] ANSI-Medicare Part B [id number] ANSI-Medicare Part B [id number] ANSI-Medicare Part B [id number] Aetna (MCR) Commercial [id number] Self [id number] Aetna (MCR) [facility] [id number] Self [id number] ANSI-Medicare Part B [id number] AETNA MEDICARE MEBQRGOW SP MEBQR [place] AETNA MEDICARE MEBQRGOW [id number] MEBQR [place] MEDICARE [id number] SP [id number] A Aetna (MCR) Commercial [id number] Self [id number] W ANSI-Medicare Part B [id number] Aetna (MCR) Commercial [id number] Self [id number] W ANSI-Medicare Part B [id number] ANSI-Medicare Part B [id number] ANSI-Medicare Part B [id number] ANSI-Medicare Part B [id number] Aetna (MCR) Commercial [id number] Self [id number] W Aetna (MCR) Commercial [id number] Self [id number] W AETNA [facility] O [id number] S [id number] ANSI-Medicare Part B [id number] Aetna (MCR) Commercial [id number] Self [id number] ANSI-Medicare Part B [id number] ANSI-Medicare Part B [id number] ANSI-Medicare Part B [id number] ANSI-Medicare Part B [id number] ANSI-Medicare Part B [id number] ANSI-Medicare Part B [id number] AETNA MEDICARE [id number] SP [id number] MEDICARE [id number] SP [id number] A MEDICARE - [place] MCR UNAVAILABLE UNAVAILABLE MEDICARE C [id number] S [id number] A MEDICARE C UNAVAILABLE P UNAVAILA BLE [id number] Problems, Conditions, and Diagnoses Code Display Name Description Problem Type Effective Dates Data Source(s) 379.21 Vitreous Disorders Degeneration Vitreous Disorders Deg eneration Problem 04/11/2020 12:00:00 AM EST CARLOS MANUEL ([facility] August [facility]) 375.15 Dry Eye Syndrome Dry Eye Syndrome Problem 04/11/2020 12 :00:00 AM EST CARLOS MANUEL (El August [facility]) 366.15 Cataract Senile Cortical Cataract Senile Cortical Prob hima 04/11/2020 12:00:00 AM EST CARLOS MANUEL (El August [facility]) 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, Tributary Retinal Vein O cclusion, Tributary Problem 04/11/2020 12:00:00 AM EST CARLOS MANUEL (El garay MD [facility]) H18.593 Corneal Dystrophy Anterior Corneal Dystrophy Anterior Problem 04/11/2020 12:00:00 AM EST CARLOS MANUEL (El August MD [facility]) H18.513 Corneal Dystrophy Endothelial Fuchs' Cor mason Dystrophy Endothelial Fuchs' Problem 04/11/2020 12:00:00 AM EST CARLOS MANUEL (Rod August MD [facility]) F41.1 [id number] Generalized anxiety disorder Problem 020 12:00:00 AM EST eCW1 ([facility]) F31.81 80573430 Bipolar II disorder Problem 03/29/2020 12:00 :00 AM EST eCW1 ([facility]) F33.1 [id number] Major depressive disorder, recurrent, mod erate Problem 03/29/2020 12:00:00 AM EST eCW1 ([facility]) 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 Oth er specified interstitial pulmonary diseases Problem 01/30/2020 12:00:00 AM EDT eCW1 ([facility]) J84.89 [id number] Interstitial pneumonitis Problem 01/30/2020 12:00:00 AM EDT eCW1 ([facility]) Benign hypertensive heart disease withou t congestive heart failure Benign hypertensive heart disease without congestive heart failure Problem 11/22/2019 12:00:00 AM EDT MEDENT ([facility]) [id number] Edema Edema Problem 11/22/2019 12:00:00 AM ED T MEDENT ([facility]) 13727580 Mitral valve disorder Mitral valve disorder Problem 11/22/2019 12:00:00 AM EDT MED[facility] ([facility]) [id number] Dyspnea Dyspnea Problem 11/22/2019 12:00:00 AM ED T MED[facility] ([facility]) 80052326 Heart murmur Heart murmur Problem 11/22/2019 12:00:00 A M EDT [facility]) [id number] Electrocardiogram abnormal Electrocardiogram abnormal Problem 11/22/2019 12:00:00 AM EDT [facility] ([facility]) 27329686 Precordial pain Precordial pain Problem 11/22/2019 12:0 0:00 AM EDT [facility] ([facility]) I50.32 [id number] Chronic diastolic congestive heart failur e Problem 08/31/2019 12:00:00 AM EDT eCW1 ([facility]) I50.32 056189851 Chronic diastolic congestive heart failur e Problem 08/31/2019 12:00:00 AM EDT eCW1 ([facility]) J45.30 [id number] Mild persistent asthma without complicati on Problem 08/31/2019 12:00:00 AM EDT eCW1 ([facility]) J45.30 [id number] Mild persistent asthma without complicati on Problem 08/31/2019 12:00:00 AM EDT eCW1 ([facility]) D72.9 [id number] Disorder of white blood cells, unspecifie d Problem 04/26/2019 12:00:00 AM EST eCW1 ([facility]) R89.2 [id number] Abnormal level of ot her drugs, medicaments and biological substances in specimens from other organs, systems and tissues Problem 04/26/2019 12:00:00 AM EST eCW1 ([facility]) G89.29 Other chronic pain Other chronic pain Diagnosis 03/2020 12:43:02 PM EDT [facility] M54.5 Low back pain Low back pain Diagnosis 06/22/2019 12:43:02 PM EDT [facility] M51.36 Other intervertebral disc degeneration, lumbar region Other intervertebral disc degeneration, lumbar region Diagnosis 2019 12:43:02 PM EDT [facility] Z98.890 Other specified postprocedural states Ot her specified postprocedural states Diagnosis 06/22/2019 12:43:02 PM EDT [facility] M54.16 Radiculopathy, lumbar region Radiculopathy, lumbar reg ion Diagnosis 06/22/2019 12:43:02 PM EDT [facility] Surgeries/Procedures Procedure Description Date Indications Data Source(s) OPH BMTRY PRTL COHER INTRFRMTRY IO LENS PWR SLIME Ophtha lmic biometry - IOL Master with IOL calculation (Left side, WAIVER OF LIABILITY ON FILE (ABN)) 05/14/2020 12:00:00 AM EST CARLOS MANUEL (El August MD [facility]) Intermediate Eye Exam Established Patient (Signi/Sep E rubina. & Man.) Intermediate Eye Exam Established Patient (Signi/Sep Eval. & Man.) 05/14/2020 12:00:00 AM EST CARLOS MANUEL (El August MD [facility]) Surgical / procedural history Back Surg paras 2009+2013, Hysterectomy 2003, Tubal Ligation 1983 Surgical / procedural history Back Surg paras 2009+2013, Hysterectomy 2003, Tubal Ligation 1984 04/11/2020 12:00:00 AM EST CARLOS MANUEL (El August MD [facility]) Scodi Retina, with interpretation and report Scodi Ret meagan, with interpretation and report 04/11/2020 12:00:00 AM EST CARLOS MANUEL (Rod August MD [facility]) Comprehensive eye exam established patient (Signi/Sep Eval. & Man.) Comprehensive eye exam established patient (Signi/Sep Eval. & Man.) 04/11/2020 12:00:00 AM EST CARLOS MANUEL (El August MD [facility]) PRESSURIZED/NONPRESSURIZED INHALATION TREATMENT 2019 12:00:00 AM EDT eCW1 ([facility]) Medication: DuoNeb Inhalation (Ipratropi um [place] 0.5mg & Albuterol Sulfate 2.5mg) 01/25/2020 12:00:00 AM EDT eCW1 ([facility]) ECHO TTHRC R-T 2D W/WOM-MODE COMPL SPEC&COLR DOP 12/07 12:00:00 AM EDT [facility] ([facility]) MYOCARDIAL SPECT MULTIPLE STUDIES 12/05/2019 12:00:00 AM EDT [facility] ([facility]) CV STRS TST XERS&/OR RX CONT ECG PHYS SI&R 12/05/2019 12:00:00 AM EDT [facility] ([facility]) ECG ROUTINE ECG W/LEAST 12 LDS W/I&R 11/22/2019 12:00: 00 AM EDT [facility] ([facility]) Office Visit, Est Pt., Level 4 PC 08/31/2019 12:00:00 AM EDT eCW1 ([facility]) Office Visit, Est Pt., Level 2 FC 04/26/2019 12:00:00 AM EST eCW1 ([facility]) Office Visit, Est Pt., Level 3 PC 04/26/2019 12:00:00 AM EST eCW1 ([facility]) Results ID Date Data Source [id number] 05/25/2020 09:00:00 AM EST [facility] Name Value Range Interpretation Code Description Data Dayana rce(s) Supporting Document(s) SARS coronavirus 2 RNA Not Detected [facility] [place] This lab was ordered by [facility] and reported by [facility]. ID Date Data Source [id number] 05/18/2020 09:15:00 AM EST [facility] Name Value Range Interpretation Code Description Data Dayana rce(s) Supporting Document(s) SARS coronavirus 2 RNA Not Detected [facility] [place] This lab was ordered by [facility] and reported by [facility]. ID Date Data Source [id number] 03/18/2020 05:57:00 PM EST [facility] Name Value Range Interpretation Code Description Data Dayana rce(s) Supporting Document(s) SARS coronavirus 2 RNA [Presence] in Res piratory specimen by CARSON with probe detection [facility] This lab was ordered by [facility] a nd reported by [facility]. ID Date Data Source Comprehensive Metabolic Profile (CMP) 01/31/2020 06:22:32 AM EDT eCW1 ([facility]) Name Value Range Interpretation Code Description Data Dayana rce(s) Supporting Document(s) 230 GLUCOSE, FASTING eCW1 ([facility]) 1.10 CREATININE FOR GFR eCW1 ([facility]) 35 BLOOD UREA NITROGEN eCW1 ([facility]) 53.6 GLOMERULAR FILTRATION RATE eCW 1 ([facility]) 133 SODIUM LEVEL eCW1 ([facility]) 31 CARBON DIOXIDE LEVEL eCW1 ([facility]) 4.1 POTASSIUM SERUM eCW1 ([facility]) 95 CHLORIDE LEVEL eCW1 ([facility]) 96 ALKALINE PHOSPHATASE eCW1 ([facility]) 24 ALT/SGPT eCW1 ([facility]) 17 AST/SGOT eCW1 ([facility]) 9.7 CALCIUM LEVEL eCW1 ([facility]) 3.4 ALBUMIN eCW1 ([facility]) 7.5 TOTAL PROTEIN eCW1 ([facility]) 0.6 BILIRUBIN,TOTAL eCW1 ([facility]) 0.8 ALBUMIN/GLOBULIN RATIO eCW1 ([facility]) ID Date Data Source [id number] 01/30/2020 04:00:00 PM EDT [facility] Name Value Range Interpretation Code Description Data Dayana rce(s) Supporting Document(s) SARS coronavirus 2 RNA [facility] This lab was ordered by [facility] and reported by [facility]. ID Date Data Source PLZ CHEST 2 VIEW 01/26/2020 03:51:42 AM EDT eCW1 ([facility]) Name Value Range Interpretation Code Description Data Dayana rce(s) Supporting Document(s) PLZ CHEST 2 VIEW eCW1 ([facility]) ID Date Data Source [id number] 10/25/2019 05:27:00 PM EDT [facility] ([facility]) Name Value Range Interpretation Code Description Data Dayana rce(s) Supporting Document(s) Troponin Laboratory test result [facility] ([facility]) ID Date Data Source [id number] 10/25/2019 05:27:00 PM EDT [facility] ([facility] Name Value Range Interpretation Code Description Data Dayana rce(s) Supporting Document(s) Triglycerides 197 [facility] ([facility]) Cholesterol 166 [facility] ([facility]) HDL 56 [facility] Cholesterol in LDL [Mass/volume] in Serum or Plasma by calculation 71 [facility] ([facility]) Chol/HDL Ratio 2.964 [facility] ([facility] ID Date Data Source [id number] 10/25/2019 05:27:00 PM EDT [facility] ([facility]) Name Value Range Interpretation Code Description Data Dayana rce(s) Supporting Document(s) Creatine kinase [Enzymatic activity/volume] in Serum or Plasma 135 [facility] ([facility] CPK-MB 0.81 [facility] ID Date Data Source [id number] 10/25/2019 05:27:00 PM EDT [facility] ([facility]) Name Value Range Interpretation Code Description Data Dayana rce(s) Supporting Document(s) Albumin [Mass/volume] in Serum or Plasma 3.6 [facility] ([facility] Alanine aminotransferase [Enzymatic activity/volume] in Serum or Pl asma 16 [facility] ([facility] Calcium [Mass/volume] in Serum or Plasma 8.7 [facility] ([facility] Chloride [Moles/volume] in Serum or Plasma 104 [facility] ([facility] Carbon dioxide, total [Moles/volume] in Serum or Plasma 27 [facility] ([facility] Potassium [Moles/volume] in Serum or Plasma 3.9 [facility] ([facility] Alkaline phosphatase [Enzymatic activity/volume] in Serum or Plasma 1 00 [facility] ([facility] Sodium 138 [facility] ([facility] Protein [Mass/volume] in Serum or Plasma 7.5 [facility] ([facility] Urea nitrogen [Mass/volume] in Serum or Plasma 15 [facility] ([facility] Aspartate aminotransferase [Enzymatic activity/volume] in Serum or Plasma 14 [facility] ([facility] Glucose 148 80-115 [facility] ([facility] Creatinine For GFR 1.00 [facility] ([facility] ID Date Data Source [id number] 10/25/2019 05:27:00 PM EDT [facility] System) Name Value Range Interpretation Code Description Data Dayana rce(s) Supporting Document(s) White Blood Count 11.4 4.0-10.0 MEDENT ([facility] Platelets 321 172-450 MEDENT ([facility]) Red Blood Count 4.35 4.00-5.40 MEDENT ([facility]) Hematocrit 41.9 MEDENT ([facility]) Hemoglobin 13.6 MEDENT ([facility]) ID Date Data Source [id number] 10/05/2019 05:29:00 PM EDT MEDENT ([facility]) Name Value Range Interpretation Code Description Data Dayana rce(s) Supporting Document(s) Natriuretic peptide.B prohormone N-Terminal [Mass/volu me] in Serum or Plasma 263 MEDENT ([facility]) ID Date Data Source MAGNESIUM LEVEL 08/31/2019 12:00:00 AM EDT eCW1 ([facility]) Name Value Range Interpretation Code Description Data Dayana rce(s) Supporting Document(s) 1.8 1.8-2.4 MAGNESIUM LEVEL eCW1 ([facility]) ID Date Data Source DDIMER QUANT 08/31/2019 12:00:00 AM EDT eCW1 ([facility]) Name Value Range Interpretation Code Description Data Dayana rce(s) Supporting Document(s) 695.57 <500 D-DIMER QUANT eCW1 ([facility]) ID Date Data Source FREE T4 & TSH PANEL 08/31/2019 12:00:00 AM EDT eCW1 ([facility]) Name Value Range Interpretation Code Description Data Dayana rce(s) Supporting Document(s) 1.13 0.76-1.46 FREE T4 eCW1 ([facility]) 1.330 0.358-3.740 THYROID STIMULATING HORM ONE eCW1 ([facility]) ID Date Data Source Reticulocyte Count Sysmex 08/31/2019 12:00:00 AM EDT eCW1 ([facility]) Name Value Range Interpretation Code Description Data Dayana rce(s) Supporting Document(s) 2.4 0.5-1.5 RETICULOCYTE % eCW1 ([facility]) ID Date Data Source TROPONIN I 08/31/2019 12:00:00 AM EDT eCW1 ([facility]) Name Value Range Interpretation Code Description Data Dayana rce(s) Supporting Document(s) < 0.02 < 0.10 TROPONIN I eCW1 ([facility]) ID Date Data Source CBC with Differential 08/31/2019 12:00:00 AM EDT eCW1 ([facility]) Name Value Range Interpretation Code Description Data Dayana rce(s) Supporting Document(s) 4.25 4.00-5.40 RED BLOOD COUNT eCW1 ([facility]) 11.1 4.0-10.0 WHITE BLOOD COUNT eCW1 ([facility]) 13.2 12.0-15.5 HEMOGLOBIN eCW1 ([facility]) 97.2 80.0-96.0 MEAN CORPUSCULAR VOLUME e CW1 ([facility]) 41.3 36.0-47.0 HEMATOCRIT eCW1 ([facility]) 13.4 11.5-14.5 RED CELL DISTRIBUTION WID TH eCW1 ([facility]) 31.1 27.0-33.0 MEAN CORPUSCULAR HEMOGLOB IN eCW1 ([facility]) 32.0 32.0-36.5 MEAN CORPUSCULAR HGB CONC eCW1 ([facility]) 65.0 36.0-66.0 NEUTROPHILS % eCW1 ([facility]) 26.2 24.0-44.0 LYMPH % eCW1 ([facility]) 350 150-450 PLATELET COUNT, AUTOMATED eCW1 ([facility]) 2.0 0.0-3.0 EOS % eCW1 ([facility]) 5.7 0.0-5.0 MONO % eCW1 ([facility]) 0.7 0.0-1.0 BASO % eCW1 ([facility]) 7.2 1.5-8.5 NEUTROPHILS # eCW1 ([facility]) 0.1 0.0-0.2 BASO # eCW1 ([facility]) 2.9 1.5-5.0 LYMPH # eCW1 ([facility]) 0.2 0.0-0.5 EOS # eCW1 ([facility]) 0.6 0.0-0.8 MONO # eCW1 ([facility]) ID Date Data Source NT-PRO BNP 08/31/2019 12:00:00 AM EDT eCW1 ([facility]) Name Value Range Interpretation Code Description Data Dayana rce(s) Supporting Document(s) 128 <125 NT-PRO BNP eCW1 ([facility]) ID Date Data Source [id number] 07/09/2019 09:38:59 PM EDT [facility] XR SPINE LUMBAR 4-MORE VIEWS [id number] RESULTInterpreted by:Sherly Hardin MDEXAM: Spine lumbosacral INDICATION: [...] rce(s) Supporting Document(s) ID Date Data Source [id number] 07/02/2019 07:18:07 PM EDT [facility] XR PELVIS 3 VIEWS [id number] RESULTInter preted by:Marvin Olivera, [facility] 3 viewsINDICATION: Pain low backFINDINGS: Frontal view [...] rce(s) Supporting Document(s) ID Date Data Source [id number] 06/22/2019 04:28:35 PM EDT [facility] Name Value Range Interpretation Code Description Data [facility] rce(s) Supporting Document(s) Progress Note [facility] [id number] [file] [id number] ID Date Data Source OVA Parasite Conventional 04/26/2019 12:00:00 AM EST eCW1 ([facility]) Name Value Range Interpretation Code Description Data Dayana rce(s) Supporting Document(s) Final report . O+P EXAM eCW1 ([facility]) ID Date Data Source PANCREATIC ELASTASE STOOL 04/26/2019 12:00:00 AM EST eCW1 ([facility]) Name Value Range Interpretation Code Description Data Dayana rce(s) Supporting Document(s) 203 >200 PANCREATIC ELASTASE STOOL eCW1 ([facility]) ID Date Data Source GASTROINTESTINAL GI PANEL (GIPANEL) 04/26/2019 12:00:00 AM EST eCW1 ([facility]) Name Value Range Interpretation Code Description Data Dayana rce(s) Supporting Document(s) This Gastrointestinal PCR Panel detects the following bacteria, GASTROINTESTINAL (GI) PANEL eCW1 ([facility]) ID Date Data Source LIPASE 04/26/2019 12:00:00 AM EST eCW1 ([facility]) Name Value Range Interpretation Code Description Data Dayana rce(s) Supporting Document(s) 385 01-060 LIPASE eCW1 ([facility]) ID Date Data Source SERUM PROTEIN ELECTROPHORESIS 04/26/2019 12:00:00 AM EST eCW 1 ([facility]) Name Value Range Interpretation Code Description Data Dayana rce(s) Supporting Document(s) 7.5 6.4-8.2 TOTAL PROTEIN eCW1 ([facility]) ID Date Data Source BILIRUBIN,DIRECT 04/26/2019 12:00:00 AM EST eCW1 ([facility]) Name Value Range Interpretation Code Description Data Dayana rce(s) Supporting Document(s) 0.1 0.0-0.2 BILIRUBIN,DIRECT eCW1 ([facility]) Procedure Social History Code Duration Value Status Description Data Source(s ) Smoking 04/11/2020 12:40:05 PM EST Smokes tobacco daily (findi ng) completed Smokes tobacco daily (finding) CARLOS MANUEL ([facility] August [facility]) Smoking 03/12/2020 12:00:00 AM EST Current Smoker completed Curre nt Smoker eCW1 ([facility]) Smoking 03/12/2020 12:00:00 AM EST Current Smoker completed Curre nt Smoker eCW1 ([facility]) Smoking 03/12/2020 12:00:00 AM EST Current Smoker completed Curre nt Smoker eCW1 ([facility]) Smoking 03/12/2020 12:00:00 AM EST Current Smoker completed Curre nt Smoker eCW1 ([facility]) Smoking 03/12/2020 12:00:00 AM EST Current Smoker completed Curre nt Smoker eCW1 ([facility]) Smoking 03/12/2020 12:00:00 AM EST Current Smoker completed Curre nt Smoker eCW1 ([facility]) Smoking 03/12/2020 12:00:00 AM EST Current Smoker completed Curre nt Smoker eCW1 ([facility]) Smoking 03/12/2020 12:00:00 AM EST Current Smoker completed Curre nt Smoker eCW1 ([facility]) Smoking 03/12/2020 12:00:00 AM EST Current Smoker completed Curre nt Smoker eCW1 ([facility]) Smoking 03/12/2020 12:00:00 AM EST Current Smoker completed Curre nt Smoker eCW1 ([facility]) Smoking 02/13/2020 12:00:00 AM EST Current Smoker completed Curre nt Smoker eCW1 ([facility]) Smoking 01/30/2020 12:00:00 AM EDT Current Smoker completed Curre nt Smoker eCW1 ([facility]) Smoking 01/30/2020 12:00:00 AM EDT Current Smoker completed Curre nt Smoker eCW1 ([facility]) Smoking 01/30/2020 12:00:00 AM EDT Current Smoker completed Curre nt Smoker eCW1 ([facility]) Smoking 01/30/2020 12:00:00 AM EDT Current Smoker completed Curre nt Smoker eCW1 ([facility]) Smoking 01/25/2020 12:00:00 AM EDT Current Smoker completed Curre nt Smoker eCW1 ([facility]) Smoking 01/25/2020 12:00:00 AM EDT Current Smoker completed Curre nt Smoker eCW1 ([facility]) Smoking 01/25/2020 12:00:00 AM EDT Current Smoker completed Curre nt Smoker eCW1 ([facility]) Smoking 01/25/2020 12:00:00 AM EDT Current Smoker completed Curre nt Smoker eCW1 ([facility]) Smoking 09/13/2019 12:00:00 AM EDT Current Smoker completed Curre nt Smoker eCW1 ([facility]) Smoking 09/13/2019 12:00:00 AM EDT Current Smoker completed Curre nt Smoker eCW1 ([facility]) Alcohol intake 06/22/2019 12:00:00 AM EDT Ex-drinker (finding) comp leted Ex- drinker (finding) [facility] Cigarettes smoked current (pack per day) - Reported 06/22/19 20 12:00:00 AM EDT UNK completed [facility] Smoking 06/22/2019 12:00:00 AM EDT Current every day smoker co mpleted Current every day smoker [facility] Vital Signs ID Date Data Source UNK Name Value Range Interpretation Code Description Data Source(s) Diastolic blood pressure 68 mm[Hg] 68 mm[Hg] eCW1 ([facility]) Systolic blood pressure 128 mm[Hg] 128 mm[Hg] e CW1 ([facility]) Body temperature 97.1 [degF] 97.1 [degF] eCW1 ( [facility]) Respiratory rate 20 /min 20 /min eCW1 ([facility]) Heart rate 107 /min 107 /min eCW1 ([facility]) Body mass index (BMI) [Ratio] 36.15 kg/m2 36.15 kg/m2 W1 ([facility]) Body height [in_i] eCW1 ([facility]) Body weight 224 [lb_av] 224 [lb_av] eCW1 ([facility]) Diastolic blood pressure 80 mm[Hg] 80 mm[Hg] eCW1 ([facility]) Systolic blood pressure 144 mm[Hg] 144 mm[Hg] e CW1 ([facility]) Body temperature 97.5 [degF] 97.5 [degF] eCW1 ( [facility]) Respiratory rate 18 /min 18 /min eCW1 ([facility]) Heart rate 78 /min 78 /min eCW1 ([facility]) Body mass index (BMI) [Ratio] 35.51 kg/m2 35.51 kg/m2 eCW1 ([facility]) Body height [in_i] eCW1 ([facility]) Body weight 220 [lb_av] 220 [lb_av] eCW1 ([facility]) Diastolic blood pressure 84 mm[Hg] 84 mm[Hg] eCW1 ([facility]) Systolic blood pressure 150 mm[Hg] 150 mm[Hg] e CW1 ([facility]) Body temperature 97.1 [degF] 97.1 [degF] eCW1 ( [facility]) Respiratory rate 19 /min 19 /min eCW1 ([facility]) Heart rate 108 /min 108 /min eCW1 ([facility]) Body mass index (BMI) [Ratio] 35.67 kg/m2 35.67 kg/m2 eCW1 ([facility]) Body height [in_i] eCW1 ([facility]) Body weight 221 [lb_av] 221 [lb_av] eCW1 ([facility]) Diastolic blood pressure 82 mm[Hg] 82 mm[Hg] eCW1 ([facility]) Systolic blood pressure 146 mm[Hg] 146 mm[Hg] e CW1 ([facility]) Body temperature 97.1 [degF] 97.1 [degF] eCW1 ( [facility]) Respiratory rate 18 /min 18 /min eCW1 ([facility]) Heart rate 119 /min 119 /min eCW1 ([facility]) Body mass index (BMI) [Ratio] 35.67 kg/m2 35.67 kg/m2 eCW1 ([facility]) Body height [in_i] eCW1 ([facility]) Body weight 221.0 [lb_av] 221.0 [lb_av] eCW1 ([facility]) Diastolic blood pressure--supine 75 mm[Hg] 75 mm[Hg] MEDENT ([facility]) Ra Systolic blood pressure--supine 132 mm[Hg] 132 mm[Hg] MEDENT ([facility]) Ra Diastolic blood pressure--sitting 74 mm[Hg] 74 mm[Hg] MEDENT ([facility]) large cuff, Ra; 132/82 LA Systolic blood pressure--sitting 127 mm[Hg] 127 mm[Hg] MEDENT ([facility]) large cuff, Ra; 132/82 LA Respiratory rate 16 /min 16 /min MEDENT ( [facility]) Heart rate 64 /min 64 /min MEDENT ([facility]) regular Body mass index (BMI) [Ratio] 34.3 kg/m2 34.3 k g/m2 MEDENT ([facility]) Body height 67 [in_i] 67 [in_i] MEDENT ([facility]) 5'7" Body weight 219.00 [lb_av] 219.00 [lb_av] MEDEN T ([facility]) Diastolic blood pressure 80 mm[Hg] 80 mm[Hg] eCW1 ([facility]) Systolic blood pressure 148 mm[Hg] 148 mm[Hg] e CW1 ([facility]) Body temperature 99.1 [degF] 99.1 [degF] eCW1 ( [facility]) Respiratory rate 18 /min 18 /min eCW1 ([facility]) Heart rate 94 /min 94 /min eCW1 ([facility]) Body mass index (BMI) [Ratio] 35.99 kg/m2 35.99 kg/m2 eCW1 ([facility]) Body height [in_us] eCW1 ([facility]) Body weight Measured 223 [lb_av] 223 [lb_av] eC W1 ([facility]) Diastolic blood pressure 76 mm[Hg] 76 mm[Hg] eCW1 ([facility]) Systolic blood pressure 118 mm[Hg] 118 mm[Hg] e CW1 ([facility]) Body temperature 96.9 [degF] 96.9 [degF] eCW1 ( [facility]) Respiratory rate 18 /min 18 /min eCW1 ([facility]) Heart rate 92 /min 92 /min eCW1 ([facility]) Body mass index (BMI) [Ratio] 34.89 kg/m2 34.89 kg/m2 eCW1 ([facility]) Body height [in_us] eCW1 ([facility]) Body weight Measured 216.2 [lb_av] 216.2 [lb_av ] eCW1 ([facility]) Diastolic blood pressure 78 mm[Hg] 78 mm[Hg] eCW1 ([facility]) Systolic blood pressure 112 mm[Hg] 112 mm[Hg] e CW1 ([facility]) Body temperature 97.1 [degF] 97.1 [degF] eCW1 ( [facility]) Respiratory rate 17 /min 17 /min eCW1 ([facility]) Heart rate 90 /min 90 /min eCW1 ([facility]) Body mass index (BMI) [Ratio] 34.86 kg/m2 34.86 kg/m2 eCW1 ([facility]) Body height [in_us] eCW1 ([facility]) Body weight Measured 216 [lb_av] 216 [lb_av] eC W1 ([facility]) ID Date Data Source [id number] 06/28/2019 11:34:56 AM T [facility] Name Value Range Interpretation Code Description Data Source(s) WEIGHT RECORDED 216 lb 216 lb [facility] Body height Measured 65.25 in 65.25 in [facility] Patient Treatment Plan of Care Planned Activity Planned Date Details Description Data Source (s) moxifloxacin 5 MG/ML Ophthalmic Solution 05/14/2020 12:00:00 AM EST CARLOS MANUEL (El August [facility]) BromSite 0.075% Ophthalmic Solution 05/14/2020 12:00:00 AM EST [facility] MANUEL ([facility]) Inveltys 1% Ophthalmic Suspension 05/14/2020 12:00:00 AM EST CARLOS MANUEL ([facility]) OneTouch Verio w/Device 03/18/2020 12:00:00 AM EST eCW1 ([facility]) OneTouch Verio 1 03/18/2020 12:00:00 AM EST eCW1 ([facility]) OneTouch Verio w/Device 03/18/2020 12:00:00 AM EST eCW1 ([facility]) OneTouch Verio 1 03/18/2020 12:00:00 AM EST eCW1 ([facility]) OneTouch Verio 1 03/18/2020 12:00:00 AM EST eCW1 ([facility]) OneTouch Verio w/Device 03/18/2020 12:00:00 AM EST eCW1 ([facility]) OneTouch Verio 1 03/18/2020 12:00:00 AM EST eCW1 ([facility]) OneTouch Verio w/Device 03/18/2020 12:00:00 AM EST eCW1 ([facility]) OneTouch Verio w/Device 03/18/2020 12:00:00 AM EST eCW1 ([facility]) OneTouch Verio 1 03/18/2020 12:00:00 AM EST eCW1 ([facility]) OneTouch Verio w/Device 03/18/2020 12:00:00 AM EST eCW1 ([facility]) OneTouch Verio 1 03/18/2020 12:00:00 AM EST eCW1 ([facility]) OneTouch Verio w/Device 03/18/2020 12:00:00 AM EST eCW1 ([facility]) OneTouch Verio 1 03/18/2020 12:00:00 AM EST eCW1 ([facility]) OneTouch Verio w/Device 03/18/2020 12:00:00 AM EST eCW1 ([facility]) OneTouch Verio 1 03/18/2020 12:00:00 AM EST eCW1 ([facility]) OneTouch Verio w/Device 03/18/2020 12:00:00 AM EST eCW1 ([facility]) OneTouch Verio 1 03/18/2020 12:00:00 AM EST eCW1 ([facility]) Levaquin 750 MG 03/12/2020 12:00:00 AM EST eCW1 ([facility]) Levaquin 750 MG 03/12/2020 12:00:00 AM EST eCW1 ([facility]) Levaquin 750 MG 03/12/2020 12:00:00 AM EST eCW1 ([facility]) Levaquin 750 MG 03/12/2020 12:00:00 AM EST eCW1 ([facility]) Levaquin 750 MG 03/12/2020 12:00:00 AM EST eCW1 ([facility]) Levaquin 750 MG 03/12/2020 12:00:00 AM EST eCW1 ([facility]) Levaquin 750 MG 03/12/2020 12:00:00 AM EST eCW1 ([facility]) Levaquin 750 MG 03/12/2020 12:00:00 AM EST eCW1 ([facility]) Levaquin 750 MG 03/12/2020 12:00:00 AM EST eCW1 ([facility]) Levaquin 750 MG 03/12/2020 12:00:00 AM EST eCW1 ([facility]) Benzoyl Peroxide 0.05 MG/MG / Erythromycin 0.03 MG/MG Topical Gel 02/13/2020 12:00:00 AM EST eCW1 ([facility]) Metoprolol Succinate 25 MG 02/13/2020 12:00:00 AM EST eCW1 ([facility]) Chlorthalidone 25 MG Oral Tablet 02/13/2020 12:00:00 AM EST eCW1 ([facility]) 24 HR Nicotine 0.583 MG/HR Transdermal Patch [Nicoderm C-Q] 02/06/2020 12:00:00 AM EDT eCW1 ([facility]) 24 HR Nicotine 0.583 MG/HR Transdermal Patch [Nicoderm C-Q] 02/06/2020 12:00:00 AM EDT eCW1 ([facility]) Omeprazole 40 MG Delayed Release Oral Capsule 01/30/2020 12:00:00 A M EDT eCW1 ([facility]) Omeprazole 40 MG Delayed Release Oral Capsule 01/30/2020 12:00:00 A M EDT eCW1 ([facility]) Omeprazole 40 MG Delayed Release Oral Capsule 01/30/2020 12:00:00 A M EDT eCW1 ([facility]) Omeprazole 40 MG Delayed Release Oral Capsule 01/30/2020 12:00:00 A M EDT eCW1 ([facility]) Doxycycline Monohydrate 100 MG Oral Capsule 01/26/2020 12:00:00 AM EDT eCW1 ([facility]) Doxycycline Monohydrate 100 MG Oral Capsule 01/26/2020 12:00:00 AM EDT eCW1 ([facility]) Prednisone 20 MG Oral Tablet 01/25/2020 12:00:00 AM EDT eCW1 ([facility]) Albuterol 0.83 MG/ML Inhalant Solution 01/25/2020 12:00:00 AM EDT eCW1 ([facility]) Prednisone 20 MG Oral Tablet 01/25/2020 12:00:00 AM EDT eCW1 ([facility]) Albuterol 0.83 MG/ML Inhalant Solution 01/25/2020 12:00:00 AM EDT eCW1 ([facility]) Prednisone 20 MG Oral Tablet 01/25/2020 12:00:00 AM EDT eCW1 ([facility]) Albuterol 0.83 MG/ML Inhalant Solution 01/25/2020 12:00:00 AM EDT eCW1 ([facility]) Prednisone 20 MG Oral Tablet 01/25/2020 12:00:00 AM EDT eCW1 ([facility]) Albuterol 0.83 MG/ML Inhalant Solution 01/25/2020 12:00:00 AM EDT eCW1 ([facility]) 24 HR metoprolol succinate 25 MG Extended Release Oral Tablet 09/13/2019 12:00:00 AM EDT eCW1 ([facility]) 24 HR metoprolol succinate 25 MG Extended Release Oral Tablet 09/13/2019 12:00:00 AM EDT eCW1 ([facility]) 30 ACTUAT fluticasone furoate 0.2 MG/ACT UAT / vilanterol 0.025 MG/ACTUAT Dry Powder Inhaler [Breo] 08/31/2019 12:00:00 AM EDT eCW1 ([facility]) 30 ACTUAT fluticasone furoate 0.2 MG/ACT UAT / vilanterol 0.025 MG/ACTUAT Dry Powder Inhaler [Breo] 08/31/2019 12:00:00 AM EDT eCW1 ([facility]) torsemide 10 MG Oral Tablet 08/31/2019 12:00:00 AM EDT eCW1 ([facility]) pantoprazole 40 MG Delayed Release Oral Tablet 05/29/2019 12:00:00 AM EST eCW1 ([facility]) Methylcellulose 500 MG Oral Tablet [Citrucel] 04/26/2019 12:00:00 A M EST eCW1 ([facility]) Docusate Sodium 100 MG Oral Capsule [Colace] 04/26/2019 12:00:00 AM EST eCW1 ([facility]) POLYETHYLENE GLYCOL 3350 142 MG/ML Oral Solution [Lucy lax] 04/26/2019 12:00:00 AM EST eCW1 ([facility]) Famotidine 20 MG Oral Tablet 04/19/2019 12:00:00 AM EST eCW1 ([facility]) Famotidine 40 MG Oral Tablet 04/19/2019 12:00:00 AM EST eCW1 ([facility])
[2020-05-30] MEDS ORDERED: TROPICAMIDE 1% OPHTH SOLN 2ML OD ONE (07:00)
[2020-05-30] MEDS ORDERED: PHENYLEPHRINE 2.5% OPHTH SOL 2ML OD ONE (07:00)
[2020-05-30] MEDS ORDERED: PROPARACAINE 0.5% OPHTH SOL 15ML OD ONE (07:00)
[2020-05-30] MEDS ORDERED: OFLOXACIN 0.3 % (OCUFLOX) OPTH SOL 5ML OD ONE (07:00)
[2020-05-30] MEDS ORDERED: fentaNYL 100 MCG/2 ML INJECTION (J3010) As Ordered ONE (07:10)
[2020-05-30] MEDS ORDERED: MIDAZOLAM INJ 2MG/2ML VIAL (J2250 PER 1MG) As Ordered ONE (07:11)
[2020-05-30 08:35] VITALS: BP 135/87
--- NOTE | 2020-05-31 09:56 | RO ---
OPERATIVE NOTE DATE OF OPERATION: 05/30/2020 PREOPERATIVE DIAGNOSIS: 1. Visually significant nuclear sclerotic cataract, right eye. POSTOPERATIVE DIAGNOSIS: 1. Visually significant nuclear sclerotic cataract, right eye. PROCEDURE: 1. Cataract extraction with use of phacoemulsification, and placement of intraocular lens, AU00T0, 18.5 D, right eye. SURGEON: Linus Butler DO ANESTHESIA: Local (Omidria with MAC) COMPLICATIONS: None POSTOPERATIVE CONDITION: Stable INDICATIONS FOR SURGERY: 1. Blurred vision affecting patient's activities of daily living. DESCRIPTION OF PROCEDURE: The patient was seen in the preoperative area and properly identified. The correct operative eye was identified and marked. The patient received topical anesthetic, antibiotics, and topical dilating drops. The patient was then transferred to the operating room. The correct side was re-identified and a time-out was performed. The eye was prepped and draped in a sterile fashion. The eyelids were isolated with Tegaderm tape and the lids were held open with an adjustable speculum. A 1.0mm paracentesis incision was made. Omidria was then injected into the anterior chamber. Viscoelastic was then injected into the anterior chamber through the paracentesis. Using a 2.4mm sharp-tipped keratome, the anterior chamber was entered via a temporal clear cornea incision. A continuous curvilinear capsulorrhexis was created with Utrata forceps. Hydrodissection was performed with BSS on a blunt cannula until the nucleus was able to rotate freely. The crystalline lens was phacoemulsified and aspirated. Irrigation/aspiration was used to remove the cortical material Cohesive viscoelastic was placed into the capsular bag to deepen it. The implant was placed into the capsular bag and allowed to unfold. Placement was confirmed by visualizing the anterior capsulorrhexis. Irrigation/aspiration was used to remove the viscoelastic. The clear corneal incision was hydrated with BSS on a blunt cannula. The lens was well positioned. Intracameral antibiotic was injected into the anterior chamber. The incisions were then tested for leaks and found to be negative. The eye was then palpated for appropriate pressure and adjusted accordingly with BSS. The eyelid speculum was then carefully removed. A shield was placed over the eye. The patient tolerated the procedure well and was discharge to the recovery unit in a stable condition. VERA
== END 2020-05-30 08:44 | disposition home or self-care (01) ==
LOC: M SDC 06:22
PROVIDERS: ATTEND Ophthalmology
DX: H25.11 Age-related nuclear cataract, right eye (principal); I10 Essential (primary) hypertension; J45.909 Unspecified asthma, uncomplicated; E78.5 Hyperlipidemia, unspecified; E11.9 Type 2 diabetes mellitus without complications; M12.9 Arthropathy, unspecified; R01.1 Cardiac murmur, unspecified; K21.9 Gastro-esophageal reflux disease without esophagitis; F31.9 Bipolar disorder, unspecified; Z90.710 Acquired absence of both cervix and uterus; F17.210 Nicotine dependence, cigarettes, uncomplicated; Z91.018 Allergy to other foods; Z91.030 Bee allergy status; Z88.5 Allergy status to narcotic agent; Z88.8 Allergy status to other drugs, medicaments and biological substances; Z79.899 Other long term (current) drug therapy
CPT/HCPCS: 66984; J1097; J2250; J3010; V2632

== ENCOUNTER → 2020-08-20 | Outpatient (REF) | payer MEDICARE ==
[~2020-08-20] MED LIST changes: -BSS IRR 500ML/OMIDRIA 4ML IRR BAG (OR ONLY) As Ordered ONE; -CEFUROXIME 1MG/0.1ML INTRACAMERAL INJ As Ordered ONE; -DUOVISC (0.50ML VISCOAT/0.55ML PROVISC) OPHTH KIT As Ordered ONE; -POVIDONE-IODINE 5% OPHTH PREP SOL 30ML As Ordered ONE
[2020-08-20 13:38] LABS: BASO # 0.1 10^3/uL (0.0-0.2); BASO % 0.3 % (0.0-1.0); EOS # 0.1 10^3/uL (0.0-0.5); EOS % 0.4 % (0.0-3.0); HEMATOCRIT 39.1 % (36.0-47.0); HEMOGLOBIN 12.6 g/dl (12.0-15.5); LYMPH # 3.9 10^3/uL (1.5-5.0); LYMPH % 27.3 % (24.0-44.0); MEAN CORPUSCULAR HEMOGLOBIN 32.3 pg (27.0-33.0); MEAN CORPUSCULAR HGB CONC 32.2 g/dl (32.0-36.5); MEAN CORPUSCULAR VOLUME 100.3 fl (80.0-96.0); MONO # 0.8 10^3/uL (0.0-0.8); MONO % 5.5 % (2.0-8.0); NEUTROPHILS # 9.5 10^3/uL (1.5-8.5); NEUTROPHILS % 65.7 % (36.0-66.0); PLATELET COUNT, AUTOMATED 321 10^3/uL (150-450); WHITE BLOOD COUNT 14.4 10^3/uL (4.0-10.0)
[2020-08-20 14:10] LABS: HEMOGLOBIN A1c 6.5 %
[2020-08-20 14:18] LABS: ALBUMIN 3.4 GM/DL (3.2-5.2); ALT/SGPT 13 U/L (12-78); BILIRUBIN,TOTAL 0.4 MG/DL (0.2-1.0); BLOOD UREA NITROGEN 32 MG/DL (7-18); CALCIUM LEVEL 9.7 MG/DL (8.8-10.2); CARBON DIOXIDE LEVEL 36 MEQ/L (21-32); CHLORIDE LEVEL 102 MEQ/L (98-107); CHOLESTEROL LEVEL 167 MG/DL (<200); CREATININE FOR GFR 0.85 MG/DL (0.55-1.30); GLOMERULAR FILTRATION RATE > 60.0 (>45); GLUCOSE, FASTING 127 MG/DL (70-100); HDL CHOLESTEROL 59 MG/DL (>40); LDL CHOLESTEROL 62 MG/DL (<100); NON-HDL-C 108 MG/DL; POTASSIUM SERUM 4.9 MEQ/L (3.5-5.1); SODIUM LEVEL 139 MEQ/L (136-145); THYROID STIMULATING HORMONE 0.919 uIU/ML (0.358-3.740); TOTAL PROTEIN 7.3 GM/DL (6.4-8.2); TRIGLYCERIDES LEVEL 230 MG/DL (<150); URIC ACID 3.5 MG/DL (2.6-6.0)
[2020-08-20 14:28] LABS: TOTAL 25(OH) VITAMIN D 35.4 NG/ML (30.0-100.0)
== END ==
LOC: M PLALAB 10:10
PROVIDERS: ATTEND Nurse Practitioner Family
DX: I10 Essential (primary) hypertension (principal); E11.9 Type 2 diabetes mellitus without complications; E78.2 Mixed hyperlipidemia; M1A.9XX0 Chronic gout, unspecified, without tophus (tophi); E55.9 Vitamin D deficiency, unspecified

== ENCOUNTER → 2020-12-25 | Outpatient (CLI) | payer MEDICARE ==
--- NOTE | 2020-12-25 09:27 | REPMRS ---
Patient History The patient states she has not had a clinical breast exam in over a year. No known family history of cancer. No breast complaints today Patient signed the MRS sheet Patient states she has had both Moderna vaccines in the left arm but doesn't know dates Patient states she has lost at least 10lbs in the last year Priors on PACS Patient Identification Verified Digital Woman Screen Mammo: December 25, 2020 - Exam #: [id number] Bilateral CC and MLO view(s) were taken. Technologist: Cait Gaxiola, Technologist Prior study comparison: February 01, 2019, bilateral digital woman screen mammo performed at [facility] and [facility]. FINDINGS: There are scattered fibroglandular densities. Screening. Digital screening (2D) mammography was performed bilaterally in the CC and MLO projections. Additionally, breast tomosynthesis (3D mammography) was performed bilaterally in the CC and MLO projections. Todays exam was compared to the prior exam/exams. By history, the patient has no complaints of a palpable breast abnormality or other significant breast complaints. The breasts are unchanged in size and shape. There are no maritza-soft tissue densities or spiculated masses. There is no internal architectural distortion. Calcifications are again seen in the breast/breasts. Some of these are in groups but no one group appears more suspicious than any other. There are no suspicious maritza-calcific clusters. Skin thickening or nipple retraction is not present. IMPRESSION: BI-RADS Category 2- Benign Findings. There is no evidence of malignant alteration of the breasts. Followup examination recommended in one year. The Volpara volumetric breast density category is B, there are scattered areas of fibroglandular densities. This mammogram was read with the assistance of [facility],an FDA approved computer aided detection system for mammography. The lifetime Tyrer-Cuzick score is 6.6 % Negative x-ray reports should not delay surgical consultation if a dominant or clinically suspicious mass is present. Not all breast cancers can be identified by mammography. Therefore, we recommend that you continue to perform regular breast self-examination and physical examination and then promptly contact your physician of any concerns or changes. Adenosis and dense breasts may obscure an underlying neoplasm. Assessment: BI-RADS/ACR category 2 mammogram. Benign Findings. Recommendation Routine screening mammogram of both breasts in 1 year. Electronically Signed By: Gian Eagle, 12/25/20 [id number]
== END ==
LOC: M WHC 08:20
PROVIDERS: ATTEND Nurse Practitioner Family
DX: Z12.31 Encounter for screening mammogram for malignant neoplasm of breast (principal)

== ENCOUNTER → 2021-01-15 | Outpatient (CLI) | payer MEDICARE ==
--- NOTE | 2021-01-15 11:34 | REP ---
INDICATION: OTHER NONSPECIFIC ABNORMAL FINDING OF LUNG FIELD COMPARISON: Multiple the latest 02/06/2020 a contrast-enhanced exam TECHNIQUE: Standard helical technique without contrast. This causes exam limitations. FINDINGS: The mediastinum and pulmonary ruma do not appear to have changed significantly. No definite mass or adenopathy is identified. There are no pleural or pericardial effusions. There is no significant change in appearance of the imaged upper abdomen or imaged osseous structures. Evaluation of the lung holloway shows no evidence of a new abnormal nodule, mass, or opacity. IMPRESSION: Stable CT examination of the chest <Electronically signed by Gian Eagle > 01/15/21 [id number]
== END ==
LOC: M RAD 10:03
PROVIDERS: ATTEND Nurse Practitioner Adult Health
DX: R91.8 Other nonspecific abnormal finding of lung field (principal)

== ENCOUNTER → 2021-02-10 | Outpatient (CLI) | payer MEDICARE ==
[2021-02-10 18:46] LABS: BASO # 0.1 10^3/uL (0.0-0.2); BASO % 0.7 % (0.0-1.0); EOS # 0.1 10^3/uL (0.0-0.5); EOS % 1.3 % (0.0-3.0); HEMOGLOBIN 11.7 g/dl (12.0-15.5); LYMPH # 2.9 10^3/uL (1.5-5.0); LYMPH % 26.8 % (24.0-44.0); MEAN CORPUSCULAR HEMOGLOBIN 31.6 pg (27.0-33.0); MEAN CORPUSCULAR HGB CONC 31.6 g/dl (32.0-36.5); MONO # 0.6 10^3/uL (0.0-0.8); MONO % 5.8 % (2.0-8.0); NEUTROPHILS % 64.9 % (36.0-66.0); PLATELET COUNT, AUTOMATED 308 10^3/uL (150-450); WHITE BLOOD COUNT 10.8 10^3/uL (4.0-10.0)
[2021-02-10 19:03] LABS: HEMOGLOBIN A1c 6.1 %
[2021-02-10 19:18] LABS: ALBUMIN 3.2 GM/DL (3.2-5.2); BILIRUBIN,TOTAL 0.4 MG/DL (0.2-1.0); CALCIUM LEVEL 9.2 MG/DL (8.8-10.2); CHOLESTEROL RISK RATIO 3.704 (<5); CREATININE FOR GFR 1.23 MG/DL (0.55-1.30); FREE T4 1.03 NG/DL (0.76-1.46); GLOMERULAR FILTRATION RATE 46.9 (>45); POTASSIUM SERUM 4.2 MEQ/L (3.5-5.1); THYROID STIMULATING HORMONE 1.33 uIU/ML (0.358-3.740); TOTAL PROTEIN 7.3 GM/DL (6.4-8.2); URIC ACID 3.3 MG/DL (2.6-6.0); VALPROIC ACID (DEPAKOTE) 74.6 UG/ML (50.0-100.0)
[2021-02-10 19:20] LABS: MALB URINE SIEMENS 45.2 MG/L; MAU/CREAT RATIO 40.3 MCG/MG (0.0-30.0); TOTAL 25(OH) VITAMIN D 40.8 NG/ML (30.0-100.0)
== END ==
LOC: M PLALAB 15:23
PROVIDERS: ATTEND Nurse Practitioner Family
DX: E11.9 Type 2 diabetes mellitus without complications (principal)

== ENCOUNTER → 2021-02-18 | Outpatient (CLI) | payer MEDICARE ==
--- NOTE | 2021-02-18 12:24 | REP ---
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 COMPARISON: 11/10/2006 TECHNIQUE: Sagittal spin-echo proton density, T2 STIR and T2 FLASH. Coronal spin-echo proton density and fat suppressed proton density. Axial fat suppressed proton density. FINDINGS: There is grade 3 signal change seen in the posterior horn of the lateral meniscus. The anterior horn is within normal limits. There is grade 3 signal change seen within a truncated posterior horn of the medial meniscus. The anterior horn is within normal limits. The anterior and posterior cruciate ligaments are intact. The quadriceps and patellar tendons are intact. The medial and lateral collateral ligaments are intact. The medial and lateral patellar retinacula are intact. There is advanced thinning and irregularity of all articular cartilages. There is a joint effusion and parapatellar plica. There is a 7 x 2.2 x 2.6 cm sized Mcfarland's cyst. There is a collection of cysts abutting the anterior cruciate ligament with an overall measurement of 2.6 x 1.3x 1 cm. IMPRESSION: 1. There is a bucket-handle tear of the medial meniscus. 2. The posterior horn of the lateral meniscus is torn. 3. There is a cluster of small cysts abutting the anterior cruciate ligament likely due to cystic degeneration. There is no evidence of an acute tear. 4. Joint effusion and parapatellar plica with Mcfarland's cyst as described above. 5. Advanced tricompartmental chondromalacia. 6. Other findings as described above. <Electronically signed by Gian Eagle > 02/18/21 [id number]
== END ==
LOC: M PLAIMG 10:55
PROVIDERS: ATTEND Orthopaedic Surgery
DX: M17.11 Unilateral primary osteoarthritis, right knee (principal)

== ENCOUNTER → 2021-04-01 | Outpatient (CLI) | payer MEDICARE ==
[2021-04-01 13:45] LABS: BASO # 0.1 10^3/uL (0.0-0.2); BASO % 0.5 % (0.0-1.0); EOS # 0.1 10^3/uL (0.0-0.5); EOS % 0.6 % (0.0-3.0); HEMATOCRIT 39.6 % (36.0-47.0); HEMOGLOBIN 12.5 g/dl (12.0-15.5); LYMPH % 14.4 % (24.0-44.0); MEAN CORPUSCULAR HEMOGLOBIN 31.9 pg (27.0-33.0); MEAN CORPUSCULAR HGB CONC 31.6 g/dl (32.0-36.5); MONO # 0.8 10^3/uL (0.0-0.8); MONO % 5.7 % (2.0-8.0); NEUTROPHILS % 78.2 % (36.0-66.0); PLATELET COUNT, AUTOMATED 319 10^3/uL (150-450); RED BLOOD COUNT 3.92 10^6/uL (4.00-5.40)
[2021-04-01 13:55] LABS: INR 0.99; PARTIAL THROMBOPLASTIN TIME 28.2 SECONDS (25.9-37.0); PROTHROMBIN TIME 13.5 SECONDS (12.7-14.5)
[2021-04-01 14:17] LABS: ALBUMIN 3.4 GM/DL (3.2-5.2); BILIRUBIN,TOTAL 0.4 MG/DL (0.2-1.0); CALCIUM LEVEL 9.6 MG/DL (8.8-10.2); CREATININE FOR GFR 1.14 MG/DL (0.55-1.30); FREE T4 1.13 NG/DL (0.76-1.46); GLOMERULAR FILTRATION RATE 51.1 (>45); POTASSIUM SERUM 4.1 MEQ/L (3.5-5.1); THYROID STIMULATING HORMONE 1.94 uIU/ML (0.358-3.740); TOTAL PROTEIN 7.7 GM/DL (6.4-8.2)
== END ==
LOC: M PLALAB 11:26
PROVIDERS: ATTEND Family Medicine
DX: I50.32 Chronic diastolic (congestive) heart failure (principal); I11.0 Hypertensive heart disease with heart failure

== ENCOUNTER → 2021-04-01 | Outpatient (CLI) | payer MEDICARE ==
[2021-04-01 14:08] LABS: CALCIUM LEVEL 9.8 MG/DL (8.8-10.2); CREATININE FOR GFR 1.18 MG/DL (0.55-1.30); GLOMERULAR FILTRATION RATE 49.1 (>45); POTASSIUM SERUM 4.1 MEQ/L (3.5-5.1)
== END ==
LOC: M PLALAB 11:29
PROVIDERS: ATTEND Orthopaedic Surgery
DX: Z01.812 Encounter for preprocedural laboratory examination (principal)

== ENCOUNTER → 2021-07-03 | Outpatient (CLI) | payer MEDICARE ==
[~2021-07-03] MED LIST changes: -FLUC150T PO; +FLUC150T9 PO; +LOSA50TA28; -LOSA50TA88; -MONT10TA10 PO; +MONT10TA97 PO; -OMEP-221 PO; +OMEP40CA5 PO
== END ==
LOC: M PLAIMG 13:53
PROVIDERS: ATTEND Physician Assistant
DX: M70.62 Trochanteric bursitis, left hip (principal)

== ENCOUNTER → 2021-07-10 | Outpatient (CLI) | payer MEDICARE ==
[2021-07-10 14:29] LABS: BASO # 0.1 10^3/uL (0.0-0.2); BASO % 0.7 % (0.0-1.0); EOS # 0.1 10^3/uL (0.0-0.5); EOS % 0.8 % (0.0-3.0); HEMATOCRIT 37.5 % (36.0-47.0); HEMOGLOBIN 12.2 g/dl (12.0-15.5); LYMPH % 19.6 % (24.0-44.0); MEAN CORPUSCULAR HEMOGLOBIN 32.5 pg (27.0-33.0); MEAN CORPUSCULAR HGB CONC 32.5 g/dl (32.0-36.5); MONO # 0.7 10^3/uL (0.0-0.8); MONO % 6.7 % (2.0-8.0); NEUTROPHILS # 7.4 10^3/uL (1.5-8.5); NEUTROPHILS % 71.7 % (36.0-66.0); PLATELET COUNT, AUTOMATED 263 10^3/uL (150-450); RED BLOOD COUNT 3.75 10^6/uL (4.00-5.40); WHITE BLOOD COUNT 10.3 10^3/uL (4.0-10.0)
[2021-07-10 15:36] LABS: ALBUMIN 3.3 GM/DL (3.2-5.2); BILIRUBIN,TOTAL 0.6 MG/DL (0.2-1.0); CREATININE FOR GFR 1.41 MG/DL (0.55-1.30); PTH INTACT 118.5 PG/ML (18.5-88.0); TOTAL 25(OH) VITAMIN D 39.7 NG/ML (30.0-100.0); TOTAL PROTEIN 7.2 GM/DL (6.4-8.2); URIC ACID 2.7 MG/DL (2.6-6.0)
[2021-07-10 17:39] LABS: HEMOGLOBIN A1c 5.9 %
== END ==
LOC: M PLALAB 10:42
PROVIDERS: ATTEND Family Medicine
DX: D72.829 Elevated white blood cell count, unspecified (principal); R68.2 Dry mouth, unspecified; Z79.899 Other long term (current) drug therapy

== ENCOUNTER → 2021-08-04 | Outpatient (CLI) | payer MEDICARE ==
[2021-08-04 13:45] LABS: C REACTIVE PROTEIN QUANTITATIV < 0.30 MG/DL (0.00-0.30); RHEUMATOID FACTOR QUANT < 10.0 IU/ML (<15.0)
== END ==
LOC: M PLALAB 11:26
PROVIDERS: ATTEND Nurse Practitioner Family
DX: R76.8 Other specified abnormal immunological findings in serum (principal)

== ENCOUNTER → 2021-09-12 | Outpatient (CLI) | payer MEDICARE ==
[~2021-09-12] MED LIST changes: +MECL1TAB31 PO; +ONDA4TAB6 PO
[2021-09-12 16:14] LABS: ALBUMIN 3.1 GM/DL (3.2-5.2); CALCIUM LEVEL 8.8 MG/DL (8.8-10.2); CREATININE FOR GFR 1.2 MG/DL (0.55-1.30); GLOMERULAR FILTRATION RATE 48.1 (>45); PHOSPHORUS LEVEL 3.5 MG/DL (2.5-4.9); POTASSIUM SERUM 3.7 MEQ/L (3.5-5.1)
== END ==
LOC: M PLALAB 12:26
PROVIDERS: ATTEND Nurse Practitioner Family
DX: N18.31 Chronic kidney disease, stage 3a (principal)

== ENCOUNTER 2021-09-20 13:45 | Emergency (ER) | payer MEDICARE ==
[~2021-09-20] VITALS: Ht 170.2 cm; Wt 90.0 kg
[~2021-09-20 13:45] MED LIST changes: -MECL1TAB31 PO; -ONDA4TAB6 PO
[2021-09-20] MEDS ORDERED: ONDANSETRON 4MG/2ML VIAL IV ONE (14:40)
[2021-09-20] MEDS ORDERED: NS 1,000 ML IV ONE (14:40)
[2021-09-20 14:43] LABS: BASO # 0.1 10^3/uL (0.0-0.2); BASO % 0.7 % (0.0-1.0); EOS # 0.1 10^3/uL (0.0-0.5); EOS % 0.7 % (0.0-3.0); HEMOGLOBIN 12.8 g/dl (12.0-15.5); LYMPH # 2.1 10^3/uL (1.5-5.0); LYMPH % 19.7 % (24.0-44.0); MEAN CORPUSCULAR HEMOGLOBIN 33.4 pg (27.0-33.0); MEAN CORPUSCULAR HGB CONC 33.7 g/dl (32.0-36.5); MEAN CORPUSCULAR VOLUME 99.2 fl (80.0-96.0); MONO # 0.7 10^3/uL (0.0-0.8); MONO % 6.7 % (2.0-8.0); NEUTROPHILS # 7.8 10^3/uL (1.5-8.5); NEUTROPHILS % 71.8 % (36.0-66.0); PLATELET COUNT, AUTOMATED 308 10^3/uL (150-450); RED BLOOD COUNT 3.83 10^6/uL (4.00-5.40); WHITE BLOOD COUNT 10.8 10^3/uL (4.0-10.0)
[2021-09-20 15:02] LABS: INR 0.94
[2021-09-20 15:03] LABS: PARTIAL THROMBOPLASTIN TIME 27.3 SECONDS (25.9-37.0)
[2021-09-20 15:07] LABS: CK-MB VALUE MASS 1.7 NG/ML (<3.6); MB/CK RELATIVE INDEX 1.44 (< OR =4)
[2021-09-20 15:08] LABS: ALBUMIN 3.7 GM/DL (3.2-5.2); BILIRUBIN,DIRECT 0.2 MG/DL (0.0-0.2); BILIRUBIN,TOTAL 0.7 MG/DL (0.2-1.0); CALCIUM LEVEL 8.9 MG/DL (8.8-10.2); CREATININE FOR GFR 1.27 MG/DL (0.55-1.30); GLOMERULAR FILTRATION RATE 45.1 (>45)
[2021-09-20] MEDS ORDERED: MECLIZINE 25 MG TABLET PO ONE (16:50)
[2021-09-20] MEDS ORDERED: ONDA4TAB6 PO (18:26)
[2021-09-20] MEDS ORDERED: MECL1TAB31 PO (18:26)
[2021-09-20 19:25] VITALS: BP 141/82
== END 2021-09-20 19:27 | disposition home or self-care (01) ==
LOC: M ED 13:45
DX: H81.4 Vertigo of central origin (principal); E11.9 Type 2 diabetes mellitus without complications; I11.0 Hypertensive heart disease with heart failure; I50.9 Heart failure, unspecified; F17.200 Nicotine dependence, unspecified, uncomplicated; Z88.5 Allergy status to narcotic agent; Z88.8 Allergy status to other drugs, medicaments and biological substances; Z91.018 Allergy to other foods; Z91.030 Bee allergy status
CPT/HCPCS: 70450; 80047; 80048; 80076; 82550; 82553; 83605; 83690; 84484; 85025; 85610; 85730; 93005; 93041; 96361; 96374; 99284; J2405

== ENCOUNTER → 2021-10-22 | Outpatient (CLI) | payer MEDICARE ==
[~2021-10-22] MED LIST changes: +MECL1TAB31 PO; +ONDA4TAB6 PO
[2021-10-22 16:23] LABS: ALBUMIN 3.4 GM/DL (3.2-5.2); C REACTIVE PROTEIN QUANTITATIV 0.3 MG/DL (0.00-0.30); CREATININE FOR GFR 1.05 MG/DL (0.55-1.30); GLOMERULAR FILTRATION RATE 56.2 (>45); PHOSPHORUS LEVEL 3.3 MG/DL (2.5-4.9); POTASSIUM SERUM 4.4 MEQ/L (3.5-5.1)
== END ==
LOC: M PLALAB 11:52
PROVIDERS: ATTEND Nurse Practitioner Family
DX: R60.0 Localized edema (principal)

== ENCOUNTER → 2021-11-18 | Outpatient (CLI) | payer MEDICARE ==
[2021-11-18 20:59] LABS: ALBUMIN 3.4 GM/DL (3.2-5.2); CREATININE FOR GFR 1.22 MG/DL (0.55-1.30); GLOMERULAR FILTRATION RATE 47.2 (>45); PHOSPHORUS LEVEL 3.2 MG/DL (2.5-4.9); POTASSIUM SERUM 4.2 MEQ/L (3.5-5.1)
== END ==
LOC: M PLALAB 14:34
PROVIDERS: ATTEND Nurse Practitioner Family
DX: R60.0 Localized edema (principal)

== ENCOUNTER → 2021-12-19 | Outpatient (CLI) | payer MEDICARE | LOC: M WHC 08:12 | PROVIDERS: ATTEND Nurse Practitioner Family | DX: Z12.31 Encounter for screening mammogram for malignant neoplasm of breast (principal) ==

== ENCOUNTER → 2022-01-15 | Outpatient (CLI) | payer MEDICARE | LOC: M WHC 07:45 | PROVIDERS: ATTEND Nurse Practitioner Family | DX: R92.8 Other abnormal and inconclusive findings on diagnostic imaging of breast (principal); E11.9 Type 2 diabetes mellitus without complications; I10 Essential (primary) hypertension; M1A.9XX0 Chronic gout, unspecified, without tophus (tophi); F31.9 Bipolar disorder, unspecified; E55.9 Vitamin D deficiency, unspecified; E78.2 Mixed hyperlipidemia; Z79.899 Other long term (current) drug therapy | CPT/HCPCS: 36415; 76642; 77065; 80053; 80061; 80164; 82043; 82306; 82607; 83036; 84550; 85025; G0279 ==

== ENCOUNTER → 2022-01-15 | Outpatient (REF) | payer MEDICARE ==
[2022-01-15 13:40] LABS: BASO # 0.1 10^3/uL (0.0-0.2); BASO % 0.6 % (0.0-1.0); EOS # 0.2 10^3/uL (0.0-0.5); EOS % 1.9 % (0.0-3.0); HEMATOCRIT 37.6 % (36.0-47.0); LYMPH % 26.7 % (24.0-44.0); MEAN CORPUSCULAR HEMOGLOBIN 31.4 pg (27.0-33.0); MEAN CORPUSCULAR HGB CONC 31.9 g/dl (32.0-36.5); MEAN CORPUSCULAR VOLUME 98.4 fl (80.0-96.0); MONO # 0.6 10^3/uL (0.0-0.8); MONO % 5.7 % (2.0-8.0); NEUTROPHILS % 63.7 % (36.0-66.0); PLATELET COUNT, AUTOMATED 377 10^3/uL (150-450); RED BLOOD COUNT 3.82 10^6/uL (4.00-5.40)
[2022-01-15 14:16] LABS: ALT/SGPT 11 U/L (12-78); BILIRUBIN,TOTAL 0.3 MG/DL (0.2-1.0); BLOOD UREA NITROGEN 19 MG/DL (7-18); CARBON DIOXIDE LEVEL 30 MEQ/L (21-32); CHLORIDE LEVEL 100 MEQ/L (98-107); CHOLESTEROL LEVEL 137 MG/DL (<200); CHOLESTEROL RISK RATIO 3.425 (<5); CREATININE FOR GFR 0.94 MG/DL (0.55-1.30); GLOMERULAR FILTRATION RATE > 60.0 (>45); GLUCOSE, FASTING 133 MG/DL (70-100); HDL CHOLESTEROL 40 MG/DL (>40); LDL CHOLESTEROL 59 MG/DL (<100); NON-HDL-C 97 MG/DL; POTASSIUM SERUM 4.1 MEQ/L (3.5-5.1); SODIUM LEVEL 135 MEQ/L (136-145); TOTAL PROTEIN 7.1 GM/DL (6.4-8.2); TRIGLYCERIDES LEVEL 190 MG/DL (<150); URIC ACID 3.1 MG/DL (2.6-6.0); VALPROIC ACID (DEPAKOTE) 70.7 UG/ML (50.0-100.0)
[2022-01-15 14:36] LABS: MALB URINE SIEMENS 83.4 MG/L; MAU/CREAT RATIO 67.8 MCG/MG (0.0-30.0)
[2022-01-15 14:47] LABS: HEMOGLOBIN A1c 6.5 %
[2022-01-15 16:21] LABS: TOTAL 25(OH) VITAMIN D 49.2 NG/ML (30.0-100.0)
[2022-01-16 15:12] LABS: VITAMIN B12 LEVEL 578 PG/ML (247-911)
== END ==
LOC: M SFHCPLAZ 12:45
PROVIDERS: ATTEND Nurse Practitioner Family
DX: E11.9 Type 2 diabetes mellitus without complications (principal); I10 Essential (primary) hypertension; M1A.9XX0 Chronic gout, unspecified, without tophus (tophi); F31.9 Bipolar disorder, unspecified; E55.9 Vitamin D deficiency, unspecified; E78.2 Mixed hyperlipidemia; Z79.899 Other long term (current) drug therapy

== ENCOUNTER → 2022-03-11 | Outpatient (REF) | payer MEDICARE ==
[2022-03-11 18:31] LABS: RSV AMPLIFICATION NEGATIVE (NEGATIVE)
== END ==
LOC: M SFHCPLAZ 16:55
PROVIDERS: ATTEND Nurse Practitioner Family
DX: R09.89 Other specified symptoms and signs involving the circulatory and respiratory systems (principal)

== ENCOUNTER → 2022-04-07 | Outpatient (CLI) | payer MEDICARE | LOC: M RAD 10:12 | PROVIDERS: ATTEND Nurse Practitioner Adult Health | DX: Z87.891 Personal history of nicotine dependence (principal) ==

== ENCOUNTER 2022-07-11 13:57 | Observation (INO) | payer MEDICARE ==
[~2022-07-11] VITALS: Ht 170.2 cm; Wt 103.0 kg
[~2022-07-11 13:57] MED LIST changes: -ATOR40TA75; +ATOR40TA75 PO; -BENZ-52; +BENZ1TAB5; -LOSA50TA28; +LOSA50TA28 PO
[2022-07-11] MEDS ORDERED: BUPR1TAB52 PO (14:20)
[2022-07-11] MEDS ORDERED: TIZA10TA PO (14:20)
[2022-07-11] MEDS ORDERED: SERT50TA29 PO (14:20)
[2022-07-11] MEDS ORDERED: hydrALAZINE 20MG/ML 1ML VIAL IV ONE ×2 (14:45→15:40)
[2022-07-11 15:07] LABS: BASO # 0.1 10^3/uL (0.0-0.2); BASO % 0.9 % (0.0-1.0); EOS # 0.2 10^3/uL (0.0-0.5); EOS % 1.7 % (0.0-3.0); HEMATOCRIT 40.2 % (36.0-47.0); HEMOGLOBIN 13.2 g/dl (12.0-15.5); LYMPH # 1.9 10^3/uL (1.5-5.0); LYMPH % 21.2 % (24.0-44.0); MEAN CORPUSCULAR HEMOGLOBIN 30.7 pg (27.0-33.0); MEAN CORPUSCULAR HGB CONC 32.8 g/dl (32.0-36.5); MEAN CORPUSCULAR VOLUME 93.5 fl (80.0-96.0); MONO # 0.7 10^3/uL (0.0-0.8); MONO % 7.3 % (2.0-8.0); NEUTROPHILS # 6.3 10^3/uL (1.5-8.5); NEUTROPHILS % 68.6 % (36.0-66.0); PLATELET COUNT, AUTOMATED 348 10^3/uL (150-450); WHITE BLOOD COUNT 9.2 10^3/uL (4.0-10.0)
[2022-07-11 15:20] LABS: INR 0.91; PROTHROMBIN TIME 12.4 SECONDS (12.5-14.5)
[2022-07-11 15:21] LABS: PARTIAL THROMBOPLASTIN TIME 26.8 SECONDS (24.8-34.2)
[2022-07-11 15:38] LABS: RSV AMPLIFICATION NEGATIVE (NEGATIVE)
[2022-07-11 15:49] LABS: ALBUMIN 3.7 G/DL (3.2-5.2); BILIRUBIN,DIRECT 0.1 MG/DL (<0.4); BILIRUBIN,TOTAL 0.6 MG/DL (0.3-1.2); CALCIUM LEVEL 9.4 MG/DL (8.3-10.6); CK-MB VALUE MASS 1.5 NG/ML (<3.6); CREATININE FOR GFR 1.02 MG/DL (0.55-1.30); FREE T4 0.99 NG/DL (0.89-1.76); GLOMERULAR FILTRATION RATE 57.9 (>45); MB/CK RELATIVE INDEX 0.78 (< OR =4); POTASSIUM SERUM 5.5 MMOL/L (3.5-5.1); THYROID STIMULATING HORMONE 4.354 uIU/ML (0.55-4.78); TOTAL PROTEIN 7.4 G/DL (5.7-8.2)
[2022-07-11] MEDS ORDERED: ONDANSETRON 4MG 2ML VIAL IV ONE (16:05)
[2022-07-11] MEDS ORDERED: KETOROLAC 30 MG/ML 1ML VIAL IV ONE (16:25)
[2022-07-11] MEDS ORDERED: ISOVUE-370 76% 100ML VIAL As Ordered ONE (16:30)
[2022-07-11 16:31] LABS: CK-MB VALUE MASS 1.2 NG/ML (<3.6)
[2022-07-11] MEDS ORDERED: LORazepam 2 MG/ML 1ML VIAL IV STA (16:36)
[2022-07-11 16:41] LABS: MB/CK RELATIVE INDEX 0.69 (< OR =4)
[2022-07-11] MEDS ORDERED: METO1TAB7 PO (18:46)
[2022-07-11] MEDS ORDERED: MAGN400T2 PO (18:46)
[2022-07-11] MEDS ORDERED: BREO1INH3 INH (18:46)
[2022-07-11] MEDS ORDERED: ALLO300T2 PO (18:46)
[2022-07-11] MEDS ORDERED: ALBU2.5V10 INH (18:46)
[2022-07-11] MEDS ORDERED: D3 S1CAP3 PO (18:47)
[2022-07-11] MEDS ORDERED: ACETAMINOPHEN TAB 650MG DOSE (2X325MG) PO PRN (18:50)
[2022-07-11] MEDS ORDERED: GLUCAGON INJ 1MG VIAL SC PRN (18:50)
[2022-07-11] MEDS ORDERED: GLUCOSE 4GM CHEW TABLET PO PRN (18:50)
[2022-07-11] MEDS ORDERED: HOME MED LIST COMPLETE! XX SCH (18:50)
[2022-07-11] MEDS ORDERED: DEXTROSE 50% 50ML SYRINGE IV PRN (18:50)
[2022-07-11] MEDS ORDERED: ALBUTEROL SULFATE 2.5MG/0.5ML INH NEB SOLN INH PRN (18:55)
[2022-07-11 21:00] LABS: HEMOGLOBIN A1c 7.6 % (4.0-6.0)
[2022-07-11] MEDS ORDERED: LOSARTAN 50MG TABLET PO SCH (21:00)
[2022-07-11] MEDS: INSULIN LISPRO (NovoLOG) PER UNIT SC SCH (21:00)
[2022-07-11] MEDS ORDERED: hydrALAZINE 20MG/ML 1ML VIAL IV PRN (21:35)
[2022-07-11 22:05] VITALS: BP 166/92
[2022-07-11] MEDS: OMEPRAZOLE 20MG CAP PO SCH (22:28)
[2022-07-11] MEDS: tiZANidine 4 MG TAB PO SCH (22:29)
[2022-07-11] MEDS: LEVEMIR (INSULIN DETEMIR) 1 UNITS/0.01ML SC SCH (22:29)
[2022-07-11] MEDS: DOCUSATE SODIUM 100MG CAPSULE PO SCH (22:29)
[2022-07-11] MEDS: GABAPENTIN 300 MG CAP PO SCH (22:29)
[2022-07-11] MEDS: FIORICET TAB PO PRN (22:29)
[2022-07-11 22:52] LABS: CHOLESTEROL RISK RATIO 3.18 (<5); HDL CHOLESTEROL 62.5 MG/DL (>40); LDL CHOLESTEROL 103.5 MG/DL (<100); NON-HDL-C 136.5 MG/DL
[2022-07-11] MEDS: ADVAIR HFA 115/21MCG INHALER INH SCH (23:05)
[2022-07-12] VITALS (12 sets, daily range): BP systolic 88–160; BP diastolic 53–88
[2022-07-12] MEDS ORDERED: NS 500 ML IV ONE (00:55)
[2022-07-12 05:43] LABS: HEMATOCRIT 36.6 % (36.0-47.0); HEMOGLOBIN 11.9 g/dl (12.0-15.5); MEAN CORPUSCULAR HGB CONC 32.5 g/dl (32.0-36.5); MEAN CORPUSCULAR VOLUME 95.3 fl (80.0-96.0); PLATELET COUNT, AUTOMATED 299 10^3/uL (150-450); RED BLOOD COUNT 3.84 10^6/uL (4.00-5.40); WHITE BLOOD COUNT 7.9 10^3/uL (4.0-10.0)
[2022-07-12 06:16] LABS: CALCIUM LEVEL 8.5 MG/DL (8.3-10.6); CREATININE FOR GFR 1.33 MG/DL (0.55-1.30); GLOMERULAR FILTRATION RATE 42.6 (>45); MAGNESIUM LEVEL 1.7 MG/DL (1.8-2.4); POTASSIUM SERUM 4.5 MMOL/L (3.5-5.1)
[2022-07-12] MEDS: ADVAIR HFA 115/21MCG INHALER INH SCH ×2 (07:25→19:54)
[2022-07-12] MEDS: ATORVASTATIN 20 MG TAB PO SCH (08:01)
[2022-07-12] MEDS: buPROPion (WELLBUTRIN SR) 100 MG SR TAB PO SCH (08:01)
[2022-07-12] MEDS: GABAPENTIN 300 MG CAP PO SCH ×2 (08:01→21:25)
[2022-07-12] MEDS: INSULIN LISPRO (NovoLOG) PER UNIT SC SCH ×4 (08:01→21:00)
[2022-07-12] MEDS: allopurinoL 300 MG TAB PO SCH (08:02)
[2022-07-12] MEDS: LOSARTAN 50MG TABLET PO SCH (08:03)
[2022-07-12] MEDS: DOCUSATE SODIUM 100MG CAPSULE PO SCH ×2 (08:03→21:25)
[2022-07-12] MEDS: OMEPRAZOLE 20MG CAP PO SCH ×2 (08:09→21:26)
[2022-07-12] MEDS ORDERED: MAGNESIUM OXIDE 400MG TAB (MAG-OX) PO SCH (09:00)
[2022-07-12] MEDS ORDERED: METOPROLOL SUCC (TopROL XL) 50MG **XL** TAB PO SCH (09:00)
[2022-07-12] MEDS: SERTRALINE HCL 25 MG TABLET PO SCH (09:00)
[2022-07-12] MEDS: FIORICET TAB PO PRN (10:19)
[2022-07-12] MEDS ORDERED: NS 1,000 ML IV SCH (10:40)
[2022-07-12] MEDS ORDERED: MECLIZINE 12.5 MG TAB PO PRN (10:40)
[2022-07-12] MEDS ORDERED: PREVNAR-20 VACCINE 0.5ML SYRINGE IM.IMMUN ONE (12:00)
[2022-07-12] MEDS: HEPARIN SOD (PORCINE) 5000UNITS/ML 1ML VIAL/SYRINGE SQ SCH ×2 (16:07→21:24)
[2022-07-12] MEDS ORDERED: METOPROLOL SUCC *XL* 25MG TAB (TopROL *XL*) PO ONE (21:00)
[2022-07-12] MEDS ORDERED: RAMELTEON 8 MG TAB (ROZEREM) PO PRN (21:20)
[2022-07-12] MEDS: tiZANidine 4 MG TAB PO SCH (21:25)
[2022-07-12] MEDS: LEVEMIR (INSULIN DETEMIR) 1 UNITS/0.01ML SC SCH (21:25)
[2022-07-12] MEDS: MAGNESIUM OXIDE 400MG TAB (MAG-OX) PO SCH (21:26)
[2022-07-13 05:25] VITALS: BP 144/76
[2022-07-13] MEDS: HEPARIN SOD (PORCINE) 5000UNITS/ML 1ML VIAL/SYRINGE SQ SCH ×2 (05:29→13:33)
[2022-07-13 06:59] LABS: BASO # 0.1 10^3/uL (0.0-0.2); BASO % 0.9 % (0.0-1.0); EOS # 0.2 10^3/uL (0.0-0.5); EOS % 2.5 % (0.0-3.0); HEMATOCRIT 35.7 % (36.0-47.0); HEMOGLOBIN 11.6 g/dl (12.0-15.5); LYMPH # 2.4 10^3/uL (1.5-5.0); LYMPH % 32.5 % (24.0-44.0); MEAN CORPUSCULAR HEMOGLOBIN 31.3 pg (27.0-33.0); MEAN CORPUSCULAR HGB CONC 32.5 g/dl (32.0-36.5); MEAN CORPUSCULAR VOLUME 96.2 fl (80.0-96.0); MONO # 0.6 10^3/uL (0.0-0.8); MONO % 7.8 % (2.0-8.0); NEUTROPHILS # 4.2 10^3/uL (1.5-8.5); NEUTROPHILS % 55.8 % (36.0-66.0); PLATELET COUNT, AUTOMATED 298 10^3/uL (150-450); RED BLOOD COUNT 3.71 10^6/uL (4.00-5.40); WHITE BLOOD COUNT 7.5 10^3/uL (4.0-10.0)
[2022-07-13 07:29] LABS: CALCIUM LEVEL 8.7 MG/DL (8.3-10.6); CREATININE FOR GFR 1.32 MG/DL (0.55-1.30); POTASSIUM SERUM 4.1 MMOL/L (3.5-5.1)
[2022-07-13 07:50] VITALS: BP 142/64
[2022-07-13] MEDS: ADVAIR HFA 115/21MCG INHALER INH SCH (08:07)
[2022-07-13] MEDS: INSULIN LISPRO (NovoLOG) PER UNIT SC SCH ×2 (08:17→12:43)
[2022-07-13] MEDS: SERTRALINE HCL 25 MG TABLET PO SCH (08:17)
[2022-07-13] MEDS: buPROPion (WELLBUTRIN SR) 100 MG SR TAB PO SCH (08:17)
[2022-07-13] MEDS: OMEPRAZOLE 20MG CAP PO SCH (08:18)
[2022-07-13] MEDS: allopurinoL 300 MG TAB PO SCH (08:19)
[2022-07-13] MEDS: MAGNESIUM OXIDE 400MG TAB (MAG-OX) PO SCH (08:19)
[2022-07-13] MEDS: LOSARTAN 50MG TABLET PO SCH (08:19)
[2022-07-13] MEDS: ATORVASTATIN 20 MG TAB PO SCH (08:19)
[2022-07-13] MEDS: GABAPENTIN 300 MG CAP PO SCH (08:19)
[2022-07-13] MEDS: DOCUSATE SODIUM 100MG CAPSULE PO SCH (08:19)
[2022-07-13] MEDS ORDERED: METOPROLOL SUCC *XL* 25MG TAB (TopROL *XL*) PO SCH (09:00)
[2022-07-13 11:43] VITALS: BP 138/62
[2022-07-13] MEDS ORDERED: METO1TAB7 PO (12:33)
[2022-07-13] MEDS ORDERED: HYDR-3910 PO ×2 (12:33→13:09)
[2022-07-13] MEDS ORDERED: COZA50TA PO (12:33)
== END 2022-07-13 14:02 | disposition home or self-care (01) ==
LOC: M ED 13:57 → M ED INP 13:58 → M PCU 22:02
PROVIDERS: ADMIT Family Medicine; ATTEND Family Medicine
DX: I16.0 Hypertensive urgency (principal); N18.2 Chronic kidney disease, stage 2 (mild); R55 Syncope and collapse; R11.2 Nausea with vomiting, unspecified; I12.9 Hypertensive chronic kidney disease with stage 1 through stage 4 chronic kidney disease, or unspecified chronic kidney disease; E78.5 Hyperlipidemia, unspecified; F32.A Depression, unspecified; M10.9 Gout, unspecified; K21.9 Gastro-esophageal reflux disease without esophagitis; J45.909 Unspecified asthma, uncomplicated; G90.09 Other idiopathic peripheral autonomic neuropathy; Z79.899 Other long term (current) drug therapy; Z91.018 Allergy to other foods; Z91.030 Bee allergy status; Z88.8 Allergy status to other drugs, medicaments and biological substances; Z88.5 Allergy status to narcotic agent; Z23 Encounter for immunization
CPT/HCPCS: 36415; 70450; 70496; 70498; 70551; 71045; 76775; 80048; 80061; 80076; 81001; 82550; 82553; 83036; 83690; 83735; 83880; 84439; 84443; 84484; 85025; 85027; 85610; 85730; 87631; 90677; 93005; 93041; 93975; 94640; 94760; 96361; 96372; 96374; 96375; 96376; 97112; 97161; 99285; G0009; G0378; J0360; J1815; J1885; J2060; J2405; Q9967

== ENCOUNTER → 2022-07-20 | Outpatient (REF) | payer MEDICARE ==
[~2022-07-20] MED LIST changes: +ALBU2.5V10 INH; +ALLO300T2 PO; +BREO1INH3 INH; +BUPR1TAB52 PO; +COZA50TA PO; +D3 S1CAP3 PO; +HYDR-3910 PO; +MAGN400T2 PO; +METO1TAB7 PO; +SERT50TA29 PO; +TIZA10TA PO
== END ==
LOC: M SFHCPLAZ 10:20
PROVIDERS: ATTEND Nurse Practitioner Family
DX: I10 Essential (primary) hypertension (principal)

== ENCOUNTER → 2022-07-20 | Outpatient (CLI) | payer MEDICARE ==
[2022-07-20 13:36] LABS: CALCIUM LEVEL 8.8 MG/DL (8.3-10.6); CREATININE FOR GFR 1.05 MG/DL (0.55-1.30); POTASSIUM SERUM 4.9 MMOL/L (3.5-5.1)
== END ==
LOC: M PLALAB 10:38
PROVIDERS: ATTEND Nurse Practitioner Family
DX: I10 Essential (primary) hypertension (principal)

== ENCOUNTER → 2022-09-04 | Outpatient (REF) | payer MEDICARE ==
[~2022-09-04] MED LIST changes: -COZA50TA PO; +LOSA-528 PO
[2022-09-04 17:57] LABS: CREATININE,RANDOM URINE 83.1 MG/DL
[2022-09-04 18:01] LABS: TOTAL PROTEIN,RANDOM URINE 227.9 MG/DL (0.0-14.0)
== END ==
LOC: M LAB REF 16:41
PROVIDERS: ATTEND Internal Medicine Nephrology
DX: E11.21 Type 2 diabetes mellitus with diabetic nephropathy (principal)

== ENCOUNTER → 2022-11-30 | Outpatient (CLI) | payer MEDICARE ==
[2022-11-30 16:10] LABS: BASO # 0.1 10^3/uL (0.0-0.2); BASO % 0.8 % (0.0-1.0); EOS # 0.3 10^3/uL (0.0-0.5); EOS % 2.6 % (0.0-3.0); HEMATOCRIT 46.2 % (36.0-47.0); HEMOGLOBIN 14.4 g/dl (12.0-15.5); LYMPH # 1.7 10^3/uL (1.5-5.0); LYMPH % 17.8 % (24.0-44.0); MEAN CORPUSCULAR HEMOGLOBIN 29.8 pg (27.0-33.0); MEAN CORPUSCULAR HGB CONC 31.2 g/dl (32.0-36.5); MEAN CORPUSCULAR VOLUME 95.7 fl (80.0-96.0); MONO # 0.5 10^3/uL (0.0-0.8); MONO % 5.3 % (2.0-8.0); NEUTROPHILS # 7.1 10^3/uL (1.5-8.5); NEUTROPHILS % 73.1 % (36.0-66.0); PLATELET COUNT, AUTOMATED 346 10^3/uL (150-450); RED BLOOD COUNT 4.83 10^6/uL (4.00-5.40); WHITE BLOOD COUNT 9.8 10^3/uL (4.0-10.0)
[2022-11-30 16:13] LABS: HEMOGLOBIN A1c 7.7 % (4.0-6.0)
[2022-11-30 16:27] LABS: ALBUMIN 3.5 G/DL (3.2-5.2); ALKALINE PHOSPHATASE 123 U/L (46-116); ALT/SGPT 42 U/L (7.0-40); AST/SGOT 30 U/L (<34); BILIRUBIN,TOTAL 0.4 MG/DL (0.3-1.2); BLOOD UREA NITROGEN 15 MG/DL (9-23); CALCIUM LEVEL 9.8 MG/DL (8.3-10.6); CARBON DIOXIDE LEVEL 31 MMOL/L (20-31); CHLORIDE LEVEL 100 MMOL/L (98-107); CHOLESTEROL LEVEL 156 MG/DL (<200); CHOLESTEROL RISK RATIO 2.96 (<5); CREATININE FOR GFR 0.98 MG/DL (0.55-1.30); GLOMERULAR FILTRATION RATE > 60.0 (>45); GLUCOSE, FASTING 170 MG/DL (74-106); HDL CHOLESTEROL 52.7 MG/DL (>40); LDL CHOLESTEROL 71.1 MG/DL (<100); NON-HDL-C 103.3 MG/DL; POTASSIUM SERUM 4.6 MMOL/L (3.5-5.1); SODIUM LEVEL 140 MMOL/L (136-145); TOTAL PROTEIN 7.3 G/DL (5.7-8.2); TRIGLYCERIDES LEVEL 161 MG/DL (<150)
== END ==
LOC: M PLALAB 12:08
PROVIDERS: ATTEND Nurse Practitioner Family
DX: E11.9 Type 2 diabetes mellitus without complications (principal)

== ENCOUNTER 2023-01-27 17:58 | Emergency (ER) | payer MEDICARE ==
[~2023-01-27] VITALS: Ht 167.6 cm; Wt 91.3 kg
[~2023-01-27 17:58] MED LIST changes: +CELE0.09 PO; -CELE1CAP9 PO; +MECL-209 PO; -MECL1TAB31 PO
[2023-01-27] MEDS ORDERED: TIZA4CAP PO (18:08)
[2023-01-27] MEDS ORDERED: PRED25TA PO (18:08)
[2023-01-27] MEDS ORDERED: TRAM50TA2 (18:08)
[2023-01-27] MEDS ORDERED: ASPI81CH33 PO (18:09)
[2023-01-27] MEDS ORDERED: methocarbamoL 500 MG TAB PO ONE (21:10)
[2023-01-27] MEDS ORDERED: NORCO, ANEXSIA 5/325MG TABLET (HYDROcodone/ACETAMINOPHEN) PO ONE (21:10)
[2023-01-27 22:57] VITALS: BP 141/78; TEMP 97.3; O2SAT 98
[2023-01-27] MEDS ORDERED: MEDR4PAK PO (23:45)
[2023-01-27] MEDS ORDERED: METH-1164 PO (23:45)
[2023-01-27] MEDS ORDERED: HYDR-3713 PO (23:45)
[2023-01-27] MEDS ORDERED: NORCO 5/325MG TABLET (HOME DOSE PACK) PO ONE (23:50)
== END 2023-01-27 23:59 | disposition home or self-care (01) ==
LOC: M ED 17:58
DX: M51.27 Other intervertebral disc displacement, lumbosacral region (principal); I50.9 Heart failure, unspecified; J45.909 Unspecified asthma, uncomplicated; J44.9 Chronic obstructive pulmonary disease, unspecified; F17.200 Nicotine dependence, unspecified, uncomplicated; Z79.4 Long term (current) use of insulin; Z79.899 Other long term (current) drug therapy; Z88.5 Allergy status to narcotic agent; Z88.8 Allergy status to other drugs, medicaments and biological substances; Z91.018 Allergy to other foods; Z91.030 Bee allergy status

== ENCOUNTER 2023-01-31 11:06 | Emergency (ER) | payer MEDICARE ==
[~2023-01-31] VITALS: Ht 167.6 cm; Wt 93.6 kg
[~2023-01-31 11:06] MED LIST changes: +ASPI81CH33 PO; +HYDR-3713 PO; +MEDR4PAK PO; +METH-1164 PO; +PRED25TA PO; +TRAM50TA2
[2023-01-31] MEDS ORDERED: CYCLOBENZAPRINE 10MG TABLET PO ONE (12:40)
[2023-01-31] MEDS ORDERED: ONDANSETRON 4MG 2ML VIAL IV ONE (12:40)
[2023-01-31] MEDS ORDERED: HYDROMORPHONE HCL 0.5 MG/ 0.5 ML SYRINGE IV ONE (12:40)
[2023-01-31] MEDS ORDERED: LIDOCAINE 5% (LIDODERM) PATCH TD ONE (12:45)
[2023-01-31 14:32] VITALS: BP 131/72; TEMP 97.7; O2SAT 96
[2023-01-31] MEDS ORDERED: HYDR2TAB2 PO (14:46)
[2023-01-31] MEDS ORDERED: DOCU240C9 PO (14:46)
== END 2023-01-31 14:57 | disposition home or self-care (01) ==
LOC: M ED 11:06
DX: S39.012A Strain of muscle, fascia and tendon of lower back, initial encounter (principal); E11.9 Type 2 diabetes mellitus without complications; I10 Essential (primary) hypertension; K21.9 Gastro-esophageal reflux disease without esophagitis; F17.200 Nicotine dependence, unspecified, uncomplicated; Z79.4 Long term (current) use of insulin; Z79.899 Other long term (current) drug therapy; Z88.5 Allergy status to narcotic agent; Z88.8 Allergy status to other drugs, medicaments and biological substances; Z91.018 Allergy to other foods; Z91.030 Bee allergy status
CPT/HCPCS: 96374; 96375; 99283; J1170; J2405

== ENCOUNTER → 2023-03-30 | Outpatient (CLI) | payer MEDICARE ==
[~2023-03-30] MED LIST changes: +DOCU240C9 PO; +HYDR2TAB2 PO
[2023-03-30 14:29] LABS: BASO # 0.1 10^3/uL (0.0-0.2); BASO % 0.8 % (0.0-1.0); EOS # 0.3 10^3/uL (0.0-0.5); EOS % 3.1 % (0.0-3.0); HEMATOCRIT 45.8 % (36.0-47.0); HEMOGLOBIN 14.6 g/dl (12.0-15.5); LYMPH # 1.8 10^3/uL (1.5-5.0); LYMPH % 17.8 % (24.0-44.0); MEAN CORPUSCULAR HEMOGLOBIN 30.7 pg (27.0-33.0); MEAN CORPUSCULAR HGB CONC 31.9 g/dl (32.0-36.5); MEAN CORPUSCULAR VOLUME 96.2 fl (80.0-96.0); MONO # 0.7 10^3/uL (0.0-0.8); NEUTROPHILS # 7.3 10^3/uL (1.5-8.5); PLATELET COUNT, AUTOMATED 332 10^3/uL (150-450); RED BLOOD COUNT 4.76 10^6/uL (4.00-5.40); WHITE BLOOD COUNT 10.3 10^3/uL (4.0-10.0)
[2023-03-30 14:42] LABS: ALBUMIN 3.4 G/DL (3.2-5.2); BILIRUBIN,TOTAL 0.6 MG/DL (0.3-1.2); CALCIUM LEVEL 9.4 MG/DL (8.3-10.6); CHOLESTEROL RISK RATIO 3.01 (<5); CREATININE FOR GFR 1.09 MG/DL (0.55-1.30); GLOMERULAR FILTRATION RATE 53.5 (>45); LDL CHOLESTEROL 73.6 MG/DL (<100); POTASSIUM SERUM 3.7 MMOL/L (3.5-5.1); TOTAL PROTEIN 6.8 G/DL (5.7-8.2)
[2023-03-30 14:51] LABS: TOTAL 25(OH) VITAMIN D 42.2 NG/ML (20.0-100.0)
[2023-03-30 14:52] LABS: THYROID STIMULATING HORMONE 1.708 uIU/ML (0.55-4.78)
[2023-03-30 14:54] LABS: FREE T4 0.96 NG/DL (0.89-1.76)
[2023-03-30 14:56] LABS: CREATININE, URINE 152.8 MG/DL
[2023-03-30 15:02] LABS: URIC ACID 3.1 MG/DL (3.1-7.8)
[2023-03-30 15:11] LABS: MAU/CREAT RATIO 431.9 MCG/MG (0.0-30.0)
[2023-03-30 15:22] LABS: HEMOGLOBIN A1c 7.1 % (4.0-6.0)
== END ==
LOC: M PLALAB 08:41
PROVIDERS: ATTEND Nurse Practitioner Family
DX: E11.9 Type 2 diabetes mellitus without complications (principal)

== ENCOUNTER 2023-04-05 12:39 | Inpatient (IN) | payer MEDICARE ==
[~2023-04-05] VITALS: Ht 167.6 cm; Wt 87.9 kg
[2023-04-05] MEDS ORDERED: methylPREDNISolone 125MG 2ML VIAL IV ONE (12:55)
[2023-04-05] MEDS ORDERED: ACETAMINOPHEN TAB 650MG DOSE (2X325MG) PO ONE (13:00)
[2023-04-05] MEDS ORDERED: cefTRIAXone SOD 2 GM in D5W MINI-BAG PLUS 50 ML IV ONE (13:00)
[2023-04-05] MEDS: IPRATROPIUM 0.5MG/ALBUTEROL 2.5MG INH SOL UD 3ML (DUONEB) NEB PRN ×2 (13:06→13:25)
[2023-04-05 13:07] LABS: ABG BASE EXCESS 0.3 (-2.0-2.0); ABG HCO3 25.2 MMOL/L (22.0-26.0); ABG O2 SATURATION 92.7 % (95.0-99.0); ABG PARTIAL PRESSURE CO2 41.6 mmHg (35.0-45.0); ABG PARTIAL PRESSURE O2 62.4 mmHg (75.0-100.0); ABG STANDARD HCO3 24.6 MMOL/L. (22.0-26.0); ABG TOTAL CO2 26.5 MMOL/L (23.0-31.0)
[2023-04-05 13:17] LABS: BASO % 0.3 % (0.0-1.0); EOS % 0.1 % (0.0-3.0); HEMATOCRIT 43.9 % (36.0-47.0); HEMOGLOBIN 14.4 g/dl (12.0-15.5); LYMPH # 1.3 10^3/uL (1.5-5.0); LYMPH % 10.2 % (24.0-44.0); MEAN CORPUSCULAR HGB CONC 32.8 g/dl (32.0-36.5); MEAN CORPUSCULAR VOLUME 94.6 fl (80.0-96.0); MONO % 7.6 % (2.0-8.0); NEUTROPHILS # 10.6 10^3/uL (1.5-8.5); NEUTROPHILS % 81.3 % (36.0-66.0); PLATELET COUNT, AUTOMATED 231 10^3/uL (150-450); RED BLOOD COUNT 4.64 10^6/uL (4.00-5.40)
[2023-04-05 13:35] LABS: CK-MB VALUE MASS < 1.0 NG/ML (<3.6)
[2023-04-05 13:37] LABS: ALBUMIN 3.3 G/DL (3.2-5.2); ALKALINE PHOSPHATASE 102 U/L (46-116); ALT/SGPT 36 U/L (7.0-40); AST/SGOT 39 U/L (<34); BILIRUBIN,DIRECT 0.5 MG/DL (<0.4); BILIRUBIN,TOTAL 0.9 MG/DL (0.3-1.2); BLOOD UREA NITROGEN 17 MG/DL (9-23); CARBON DIOXIDE LEVEL 25 MMOL/L (20-31); CHLORIDE LEVEL 98 MMOL/L (98-107); CPK CREATINE PHOSPHOKINASE 429 U/L (34-145); CREATININE FOR GFR 0.96 MG/DL (0.55-1.30); GLOMERULAR FILTRATION RATE > 60.0 (>45); GLUCOSE, FASTING 218 MG/DL (74-106); MB/CK RELATIVE INDEX 0.23 (< OR =4); POTASSIUM SERUM 3.3 MMOL/L (3.5-5.1); SODIUM LEVEL 134 MMOL/L (136-145); TOTAL PROTEIN 7.4 G/DL (5.7-8.2)
[2023-04-05] MEDS ORDERED: POTASSIUM CHLORIDE 10MEQ SR TABLET PO ONE (14:20)
[2023-04-05] MEDS ORDERED: hydrALAZINE 20MG/ML 1ML VIAL IV ONE (14:20)
[2023-04-05] MEDS ORDERED: IBUPROFEN 600MG TAB PO ONE (14:25)
[2023-04-05] MEDS ORDERED: ISOVUE-370 76% 100ML VIAL As Ordered ONE (14:30)
[2023-04-05 15:31] LABS: CK-MB VALUE MASS < 1.0 NG/ML (<3.6)
[2023-04-05 15:32] LABS: CPK CREATINE PHOSPHOKINASE 387 U/L (34-145); MB/CK RELATIVE INDEX 0.25 (< OR =4)
[2023-04-05] MEDS ORDERED: MED REC IN PROGRESS XX SCH (16:05)
[2023-04-05] MEDS ORDERED: GLUCAGON INJ 1MG VIAL SC PRN (16:15)
[2023-04-05] MEDS ORDERED: DEXTROSE 50% 50ML SYRINGE IV PRN (16:15)
[2023-04-05] MEDS ORDERED: IPRATROPIUM 0.5MG/ALBUTEROL 2.5MG INH SOL UD 3ML (DUONEB) NEB PRN (16:15)
[2023-04-05] MEDS ORDERED: GLUCOSE 4GM CHEW TABLET PO PRN (16:15)
[2023-04-05] MEDS ORDERED: ACETAMINOPHEN TAB 650MG DOSE (2X325MG) PO PRN (16:15)
[2023-04-05] MEDS ORDERED: ECOT81TA5 PO (17:06)
[2023-04-05] MEDS ORDERED: METO1TAB7 PO (17:06)
[2023-04-05] MEDS ORDERED: LOSA50TA28 PO (17:06)
[2023-04-05] MEDS ORDERED: ZOLO100T PO (17:06)
[2023-04-05] MEDS ORDERED: HOME MED LIST COMPLETE! XX SCH (17:15)
[2023-04-05] MEDS: INSULIN LISPRO (NovoLOG) PER UNIT SC SCH ×2 (18:34→21:13)
[2023-04-05] MEDS: IPRATROPIUM 0.5MG/ALBUTEROL 2.5MG INH SOL UD 3ML (DUONEB) NEB SCH (21:07)
[2023-04-05] MEDS: LEVEMIR (INSULIN DETEMIR) 1 UNITS/0.01ML SC SCH (21:14)
[2023-04-05] MEDS: guaiFENesin 200 MG TAB PO SCH (21:23)
[2023-04-05] MEDS: methylPREDNISolone 40MG 1ML VIAL IV SCH (21:23)
[2023-04-05] MEDS: GABAPENTIN 300 MG CAP PO SCH (21:23)
[2023-04-05] MEDS: NICOTINE 14 MG/24 HR TRANSDERMAL TD SCH (21:25)
[2023-04-06] VITALS (18 sets, daily range): BP systolic 119–142; BP diastolic 56–79; TEMP 97–97.4; O2SAT 84–95
[2023-04-06] MEDS: IPRATROPIUM 0.5MG/ALBUTEROL 2.5MG INH SOL UD 3ML (DUONEB) NEB SCH ×4 (02:00→20:10)
[2023-04-06] MEDS: LevoFLOXacin 750 MG TABLET PO SCH (05:50)
[2023-04-06] MEDS: guaiFENesin 200 MG TAB PO SCH ×7 (05:50→23:17)
[2023-04-06 06:15] LABS: BASO % 0.1 % (0.0-1.0); HEMATOCRIT 42.2 % (36.0-47.0); HEMOGLOBIN 13.5 g/dl (12.0-15.5); LYMPH # 0.7 10^3/uL (1.5-5.0); LYMPH % 7.8 % (24.0-44.0); MEAN CORPUSCULAR HEMOGLOBIN 30.5 pg (27.0-33.0); MEAN CORPUSCULAR VOLUME 95.5 fl (80.0-96.0); MONO # 0.1 10^3/uL (0.0-0.8); MONO % 1.6 % (2.0-8.0); NEUTROPHILS # 7.8 10^3/uL (1.5-8.5); NEUTROPHILS % 89.8 % (36.0-66.0); PLATELET COUNT, AUTOMATED 215 10^3/uL (150-450); RED BLOOD COUNT 4.42 10^6/uL (4.00-5.40); WHITE BLOOD COUNT 8.7 10^3/uL (4.0-10.0)
[2023-04-06 06:59] LABS: CALCIUM LEVEL 9.1 MG/DL (8.3-10.6); CREATININE FOR GFR 1.04 MG/DL (0.55-1.30); GLOMERULAR FILTRATION RATE 56.4 (>45); POTASSIUM SERUM 3.8 MMOL/L (3.5-5.1)
[2023-04-06] MEDS: ADVAIR HFA 230/21MCG INHALER INH SCH ×2 (07:58→20:10)
[2023-04-06] MEDS ORDERED: SYMBICORT 160/4.5MCG INHALER 6GM INH SCH (08:00)
[2023-04-06] MEDS: MAGNESIUM OXIDE 400MG TAB (MAG-OX) PO SCH (09:25)
[2023-04-06] MEDS: methylPREDNISolone 40MG 1ML VIAL IV SCH ×2 (09:25→20:21)
[2023-04-06] MEDS: ATORVASTATIN 20 MG TAB PO SCH (09:26)
[2023-04-06] MEDS: allopurinoL 300 MG TAB PO SCH (09:26)
[2023-04-06] MEDS: OMEPRAZOLE 20MG CAP PO SCH (09:27)
[2023-04-06] MEDS: LOSARTAN 50MG TABLET PO SCH (09:27)
[2023-04-06] MEDS: SERTRALINE 100 MG TAB PO SCH (09:27)
[2023-04-06] MEDS: ASPIRIN 81MG ENTERIC TABLET PO SCH (09:27)
[2023-04-06] MEDS: METOPROLOL SUCC (TopROL XL) 50MG **XL** TAB PO SCH (09:27)
[2023-04-06] MEDS: ENOXAPARIN 40MG/0.4ML SYRINGE (J1650 PER 10MG) SC SCH (09:28)
[2023-04-06] MEDS: INSULIN LISPRO (NovoLOG) PER UNIT SC SCH ×4 (09:30→20:20)
[2023-04-06] MEDS: buPROPion (WELLBUTRIN SR) 100 MG SR TAB PO SCH (09:57)
[2023-04-06] MEDS ORDERED: FLUZONE HIGH DOSE(65YR UP)QUAD/PF 240MCG/0.7ML SYRINGE IM.IMMUN ONE (13:00)
[2023-04-06] MEDS ORDERED: TRAZ-252 PO (18:39)
[2023-04-06] MEDS: NICOTINE 14 MG/24 HR TRANSDERMAL TD SCH (20:21)
[2023-04-06] MEDS: LEVEMIR (INSULIN DETEMIR) 1 UNITS/0.01ML SC SCH (20:21)
[2023-04-06] MEDS: traZODone 50 MG TAB PO PRN (20:24)
[2023-04-06] MEDS: GABAPENTIN 300 MG CAP PO SCH (20:25)
[2023-04-07] VITALS (12 sets, daily range): BP systolic 112–140; BP diastolic 59–78; TEMP 97–98.5; O2SAT 86–95
[2023-04-07] MEDS: IPRATROPIUM 0.5MG/ALBUTEROL 2.5MG INH SOL UD 3ML (DUONEB) NEB SCH ×4 (01:33→20:50)
[2023-04-07] MEDS: LevoFLOXacin 750 MG TABLET PO SCH (05:04)
[2023-04-07] MEDS: guaiFENesin 200 MG TAB PO SCH ×5 (05:04→21:36)
[2023-04-07 05:56] LABS: HEMATOCRIT 38.9 % (36.0-47.0); HEMOGLOBIN 12.8 g/dl (12.0-15.5); MEAN CORPUSCULAR HEMOGLOBIN 31.1 pg (27.0-33.0); MEAN CORPUSCULAR HGB CONC 32.9 g/dl (32.0-36.5); MEAN CORPUSCULAR VOLUME 94.6 fl (80.0-96.0); PLATELET COUNT, AUTOMATED 258 10^3/uL (150-450); RED BLOOD COUNT 4.11 10^6/uL (4.00-5.40); WHITE BLOOD COUNT 14.2 10^3/uL (4.0-10.0)
[2023-04-07 06:30] LABS: CALCIUM LEVEL 8.8 MG/DL (8.3-10.6); CREATININE FOR GFR 1.11 MG/DL (0.55-1.30); GLOMERULAR FILTRATION RATE 52.4 (>45); MAGNESIUM LEVEL 2.1 MG/DL (1.8-2.4); POTASSIUM SERUM 3.8 MMOL/L (3.5-5.1)
[2023-04-07 06:31] LABS: ATYPICAL LYMPH 3 % (0-5); LYMPHOCYTES 8 % (16-44); MONOCYTES 2 % (0-5); NEUTROPHILS 86 % (28-66); PLATELET ESTIMATE NORMAL (NORMAL)
[2023-04-07] MEDS: buPROPion (WELLBUTRIN SR) 100 MG SR TAB PO SCH (08:00)
[2023-04-07] MEDS: methylPREDNISolone 40MG 1ML VIAL IV SCH ×2 (08:00→21:31)
[2023-04-07] MEDS: INSULIN LISPRO (NovoLOG) PER UNIT SC SCH ×4 (08:01→21:00)
[2023-04-07] MEDS: ENOXAPARIN 40MG/0.4ML SYRINGE (J1650 PER 10MG) SC SCH (08:01)
[2023-04-07] MEDS: ASPIRIN 81MG ENTERIC TABLET PO SCH (08:02)
[2023-04-07] MEDS: SERTRALINE 100 MG TAB PO SCH (08:02)
[2023-04-07] MEDS: OMEPRAZOLE 20MG CAP PO SCH (08:02)
[2023-04-07] MEDS: METOPROLOL SUCC (TopROL XL) 50MG **XL** TAB PO SCH (08:02)
[2023-04-07] MEDS: ATORVASTATIN 20 MG TAB PO SCH (08:02)
[2023-04-07] MEDS: MAGNESIUM OXIDE 400MG TAB (MAG-OX) PO SCH (08:03)
[2023-04-07] MEDS: LOSARTAN 50MG TABLET PO SCH (08:03)
[2023-04-07] MEDS: allopurinoL 300 MG TAB PO SCH (08:03)
[2023-04-07] MEDS: ADVAIR HFA 230/21MCG INHALER INH SCH ×2 (08:10→20:50)
[2023-04-07] MEDS ORDERED: FLUZONE HIGH DOSE(65YR UP)QUAD/PF 240MCG/0.7ML SYRINGE IM.IMMUN ONE ×2 (09:00→18:45)
[2023-04-07] MEDS ORDERED: INFLUENZA QUADRIVALENT PF VACCINE 0.5ML SYRINGE IM.IMMUN ONE (09:00)
[2023-04-07] MEDS: SODIUM CHLORIDE HYPERTONIC 3% 4ML NEB SOL INH SCH ×2 (11:46→15:55)
[2023-04-07] MEDS: GABAPENTIN 300 MG CAP PO SCH (21:31)
[2023-04-07] MEDS: LEVEMIR (INSULIN DETEMIR) 1 UNITS/0.01ML SC SCH (21:32)
[2023-04-07] MEDS: NICOTINE 14 MG/24 HR TRANSDERMAL TD SCH (21:32)
[2023-04-07] MEDS: traZODone 50 MG TAB PO PRN (21:35)
[2023-04-08] MEDS: IPRATROPIUM 0.5MG/ALBUTEROL 2.5MG INH SOL UD 3ML (DUONEB) NEB SCH ×5 (00:20→23:16)
[2023-04-08] MEDS: SODIUM CHLORIDE HYPERTONIC 3% 4ML NEB SOL INH SCH ×4 (00:20→23:16)
[2023-04-08] MEDS: guaiFENesin 200 MG TAB PO SCH ×6 (00:55→20:53)
[2023-04-08 04:20] VITALS: BP 140/76; TEMP 97; O2SAT 96
[2023-04-08 06:07] LABS: BASO % 0.2 % (0.0-1.0); HEMOGLOBIN 12.7 g/dl (12.0-15.5); LYMPH # 1.2 10^3/uL (1.5-5.0); MEAN CORPUSCULAR HEMOGLOBIN 31.1 pg (27.0-33.0); MEAN CORPUSCULAR HGB CONC 32.6 g/dl (32.0-36.5); MEAN CORPUSCULAR VOLUME 95.6 fl (80.0-96.0); MONO # 0.4 10^3/uL (0.0-0.8); MONO % 2.6 % (2.0-8.0); NEUTROPHILS # 12.8 10^3/uL (1.5-8.5); NEUTROPHILS % 87.8 % (36.0-66.0); PLATELET COUNT, AUTOMATED 278 10^3/uL (150-450); RED BLOOD COUNT 4.08 10^6/uL (4.00-5.40); WHITE BLOOD COUNT 14.6 10^3/uL (4.0-10.0)
[2023-04-08 06:30] LABS: CALCIUM LEVEL 8.8 MG/DL (8.3-10.6); GLOMERULAR FILTRATION RATE 59.1 (>45); MAGNESIUM LEVEL 1.9 MG/DL (1.8-2.4)
[2023-04-08] MEDS: LevoFLOXacin 750 MG TABLET PO SCH (06:58)
[2023-04-08] MEDS: ADVAIR HFA 230/21MCG INHALER INH SCH ×2 (07:18→19:15)
[2023-04-08 08:26] VITALS: O2SAT 89
[2023-04-08] MEDS: ENOXAPARIN 40MG/0.4ML SYRINGE (J1650 PER 10MG) SC SCH (08:41)
[2023-04-08] MEDS: INSULIN LISPRO (NovoLOG) PER UNIT SC SCH ×4 (08:41→20:42)
[2023-04-08] MEDS: methylPREDNISolone 40MG 1ML VIAL IV SCH ×2 (08:41→20:54)
[2023-04-08] MEDS: ASPIRIN 81MG ENTERIC TABLET PO SCH (08:42)
[2023-04-08] MEDS: allopurinoL 300 MG TAB PO SCH (08:42)
[2023-04-08] MEDS: buPROPion (WELLBUTRIN SR) 100 MG SR TAB PO SCH (08:42)
[2023-04-08] MEDS: ATORVASTATIN 20 MG TAB PO SCH (08:42)
[2023-04-08] MEDS: SERTRALINE 100 MG TAB PO SCH (08:43)
[2023-04-08] MEDS: OMEPRAZOLE 20MG CAP PO SCH (08:43)
[2023-04-08] MEDS: MAGNESIUM OXIDE 400MG TAB (MAG-OX) PO SCH (08:43)
[2023-04-08] MEDS: LOSARTAN 50MG TABLET PO SCH (08:43)
[2023-04-08] MEDS: METOPROLOL SUCC (TopROL XL) 50MG **XL** TAB PO SCH (08:44)
[2023-04-08] MEDS ORDERED: LEVO1TAB40 PO (08:56)
[2023-04-08] MEDS ORDERED: PRED50TA PO (08:56)
[2023-04-08] MEDS: SENOKOT S TAB PO SCH ×2 (10:14→20:53)
[2023-04-08] MEDS ORDERED: FLUZONE HIGH DOSE(65YR UP)QUAD/PF 240MCG/0.7ML SYRINGE IM.IMMUN ONE (10:30)
[2023-04-08 14:00] VITALS: BP 122/64; TEMP 97.1; O2SAT 93
[2023-04-08 16:25] VITALS: BP 154/83; TEMP 97.5; O2SAT 90
[2023-04-08] MEDS ORDERED: LORATADINE 10 MG TAB PO ONE (18:25)
[2023-04-08] MEDS: GABAPENTIN 300 MG CAP PO SCH (20:53)
[2023-04-08] MEDS: LEVEMIR (INSULIN DETEMIR) 1 UNITS/0.01ML SC SCH (20:54)
[2023-04-08] MEDS: NICOTINE 14 MG/24 HR TRANSDERMAL TD SCH (20:55)
[2023-04-08 21:20] VITALS: BP 142/78; TEMP 97.5; O2SAT 88
[2023-04-08 22:05] VITALS: O2SAT 92
[2023-04-08] MEDS: traZODone 50 MG TAB PO PRN (22:43)
[2023-04-09] MEDS: guaiFENesin 200 MG TAB PO SCH ×6 (00:39→20:45)
[2023-04-09] MEDS: LevoFLOXacin 750 MG TABLET PO SCH (05:10)
[2023-04-09 05:11] VITALS: BP 150/82; TEMP 97.5; O2SAT 91
[2023-04-09 05:55] LABS: BASO % 0.3 % (0.0-1.0); EOS % 0.1 % (0.0-3.0); HEMATOCRIT 40.8 % (36.0-47.0); LYMPH # 1.2 10^3/uL (1.5-5.0); LYMPH % 8.1 % (24.0-44.0); MEAN CORPUSCULAR HEMOGLOBIN 30.6 pg (27.0-33.0); MEAN CORPUSCULAR HGB CONC 31.9 g/dl (32.0-36.5); MONO # 0.4 10^3/uL (0.0-0.8); MONO % 2.8 % (2.0-8.0); NEUTROPHILS # 12.6 10^3/uL (1.5-8.5); NEUTROPHILS % 86.9 % (36.0-66.0); PLATELET COUNT, AUTOMATED 313 10^3/uL (150-450); RED BLOOD COUNT 4.25 10^6/uL (4.00-5.40); WHITE BLOOD COUNT 14.5 10^3/uL (4.0-10.0)
[2023-04-09 06:20] LABS: BLOOD UREA NITROGEN 37 MG/DL (9-23); CALCIUM LEVEL 8.6 MG/DL (8.3-10.6); CARBON DIOXIDE LEVEL 25 MMOL/L (20-31); CHLORIDE LEVEL 104 MMOL/L (98-107); CREATININE FOR GFR 0.91 MG/DL (0.55-1.30); GLOMERULAR FILTRATION RATE > 60.0 (>45); GLUCOSE, FASTING 317 MG/DL (74-106); MAGNESIUM LEVEL 1.9 MG/DL (1.8-2.4); POTASSIUM SERUM 4.1 MMOL/L (3.5-5.1); SODIUM LEVEL 138 MMOL/L (136-145)
[2023-04-09] MEDS: INSULIN LISPRO (NovoLOG) PER UNIT SC SCH ×4 (08:13→20:35)
[2023-04-09] MEDS: ENOXAPARIN 40MG/0.4ML SYRINGE (J1650 PER 10MG) SC SCH (08:13)
[2023-04-09] MEDS: buPROPion (WELLBUTRIN SR) 100 MG SR TAB PO SCH (08:14)
[2023-04-09] MEDS: SENOKOT S TAB PO SCH ×2 (08:14→20:45)
[2023-04-09] MEDS: ATORVASTATIN 20 MG TAB PO SCH (08:14)
[2023-04-09] MEDS: ASPIRIN 81MG ENTERIC TABLET PO SCH (08:15)
[2023-04-09] MEDS: allopurinoL 300 MG TAB PO SCH (08:15)
[2023-04-09] MEDS: methylPREDNISolone 40MG 1ML VIAL IV SCH ×2 (08:19→20:45)
[2023-04-09] MEDS: METOPROLOL SUCC (TopROL XL) 50MG **XL** TAB PO SCH (08:20)
[2023-04-09] MEDS: MAGNESIUM OXIDE 400MG TAB (MAG-OX) PO SCH (08:20)
[2023-04-09] MEDS: LOSARTAN 50MG TABLET PO SCH (08:21)
[2023-04-09] MEDS: OMEPRAZOLE 20MG CAP PO SCH (08:21)
[2023-04-09] MEDS: SERTRALINE 100 MG TAB PO SCH (08:22)
[2023-04-09] MEDS: SODIUM CHLORIDE HYPERTONIC 3% 4ML NEB SOL INH SCH ×2 (08:35→14:01)
[2023-04-09] MEDS: ADVAIR HFA 230/21MCG INHALER INH SCH ×2 (08:35→20:02)
[2023-04-09] MEDS: IPRATROPIUM 0.5MG/ALBUTEROL 2.5MG INH SOL UD 3ML (DUONEB) NEB SCH ×3 (08:35→20:02)
[2023-04-09 11:45] VITALS: O2SAT 88
[2023-04-09 14:00] VITALS: BP 161/97; TEMP 97.7; O2SAT 90
[2023-04-09 20:01] VITALS: O2SAT 93
[2023-04-09] MEDS: GABAPENTIN 300 MG CAP PO SCH (20:45)
[2023-04-09] MEDS: NICOTINE 14 MG/24 HR TRANSDERMAL TD SCH (20:45)
[2023-04-09] MEDS: LEVEMIR (INSULIN DETEMIR) 1 UNITS/0.01ML SC SCH (20:46)
[2023-04-09 21:00] VITALS: BP 156/93; TEMP 97.5; O2SAT 90
[2023-04-09] MEDS: traZODone 50 MG TAB PO PRN (23:07)
[2023-04-10] MEDS: guaiFENesin 200 MG TAB PO SCH ×4 (00:44→12:18)
[2023-04-10] MEDS: IPRATROPIUM 0.5MG/ALBUTEROL 2.5MG INH SOL UD 3ML (DUONEB) NEB SCH ×2 (01:53→08:05)
[2023-04-10] MEDS: LevoFLOXacin 750 MG TABLET PO SCH (05:18)
[2023-04-10 05:43] LABS: BASO # 0.1 10^3/uL (0.0-0.2); BASO % 0.4 % (0.0-1.0); EOS % 0.1 % (0.0-3.0); HEMOGLOBIN 13.2 g/dl (12.0-15.5); LYMPH # 1.6 10^3/uL (1.5-5.0); LYMPH % 9.7 % (24.0-44.0); MEAN CORPUSCULAR HEMOGLOBIN 30.6 pg (27.0-33.0); MEAN CORPUSCULAR HGB CONC 32.2 g/dl (32.0-36.5); MEAN CORPUSCULAR VOLUME 95.1 fl (80.0-96.0); MONO # 0.5 10^3/uL (0.0-0.8); MONO % 3.2 % (2.0-8.0); NEUTROPHILS # 13.3 10^3/uL (1.5-8.5); NEUTROPHILS % 82.4 % (36.0-66.0); PLATELET COUNT, AUTOMATED 299 10^3/uL (150-450); RED BLOOD COUNT 4.31 10^6/uL (4.00-5.40); WHITE BLOOD COUNT 16.1 10^3/uL (4.0-10.0)
[2023-04-10 06:08] LABS: BLOOD UREA NITROGEN 32 MG/DL (9-23); CALCIUM LEVEL 8.7 MG/DL (8.3-10.6); CARBON DIOXIDE LEVEL 27 MMOL/L (20-31); CHLORIDE LEVEL 105 MMOL/L (98-107); CREATININE FOR GFR 0.82 MG/DL (0.55-1.30); GLOMERULAR FILTRATION RATE > 60.0 (>45); GLUCOSE, FASTING 281 MG/DL (74-106); MAGNESIUM LEVEL 1.6 MG/DL (1.8-2.4); POTASSIUM SERUM 4.2 MMOL/L (3.5-5.1); SODIUM LEVEL 138 MMOL/L (136-145)
[2023-04-10 06:20] VITALS: BP 152/87; TEMP 97.2; O2SAT 92
[2023-04-10] MEDS: ADVAIR HFA 230/21MCG INHALER INH SCH (08:05)
[2023-04-10] MEDS: SODIUM CHLORIDE HYPERTONIC 3% 4ML NEB SOL INH SCH ×2 (08:05)
[2023-04-10] MEDS: methylPREDNISolone 40MG 1ML VIAL IV SCH (08:31)
[2023-04-10] MEDS: INSULIN LISPRO (NovoLOG) PER UNIT SC SCH ×2 (08:32→12:19)
[2023-04-10] MEDS: ASPIRIN 81MG ENTERIC TABLET PO SCH (08:32)
[2023-04-10] MEDS: buPROPion (WELLBUTRIN SR) 100 MG SR TAB PO SCH (08:32)
[2023-04-10] MEDS: ATORVASTATIN 20 MG TAB PO SCH (08:32)
[2023-04-10] MEDS: SENOKOT S TAB PO SCH (08:32)
[2023-04-10] MEDS: OMEPRAZOLE 20MG CAP PO SCH (08:33)
[2023-04-10] MEDS: LOSARTAN 50MG TABLET PO SCH (08:33)
[2023-04-10] MEDS: MAGNESIUM OXIDE 400MG TAB (MAG-OX) PO SCH (08:33)
[2023-04-10 08:34] VITALS: BP 151/89
[2023-04-10] MEDS: allopurinoL 300 MG TAB PO SCH (08:34)
[2023-04-10] MEDS: METOPROLOL SUCC (TopROL XL) 50MG **XL** TAB PO SCH (08:34)
[2023-04-10] MEDS: ENOXAPARIN 40MG/0.4ML SYRINGE (J1650 PER 10MG) SC SCH (08:35)
[2023-04-10] MEDS: SERTRALINE 100 MG TAB PO SCH (08:35)
[2024-03-13] MEDS ORDERED: INFLUENZA QUADRIVALENT PF VACCINE 0.5ML SYRINGE IM.IMMUN ONE (09:00)
== END 2023-04-10 14:01 | disposition home or self-care (01) | DRG 189 ==
LOC: M ED 12:39 → EDBD 12:39 → M ED INP 12:40 → ENRESERV 04-06 10:43 → M PCU 04-06 11:22 → M MS4PR 04-07 08:28 → OBSVTOIN 04-07 11:12 → M MSPAV 04-08 16:26
PROVIDERS: ADMIT Family Medicine; ATTEND Family Medicine
DX: J96.01 Acute respiratory failure with hypoxia (principal); I21.A1 Myocardial infarction type 2; J45.901 Unspecified asthma with (acute) exacerbation; B97.0 Adenovirus as the cause of diseases classified elsewhere; E11.9 Type 2 diabetes mellitus without complications; I10 Essential (primary) hypertension; K21.9 Gastro-esophageal reflux disease without esophagitis; F17.210 Nicotine dependence, cigarettes, uncomplicated; Z79.82 Long term (current) use of aspirin; Z79.4 Long term (current) use of insulin; Z79.899 Other long term (current) drug therapy; Z88.5 Allergy status to narcotic agent; Z88.8 Allergy status to other drugs, medicaments and biological substances; Z91.018 Allergy to other foods; Z91.030 Bee allergy status

== ENCOUNTER → 2023-05-18 | Outpatient (CLI) | payer MEDICARE ==
[~2023-05-18] MED LIST changes: +ECOT81TA5 PO; +LEVO1TAB40 PO; +PRED50TA PO; +TRAZ-252 PO; +ZOLO100T PO
[2023-05-18 15:22] LABS: BASO # 0.1 10^3/uL (0.0-0.2); BASO % 0.7 % (0.0-1.0); EOS # 0.1 10^3/uL (0.0-0.5); EOS % 1.3 % (0.0-3.0); HEMATOCRIT 47.1 % (36.0-47.0); HEMOGLOBIN 14.8 g/dl (12.0-15.5); LYMPH # 1.9 10^3/uL (1.5-5.0); LYMPH % 19.8 % (24.0-44.0); MEAN CORPUSCULAR HGB CONC 31.4 g/dl (32.0-36.5); MEAN CORPUSCULAR VOLUME 98.7 fl (80.0-96.0); MONO # 0.6 10^3/uL (0.0-0.8); MONO % 6.5 % (2.0-8.0); NEUTROPHILS # 6.9 10^3/uL (1.5-8.5); NEUTROPHILS % 71.3 % (36.0-66.0); PLATELET COUNT, AUTOMATED 371 10^3/uL (150-450); RED BLOOD COUNT 4.77 10^6/uL (4.00-5.40); WHITE BLOOD COUNT 9.7 10^3/uL (4.0-10.0)
[2023-05-18 15:53] LABS: ALBUMIN 3.5 G/DL (3.2-5.2); BILIRUBIN,TOTAL 0.6 MG/DL (0.3-1.2); CALCIUM LEVEL 9.4 MG/DL (8.3-10.6); CHOLESTEROL RISK RATIO 3.14 (<5); CREATININE FOR GFR 1.05 MG/DL (0.55-1.30); GLOMERULAR FILTRATION RATE 55.8 (>45); LDL CHOLESTEROL 83.2 MG/DL (<100); POTASSIUM SERUM 4.3 MMOL/L (3.5-5.1)
== END ==
LOC: M PLALAB 09:53
PROVIDERS: ATTEND Nurse Practitioner Family
DX: I10 Essential (primary) hypertension (principal); E11.9 Type 2 diabetes mellitus without complications

== ENCOUNTER → 2023-05-25 | Outpatient (CLI) | payer MEDICARE | LOC: M WHC 10:55 | PROVIDERS: ATTEND Nurse Practitioner Family | DX: Z12.31 Encounter for screening mammogram for malignant neoplasm of breast (principal) ==

== ENCOUNTER → 2023-07-21 | Outpatient (CLI) | payer MEDICARE ==
[~2023-07-21] MED LIST changes: -HYDR-3910 PO; +HYDR25TA87 PO
== END ==
LOC: M PLAIMG 08:10
PROVIDERS: ATTEND Nurse Practitioner Adult Health
DX: R91.8 Other nonspecific abnormal finding of lung field (principal); E07.9 Disorder of thyroid, unspecified; R55 Syncope and collapse

== ENCOUNTER → 2023-07-21 | Outpatient (CLI) | payer MEDICARE ==
[2023-07-21 10:33] LABS: BASO # 0.1 10^3/uL (0.0-0.2); EOS # 0.3 10^3/uL (0.0-0.5); EOS % 4.1 % (0.0-3.0); HEMATOCRIT 43.2 % (36.0-47.0); HEMOGLOBIN 13.6 g/dl (12.0-15.5); LYMPH # 2.1 10^3/uL (1.5-5.0); LYMPH % 26.2 % (24.0-44.0); MEAN CORPUSCULAR HEMOGLOBIN 30.8 pg (27.0-33.0); MEAN CORPUSCULAR HGB CONC 31.5 g/dl (32.0-36.5); MEAN CORPUSCULAR VOLUME 97.7 fl (80.0-96.0); MONO # 0.7 10^3/uL (0.0-0.8); NEUTROPHILS # 4.8 10^3/uL (1.5-8.5); NEUTROPHILS % 59.5 % (36.0-66.0); PLATELET COUNT, AUTOMATED 258 10^3/uL (150-450); RED BLOOD COUNT 4.42 10^6/uL (4.00-5.40)
[2023-07-21 10:54] LABS: CK-MB VALUE MASS 2.3 NG/ML (<3.6)
[2023-07-21 10:57] LABS: MAGNESIUM LEVEL 1.9 MG/DL (1.8-2.4); MB/CK RELATIVE INDEX 1.13 (< OR =4); THYROID STIMULATING HORMONE 3.286 uIU/ML (0.55-4.78)
[2023-07-21 10:59] LABS: FREE T4 1.1 NG/DL (0.89-1.76)
== END ==
LOC: M PLALAB 08:41
PROVIDERS: ATTEND Nurse Practitioner Family
DX: R55 Syncope and collapse (principal); E07.9 Disorder of thyroid, unspecified

== ENCOUNTER → 2023-11-29 | Outpatient (CLI) | payer MEDICARE ==
[~2023-11-29] MED LIST changes: +ONDA-282 PO; -ONDA4TAB6 PO
== END ==
LOC: M RAD 11:08
PROVIDERS: ATTEND Nurse Practitioner Adult Health
DX: R91.8 Other nonspecific abnormal finding of lung field (principal)

== ENCOUNTER → 2024-01-28 | Outpatient (CLI) | payer MEDICARE ==
[~2024-01-28] MED LIST changes: +GABA-1172 PO; +GABA-1490 PO; -GABA-282 PO; -GABA600T4 PO
[2024-01-28 13:05] LABS: BASO # 0.1 10^3/uL (0.0-0.2); BASO % 1.1 % (0.0-1.0); EOS # 0.3 10^3/uL (0.0-0.5); EOS % 3.2 % (0.0-3.0); HEMATOCRIT 46.3 % (36.0-47.0); HEMOGLOBIN 14.4 g/dl (12.0-15.5); LYMPH # 1.7 10^3/uL (1.5-5.0); LYMPH % 19.2 % (24.0-44.0); MEAN CORPUSCULAR HEMOGLOBIN 30.4 pg (27.0-33.0); MEAN CORPUSCULAR HGB CONC 31.1 g/dl (32.0-36.5); MEAN CORPUSCULAR VOLUME 97.7 fl (80.0-96.0); MONO # 0.9 10^3/uL (0.0-0.8); MONO % 9.9 % (2.0-8.0); NEUTROPHILS # 5.8 10^3/uL (1.5-8.5); NEUTROPHILS % 66.3 % (36.0-66.0); PLATELET COUNT, AUTOMATED 297 10^3/uL (150-450); RED BLOOD COUNT 4.74 10^6/uL (4.00-5.40); WHITE BLOOD COUNT 8.8 10^3/uL (4.0-10.0)
[2024-01-28 13:15] LABS: ALBUMIN 3.3 G/DL (3.2-5.2); BILIRUBIN,TOTAL 0.5 MG/DL (0.3-1.2); CALCIUM LEVEL 9.4 MG/DL (8.3-10.6); CHOLESTEROL RISK RATIO 3.04 (<5); CREATININE FOR GFR 1.24 MG/DL (0.55-1.30); GLOMERULAR FILTRATION RATE 46.1 (>45); HDL CHOLESTEROL 50.5 MG/DL (>40); LDL CHOLESTEROL 86.3 MG/DL (<100); NON-HDL-C 103.5 MG/DL; POTASSIUM SERUM 3.8 MMOL/L (3.5-5.1); TOTAL PROTEIN 6.8 G/DL (5.7-8.2)
[2024-01-28 13:16] LABS: THYROID STIMULATING HORMONE 0.685 uIU/ML (0.55-4.78)
[2024-01-28 13:19] LABS: FREE T4 1.1 NG/DL (0.89-1.76)
[2024-01-28 13:22] LABS: URIC ACID 3.4 MG/DL (3.1-7.8)
[2024-01-28 14:04] LABS: HEMOGLOBIN A1c 5.6 % (4.0-6.0)
== END ==
LOC: M PLALAB 09:52
PROVIDERS: ATTEND Nurse Practitioner Family
DX: I10 Essential (primary) hypertension (principal); E11.9 Type 2 diabetes mellitus without complications; E78.2 Mixed hyperlipidemia; E55.9 Vitamin D deficiency, unspecified; M1A.9XX0 Chronic gout, unspecified, without tophus (tophi)

== ENCOUNTER → 2024-02-15 | Outpatient (REF) | payer MEDICARE ==
[2024-02-15 18:54] LABS: CREATININE,RANDOM URINE 72.9 MG/DL
[2024-02-15 18:59] LABS: TOTAL PROTEIN,RANDOM URINE 160.5 MG/DL (0.0-14.0)
== END ==
LOC: M LAB REF 17:22
PROVIDERS: ATTEND Internal Medicine Nephrology
DX: E11.21 Type 2 diabetes mellitus with diabetic nephropathy (principal)

== ENCOUNTER → 2024-03-02 | Outpatient (CLI) | payer MEDICARE | LOC: M PLAIMG 15:23 | PROVIDERS: ATTEND Physician Assistant Medical | DX: J44.9 Chronic obstructive pulmonary disease, unspecified (principal); J06.9 Acute upper respiratory infection, unspecified ==

== ENCOUNTER → 2024-03-03 | Outpatient (CLI) | payer MEDICARE ==
[2024-03-03 10:53] LABS: BASO # 0.1 10^3/uL (0.0-0.2); BASO % 0.7 % (0.0-1.0); EOS # 0.2 10^3/uL (0.0-0.5); EOS % 1.5 % (0.0-3.0); HEMATOCRIT 48.8 % (36.0-47.0); LYMPH # 1.5 10^3/uL (1.5-5.0); LYMPH % 14.6 % (24.0-44.0); MEAN CORPUSCULAR HEMOGLOBIN 30.5 pg (27.0-33.0); MEAN CORPUSCULAR HGB CONC 32.8 g/dl (32.0-36.5); MEAN CORPUSCULAR VOLUME 93.1 fl (80.0-96.0); MONO # 0.7 10^3/uL (0.0-0.8); MONO % 6.7 % (2.0-8.0); NEUTROPHILS # 7.8 10^3/uL (1.5-8.5); PLATELET COUNT, AUTOMATED 277 10^3/uL (150-450); RED BLOOD COUNT 5.24 10^6/uL (4.00-5.40); WHITE BLOOD COUNT 10.3 10^3/uL (4.0-10.0)
[2024-03-03 11:17] LABS: ALBUMIN 3.5 G/DL (3.2-5.2); BILIRUBIN,TOTAL 0.8 MG/DL (0.3-1.2); CALCIUM LEVEL 9.3 MG/DL (8.3-10.6); GLOMERULAR FILTRATION RATE 59.1 (>45); MAGNESIUM LEVEL 1.3 MG/DL (1.8-2.4); POTASSIUM SERUM 3.2 MMOL/L (3.5-5.1); TOTAL PROTEIN 7.3 G/DL (5.7-8.2)
== END ==
LOC: M LAB 10:24
PROVIDERS: ATTEND Physician Assistant Medical
DX: J06.9 Acute upper respiratory infection, unspecified (principal)

== ENCOUNTER → 2024-05-30 | Outpatient (CLI) | payer MEDICARE | LOC: M WHC 14:09 | PROVIDERS: ATTEND Nurse Practitioner Family | DX: Z12.31 Encounter for screening mammogram for malignant neoplasm of breast (principal); Z13.820 Encounter for screening for osteoporosis; M85.89 Other specified disorders of bone density and structure, multiple sites ==

== ENCOUNTER → 2024-06-26 | Outpatient (CLI) | payer MEDICARE | LOC: M PLAIMG 09:05 | PROVIDERS: ATTEND Nurse Practitioner Adult Health | DX: R91.8 Other nonspecific abnormal finding of lung field (principal) ==

== ENCOUNTER → 2024-07-27 | Outpatient (CLI) | payer MEDICARE ==
[~2024-07-27] MED LIST changes: +BUPR-670 PO; -BUPR1TAB52 PO; -PRED50TA PO; +PRED50TA57 PO
[2024-07-27 14:23] LABS: BASO # 0.1 10^3/uL (0.0-0.2); BASO % 0.5 % (0.0-1.0); EOS # 0.2 10^3/uL (0.0-0.5); EOS % 1.2 % (0.0-3.0); HEMATOCRIT 46.3 % (36.0-47.0); HEMOGLOBIN 14.9 g/dl (12.0-15.5); LYMPH # 3.5 10^3/uL (1.5-5.0); MEAN CORPUSCULAR HEMOGLOBIN 31.6 pg (27.0-33.0); MEAN CORPUSCULAR HGB CONC 32.2 g/dl (32.0-36.5); MEAN CORPUSCULAR VOLUME 98.3 fl (80.0-96.0); MONO # 0.8 10^3/uL (0.0-0.8); MONO % 6.3 % (2.0-8.0); NEUTROPHILS # 8.3 10^3/uL (1.5-8.5); NEUTROPHILS % 64.5 % (36.0-66.0); PLATELET COUNT, AUTOMATED 262 10^3/uL (150-450); RED BLOOD COUNT 4.71 10^6/uL (4.00-5.40)
[2024-07-27 14:45] LABS: HEMOGLOBIN A1c 7.1 % (4.0-6.0)
[2024-07-27 14:51] LABS: ALBUMIN 3.4 G/DL (3.2-5.2); BILIRUBIN,TOTAL 0.6 MG/DL (0.3-1.2); CALCIUM LEVEL 8.9 MG/DL (8.3-10.6); CHOLESTEROL RISK RATIO 2.03 (<5); CREATININE FOR GFR 0.94 MG/DL (0.55-1.30); GLOMERULAR FILTRATION RATE 66.5 (>45); HDL CHOLESTEROL 87.8 MG/DL (>40); LDL CHOLESTEROL 53.6 MG/DL (<100); NON-HDL-C 91.2 MG/DL; POTASSIUM SERUM 3.1 MMOL/L (3.5-5.1); TOTAL PROTEIN 6.9 G/DL (5.7-8.2)
== END ==
LOC: M PLALAB 10:07
PROVIDERS: ATTEND Nurse Practitioner Family
DX: E55.9 Vitamin D deficiency, unspecified (principal); E11.9 Type 2 diabetes mellitus without complications; E53.8 Deficiency of other specified B group vitamins; I10 Essential (primary) hypertension; E78.2 Mixed hyperlipidemia

== ENCOUNTER → 2024-08-18 | Outpatient (CLI) | payer MEDICARE | LOC: M WHC 08:30 | PROVIDERS: ATTEND Nurse Practitioner Family | DX: R74.01 Elevation of levels of liver transaminase levels (principal) ==

== ENCOUNTER 2024-11-03 11:33 | Day surgery (SDC) | payer MEDICARE ==
[~2024-11-03] VITALS: Ht 167.6 cm; Wt 77.9 kg
[~2024-11-03 11:33] MED LIST changes: +AMLO25TA PO; +JARD1TAB3 PO
[2024-11-03] MEDS: IPRATROPIUM 0.5 MG/ALBUTEROL 2.5 MG INH SOL UD 3 ML NEB ONE (12:14)
[2024-11-03] MEDS ORDERED: LIDOCAINE 2% 100 MG/5 ML SDV (FOR ANES.) As Ordered ONE (14:04)
[2024-11-03 14:27] VITALS: BP 159/78; O2SAT 95
== END 2024-11-03 14:38 | disposition home or self-care (01) ==
LOC: M OPP 11:33
PROVIDERS: ATTEND Surgery
DX: D12.6 Benign neoplasm of colon, unspecified (principal); I12.9 Hypertensive chronic kidney disease with stage 1 through stage 4 chronic kidney disease, or unspecified chronic kidney disease; E78.00 Pure hypercholesterolemia, unspecified; E11.9 Type 2 diabetes mellitus without complications; K21.9 Gastro-esophageal reflux disease without esophagitis; M19.90 Unspecified osteoarthritis, unspecified site; F41.9 Anxiety disorder, unspecified; F31.9 Bipolar disorder, unspecified; J45.909 Unspecified asthma, uncomplicated; J44.9 Chronic obstructive pulmonary disease, unspecified; N18.30 Chronic kidney disease, stage 3 unspecified; F17.210 Nicotine dependence, cigarettes, uncomplicated; Z88.5 Allergy status to narcotic agent; Z88.8 Allergy status to other drugs, medicaments and biological substances; Z91.018 Allergy to other foods; Z91.030 Bee allergy status; Z79.4 Long term (current) use of insulin; Z79.82 Long term (current) use of aspirin; Z79.84 Long term (current) use of oral hypoglycemic drugs; Z79.899 Other long term (current) drug therapy

== ENCOUNTER → 2025-01-29 | Outpatient (CLI) | payer MEDICARE ==
[2025-01-29 11:11] LABS: BASO # 0.1 10^3/uL (0.0-0.2); BASO % 1.0 % (0.0-1.0); EOS # 0.2 10^3/uL (0.0-0.5); EOS % 2.9 % (0.0-3.0); LYMPH # 1.5 10^3/uL (1.5-5.0); LYMPH % 21.3 % (24.0-44.0); MONO # 0.5 10^3/uL (0.0-0.8); MONO % 7.3 % (2.0-8.0); NEUTROPHILS # 4.9 10^3/uL (1.5-8.5); NEUTROPHILS % 67.2 % (36.0-66.0); PLATELET COUNT, AUTOMATED 270 10^3/uL (150-450)
[2025-01-29 11:30] LABS: ESTIMATED AVERAGE GLUCOSE 134.0 MG/DL (60-110)
[2025-01-29 11:45] LABS: ALT/SGPT 28.0 U/L (7.0-40); AST/SGOT 29.0 U/L (<34); CALCIUM LEVEL 8.9 MG/DL (8.3-10.6); CARBON DIOXIDE LEVEL 31.0 MMOL/L (20-31); CHLORIDE LEVEL 102.0 MMOL/L (98-107); CHOLESTEROL LEVEL 174.0 MG/DL (<200); CHOLESTEROL RISK RATIO 2.83 (<5); CREATININE FOR GFR 1.07 MG/DL (0.55-1.30); GLOMERULAR FILTRATION RATE 56.9 (>45); LDL CHOLESTEROL 79.7 MG/DL (<100); MAGNESIUM LEVEL 1.3 MG/DL (1.8-2.4); NON-HDL-C 112.7 MG/DL; POTASSIUM SERUM 3.7 MMOL/L (3.5-5.1); SODIUM LEVEL 143.0 MMOL/L (136-145); TRIGLYCERIDES LEVEL 165.0 MG/DL (<150)
== END ==
LOC: M PLALAB 09:20
PROVIDERS: ATTEND Nurse Practitioner Family
DX: Z00.00 Encounter for general adult medical examination without abnormal findings (principal); I10 Essential (primary) hypertension; E11.9 Type 2 diabetes mellitus without complications; E55.9 Vitamin D deficiency, unspecified; M1A.9XX0 Chronic gout, unspecified, without tophus (tophi); E78.2 Mixed hyperlipidemia

== ENCOUNTER → 2025-02-02 | Outpatient (REF) | payer MEDICARE ==
[2025-02-02 11:27] LABS: CREATININE, URINE 71.4 MG/DL
[2025-02-02 11:46] LABS: MALB URINE SIEMENS 455.0 MG/L; MAU/CREAT RATIO 637.2 MCG/MG (0.0-30.0)
== END ==
LOC: M LAB REF 10:24
PROVIDERS: ATTEND Nurse Practitioner Family
DX: Z00.00 Encounter for general adult medical examination without abnormal findings (principal); I10 Essential (primary) hypertension; E11.9 Type 2 diabetes mellitus without complications; E55.9 Vitamin D deficiency, unspecified

== ENCOUNTER → 2025-02-06 | Outpatient (CLI) | payer MEDICARE | LOC: M PLAIMG 13:41 | PROVIDERS: ATTEND Nurse Practitioner Adult Health | DX: R91.8 Other nonspecific abnormal finding of lung field (principal) ==